=== PATIENT | male | born 1960 | race African-American/Black ===

== ENCOUNTER 2017-01-20 12:13 | Inpatient (IN) | payer OTHER ==
[2017-01-20 14:01] VITALS: BMI 26.6
--- NOTE | 2017-01-20 17:54 | HP ---
CIWA Score - CIWA Score Nausea/Vomitin-Mild Nausea/No Vomiting Muscle Tremors: 4-Moderate,w/Arms Extend Anxiety: 4-Mod. Anxious/Guarded Agitation: 4-Moderately Restless Paroxysmal Sweats: 2 Orientation: 1-Uncertain about Date Tacttile Disturbances: 0-None Auditory Disturbances: 0-None Visual Disturbances: 0-None Headache: 1-Very Mild CIWA-Ar Total Score: 17 Admission ROS S - HPI Chief Complaint: WITHDRAWAL SX Allergies/Adverse Reactions: Allergies Allergy/AdvReac Type Severity Reaction Status Date / Time pseudoephedrine AdvReac Severe dizziness Verified 01/20/17 15:16 and headache pork derived (porcine) AdvReac Mild Vomiting Verified 01/20/17 15:16 [Pork derived (porcine)] tomato [Tomato] AdvReac Mild diarrhea Verified 01/20/17 15:16 lobster AdvReac Intermediate Vomiting Uncoded 01/20/17 15:16 History of Present Illness: 56 YEARS OLD MALE WITH LONG HISTORY OF ALCOHOL COCAINE NICOTINE DEPENDENCE, HAS COPD WALKER FOR AMBULATION BIPOLAR IS ADMITTED TO DETOX Exam Limitations: No Limitations - Ebola screening Have you traveled outside of the country in the last 21 days: No Have you had contact with anyone from an Ebola affected area: No Have you been sick,other than usual withdrawal symptoms: No Do you have a fever: No - Review of Systems Constitutional: Chills, Changes in sleep, Weight Stable EENT: reports: No Symptoms Reported Respiratory: reports: Cough, SOB with Exertion Cardiac: reports: No Symptoms Reported GI: reports: Constipated, Nausea, Poor Fluid Intake, Indigestion, Abdominal cramping : reports: Dysuria Musculoskeletal: reports: Back Pain, Joint Pain (LEFT HIP) Integumentary: reports: Lesions (ECZEMA) Neuro: reports: Tremors Endocrine: reports: No Symptoms Reported Hematology: reports: No Symptoms Reported Psychiatric: reports: Judgement Intact, Anxious, Depressed Other Systems: Reviewed and Negative Patient History - Patient Medical History Hx Anemia: No Hx Asthma: Yes Hx Chronic Obstructive Pulmonary Disease (COPD): Yes Hx Cancer: No Hx Cardiac Disorders: No Hx Congestive Heart Failure: No Hx Hypertension: No Hx Hypercholesterolemia: Yes (LIPITOR, PLAVIX) Hx Pacemaker: No HX Cerebrovascular Accident: No (MAHONEY 10/2015) Hx Seizures: No Hx Dementia: No Hx Diabetes: No Hx Gastrointestinal Disorders: Yes (hiatal hernia/acid reflux) Hx Liver Disease: No Hx Genitourinary Disorders: No Hx Sexually Transmitted Disorders: No Hx Renal Disease (ESRD): No Hx Thyroid Disease: No Hx Human Immunodeficiency Virus (HIV): No Hx Hepatitis C: No Hx Depression: No Hx Suicide Attempt: No Hx Bipolar Disorder: Yes (seroquel and trazodone by hx ) Hx Schizophrenia: No - Patient Surgical History Past Surgical History: Yes Hx Neurologic Surgery: No Hx Cataract Extraction: No Hx Cardiac Surgery: Yes (CARDIAC CATH 01/05/16-) Hx Lung Surgery: No Hx Breast Surgery: No Hx Breast Biopsy: No Hx Abdominal Surgery: No Hx Appendectomy: No Hx Cholecystectomy: No Hx Genitourinary Surgery: No Hx Orthopedic Surgery: Yes (prosthetic left hip,rt. hip pinning,rt. hand with plate & 8 screws) Other Surgical History: TONSILLECTOMY A CHILD/right hand x4; B/L inguinal hernia repair Anesthesia Reaction: No - PPD History Previous Implant?: Yes Documented Results: Negative w/proof Implanted On Prior [facility] Admission?: Yes Date: 11/29/15 Results: 0 mm PPD to be Administered?: Yes - Smoking Cessation Smoking history: Current every day smoker Have you smoked in the past 12 months: Yes Aproximately how many cigarettes per day: 5 If you are a former smoker, when did you quit?: 5 Cigars Per Day: 0 Hx Chewing Tobacco Use: No Initiated information on smoking cessation: Yes 'Breaking Loose' booklet given: 01/20/17 - Substance & Tx. History Hx Alcohol Use: Yes Hx Substance Use: Yes Substance Use Type: Alcohol, Cocaine Hx Substance Use Treatment: Yes - Substances Abused Crack Route: Smoking Frequency: 1-3 times last 30 days Amount used: $200-300 Age of first use: 30 Date of Last Use: 01/17/17 Alcohol-vodka/rum Route: Oral Frequency: Daily Amount used: 2 pts VOLKA Age of first use: 12 Date of Last Use: 01/18/17 Family Disease History - Family Disease History Family Disease History: Diabetes: Grandparent (cva), Heart Disease: Grandparent , Father (cva), Mother (HYPERTENSION), Brother () Admission Physical Exam BHS - Vital Signs Vital Signs: Vital Signs - 24 hr 01/20/17 13:55 Temperature 97.6 F Pulse Rate 83 Respiratory 18 Rate Blood Pressure 131/76 - Physical General Appearance: Yes: Nourished, Appropriately Dressed, Mild Distress, Tremorous, Irritable, Sweating, Anxious HEENTM: Yes: Hearing grossly Normal, Normal ENT Inspection, Normocephalic, Normal Voice Respiratory: Yes: Chest Non-Tender, No Respiratory Distress, No Accessory Muscle Use, Hyperresonant, Inspiration Neck: Yes: Supple, Trachea in good position Breast: Yes: Breasts Symetrical Cardiology: Yes: Regular Rhythm, Regular Rate, S1, S2 Abdominal: Yes: Non Tender, Soft Genitourinary: Yes: Within Normal Limits Back: Yes: Normal Inspection Musculoskeletal: Yes: Back pain, Joint swelling (FEET), Muscle Pain (LEFT HIP) Extremities: Yes: Non-Tender, Tremors, Other (LIMP TO THE LEFT) Neurological: Yes: Alert, Normal Response Integumentary: Yes: Warm Lymphatic: Yes: Within Normal Limits - Diagnostic (1) Alcohol dependence with uncomplicated withdrawal Current Visit: Yes Status: Acute (2) Asthma Current Visit: Yes Status: Acute Qualifiers: Asthma severity: mild intermittent Asthma complication type: uncomplicated Qualified Code(s): J45.20 - Mild intermittent asthma, uncomplicated (3) COPD (chronic obstructive pulmonary disease) Current Visit: Yes Status: Acute Qualifiers: COPD type: chronic bronchitis Chronic bronchitis type: simple Qualified Code(s): J41.0 - Simple chronic bronchitis (4) Eczema Current Visit: Yes Status: Acute Qualifiers: Eczema type: flexural Qualified Code(s): L20.82 - Flexural eczema (5) Hypercholesterolemia Current Visit: Yes Status: Acute (6) Nicotine dependence Current Visit: Yes Status: Acute Qualifiers: Nicotine product type: cigarettes Substance use status: in withdrawal Qualified Code(s): F17.213 - Nicotine dependence, cigarettes, with withdrawal (7) Walker as ambulation aid Current Visit: Yes Status: Chronic (8) Bipolar II disorder Current Visit: Yes Status: Suspected Cleared for Admission S - Detox or Rehab [facility] Level of Care: Medically Managed Detox Regimen/Protocol: Librium S Breath Alcohol Content Breath Alcohol Content: 0 Urine Drug Screen - Results Drug Screen Negative: No Urine Drug Screen Results: CHIP-Cocaine
[2017-01-20] MEDS ORDERED: NICOTINE POLACRILEX 2 MG GUM BC PRN (17:56)
[2017-01-20] MEDS ORDERED: MAG HYDROX/AL HYDROX/SIMETH 30 ML UNIT-DOSE CUP PO PRN (17:56)
[2017-01-20] MEDS ORDERED: MENTHOL/PHENOL 1 EACH UD MM PRN (17:56)
[2017-01-20] MEDS ORDERED: P-EPHED 60MG/TRIPROLIDI 2.5MG TABLET PO PRN (17:56)
[2017-01-20] MEDS ORDERED: MAGNESIUM CITRATE 300 ML BOTTLE PO PRN (17:56)
[2017-01-20] MEDS ORDERED: hydrOXYzine PAMOATE 50 MG CAPSULE (FP) PO PRN (17:56)
[2017-01-20] MEDS ORDERED: diphenhydrAMINE HCL 50 MG CAPSULE PO PRN (17:56)
[2017-01-20] MEDS ORDERED: MAGNESIUM HYDROX 2400MG/30ML ORAL SUSPENSION 30 ML CUP PO PRN (17:56)
[2017-01-20] MEDS ORDERED: chlordiazePOXIDE HCL 25 MG CAPSULE PO PRN (17:56)
[2017-01-20] MEDS ORDERED: IBUPROFEN 400 MG TABLET (FP) PO PRN (17:56)
[2017-01-20] MEDS ORDERED: LOPERAMIDE HCL 2 MG CAPSULE PO PRN (17:56)
[2017-01-20] MEDS ORDERED: guaiFENesin/D-METHORPHAN HB 10 ML UNIT-DOSE CUPS PO PRN (17:56)
[2017-01-20] MEDS ORDERED: ALBUTEROL SO4 6.7 GM HFA INHALER IH PRN (18:00)
[2017-01-20] MEDS ORDERED: ALBUTEROL SO4 2.5/IPRATROPIUM 0.5 INH SOL 3 ML VIAL.NEB. NEB PRN (18:00)
[2017-01-20] MEDS ORDERED: COLLOIDAL OATMEAL 1 BAR EACH TP PRN (18:03)
[2017-01-20] MEDS: chlordiazePOXIDE HCL 25 MG CAPSULE PO SCH (22:45)
[2017-01-20] MEDS: THIAMINE HCL 100 MG TABLET (FP) PO SCH (22:45)
[2017-01-20] MEDS: ARTIFICIAL TEARS (POLYVINYL ALCOHOL 1.4%) OPTH DROPS OU SCH (22:46)
[2017-01-20] MEDS: TRIAMCINOLONE ACET 0.1% OINT 15 GM TUBE TP SCH (22:46)
[2017-01-20] MEDS: ATORVASTATIN CA 20 MG TABLET (FP) PO SCH (22:46)
[2017-01-20 23:09] LABS: URINE APPEARANCE CLEAR; URINE BILIRUBIN NEGATIVE (NEGATIVE); URINE BLOOD NEGATIVE (NEGATIVE); URINE COLOR YELLOW; URINE GLUCOSE (UA) NEGATIVE (NEGATIVE); URINE KETONE NEGATIVE (NEGATIVE); URINE LEUK ESTERASE NEGATIVE (NEGATIVE); URINE NITRITE NEGATIVE (NEGATIVE); URINE PROTEIN NEGATIVE (NEGATIVE); URINE UROBILINOGEN 4.0 E.U/dl E.U./dl (0.2-1.0)
[2017-01-21] MEDS: chlordiazePOXIDE HCL 25 MG CAPSULE PO SCH ×4 (05:38→22:47)
[2017-01-21] MEDS: TAMSULOSIN HCL 0.4 MG CAP.ER.24H (FP) PO SCH (08:53)
[2017-01-21] MEDS: ACETAMINOPHEN 325 MG TABLET (FP) PO PRN (08:55)
[2017-01-21 10:29] LABS: MCHC 33.5 g/dl (32.0-35.9); MEAN CELL VOLUME 86.4 fl (80-96); MEAN PLT VOLUME 11.5 fl (7.5-11.1); PLATELET COUNT 193 K/MM3 (134-434); RDW 14.6 % (11.9-15.9); WHITE BLOOD COUNT 5.7 K/mm3 (4.0-10.0)
[2017-01-21] MEDS: TRIAMCINOLONE ACET 0.1% OINT 15 GM TUBE TP SCH ×4 (10:33→22:48)
[2017-01-21] MEDS: LIDOCAINE 5% TOPICAL PATCH TP SCH (10:34)
[2017-01-21] MEDS: PRENATAL VITAMINS W/ FOLIC ACID TABLET (FP) PO SCH (10:34)
[2017-01-21] MEDS: ARTIFICIAL TEARS (POLYVINYL ALCOHOL 1.4%) OPTH DROPS OU SCH ×4 (10:34→22:48)
--- NOTE | 2017-01-21 10:36 | CONSULT ---
[facility] Psychiatric Consult - Data Date of interview: 01/21/17 Admission source: [facility] Identifying data: Another admisssion to [facility] for this 55 y/o AA male seeking detox treatment on for alcohol and cocaine dependence.Patient is single,a father of two,domiciled,unemployed and supported on [facility] benefits. Substance Abuse History: - Smoking Cessation. Smoking history: Current every day smoker. Have you smoked in the past 12 months: Yes. Aproximately how many cigarettes per day: 5. If you are a former smoker, when did you quit?: 5. Cigars Per Day: 0. Hx Chewing Tobacco Use: No. Initiated information on smoking cessation: Yes. 'Breaking Loose' booklet given: 01/20/17. - Substance & Tx. History. Hx Alcohol Use: Yes. Hx Substance Use: Yes. Substance Use Type : Alcohol, Cocaine. Hx Substance Use Treatment: Yes. - Substances Abused. Crack. Route: Smoking. Frequency: 1-3 times last 30 days. Amount used: $200- 300. Age of first use: 30. Date of Last Use: 01/17/17. Alcohol-vodka/rum. Route: Oral. Frequency: Daily. Amount used: 2 pts VOLKA. Age of first use: 12. Date of Last Use: 01/18/17. Confirmed by the patient in this session. Medical History: Bronchial asthma,GERD,hypertension,hypercholesterolemia,Valencia's palsy (2015),COPD and BPH (benign prostatic hyperplasia).History of orthopedic surgery : prosthetic left hip,right hip pinning and right hand (plate and screws in situ).Noted history of tonsillectomy (childhood) and bilateral inguinal heniorraphy. Psychiatric History: Recent onset of psychiatric disturbances (seven years ago) .Diagnosed with Major Depressive Disorder.Revised recently as Bipolar Disorder.Mr Euceda reports current treatment at [facility] where he is maintained on seroquel 200 mg/hs + trazodone 150 mg/hs.Parul states that he last took his medications four days ago.No history of suicide attempts. Physical/Sexual Abuse/Trauma History: Patient denies. Additional Comment: Urine Drug Screen Results: CHIP-Cocaine.Noted. Mental Status Exam - Mental Status Exam Alert and Oriented to: Time, Place, Person Cognitive Function: Good Patient Appearance: Well Groomed Mood: Withdrawn, Anxious, Hopeful Affect: Mood Congruent Patient Behavior: Fatigued, Cooperative Speech Pattern: Clear Voice Loudness: Normal Thought Process: Goal Oriented Thought Disorder: Not Present Hallucinations: Denies Suicidal Ideation: Denies Homicidal Ideation: Denies Insight/Judgement: Fair Appetite: Good Muscle strength/Tone: Normal Gait/Station: Other (walks with a limp) Psychiatric Findings - Problem List ([place] 1, 2,3) (1) Alcohol dependence with uncomplicated withdrawal Current Visit: Yes Status: Acute (2) Cocaine dependence Current Visit: Yes Status: Acute (3) Nicotine dependence Current Visit: Yes Status: Acute Qualifiers: Nicotine product type: cigarettes Substance use status: in withdrawal Qualified Code(s): F17.213 - Nicotine dependence, cigarettes, with withdrawal (4) Substance induced mood disorder Current Visit: Yes Status: Chronic (5) Bipolar II disorder Current Visit: Yes Status: Chronic Comment: History. (6) Asthma Current Visit: Yes Status: Chronic Qualifiers: Asthma severity: mild intermittent Asthma complication type: uncomplicated Qualified Code(s): J45.20 - Mild intermittent asthma, uncomplicated (7) COPD (chronic obstructive pulmonary disease) Current Visit: Yes Status: Chronic Qualifiers: COPD type: chronic bronchitis Chronic bronchitis type: simple Qualified Code(s): J41.0 - Simple chronic bronchitis (8) Eczema Current Visit: Yes Status: Chronic Qualifiers: Eczema type: flexural Qualified Code(s): L20.82 - Flexural eczema (9) Hypercholesterolemia Current Visit: Yes Status: Chronic (10) Benign prostatic hypertrophy without outflow obstruction Current Visit: Yes Status: Chronic (11) Chronic low back pain Current Visit: Yes Status: Chronic Qualifiers: Back pain laterality: bilateral (12) Essential hypertension Current Visit: Yes Status: Chronic (13) Gastroesophageal reflux disease Current Visit: Yes Status: Chronic Qualifiers: Esophagitis presence: without esophagitis Qualified Code(s): K21.9 - Gastro-esophageal reflux disease without esophagitis (14) History of scoliosis Current Visit: Yes Status: Chronic - Initial Treatment Plan Initial Treatment Plan: Psychoeducation.Detoxification.Medications seroquel 200 mg po hs + trazodone 150 mg po hs.Side effects/benefits discusssed with patient.Made aware of the risk of priapism (trazodone).He agrees with this plan.Observation.Medications confirmed by review of pharmacy claims on 12/06/16 @ [facility].
[2017-01-21] MEDS: NICOTINE 14 MG/24 HOURS TOPICAL PATCH TD SCH (10:37)
[2017-01-21 10:49] LABS: ALBUMIN 3.6 g/dl (3.4-5.0); ALK PHOS 107 U/L (45-117); ANION GAP 9 (8-16); BILIRUBIN,TOTAL 0.6 mg/dL (0.2-1.0); CALCIUM 9.8 mg/dL (8.5-10.1); CO2 27 mmol/L (21-32); CREATININE 0.9 mg/dL (0.7-1.3); GLUCOSE,RANDOM 124 mg/dL (74-106); SGOT/AST 26 U/L (15-37); SGPT/ALT 23 U/L (12-78); TOT PROT 6.5 g/dl (6.4-8.2)
--- NOTE | 2017-01-21 10:49 | PN ---
[facility] CIWA - CIWA Score Nausea/Vomitin-No Nausea/No Vomiting Muscle Tremors: 4-Moderate,w/Arms Extend Anxiety: 4-Mod. Anxious/Guarded Agitation: 4-Moderately Restless Paroxysmal Sweats: 1-Minimal Palms Moist Orientation: 0-Oriented Tacttile Disturbances: 3-Moderate Itch/Numb/Burn Auditory Disturbances: 0-None Visual Disturbances: 0-None Headache: 0-None Present CIWA-Ar Total Score: 16 BHS Progress Note (SOAP) Subjective: ANXIETY,SWEATS,TREMORS,JOINT PAINS. Objective: 01/21/17 10:48 Vital Signs Temperature 98.5 F 01/21/17 10:12 Pulse Rate 79 01/21/17 10:12 Respiratory Rate 18 01/21/17 10:12 Blood Pressure 117/73 01/21/17 10:12 O2 Sat by Pulse Oximetry (%) Laboratory Last Values Urine Color Yellow 01/20/17 22:50 Urine Appearance Clear 01/20/17 22:50 Urine pH 7.0 (5.0-8.0) 01/20/17 22:50 Ur Specific [place] 1.019 (1.001-1.035) 01/20/17 22:50 Urine Protein Negative (NEGATIVE) 01/20/17 22:50 Urine Glucose (UA) Negative (NEGATIVE) 01/20/17 22:50 Urine Ketones Negative (NEGATIVE) 01/20/17 22:50 Urine Blood Negative (NEGATIVE) 01/20/17 22:50 Urine Nitrite Negative (NEGATIVE) 01/20/17 22:50 Urine Bilirubin Negative (NEGATIVE) 01/20/17 22:50 Urine Urobilinogen 4.0 e.u/dl E.U./dl (0.2-1.0) 01/20/17 22:50 Ur Leukocyte Esterase Negative (NEGATIVE) 01/20/17 22:50 Assessment: 01/21/17 10:49 WITHDRAWAL SX Plan: CONTINUE DETOX
[2017-01-21 11:03] LABS: HIV 1 & 2 AB NEGATIVE; HIV 1 AGp24 NEGATIVE
--- NOTE | 2017-01-21 11:07 | EKG ---
Test Reason : Blood Pressure : / mmHG Vent. Rate : 071 BPM Atrial Rate : 071 BPM P-R Int : 158 ms QRS Dur : 092 ms QT Int : 378 ms P-R-T Axes : 042 024 026 degrees QTc Int : 410 ms NORMAL SINUS RHYTHM MODERATE VOLTAGE CRITERIA FOR LVH, MAY BE NORMAL VARIANT EARLY REPOLARIZATION BORDERLINE ECG WHEN COMPARED WITH ECG OF 10-MAR-2016 22:12, ST SEGMENT VARIATION Confirmed by SAIMA BENNETT, CAROL ([id number]) on 01/21/2017 11:07:09 AM Referred By: Confirmed By:CAROL LANDAVERDE MD
[2017-01-21] MEDS: THIAMINE HCL 100 MG TABLET (FP) PO SCH (22:47)
[2017-01-21] MEDS: ATORVASTATIN CA 20 MG TABLET (FP) PO SCH (22:47)
[2017-01-21] MEDS: traZODone HCL 50 MG TABLET (FP) PO SCH (22:47)
[2017-01-21] MEDS: QUEtiapine FUMARATE 200 MG TABLET PO SCH (22:47)
[2017-01-22] MEDS: chlordiazePOXIDE HCL 25 MG CAPSULE PO SCH ×3 (06:03→17:43)
[2017-01-22] MEDS: ACETAMINOPHEN 325 MG TABLET (FP) PO PRN (06:04)
[2017-01-22] MEDS: PRENATAL VITAMINS W/ FOLIC ACID TABLET (FP) PO SCH (10:39)
[2017-01-22] MEDS: TAMSULOSIN HCL 0.4 MG CAP.ER.24H (FP) PO SCH (10:40)
[2017-01-22] MEDS: ARTIFICIAL TEARS (POLYVINYL ALCOHOL 1.4%) OPTH DROPS OU SCH ×4 (12:33→22:52)
[2017-01-22] MEDS: TRIAMCINOLONE ACET 0.1% OINT 15 GM TUBE TP SCH ×4 (12:33→22:52)
[2017-01-22] MEDS: LIDOCAINE 5% TOPICAL PATCH TP SCH (12:33)
[2017-01-22] MEDS: NICOTINE 14 MG/24 HOURS TOPICAL PATCH TD SCH (12:33)
--- NOTE | 2017-01-22 12:37 | PN ---
[facility] CIWA - CIWA Score Nausea/Vomitin-No Nausea/No Vomiting Muscle Tremors: 4-Moderate,w/Arms Extend Anxiety: 4-Mod. Anxious/Guarded Agitation: 4-Moderately Restless Paroxysmal Sweats: 1-Minimal Palms Moist Orientation: 0-Oriented Tacttile Disturbances: 3-Moderate Itch/Numb/Burn Auditory Disturbances: 0-None Visual Disturbances: 0-None Headache: 0-None Present CIWA-Ar Total Score: 16 S Progress Note (SOAP) Subjective: ANXIETY,TREMORS,SWEATS,BODY ACHES. Objective: 01/22/17 12:37 Vital Signs Temperature 97.0 F L 01/22/17 09:56 Pulse Rate 90 01/22/17 09:56 Respiratory Rate 20 01/22/17 09:56 Blood Pressure 121/78 01/22/17 09:56 O2 Sat by Pulse Oximetry (%) Laboratory Last Values WBC 5.7 K/mm3 (4.0-10.0) D 01/21/17 06:00 RBC 4.66 M/mm3 (4.00-5.60) 01/21/17 06:00 Hgb 13.5 GM/dL (11.7-16.9) 01/21/17 06:00 Hct 40.3 % (35.4-49) 01/21/17 06:00 MCV 86.4 fl (80-96) 01/21/17 06:00 MCHC 33.5 g/dl (32.0-35.9) 01/21/17 06:00 RDW 14.6 % (11.9-15.9) 01/21/17 06:00 Plt Count 193 K/MM3 (134-434) 01/21/17 06:00 MPV 11.5 fl (7.5-11.1) H D 01/21/17 06:00 Sodium 144 mmol/L (136-145) 01/21/17 06:00 Potassium 3.7 mmol/L (3.5-5.1) 01/21/17 06:00 Chloride 108 mmol/L (98-107) H 01/21/17 06:00 Carbon Dioxide 27 mmol/L (21-32) D 01/21/17 06:00 Anion Gap 9 (8-16) 01/21/17 06:00 BUN 16 mg/dL (7-18) 01/21/17 06:00 Creatinine 0.9 mg/dL (0.7-1.3) 01/21/17 06:00 Creat Clearance w eGFR > 60 (>60) 01/21/17 06:00 Random Glucose 124 mg/dL (74-106) H 01/21/17 06:00 Calcium 9.8 mg/dL (8.5-10.1) 01/21/17 06:00 Total Bilirubin 0.6 mg/dL (0.2-1.0) D 01/21/17 06:00 AST 26 U/L (15-37) 01/21/17 06:00 ALT 23 U/L (12-78) D 01/21/17 06:00 Alkaline Phosphatase 107 U/L (45-117) 01/21/17 06:00 Total Protein 6.5 g/dl (6.4-8.2) 01/21/17 06:00 Albumin 3.6 g/dl (3.4-5.0) 01/21/17 06:00 Urine Color Yellow 01/20/17 22:50 Urine Appearance Clear 01/20/17 22:50 Urine pH 7.0 (5.0-8.0) 01/20/17 22:50 Ur Specific [place] 1.019 (1.001-1.035) 01/20/17 22:50 Urine Protein Negative (NEGATIVE) 01/20/17 22:50 Urine Glucose (UA) Negative (NEGATIVE) 01/20/17 22:50 Urine Ketones Negative (NEGATIVE) 01/20/17 22:50 Urine Blood Negative (NEGATIVE) 01/20/17 22:50 Urine Nitrite Negative (NEGATIVE) 01/20/17 22:50 Urine Bilirubin Negative (NEGATIVE) 01/20/17 22:50 Urine Urobilinogen 4.0 e.u/dl E.U./dl (0.2-1.0) 01/20/17 22:50 Ur Leukocyte Esterase Negative (NEGATIVE) 01/20/17 22:50 RPR Titer Nonreactive (NONREACTIVE) 01/21/17 06:00 Hepatitis C Antibody <0.1 s/co ratio (0.0-0.9) 01/20/17 06:00 HIV 1&2 Antibody Screen Negative 01/20/17 08:00 HIV P24 Antigen Negative 01/20/17 08:00 Assessment: 01/22/17 12:37 WITHDRAWAL SX Plan: CONTINUE DETOX
[2017-01-22] MEDS: CYCLOBENZAPRINE HCL 10 MG TABLET (FP) PO SCH ×2 (16:16→22:52)
[2017-01-22] MEDS: ATORVASTATIN CA 20 MG TABLET (FP) PO SCH (22:52)
[2017-01-22] MEDS: traZODone HCL 50 MG TABLET (FP) PO SCH (22:52)
[2017-01-22] MEDS: THIAMINE HCL 100 MG TABLET (FP) PO SCH (22:52)
[2017-01-22] MEDS: QUEtiapine FUMARATE 200 MG TABLET PO SCH (22:52)
[2017-01-22] MEDS: chlordiazePOXIDE 5 MG CAPSULE PO SCH (22:54)
[2017-01-23] MEDS: chlordiazePOXIDE 5 MG CAPSULE PO SCH ×3 (06:03→17:56)
[2017-01-23] MEDS: CYCLOBENZAPRINE HCL 10 MG TABLET (FP) PO SCH ×3 (06:03→23:02)
[2017-01-23] MEDS: PRENATAL VITAMINS W/ FOLIC ACID TABLET (FP) PO SCH (10:44)
[2017-01-23] MEDS: ARTIFICIAL TEARS (POLYVINYL ALCOHOL 1.4%) OPTH DROPS OU SCH ×4 (10:44→23:03)
[2017-01-23] MEDS: NICOTINE 14 MG/24 HOURS TOPICAL PATCH TD SCH (10:44)
[2017-01-23] MEDS: TAMSULOSIN HCL 0.4 MG CAP.ER.24H (FP) PO SCH (10:44)
[2017-01-23] MEDS: TRIAMCINOLONE ACET 0.1% OINT 15 GM TUBE TP SCH ×4 (10:44→23:03)
[2017-01-23] MEDS: LIDOCAINE 5% TOPICAL PATCH TP SCH (10:45)
--- NOTE | 2017-01-23 11:16 | PN ---
BHS Progress Note (SOAP) Subjective: DECREASED ANXIETY,SWEATS,TREMORS. SLIGHT BODY ACHES. Objective: 01/23/17 11:15 Vital Signs Temperature 97.0 F L 01/23/17 09:51 Pulse Rate 94 H 01/23/17 09:51 Respiratory Rate 16 01/23/17 09:51 Blood Pressure 128/76 01/23/17 09:51 O2 Sat by Pulse Oximetry (%) Assessment: 01/23/17 11:15 WITHDRAWAL SX Plan: CONTINUE DETOX
--- NOTE | 2017-01-23 21:41 | PN ---
BHS Progress Note Note: received nurse call refuse librium 15 mg x 1 less withdrawal sx observation care level
[2017-01-23 22:33] VITALS: BP 142/85; PULSE 89; TEMP 97
[2017-01-23] MEDS: chlordiazePOXIDE HCL 10 MG CAPSULE PO SCH (23:02)
[2017-01-23] MEDS: traZODone HCL 50 MG TABLET (FP) PO SCH (23:02)
[2017-01-23] MEDS: QUEtiapine FUMARATE 200 MG TABLET PO SCH (23:03)
[2017-01-23] MEDS: THIAMINE HCL 100 MG TABLET (FP) PO SCH (23:03)
[2017-01-23] MEDS: ATORVASTATIN CA 20 MG TABLET (FP) PO SCH (23:03)
[2017-01-24] MEDS: CYCLOBENZAPRINE HCL 10 MG TABLET (FP) PO SCH (05:43)
[2017-01-24] MEDS: chlordiazePOXIDE HCL 10 MG CAPSULE PO SCH (05:43)
--- NOTE | 2017-01-24 09:56 | DS ---
[facility] Detox Discharge Summary Admission Date: 01/20/17 Discharge Date: 01/24/17 - History Present History: Alcohol Dependence, Cocaine Dependence Pertinent Past History: BPH HTN Hypercholesterolemia STEMI Asthma - Physical Exam Results Vital Signs: Vital Signs Temperature 97.0 F L 01/23/17 22:32 Pulse Rate 89 01/23/17 22:32 Respiratory Rate 18 01/24/17 00:30 Blood Pressure 142/85 01/23/17 22:32 O2 Sat by Pulse Oximetry (%) Pertinent Admission Physical Exam Findings: Withdrawal sx. Laboratory Last Values WBC 5.7 K/mm3 (4.0-10.0) D 01/21/17 06:00 RBC 4.66 M/mm3 (4.00-5.60) 01/21/17 06:00 Hgb 13.5 GM/dL (11.7-16.9) 01/21/17 06:00 Hct 40.3 % (35.4-49) 01/21/17 06:00 MCV 86.4 fl (80-96) 01/21/17 06:00 MCHC 33.5 g/dl (32.0-35.9) 01/21/17 06:00 RDW 14.6 % (11.9-15.9) 01/21/17 06:00 Plt Count 193 K/MM3 (134-434) 01/21/17 06:00 MPV 11.5 fl (7.5-11.1) H D 01/21/17 06:00 Sodium 144 mmol/L (136-145) 01/21/17 06:00 Potassium 3.7 mmol/L (3.5-5.1) 01/21/17 06:00 Chloride 108 mmol/L (98-107) H 01/21/17 06:00 Carbon Dioxide 27 mmol/L (21-32) D 01/21/17 06:00 Anion Gap 9 (8-16) 01/21/17 06:00 BUN 16 mg/dL (7-18) 01/21/17 06:00 Creatinine 0.9 mg/dL (0.7-1.3) 01/21/17 06:00 Creat Clearance w eGFR > 60 (>60) 01/21/17 06:00 Random Glucose 124 mg/dL (74-106) H 01/21/17 06:00 Calcium 9.8 mg/dL (8.5-10.1) 01/21/17 06:00 Total Bilirubin 0.6 mg/dL (0.2-1.0) D 01/21/17 06:00 AST 26 U/L (15-37) 01/21/17 06:00 ALT 23 U/L (12-78) D 01/21/17 06:00 Alkaline Phosphatase 107 U/L (45-117) 01/21/17 06:00 Total Protein 6.5 g/dl (6.4-8.2) 01/21/17 06:00 Albumin 3.6 g/dl (3.4-5.0) 01/21/17 06:00 Urine Color Yellow 01/20/17 22:50 Urine Appearance Clear 01/20/17 22:50 Urine pH 7.0 (5.0-8.0) 01/20/17 22:50 Ur Specific [place] 1.019 (1.001-1.035) 01/20/17 22:50 Urine Protein Negative (NEGATIVE) 01/20/17 22:50 Urine Glucose (UA) Negative (NEGATIVE) 01/20/17 22:50 Urine Ketones Negative (NEGATIVE) 01/20/17 22:50 Urine Blood Negative (NEGATIVE) 01/20/17 22:50 Urine Nitrite Negative (NEGATIVE) 01/20/17 22:50 Urine Bilirubin Negative (NEGATIVE) 01/20/17 22:50 Urine Urobilinogen 4.0 e.u/dl E.U./dl (0.2-1.0) 01/20/17 22:50 Ur Leukocyte Esterase Negative (NEGATIVE) 01/20/17 22:50 RPR Titer Nonreactive (NONREACTIVE) 01/21/17 06:00 Hepatitis C Antibody <0.1 s/co ratio (0.0-0.9) 01/20/17 06:00 HIV 1&2 Antibody Screen Negative 01/20/17 08:00 HIV P24 Antigen Negative 01/20/17 08:00 labs noted - Treatment Hospital Course: Detox Protocol Followed, Detoxed Safely, Responded well, Discharged Condition Good, Rehab Referral Accepted - Medication Discharge Medications: Ambulatory Orders Lidocaine 5% Patch [Lidoderm -] 2 patch TP DAILY 02/19/15 Albuterol Sulfate Inhaler - [Ventolin HFA Inhaler -] 2 inh IH Q4H PRN #1 inh 08/01 Tamsulosin HCl [Flomax -] 0.4 mg PO DAILY #30 cap.er.24h 11/06/15 Acetaminophen [Tylenol] 650 mg PO Q6H PRN 03/07/16 Docusate Sodium [Colace -] 100 mg PO DAILY PRN 03/07/16 Trazodone HCl [Desyrel -] 150 mg PO HS PRN 03/07/16 Quetiapine Fumarate [Seroquel -] 200 mg PO HS #30 tablet 03/08/16 Atorvastatin Ca [Lipitor] 20 mg PO HS 06/23/16 Dextran 70/Hypromellose [Artificial Tears Eye Drops] 2 drop OP Q2H 01/20/17 Famotidine [Pepcid] 20 mg PO HS 01/20/17 Triamcinolone 0.1% Ointment [Aristocort 0.1% Ointment -] 1 applic TP BID Quetiapine Fumarate [Seroquel -] 200 mg PO HS #30 tab 01/21/17 Trazodone HCl 100 mg PO HS #30 tablet 01/21/17 - Diagnosis (1) Alcohol dependence with uncomplicated withdrawal Status: Acute (2) Bipolar II disorder, mild, depressed, with anxious distress, in full remission Status: Acute (3) Cocaine dependence Status: Acute (4) Nicotine dependence Status: Acute Qualifiers: Nicotine product type: cigarettes Substance use status: in withdrawal Qualified Code(s): F17.213 - Nicotine dependence, cigarettes, with withdrawal (5) Asthma Status: Chronic Qualifiers: Asthma severity: mild intermittent Asthma complication type: uncomplicated Qualified Code(s): J45.20 - Mild intermittent asthma, uncomplicated (6) Benign prostatic hypertrophy without outflow obstruction Status: Chronic (7) Bipolar II disorder Status: Chronic (8) Essential hypertension Status: Chronic (9) Gastroesophageal reflux disease Status: Chronic Qualifiers: Esophagitis presence: without esophagitis Qualified Code(s): K21.9 - Gastro-esophageal reflux disease without esophagitis (10) History of scoliosis Status: Chronic (11) Hypercholesterolemia Status: Chronic (12) Substance induced mood disorder Status: Chronic - AMA Did Patient Leave Against Medical Advice: No
== END 2017-01-24 05:48 | disposition home or self-care (01) | DRG 774 ==
LOC: YASAS 12:13 → Y3N 17:34
PROVIDERS: ADMIT Internal Medicine; ATTEND Internal Medicine
PROC: HZ2ZZZZ Detoxification Services for Substance Abuse Treatment (ICD-10-PCS; principal; 2017-01-24)
DX: F10.230 Alcohol dependence with withdrawal, uncomplicated (principal); F14.20 Cocaine dependence, uncomplicated; F17.213 Nicotine dependence, cigarettes, with withdrawal; F31.81 Bipolar II disorder; F19.24 Other psychoactive substance dependence with psychoactive substance-induced mood disorder; J45.20 Mild intermittent asthma, uncomplicated; J41.0 Simple chronic bronchitis; K21.9 Gastro-esophageal reflux disease without esophagitis; E78.00 Pure hypercholesterolemia, unspecified; M41.9 Scoliosis, unspecified; N40.0 Benign prostatic hyperplasia without lower urinary tract symptoms; L20.82 Flexural eczema
CPT/HCPCS: 36415; 80053; 81003; 85027; 86593; 87389; 93005; 93010

== ENCOUNTER 2017-04-18 16:59 | Inpatient (IN) | payer OTHER ==
[2017-04-18 18:05] VITALS: BMI 26.6
--- NOTE | 2017-04-18 19:17 | HP ---
CIWA Score - CIWA Score Nausea/Vomitin-Mild Nausea/No Vomiting Muscle Tremors: 4-Moderate,w/Arms Extend Anxiety: 4-Mod. Anxious/Guarded Agitation: 4-Moderately Restless Paroxysmal Sweats: 1-Minimal Palms Moist Orientation: 1-Uncertain about Date Tacttile Disturbances: 0-None Auditory Disturbances: 0-None Visual Disturbances: 0-None Headache: 0-None Present CIWA-Ar Total Score: 15 Admission ROS S - HPI Chief Complaint: WITHDRAWAL SX Allergies/Adverse Reactions: Allergies Allergy/AdvReac Type Severity Reaction Status Date / Time pseudoephedrine AdvReac Severe dizziness Verified 04/18/17 18:39 and headache pork derived (porcine) AdvReac Mild Vomiting Verified 04/18/17 18:39 [Pork derived (porcine)] tomato [Tomato] AdvReac Mild diarrhea Verified 04/18/17 18:39 lobster AdvReac Intermediate Vomiting Uncoded 04/18/17 18:39 History of Present Illness: 56 YEARS OLD MALE WITH LONG HISTORY OF ALCOHOL COCAINE DEPENDENCE HAS BPH, HYPERLIPIDEMIA, CHRONIC LUMBAR RIGHT HIP PAIN, COPD, ECZEM GERD AND BIPOLAR II IS ADMITTED TO DETOX Exam Limitations: No Limitations - Ebola screening Have you traveled outside of the country in the last 21 days: No Have you had contact with anyone from an Ebola affected area: No Have you been sick,other than usual withdrawal symptoms: No Do you have a fever: No - Review of Systems Constitutional: Chills, Changes in sleep, Weight Stable EENT: reports: Dental Problems (PREPARATION FOR UPPER FRONT DENTURE) Respiratory: reports: SOB with Exertion Cardiac: reports: No Symptoms Reported GI: reports: Nausea, Poor Fluid Intake, Indigestion, Abdominal cramping : reports: Dysuria Musculoskeletal: reports: Back Pain, Joint Pain (RIGHT HIP) Integumentary: reports: Lesions (PSORIASIS) Neuro: reports: Tremors Endocrine: reports: No Symptoms Reported Hematology: reports: No Symptoms Reported Psychiatric: reports: Judgement Intact, Anxious, Depressed Other Systems: Reviewed and Negative Patient History - Patient Medical History Hx Anemia: No Hx Asthma: Yes Hx Chronic Obstructive Pulmonary Disease (COPD): Yes Hx Cancer: No Hx Cardiac Disorders: No Hx Congestive Heart Failure: No Hx Hypertension: No Hx Hypercholesterolemia: Yes (LIPITOR, PLAVIX) Hx Pacemaker: No HX Cerebrovascular Accident: No (DENZEL 10/2015) Hx Seizures: No Hx Dementia: No Hx Diabetes: No Hx Gastrointestinal Disorders: Yes (hiatal hernia/acid reflux) Hx Liver Disease: No Hx Genitourinary Disorders: No Hx Sexually Transmitted Disorders: No Hx Renal Disease (ESRD): No Hx Thyroid Disease: No Hx Human Immunodeficiency Virus (HIV): No Hx Hepatitis C: No Hx Depression: No Hx Suicide Attempt: No Hx Bipolar Disorder: Yes (seroquel and trazodone by hx ) Hx Schizophrenia: No - Patient Surgical History Past Surgical History: Yes Hx Neurologic Surgery: No Hx Cataract Extraction: No Hx Cardiac Surgery: Yes (CARDIAC CATH 01/05/16-) Hx Lung Surgery: No Hx Breast Surgery: No Hx Breast Biopsy: No Hx Abdominal Surgery: No Hx Appendectomy: No Hx Cholecystectomy: No Hx Genitourinary Surgery: No Hx Orthopedic Surgery: Yes (prosthetic left hip,rt. hip pinning,rt. hand with plate & 8 screws) Other Surgical History: TONSILLECTOMY A CHILD/right hand x4; B/L inguinal hernia repair Anesthesia Reaction: No - PPD History Previous Implant?: Yes Documented Results: Negative w/proof Implanted On Prior [facility] Admission?: Yes Date: 01/22/17 Results: 0 mm PPD to be Administered?: No - Smoking Cessation Smoking history: Former smoker Have you smoked in the past 12 months: No Aproximately how many cigarettes per day: 0 If you are a former smoker, when did you quit?: 0 Cigars Per Day: 0 Hx Chewing Tobacco Use: No Initiated information on smoking cessation: No - Substance & Tx. History Hx Alcohol Use: Yes Hx Substance Use: Yes Substance Use Type: Alcohol, Cocaine Hx Substance Use Treatment: Yes - Substances Abused Alcohol Route: Oral Frequency: Daily Amount used: liquor- 3 pints, beer- 1 six pack Age of first use: 12 Date of Last Use: 04/18/17 Cocaine Route: Inhalation Frequency: Daily Amount used: 4 gm Age of first use: 28 Date of Last Use: 04/18/17 Family Disease History - Family Disease History Family Disease History: Diabetes: Grandparent (cva), Heart Disease: Grandparent , Father (cva), Mother (HYPERTENSION), Brother () Admission Physical Exam BHS - Vital Signs Vital Signs: Vital Signs - 24 hr 04/18/17 18:01 Temperature 98.7 F Pulse Rate 121 H Respiratory 20 Rate Blood Pressure 139/96 - Physical General Appearance: Yes: Appropriately Dressed, Mild Distress, Tremorous, Irritable, Sweating, Anxious HEENTM: Yes: Hearing grossly Normal, Normal ENT Inspection, Normocephalic, Normal Voice Respiratory: Yes: Chest Non-Tender, Normal Breath Sounds, No Respiratory Distress, No Accessory Muscle Use, Hyperresonant, Inspiration Neck: Yes: Supple, Trachea in good position Breast: Yes: Breasts Symetrical Cardiology: Yes: Regular Rhythm, S1, S2, Tachycardia Abdominal: Yes: Non Tender, Soft Genitourinary: Yes: Within Normal Limits Back: Yes: Normal Inspection Musculoskeletal: Yes: Gait Steady (CANE), Back pain, Muscle Pain (RIGHT HIP) Extremities: Yes: Non-Tender, Tremors Neurological: Yes: Alert, Motor Strength 5/5, Normal Response, Depressed Affect Integumentary: Yes: Warm Lymphatic: Yes: Within Normal Limits - Diagnostic (1) Alcohol dependence with uncomplicated withdrawal Current Visit: Yes Status: Acute (2) Bipolar II disorder, mild, depressed, with anxious distress, in full remission Current Visit: Yes Status: Suspected (3) Asthma Current Visit: Yes Status: Chronic Qualifiers: Asthma severity: mild intermittent Asthma complication type: uncomplicated Qualified Code(s): J45.20 - Mild intermittent asthma, uncomplicated (4) Benign prostatic hypertrophy without outflow obstruction Current Visit: Yes Status: Chronic (5) COPD (chronic obstructive pulmonary disease) Current Visit: Yes Status: Chronic Qualifiers: COPD type: chronic bronchitis Chronic bronchitis type: simple Qualified Code(s): J41.0 - Simple chronic bronchitis (6) Chronic low back pain Current Visit: Yes Status: Chronic Qualifiers: Back pain laterality: bilateral Sciatica presence: without sciatica Qualified Code(s): M54.5 - Low back pain; G89.29 - Other chronic pain (7) Eczema Current Visit: Yes Status: Chronic Qualifiers: Eczema type: flexural Qualified Code(s): L20.82 - Flexural eczema (8) Hypercholesterolemia Current Visit: Yes Status: Chronic (9) Use of cane as ambulatory aid Current Visit: Yes Status: Chronic Cleared for Admission S - Detox or Rehab [facility] Level of Care: Medically Managed Detox Regimen/Protocol: Librium S Breath Alcohol Content Breath Alcohol Content: 0 Urine Drug Screen - Results Drug Screen Negative: No Urine Drug Screen Results: CHIP-Cocaine
[2017-04-18] MEDS ORDERED: LOPERAMIDE HCL 2 MG CAPSULE PO PRN (19:35)
[2017-04-18] MEDS ORDERED: guaiFENesin/D-METHORPHAN HB 10 ML UNIT-DOSE CUPS PO PRN (19:35)
[2017-04-18] MEDS ORDERED: MAG HYDROX/AL HYDROX/SIMETH 30 ML UNIT-DOSE CUP PO PRN (19:35)
[2017-04-18] MEDS ORDERED: ACETAMINOPHEN 325 MG TABLET (FP) PO PRN ×2 (19:35→19:47)
[2017-04-18] MEDS ORDERED: P-EPHED 60MG/TRIPROLIDI 2.5MG TABLET PO PRN (19:35)
[2017-04-18] MEDS ORDERED: MENTHOL/PHENOL 1 EACH UD MM PRN (19:35)
[2017-04-18] MEDS ORDERED: chlordiazePOXIDE HCL 25 MG CAPSULE PO PRN (19:35)
[2017-04-18] MEDS ORDERED: MAGNESIUM HYDROX 2400MG/30ML ORAL SUSPENSION 30 ML CUP PO PRN (19:35)
[2017-04-18] MEDS ORDERED: COLLOIDAL OATMEAL 1 BAR EACH TP PRN (19:40)
[2017-04-18] MEDS ORDERED: ALBUTEROL SO4 2.5/IPRATROPIUM 0.5 INH SOL 3 ML VIAL.NEB. NEB PRN (19:51)
[2017-04-18] MEDS ORDERED: ALBUTEROL SO4 6.7 GM HFA INHALER IH PRN (19:51)
[2017-04-18] MEDS: THIAMINE HCL 100 MG TABLET (FP) PO SCH (21:49)
[2017-04-18] MEDS: ATORVASTATIN CA 40 MG TABLET (FP) PO SCH (21:50)
[2017-04-18] MEDS: BUDESONIDE/FORMETEROL FUMARATE 80/4.5 mcg INHALER IH SCH (21:56)
[2017-04-18] MEDS ORDERED: RANITIDINE HCL 150 MG TABLET (FP) PO SCH (22:00)
[2017-04-18] MEDS ORDERED: PATIENT'S OWN MEDICATION (NON-FORMULARY) (Atorvastatin Ca [Lipitor] 40 MG) PO SCH (22:00)
[2017-04-18] MEDS ORDERED: PATIENT'S OWN MEDICATION (NON-FORMULARY) (Famotidine [Pepcid] 20 MG) PO SCH (22:00)
[2017-04-18] MEDS: chlordiazePOXIDE HCL 25 MG CAPSULE PO SCH (22:59)
[2017-04-18] MEDS: CHLORHEXIDINE GLUCONATE 0.12% 15ML CUP MM SCH (23:04)
[2017-04-18] MEDS: TRIAMCINOLONE ACET 0.1% OINT 15 GM TUBE TP SCH (23:04)
[2017-04-18] MEDS: LIDOCAINE PATCH REMOVAL MC SCH (23:04)
[2017-04-18] MEDS: CLOTRIMAZOLE 1% CREAM 15 GM TUBE TP SCH (23:05)
[2017-04-19] MEDS: chlordiazePOXIDE HCL 25 MG CAPSULE PO SCH ×4 (05:40→22:45)
[2017-04-19] MEDS: TAMSULOSIN HCL 0.4 MG CAP.ER.24H (FP) PO SCH (09:26)
[2017-04-19] MEDS ORDERED: TAMSULOSIN HCL PO SCH (10:00)
[2017-04-19 10:29] LABS: MCH 28.3 pg (25.7-33.7); MCHC 34.5 g/dl (32.0-35.9); MEAN CELL VOLUME 82.1 fl (80-96); MEAN PLT VOLUME 10.3 fl (7.5-11.1); PLATELET COUNT 172 K/MM3 (134-434); RDW 14.3 % (11.9-15.9); WHITE BLOOD COUNT 9.3 K/mm3 (4.0-10.0)
[2017-04-19] MEDS: BUDESONIDE/FORMETEROL FUMARATE 80/4.5 mcg INHALER IH SCH ×2 (10:37→22:46)
[2017-04-19 10:39] LABS: ALBUMIN 4.1 g/dl (3.4-5.0); ANION GAP 7 (8-16); CO2 29 mmol/L (21-32); GLUCOSE,RANDOM 83 mg/dL (74-106); SGOT/AST 47 U/L (15-37); SGPT/ALT 42 U/L (12-78); TOT PROT 6.9 g/dl (6.4-8.2)
[2017-04-19] MEDS: PRENATAL VITAMINS W/ FOLIC ACID TABLET (FP) PO SCH (10:39)
[2017-04-19] MEDS: CHLORHEXIDINE GLUCONATE 0.12% 15ML CUP MM SCH ×2 (10:40→22:46)
[2017-04-19] MEDS: TRIAMCINOLONE ACET 0.1% OINT 15 GM TUBE TP SCH ×4 (10:40→22:45)
[2017-04-19] MEDS: CLOTRIMAZOLE 1% CREAM 15 GM TUBE TP SCH ×2 (10:40→22:46)
[2017-04-19 10:41] LABS: ALK PHOS 85 U/L (45-117); COCKROFT - GAULT 97.52
[2017-04-19] MEDS: LIDOCAINE 5% TOPICAL PATCH TP SCH (10:41)
[2017-04-19] MEDS: ARTIFICIAL TEARS (POLYVINYL ALCOHOL 1.4%) OPTH DROPS OU SCH ×4 (12:06→22:47)
[2017-04-19] MEDS: MELOXICAM PO SCH (12:06)
[2017-04-19 12:22] LABS: HIV 1 & 2 AB NEGATIVE; HIV 1 AGp24 NEGATIVE
--- NOTE | 2017-04-19 12:44 | CONSULT ---
[facility] Psychiatric Consult - Data Date of interview: 04/19/17 Admission source: [facility] Identifying data: Readmisssion to [facility] for this 56 y/o AA male seeking detox treatment on for alcohol and cocaine dependence.Patient is single, a father of two,domiciled,unemployed and supported on [facility] benefits. Substance Abuse History: - Smoking Cessation. Smoking history: Former smoker. Have you smoked in the past 12 months: No. Aproximately how many cigarettes per day: 0. If you are a former smoker, when did you quit?: 0. Cigars Per Day : 0. Hx Chewing Tobacco Use: No. Initiated information on smoking cessation: No. - Substance & Tx. History. Hx Alcohol Use: Yes. Hx Substance Use: Yes. Substance Use Type: Alcohol, Cocaine. Hx Substance Use Treatment: Yes. - Substances Abused. Alcohol. Route: Oral. Frequency: Daily. Amount used: liquor- 3 pints, beer- 1 six pack. Age of first use: 12. Date of Last Use: 01/03. Cocaine. Route: Inhalation. Frequency: Daily. Amount used: 4 gm. Age of first use: 28. Date of Last Use: 04/18/17. Confirmed by patient. Medical History: Scoliosis,hiatal hernia,lower back pain,bronchial asthma,eczema ,GERD,hypertension,hypercholesterolemia,Valencia's palsy (2015),COPD and BPH ( benign prostatic hyperplasia).History of orthopedic surgery : prosthetic left hip,right hip pinning and right hand (plate and screws in situ).Noted history of tonsillectomy (childhood) and bilateral inguinal heniorraphy. Psychiatric History: Patient reports a history of one psychiatric hospitalization at [facility] in September 2016.Precipitant : of his brother.Diagnosed with Major Depressive Disorder.Revised recently as Bipolar Disorder.Mr Euceda reports current treatment at [facility].Maintained on a regimen of seroquel 200 mg/hs + trazodone 150 mg/ hs.Patient states that he last took his medications three days ago.Patient admits to one suicide attempt via overdose with drugs/alcohol. Physical/Sexual Abuse/Trauma History: Patient denies history of abuse. Additional Comment: Urine Drug Screen Results: CHIP-Cocaine.Noted. Mental Status Exam - Mental Status Exam Alert and Oriented to: Time, Place, Person Cognitive Function: Good Patient Appearance: Well Groomed Mood: Nervous, Withdrawn Affect: Mood Congruent Patient Behavior: Fatigued, Cooperative Speech Pattern: Clear Voice Loudness: Normal Thought Process: Goal Oriented Thought Disorder: Not Present Hallucinations: Denies Suicidal Ideation: Denies Homicidal Ideation: Denies Insight/Judgement: Poor Sleep: Poorly, Difficulty falling asleep Appetite: Good Gait/Station: Other (ambulates with a cane) Psychiatric Findings - Problem List (Pipestem 1, 2,3) (1) Alcohol dependence with uncomplicated withdrawal Current Visit: Yes Status: Acute (2) Cocaine dependence Current Visit: Yes Status: Acute (3) Nicotine dependence Current Visit: Yes Status: Acute Qualifiers: Nicotine product type: cigarettes Substance use status: in withdrawal Qualified Code(s): F17.213 - Nicotine dependence, cigarettes, with withdrawal (4) Substance induced mood disorder Current Visit: Yes Status: Acute (5) Bipolar disorder Current Visit: Yes Status: Chronic (6) Asthma Current Visit: Yes Status: Chronic Qualifiers: Asthma severity: mild intermittent Asthma complication type: uncomplicated Qualified Code(s): J45.20 - Mild intermittent asthma, uncomplicated (7) Benign prostatic hypertrophy without outflow obstruction Current Visit: Yes Status: Chronic (8) COPD (chronic obstructive pulmonary disease) Current Visit: Yes Status: Chronic Qualifiers: COPD type: chronic bronchitis Chronic bronchitis type: simple Qualified Code(s): J41.0 - Simple chronic bronchitis (9) Essential hypertension Current Visit: No Status: Chronic (10) Gastroesophageal reflux disease Current Visit: Yes Status: Chronic Qualifiers: Esophagitis presence: without esophagitis Qualified Code(s): K21.9 - Gastro-esophageal reflux disease without esophagitis (11) History of scoliosis Current Visit: Yes Status: Chronic (12) Walker as ambulation aid Current Visit: Yes Status: Chronic (13) Insomnia Current Visit: Yes Status: Acute - Initial Treatment Plan Initial Treatment Plan: Psychoeducation.Detoxification.Medications : seroquel 200 mg po hs + trazodone 150 mg po hs.Side effects/benefits discussed with patient.Made aware,in particular,of potential for priapism,oversedation, abnormal involuntary movements and metabolic syndrome.No antecedent of adverse events on these drugs.Patient is in agreement with this careplan.Observation.
--- NOTE | 2017-04-19 13:30 | PN ---
S CIWA - CIWA Score Nausea/Vomitin Muscle Tremors: 3 Anxiety: 4-Mod. Anxious/Guarded Agitation: 1-Slight > Activity Paroxysmal Sweats: 3 Orientation: 0-Oriented Tacttile Disturbances: 3-Moderate Itch/Numb/Burn Auditory Disturbances: 2-Mild Harshness/Frighten Visual Disturbances: 0-None Headache: 0-None Present CIWA-Ar Total Score: 18 BHS Progress Note (SOAP) Subjective: Interrupted sleep, Sweating, Body Aches, Stomach Cramping, Diarrhea. Objective: PT. A & O X 3. NO ACUTE DISTRESS. 04/19/17 13:29 Vital Signs Temperature 97.1 F L 04/19/17 13:07 Pulse Rate 97 H 04/19/17 13:07 Respiratory Rate 18 04/19/17 13:07 Blood Pressure 109/72 04/19/17 13:07 O2 Sat by Pulse Oximetry (%) Laboratory Tests 04/19/17 04/19/17 04/19/17 07:00 07:00 07:00 WBC 9.3 D RBC 5.16 Hgb 14.6 Hct 42.4 MCV 82.1 MCHC 34.5 RDW 14.3 Plt Count 172 MPV 10.3 D Sodium 140 Potassium 4.0 Chloride 104 Carbon Dioxide 29 Anion Gap 7 L BUN 31 H D Creatinine 1.0 Creat Clearance w eGFR > 60 Random Glucose 83 D Calcium 10.0 Total Bilirubin 2.0 H D AST 47 H D ALT 42 D Alkaline Phosphatase 85 D Total Protein 6.9 Albumin 4.1 HIV 1&2 Antibody Screen Negative HIV P24 Antigen Negative LABS NOTED. Assessment: 04/19/17 13:30 WITHDRAWAL SYMPTOMS. Plan: CONTINUE DETOX. INCREASE PO FLUID INTAKE. RE-CHECK BUN LEVEL ON 04/21/2017.
[2017-04-19] MEDS ORDERED: ACETAMINOPHEN 500 MG TABLET (FP) PO PRN (18:36)
--- NOTE | 2017-04-19 19:23 | EKG ---
Test Reason : Blood Pressure : / mmHG Vent. Rate : 096 BPM Atrial Rate : 096 BPM P-R Int : 148 ms QRS Dur : 084 ms QT Int : 338 ms P-R-T Axes : 049 021 023 degrees QTc Int : 427 ms NORMAL SINUS RHYTHM NONSPECIFIC T WAVE ABNORMALITY ABNORMAL ECG WHEN COMPARED WITH ECG OF 20-JAN-2017 19:34, NONSPECIFIC T WAVE ABNORMALITY NOW EVIDENT IN LATERAL LEADS Confirmed by TONYA CARDOZO MD ([id number]) on 04/19/2017 7:23:03 PM Referred By: Confirmed By:TONYA CARDOZO MD
[2017-04-19] MEDS: traZODone HCL 50 MG TABLET (FP) PO SCH (22:45)
[2017-04-19] MEDS: QUEtiapine FUMARATE 200 MG TABLET PO SCH (22:45)
[2017-04-19] MEDS: THIAMINE HCL 100 MG TABLET (FP) PO SCH (22:45)
[2017-04-19] MEDS: LIDOCAINE PATCH REMOVAL MC SCH (22:45)
[2017-04-19] MEDS: ATORVASTATIN CA 40 MG TABLET (FP) PO SCH (22:45)
[2017-04-19] MEDS: PT OWN MED (PYXIS) PO SCH (22:46)
[2017-04-20] MEDS: chlordiazePOXIDE HCL 25 MG CAPSULE PO SCH ×3 (05:35→17:12)
[2017-04-20] MEDS: PRENATAL VITAMINS W/ FOLIC ACID TABLET (FP) PO SCH (10:10)
[2017-04-20] MEDS: TAMSULOSIN HCL 0.4 MG CAP.ER.24H (FP) PO SCH (10:10)
[2017-04-20] MEDS: MELOXICAM PO SCH (10:11)
[2017-04-20] MEDS: TRIAMCINOLONE ACET 0.1% OINT 15 GM TUBE TP SCH ×4 (10:12→22:29)
[2017-04-20] MEDS: CLOTRIMAZOLE 1% CREAM 15 GM TUBE TP SCH ×2 (10:12→22:29)
[2017-04-20] MEDS: ARTIFICIAL TEARS (POLYVINYL ALCOHOL 1.4%) OPTH DROPS OU SCH ×4 (10:12→22:29)
[2017-04-20] MEDS: BUDESONIDE/FORMETEROL FUMARATE 80/4.5 mcg INHALER IH SCH ×2 (10:13→22:32)
[2017-04-20] MEDS: CHLORHEXIDINE GLUCONATE 0.12% 15ML CUP MM SCH ×2 (10:14→22:29)
[2017-04-20] MEDS: LIDOCAINE 5% TOPICAL PATCH TP SCH (10:15)
--- NOTE | 2017-04-20 14:50 | PN ---
[facility] CIWA - CIWA Score Nausea/Vomitin Muscle Tremors: 3 Anxiety: 4-Mod. Anxious/Guarded Agitation: 4-Moderately Restless Paroxysmal Sweats: 3 Orientation: 0-Oriented Tacttile Disturbances: 0-None Auditory Disturbances: 0-None Visual Disturbances: 0-None Headache: 2-Mild CIWA-Ar Total Score: 21 BHS Progress Note (SOAP) Subjective: Diarrhea x 2, chills, interrupted sleep Objective: 04/20/17 14:48 Last Vital Signs Temp Pulse Resp BP Pulse Ox 96.7 F L 87 18 123/78 04/20/17 09:21 04/20/17 09:21 04/20/17 09:21 04/20/17 09:21 Laboratory Tests 04/19/17 04/19/17 04/19/17 07:00 07:00 07:00 WBC 9.3 D RBC 5.16 Hgb 14.6 Hct 42.4 MCV 82.1 MCHC 34.5 RDW 14.3 Plt Count 172 MPV 10.3 D Sodium 140 Potassium 4.0 Chloride 104 Carbon Dioxide 29 Anion Gap 7 L BUN 31 H D Creatinine 1.0 Creat Clearance w eGFR > 60 Random Glucose 83 D Calcium 10.0 Total Bilirubin 2.0 H D AST 47 H D ALT 42 D Alkaline Phosphatase 85 D Total Protein 6.9 Albumin 4.1 RPR Titer Nonreactive HIV 1&2 Antibody Screen HIV P24 Antigen 04/19/17 07:00 WBC RBC Hgb Hct MCV MCHC RDW Plt Count MPV Sodium Potassium Chloride Carbon Dioxide Anion Gap BUN Creatinine Creat Clearance w eGFR Random Glucose Calcium Total Bilirubin AST ALT Alkaline Phosphatase Total Protein Albumin RPR Titer HIV 1&2 Antibody Screen Negative HIV P24 Antigen Negative Labs noted: bun 31 Assessment: 04/20/17 14:49 Withdrawal symptoms Noted with azotemia Plan: Continue detox Azotemia: encouraged to drink lots of water
[2017-04-20] MEDS: THIAMINE HCL 100 MG TABLET (FP) PO SCH (22:28)
[2017-04-20] MEDS: ATORVASTATIN CA 40 MG TABLET (FP) PO SCH (22:28)
[2017-04-20] MEDS: QUEtiapine FUMARATE 200 MG TABLET PO SCH (22:28)
[2017-04-20] MEDS: chlordiazePOXIDE 5 MG CAPSULE PO SCH (22:28)
[2017-04-20] MEDS: traZODone HCL 50 MG TABLET (FP) PO SCH (22:28)
[2017-04-20] MEDS: PT OWN MED (PYXIS) PO SCH (22:29)
[2017-04-20] MEDS: LIDOCAINE PATCH REMOVAL MC SCH (22:32)
[2017-04-21] MEDS: chlordiazePOXIDE 5 MG CAPSULE PO SCH ×3 (05:37→17:15)
[2017-04-21] MEDS: TAMSULOSIN HCL 0.4 MG CAP.ER.24H (FP) PO SCH (09:09)
[2017-04-21] MEDS: MELOXICAM PO SCH (10:39)
[2017-04-21] MEDS: ARTIFICIAL TEARS (POLYVINYL ALCOHOL 1.4%) OPTH DROPS OU SCH ×4 (10:39→22:34)
[2017-04-21] MEDS: CLOTRIMAZOLE 1% CREAM 15 GM TUBE TP SCH ×2 (10:40→22:35)
[2017-04-21] MEDS: LIDOCAINE 5% TOPICAL PATCH TP SCH (10:40)
[2017-04-21] MEDS: PRENATAL VITAMINS W/ FOLIC ACID TABLET (FP) PO SCH (10:41)
[2017-04-21] MEDS: TRIAMCINOLONE ACET 0.1% OINT 15 GM TUBE TP SCH ×4 (10:41→22:34)
[2017-04-21] MEDS: BUDESONIDE/FORMETEROL FUMARATE 80/4.5 mcg INHALER IH SCH ×2 (10:42→22:34)
[2017-04-21] MEDS: CHLORHEXIDINE GLUCONATE 0.12% 15ML CUP MM SCH ×2 (10:50→22:33)
--- NOTE | 2017-04-21 13:17 | PN ---
BHS Progress Note (SOAP) Subjective: Sweating,interrupted sleep,restless Objective: 04/21/17 13:16 Vital Signs - 8 hr 04/21/17 04/21/17 06:12 09:54 Temperature 96.6 F L 97.5 F L Pulse Rate 74 81 Respiratory 18 20 Rate Blood Pressure 125/82 123/83 Laboratory Last Values WBC 9.3 K/mm3 (4.0-10.0) D 04/19/17 07:00 RBC 5.16 M/mm3 (4.00-5.60) 04/19/17 07:00 Hgb 14.6 GM/dL (11.7-16.9) 04/19/17 07:00 Hct 42.4 % (35.4-49) 04/19/17 07:00 MCV 82.1 fl (80-96) 04/19/17 07:00 MCHC 34.5 g/dl (32.0-35.9) 04/19/17 07:00 RDW 14.3 % (11.9-15.9) 04/19/17 07:00 Plt Count 172 K/MM3 (134-434) 04/19/17 07:00 MPV 10.3 fl (7.5-11.1) D 04/19/17 07:00 Sodium 140 mmol/L (136-145) 04/19/17 07:00 Potassium 4.0 mmol/L (3.5-5.1) 04/19/17 07:00 Chloride 104 mmol/L (98-107) 04/19/17 07:00 Carbon Dioxide 29 mmol/L (21-32) 04/19/17 07:00 Anion Gap 7 (8-16) L 04/19/17 07:00 BUN 16 mg/dL (7-18) D 04/21/17 07:00 Creatinine 1.0 mg/dL (0.7-1.3) 04/19/17 07:00 Creat Clearance w eGFR > 60 (>60) 04/19/17 07:00 Random Glucose 83 mg/dL (74-106) D 04/19/17 07:00 Calcium 10.0 mg/dL (8.5-10.1) 04/19/17 07:00 Total Bilirubin 2.0 mg/dL (0.2-1.0) H D 04/19/17 07:00 AST 47 U/L (15-37) H D 04/19/17 07:00 ALT 42 U/L (12-78) D 04/19/17 07:00 Alkaline Phosphatase 85 U/L (45-117) D 04/19/17 07:00 Total Protein 6.9 g/dl (6.4-8.2) 04/19/17 07:00 Albumin 4.1 g/dl (3.4-5.0) 04/19/17 07:00 RPR Titer Nonreactive (NONREACTIVE) 04/19/17 07:00 HIV 1&2 Antibody Screen Negative 04/19/17 07:00 HIV P24 Antigen Negative 04/19/17 07:00 labs noted Assessment: 04/21/17 13:17 Withdrawal sx. Plan: Continue detox
[2017-04-21] MEDS: chlordiazePOXIDE HCL 10 MG CAPSULE PO SCH (22:34)
[2017-04-21] MEDS: THIAMINE HCL 100 MG TABLET (FP) PO SCH (22:34)
[2017-04-21] MEDS: ATORVASTATIN CA 40 MG TABLET (FP) PO SCH (22:35)
[2017-04-21] MEDS: traZODone HCL 50 MG TABLET (FP) PO SCH (22:35)
[2017-04-21] MEDS: LIDOCAINE PATCH REMOVAL MC SCH (22:35)
[2017-04-21] MEDS: PT OWN MED (PYXIS) PO SCH (22:35)
[2017-04-21] MEDS: QUEtiapine FUMARATE 200 MG TABLET PO SCH (22:35)
[2017-04-22] MEDS: chlordiazePOXIDE HCL 10 MG CAPSULE PO SCH (06:12)
[2017-04-22 06:41] VITALS: BP 130/76; PULSE 74; TEMP 97.1
[2017-04-22] MEDS: TAMSULOSIN HCL 0.4 MG CAP.ER.24H (FP) PO SCH (09:33)
--- NOTE | 2017-04-22 12:45 | DS ---
[facility] Detox Discharge Summary Admission Date: 04/18/17 Discharge Date: 04/22/17 - History Present History: Alcohol Dependence Additional Comments: PT. ADVISED TO FOLLOW-UP WITH VINYL WELDER AND FABRICATOR AFTER DISCHARGE FROM DETOX FOR GENERAL MEDICAL ASSESSMENT. Pertinent Past History: Asthma, COPD Chronic Bronchitis), Hypercholesterolemia, BPH, History of Hiatal Hernia, GERD, Eczema, Bipolar Disorder. - Physical Exam Results Vital Signs: Vital Signs Temperature 97.1 F L 04/22/17 06:40 Pulse Rate 74 04/22/17 06:40 Respiratory Rate 18 04/22/17 06:40 Blood Pressure 130/76 04/22/17 06:40 O2 Sat by Pulse Oximetry (%) Pertinent Admission Physical Exam Findings: WITHDRAWAL SYMPTOMS. Laboratory Tests 04/19/17 04/19/17 04/19/17 07:00 07:00 07:00 WBC 9.3 D RBC 5.16 Hgb 14.6 Hct 42.4 MCV 82.1 MCHC 34.5 RDW 14.3 Plt Count 172 MPV 10.3 D Sodium 140 Potassium 4.0 Chloride 104 Carbon Dioxide 29 Anion Gap 7 L BUN 31 H D Creatinine 1.0 Creat Clearance w eGFR > 60 Random Glucose 83 D Calcium 10.0 Total Bilirubin 2.0 H D AST 47 H D ALT 42 D Alkaline Phosphatase 85 D Total Protein 6.9 Albumin 4.1 RPR Titer Nonreactive Hepatitis C Antibody HIV 1&2 Antibody Screen HIV P24 Antigen 04/19/17 04/19/17 04/21/17 07:00 07:00 07:00 WBC RBC Hgb Hct MCV MCHC RDW Plt Count MPV Sodium Potassium Chloride Carbon Dioxide Anion Gap BUN 16 D Creatinine Creat Clearance w eGFR Random Glucose Calcium Total Bilirubin AST ALT Alkaline Phosphatase Total Protein Albumin RPR Titer Hepatitis C Antibody <0.1 HIV 1&2 Antibody Screen Negative HIV P24 Antigen Negative LABS NOTED. - Treatment Hospital Course: Detox Protocol Followed, Detoxed Safely, Responded well, Discharged Condition Good, Rehab Referral Accepted Patient has Accepted a Rehab Referral to: YES - [facility]. - Medication Discharge Medications: Ambulatory Orders Lidocaine 5% Patch [Lidoderm -] 2 patch TP DAILY 02/19/15 Albuterol Sulfate Inhaler - [Ventolin HFA Inhaler -] 2 inh IH Q4H PRN #1 inh 08/01 Tamsulosin HCl [Flomax -] 0.4 mg PO DAILY #30 cap.er.24h 11/06/15 Acetaminophen [Tylenol] 650 mg PO Q6H PRN 03/07/16 Docusate Sodium [Colace -] 100 mg PO DAILY PRN 03/07/16 Trazodone HCl [Desyrel -] 150 mg PO HS PRN 03/07/16 Quetiapine Fumarate [Seroquel -] 200 mg PO HS #30 tablet 03/08/16 Atorvastatin Ca [Lipitor] 20 mg PO HS 06/23/16 Dextran 70/Hypromellose [Artificial Tears Eye Drops] 2 drop OP Q2H 01/20/17 Famotidine [Pepcid] 20 mg PO HS 01/20/17 Triamcinolone 0.1% Ointment [Aristocort 0.1% Ointment -] 1 applic TP BID Quetiapine Fumarate [Seroquel -] 200 mg PO HS #30 tab 01/21/17 Trazodone HCl 100 mg PO HS #30 tablet 01/21/17 Meloxicam [Mobic] 15 mg PO DAILY 04/18/17 Quetiapine Fumarate [Seroquel -] 200 mg PO HS #30 tab 04/19/17 Trazodone HCl [Desyrel -] 150 mg PO HS #30 tablet 04/19/17 - Diagnosis (1) Alcohol dependence with uncomplicated withdrawal Status: Acute (2) Insomnia Status: Chronic Qualifiers: Insomnia type: unspecified Qualified Code(s): G47.00 - Insomnia, unspecified (3) Nicotine dependence Status: Chronic Qualifiers: Nicotine product type: cigarettes Substance use status: in withdrawal Qualified Code(s): F17.213 - Nicotine dependence, cigarettes, with withdrawal (4) Substance induced mood disorder Status: Acute (5) Asthma Status: Chronic Qualifiers: Asthma severity: mild intermittent Asthma complication type: uncomplicated Qualified Code(s): J45.20 - Mild intermittent asthma, uncomplicated (6) Benign prostatic hypertrophy without outflow obstruction Status: Chronic (7) Bipolar II disorder Status: Chronic (8) COPD (chronic obstructive pulmonary disease) Status: Chronic Qualifiers: COPD type: chronic bronchitis Chronic bronchitis type: simple Qualified Code(s): J41.0 - Simple chronic bronchitis (9) Chronic low back pain Status: Chronic Qualifiers: Back pain laterality: bilateral Sciatica presence: without sciatica Qualified Code(s): M54.5 - Low back pain; G89.29 - Other chronic pain (10) Eczema Status: Chronic Qualifiers: Eczema type: flexural Qualified Code(s): L20.82 - Flexural eczema (11) Essential hypertension Status: Chronic (12) Gastroesophageal reflux disease Status: Chronic Qualifiers: Esophagitis presence: without esophagitis Qualified Code(s): K21.9 - Gastro-esophageal reflux disease without esophagitis (13) Hypercholesterolemia Status: Chronic (14) Use of cane as ambulatory aid Status: Chronic - AMA Did Patient Leave Against Medical Advice: No
== END 2017-04-22 09:22 | disposition home or self-care (01) | DRG 775 ==
LOC: YASAS 16:59 → Y3N 18:47
PROVIDERS: ADMIT Internal Medicine; ATTEND Internal Medicine
PROC: HZ2ZZZZ Detoxification Services for Substance Abuse Treatment (ICD-10-PCS; principal; 2017-04-22)
DX: F10.230 Alcohol dependence with withdrawal, uncomplicated (principal); F17.213 Nicotine dependence, cigarettes, with withdrawal; F19.24 Other psychoactive substance dependence with psychoactive substance-induced mood disorder; F19.282 Other psychoactive substance dependence with psychoactive substance-induced sleep disorder; G47.00 Insomnia, unspecified; F31.81 Bipolar II disorder; J45.20 Mild intermittent asthma, uncomplicated; J41.0 Simple chronic bronchitis; E78.00 Pure hypercholesterolemia, unspecified; N40.0 Benign prostatic hyperplasia without lower urinary tract symptoms; M54.5 Low back pain; G89.29 Other chronic pain; L20.82 Flexural eczema; M41.9 Scoliosis, unspecified; R26.89 Other abnormalities of gait and mobility; Z99.89 Dependence on other enabling machines and devices
CPT/HCPCS: 36415; 80053; 84520; 85027; 86593; 86803; 87389; 93005; 93010

== ENCOUNTER 2017-06-30 14:35 | Inpatient (IN) | payer OTHER ==
[2017-06-30 15:46] VITALS: BMI 25.1
--- NOTE | 2017-06-30 18:03 | HP ---
CIWA Score - CIWA Score Nausea/Vomitin-Mild Nausea/No Vomiting Muscle Tremors: 4-Moderate,w/Arms Extend Anxiety: 4-Mod. Anxious/Guarded Agitation: 4-Moderately Restless Paroxysmal Sweats: 1-Minimal Palms Moist Orientation: 0-Oriented Tacttile Disturbances: 0-None Auditory Disturbances: 0-None Visual Disturbances: 0-None Headache: 0-None Present CIWA-Ar Total Score: 14 Admission ROS BHS - HPI Chief Complaint: WITHDRAWAL SX Allergies/Adverse Reactions: Allergies Allergy/AdvReac Type Severity Reaction Status Date / Time pseudoephedrine AdvReac Severe dizziness Verified 06/30/17 17:49 and headache pork derived (porcine) AdvReac Mild Vomiting Verified 06/30/17 17:49 [Pork derived (porcine)] tomato [Tomato] AdvReac Mild diarrhea Verified 06/30/17 17:49 lobster AdvReac Intermediate Vomiting Uncoded 06/30/17 17:49 History of Present Illness: 57 YEARS OLD MALE WITH LONG HISTORY OF ALCOHOL DEPENDENCE HAS BPH, CHRONIC BACK PAIN AMBULATE WITH CANE COPD ACID REFLUX BIPOLAR II IS ADMITTED TO DETOX Exam Limitations: No Limitations - Ebola screening Have you traveled outside of the country in the last 21 days: No Have you had contact with anyone from an Ebola affected area: No Have you been sick,other than usual withdrawal symptoms: No Do you have a fever: No - Review of Systems Constitutional: Loss of Appetite, Changes in sleep, Unintentional Wgt. Loss, Unexplained wgt Loss EENT: reports: No Symptoms Reported Respiratory: reports: SOB with Exertion Cardiac: reports: No Symptoms Reported GI: reports: Nausea, Poor Appetite, Poor Fluid Intake, Indigestion, Abdominal cramping : reports: Dysuria Musculoskeletal: reports: Back Pain, Joint Pain (RIGHT HIP) Integumentary: reports: No Symptoms Reported Neuro: reports: Tremors Endocrine: reports: No Symptoms Reported Hematology: reports: No Symptoms Reported Psychiatric: reports: Judgement Intact, Mood/Affect Appropiate, Orientated x3 Other Systems: Reviewed and Negative Patient History - Patient Medical History Hx Anemia: No Hx Asthma: Yes Hx Chronic Obstructive Pulmonary Disease (COPD): Yes Hx Cancer: No Hx Cardiac Disorders: No Hx Congestive Heart Failure: No Hx Hypertension: No Hx Hypercholesterolemia: Yes (LIPITOR, PLAVIX) Hx Pacemaker: No HX Cerebrovascular Accident: No (BLAINE 10/2015) Hx Seizures: No Hx Dementia: No Hx Diabetes: No Hx Gastrointestinal Disorders: Yes (hiatal hernia/acid reflux) Hx Liver Disease: No Hx Genitourinary Disorders: Yes (BPH) Hx Sexually Transmitted Disorders: No Hx Renal Disease (ESRD): No Hx Thyroid Disease: No Hx Human Immunodeficiency Virus (HIV): No Hx Hepatitis C: No Hx Depression: No Hx Suicide Attempt: No Hx Bipolar Disorder: Yes (seroquel and trazodone by hx ) Hx Schizophrenia: No - Patient Surgical History Past Surgical History: Yes Hx Neurologic Surgery: No Hx Cataract Extraction: No Hx Cardiac Surgery: Yes (CARDIAC CATH 01/05/16-) Hx Lung Surgery: No Hx Breast Surgery: No Hx Breast Biopsy: No Hx Abdominal Surgery: No Hx Appendectomy: No Hx Cholecystectomy: No Hx Genitourinary Surgery: No Hx Orthopedic Surgery: Yes (prosthetic left hip,rt. hip pinning,rt. hand with plate & 8 screws) Other Surgical History: TONSILLECTOMY A CHILD/right hand x4; B/L inguinal hernia repair Anesthesia Reaction: No - PPD History Previous Implant?: Yes Documented Results: Negative w/proof Implanted On Prior [facility] Admission?: Yes Date: 01/22/17 Results: 0 mm PPD to be Administered?: No - Smoking Cessation Smoking history: Former smoker Have you smoked in the past 12 months: No Aproximately how many cigarettes per day: 0 If you are a former smoker, when did you quit?: 0 Cigars Per Day: 0 Hx Chewing Tobacco Use: No Initiated information on smoking cessation: No - Substance & Tx. History Hx Alcohol Use: Yes Hx Substance Use: Yes Substance Use Type: Alcohol, Cocaine Hx Substance Use Treatment: Yes (04/18-04/22/17 [facility]) - Substances Abused Alcohol Route: Oral Frequency: Daily Amount used: 2 PINTS VOLKA Age of first use: 12 Date of Last Use: 06/29/17 Cocaine Route: Inhalation Frequency: 3-6 times per week Amount used: 2 G Age of first use: 31 Date of Last Use: 06/29/17 Family Disease History - Family Disease History Family Disease History: Diabetes: Grandparent (cva), Heart Disease: Grandparent , Father (cva), Mother (HYPERTENSION), Brother () Admission Physical Exam BHS - Vital Signs Vital Signs: Vital Signs - 24 hr 06/30/17 15:44 Temperature 98.3 F Pulse Rate 85 Respiratory 20 Rate Blood Pressure 114/67 - Physical General Appearance: Yes: Nourished, Appropriately Dressed, Mild Distress, Tremorous, Irritable, Sweating, Anxious HEENTM: Yes: Hearing grossly Normal, Normal ENT Inspection, Normocephalic, Normal Voice Respiratory: Yes: Chest Non-Tender, No Respiratory Distress, No Accessory Muscle Use, Hyperresonant Neck: Yes: Supple, Trachea in good position Breast: Yes: Breasts Symetrical Cardiology: Yes: Regular Rhythm, Regular Rate, S1, S2 Abdominal: Yes: Non Tender, Soft Genitourinary: Yes: Within Normal Limits Back: Yes: Normal Inspection Musculoskeletal: Yes: Gait Steady, Back pain, Muscle Pain (RIGHT HIP) Extremities: Yes: Non-Tender, Tremors Neurological: Yes: Fully Oriented, Alert, Normal Mood/Affect Integumentary: Yes: Normal Color, Warm Lymphatic: Yes: Within Normal Limits - Diagnostic (1) Alcohol dependence with uncomplicated withdrawal Current Visit: Yes Status: Acute (2) Asthma Current Visit: Yes Status: Chronic Qualifiers: Asthma severity: mild persistent Asthma complication type: uncomplicated Qualified Code(s): J45.30 - Mild persistent asthma, uncomplicated (3) Benign prostatic hypertrophy without outflow obstruction Current Visit: Yes Status: Chronic (4) Bipolar II disorder Current Visit: Yes Status: Suspected Comment: History. (5) COPD (chronic obstructive pulmonary disease) Current Visit: Yes Status: Chronic Qualifiers: COPD type: chronic bronchitis Chronic bronchitis type: simple Qualified Code(s): J41.0 - Simple chronic bronchitis (6) Eczema Current Visit: Yes Status: Chronic Qualifiers: Eczema type: flexural Qualified Code(s): L20.82 - Flexural eczema (7) Gastroesophageal reflux disease Current Visit: Yes Status: Chronic Qualifiers: Esophagitis presence: without esophagitis Qualified Code(s): K21.9 - Gastro-esophageal reflux disease without esophagitis (8) Hypercholesterolemia Current Visit: Yes Status: Chronic Cleared for Admission S - Detox or Rehab [facility] Level of Care: Medically Managed Detox Regimen/Protocol: Librium [facility] Breath Alcohol Content Breath Alcohol Content: 0 Urine Drug Screen - Results Drug Screen Negative: No Urine Drug Screen Results: CHIP-Cocaine
[2017-06-30] MEDS ORDERED: MAGNESIUM HYDROX 2400MG/30ML ORAL SUSPENSION 30 ML CUP PO PRN (18:13)
[2017-06-30] MEDS ORDERED: MAGNESIUM CITRATE 300 ML BOTTLE PO PRN (18:13)
[2017-06-30] MEDS ORDERED: chlordiazePOXIDE HCL 25 MG CAPSULE PO PRN (18:13)
[2017-06-30] MEDS ORDERED: MENTHOL/PHENOL 1 EACH UD MM PRN (18:13)
[2017-06-30] MEDS ORDERED: diphenhydrAMINE HCL 50 MG CAPSULE PO PRN (18:13)
[2017-06-30] MEDS ORDERED: hydrOXYzine PAMOATE 50 MG CAPSULE (FP) PO PRN (18:13)
[2017-06-30] MEDS ORDERED: guaiFENesin/D-METHORPHAN HB 10 ML UNIT-DOSE CUPS PO PRN (18:13)
[2017-06-30] MEDS ORDERED: LOPERAMIDE HCL 2 MG CAPSULE PO PRN (18:13)
[2017-06-30] MEDS ORDERED: MAG HYDROX/AL HYDROX/SIMETH 30 ML UNIT-DOSE CUP PO PRN (18:13)
[2017-06-30] MEDS ORDERED: P-EPHED 60MG/TRIPROLIDI 2.5MG TABLET PO PRN (18:13)
[2017-06-30] MEDS ORDERED: ALBUTEROL SO4 6.7 GM HFA INHALER IH PRN (18:15)
[2017-06-30] MEDS ORDERED: ALBUTEROL SO4 2.5/IPRATROPIUM 0.5 INH SOL 3 ML VIAL.NEB. NEB PRN (18:16)
[2017-06-30] MEDS ORDERED: COLLOIDAL OATMEAL 1 BAR EACH TP PRN (18:18)
[2017-06-30] MEDS: ACETAMINOPHEN 325 MG TABLET (FP) PO PRN (19:34)
[2017-06-30] MEDS: ATORVASTATIN CA 40 MG TABLET (FP) PO SCH (22:18)
[2017-06-30] MEDS: LIDOCAINE PATCH REMOVAL MC SCH (22:18)
[2017-06-30] MEDS: RANITIDINE HCL 150 MG TABLET (FP) PO SCH (22:18)
[2017-06-30] MEDS: THIAMINE HCL 100 MG TABLET (FP) PO SCH (22:18)
[2017-06-30] MEDS: TRIAMCINOLONE ACET 0.1% OINT 15 GM TUBE TP SCH (22:18)
[2017-06-30] MEDS: chlordiazePOXIDE HCL 25 MG CAPSULE PO SCH (22:18)
[2017-07-01] MEDS: chlordiazePOXIDE HCL 25 MG CAPSULE PO SCH ×4 (05:37→22:09)
[2017-07-01 10:17] LABS: MCH 28.4 pg (25.7-33.7); MCHC 33.4 g/dl (32.0-35.9); MEAN PLT VOLUME 10.1 fl (7.5-11.1); PLATELET COUNT 192 K/MM3 (134-434); RDW 15.2 % (11.9-15.9); WHITE BLOOD COUNT 6.3 K/mm3 (4.0-10.0)
[2017-07-01] MEDS: PRENATAL VITAMINS W/ FOLIC ACID TABLET (FP) PO SCH (10:35)
[2017-07-01] MEDS: TRIAMCINOLONE ACET 0.1% OINT 15 GM TUBE TP SCH ×4 (10:35→22:09)
[2017-07-01] MEDS: RANITIDINE HCL 150 MG TABLET (FP) PO SCH ×2 (10:35→22:09)
[2017-07-01] MEDS: TAMSULOSIN HCL 0.4 MG CAP.ER.24H (FP) PO SCH (10:35)
[2017-07-01] MEDS: LIDOCAINE 5% TOPICAL PATCH TP SCH (10:36)
[2017-07-01] MEDS: ACETAMINOPHEN 325 MG TABLET (FP) PO PRN ×3 (10:37→22:10)
[2017-07-01 10:38] LABS: ALBUMIN 3.4 g/dl (3.4-5.0); ALK PHOS 71 U/L (45-117); ANION GAP 8 (8-16); BILIRUBIN,TOTAL 1.1 mg/dL (0.2-1.0); CALCIUM 9.5 mg/dL (8.5-10.1); CO2 29 mmol/L (21-32); CREATININE 0.8 mg/dL (0.7-1.3); GLUCOSE,RANDOM 98 mg/dL (74-106); SGOT/AST 20 U/L (15-37); SGPT/ALT 31 U/L (12-78)
--- NOTE | 2017-07-01 11:43 | PN ---
[facility] CIWA - CIWA Score Nausea/Vomitin (DIARRHEA) Muscle Tremors: 4-Moderate,w/Arms Extend Anxiety: 4-Mod. Anxious/Guarded Agitation: 3 Paroxysmal Sweats: 1-Minimal Palms Moist Orientation: 0-Oriented Tacttile Disturbances: 3-Moderate Itch/Numb/Burn Auditory Disturbances: 0-None Visual Disturbances: 0-None Headache: 0-None Present CIWA-Ar Total Score: 18 S Progress Note (SOAP) Subjective: DIARRHEA,LOWER BACK AND LEG PAIN, ANXIETY, INTERMITTENT SLEEP Objective: 07/01/17 11:42 Vital Signs Temperature 97.4 F L 07/01/17 09:50 Pulse Rate 83 07/01/17 09:50 Respiratory Rate 20 07/01/17 09:50 Blood Pressure 112/75 07/01/17 09:50 O2 Sat by Pulse Oximetry (%) Laboratory Last Values WBC 6.3 K/mm3 (4.0-10.0) D 07/01/17 07:00 RBC 4.89 M/mm3 (4.00-5.60) 07/01/17 07:00 Hgb 13.9 GM/dL (11.7-16.9) 07/01/17 07:00 Hct 41.5 % (35.4-49) 07/01/17 07:00 MCV 85.0 fl (80-96) 07/01/17 07:00 MCH 28.4 pg (25.7-33.7) 07/01/17 07:00 MCHC 33.4 g/dl (32.0-35.9) 07/01/17 07:00 RDW 15.2 % (11.9-15.9) 07/01/17 07:00 Plt Count 192 K/MM3 (134-434) 07/01/17 07:00 MPV 10.1 fl (7.5-11.1) 07/01/17 07:00 Sodium 139 mmol/L (136-145) 07/01/17 07:00 Potassium 3.6 mmol/L (3.5-5.1) 07/01/17 07:00 Chloride 102 mmol/L (98-107) 07/01/17 07:00 Carbon Dioxide 29 mmol/L (21-32) 07/01/17 07:00 Anion Gap 8 (8-16) 07/01/17 07:00 BUN 15 mg/dL (7-18) 07/01/17 07:00 Creatinine 0.8 mg/dL (0.7-1.3) 07/01/17 07:00 Creat Clearance w eGFR > 60 (>60) 07/01/17 07:00 Random Glucose 98 mg/dL (74-106) 07/01/17 07:00 Calcium 9.5 mg/dL (8.5-10.1) 07/01/17 07:00 Total Bilirubin 1.1 mg/dL (0.2-1.0) H D 07/01/17 07:00 AST 20 U/L (15-37) D 07/01/17 07:00 ALT 31 U/L (12-78) D 07/01/17 07:00 Alkaline Phosphatase 71 U/L (45-117) 07/01/17 07:00 Total Protein 6.0 g/dl (6.4-8.2) L 07/01/17 07:00 Albumin 3.4 g/dl (3.4-5.0) 07/01/17 07:00 RPR Titer Nonreactive (NONREACTIVE) 07/01/17 07:00 UA PENDING Assessment: 07/01/17 11:42 WITHDRAWAL SX Plan: CONTINUE DETOX
--- NOTE | 2017-07-01 14:09 | CONSULT ---
[facility] Psychiatric Consult - Data Date of interview: 07/01/17 Admission source: [facility] Identifying data: Another admisssion to [facility] for this 56 y/o AA male seeking detox treatment on for alcohol and cocaine dependence.Patient is single,a father of two,domiciled,unemployed and supported on [facility] benefits. Substance Abuse History: Discussed with patirnt in this session.Mr Euceda confirms this report. Smoking Cessation. Smoking history: Former smoker. Have you smoked in the past 12 months: No. Aproximately how many cigarettes per day: 0. If you are a former smoker, when did you quit?: 0. Cigars Per Day : 0. Hx Chewing Tobacco Use: No. Initiated information on smoking cessation: No. - Substance & Tx. History. Hx Alcohol Use: Yes. Hx Substance Use: Yes. Substance Use Type: Alcohol, Cocaine. Hx Substance Use Treatment: Yes (04/18- [facility]). - Substances Abused. Alcohol. Route: Oral. Frequency: Daily. Amount used: 2 PINTS VOLKA. Age of first use: 12. Date of Last Use: . Cocaine. Route: Inhalation. Frequency: 3-6 times per week. Amount used: 2 G. Age of first use: 31. Date of Last Use: 06/29/17 Medical History: No changes in medical profile : scoliosis,hiatal hernia,lower back pain,bronchial asthma,eczema,GERD,hypertension,hypercholesterolemia,Valencia's palsy (2015),COPD and BPH (benign prostatic hyperplasia).History of orthopedic surgery : prosthetic left hip,right hip pinning and right hand (plate and screws in situ).Noted history of tonsillectomy (childhood) and bilateral inguinal heniorraphy. Psychiatric History: History of one psychiatric hospitalization at [facility] in September 2016.Precipitant : of his brother.Diagnosed with Major Depressive Disorder.Revised recently as Bipolar Disorder.Mr Euceda gets his psychiatric OPD care at [facility] health clinic in [facility].MPatient is still maintained on a regimen of seroquel 200 mg/hs + trazodone 150 mg/hs.Patient admits to one suicide attempt via overdose with drugs/alcohol. Physical/Sexual Abuse/Trauma History: Patient denies. Mental Status Exam - Mental Status Exam Alert and Oriented to: Time, Place, Person Cognitive Function: Good Patient Appearance: Well Groomed Mood: Hopeful, Euthymic Affect: Appropriate, Normal Range Patient Behavior: Appropriate, Cooperative Speech Pattern: Clear Voice Loudness: Normal Thought Process: Goal Oriented Thought Disorder: Not Present Hallucinations: Denies Suicidal Ideation: Denies Homicidal Ideation: Denies Insight/Judgement: Poor Sleep: Poorly, Difficulty falling asleep Appetite: Good Muscle strength/Tone: Normal Gait/Station: Normal Psychiatric Findings - Problem List ([place] 1, 2,3) (1) Alcohol dependence with uncomplicated withdrawal Current Visit: Yes Status: Acute (2) Cocaine dependence Current Visit: Yes Status: Acute (3) Nicotine dependence Current Visit: Yes Status: Acute Qualifiers: Nicotine product type: cigarettes Substance use status: in withdrawal Qualified Code(s): F17.213 - Nicotine dependence, cigarettes, with withdrawal (4) Substance induced mood disorder Current Visit: Yes Status: Acute (5) Bipolar disorder Current Visit: Yes Status: Chronic (6) Asthma Current Visit: Yes Status: Chronic Qualifiers: Asthma severity: mild persistent Asthma complication type: uncomplicated Qualified Code(s): J45.30 - Mild persistent asthma, uncomplicated (7) Benign prostatic hypertrophy without outflow obstruction Current Visit: Yes Status: Chronic (8) COPD (chronic obstructive pulmonary disease) Current Visit: Yes Status: Chronic Qualifiers: COPD type: chronic bronchitis Chronic bronchitis type: simple Qualified Code(s): J41.0 - Simple chronic bronchitis (9) Eczema Current Visit: Yes Status: Chronic Qualifiers: Eczema type: flexural Qualified Code(s): L20.82 - Flexural eczema (10) Gastroesophageal reflux disease Current Visit: Yes Status: Chronic Qualifiers: Esophagitis presence: without esophagitis Qualified Code(s): K21.9 - Gastro-esophageal reflux disease without esophagitis (11) Hypercholesterolemia Current Visit: Yes Status: Chronic (12) Chronic low back pain Current Visit: Yes Status: Chronic Qualifiers: Back pain laterality: bilateral Sciatica presence: without sciatica Qualified Code(s): M54.5 - Low back pain; G89.29 - Other chronic pain (13) Essential hypertension Current Visit: Yes Status: Chronic (14) History of scoliosis Current Visit: Yes Status: Chronic (15) Insomnia Current Visit: Yes Status: Chronic Qualifiers: Insomnia type: unspecified Qualified Code(s): G47.00 - Insomnia, unspecified - Initial Treatment Plan Initial Treatment Plan: Previous records are reviewed.Psychoeducation.Detoxification.Medications : seroquel 200 mg po hs + trazodone 150 mg po hs.Side effects/benefits discussed with patient,including the potential for priapism occasionally seen with use of trazodone,oversedation/ falls,abnormal involuntary movements,cardiac adverse events and metabolic syndrome (seroquel).Mr Euceda is in agreement with this careplan.Observation..
[2017-07-01] MEDS: LIDOCAINE PATCH REMOVAL MC SCH (22:09)
[2017-07-01] MEDS: THIAMINE HCL 100 MG TABLET (FP) PO SCH (22:09)
[2017-07-01] MEDS: QUEtiapine FUMARATE 200 MG TABLET PO SCH (22:09)
[2017-07-01] MEDS: ATORVASTATIN CA 40 MG TABLET (FP) PO SCH (22:09)
[2017-07-02] MEDS: chlordiazePOXIDE HCL 25 MG CAPSULE PO SCH ×3 (06:06→17:30)
[2017-07-02] MEDS: TRIAMCINOLONE ACET 0.1% OINT 15 GM TUBE TP SCH ×4 (10:18→22:52)
[2017-07-02] MEDS: TAMSULOSIN HCL 0.4 MG CAP.ER.24H (FP) PO SCH (10:18)
[2017-07-02] MEDS: RANITIDINE HCL 150 MG TABLET (FP) PO SCH ×2 (10:18→22:48)
[2017-07-02] MEDS: LIDOCAINE 5% TOPICAL PATCH TP SCH (10:18)
[2017-07-02] MEDS: PRENATAL VITAMINS W/ FOLIC ACID TABLET (FP) PO SCH (10:18)
[2017-07-02] MEDS: ACETAMINOPHEN 325 MG TABLET (FP) PO PRN (10:19)
--- NOTE | 2017-07-02 11:28 | PN ---
[facility] CIWA - CIWA Score Nausea/Vomitin-No Nausea/No Vomiting Muscle Tremors: 4-Moderate,w/Arms Extend Anxiety: 4-Mod. Anxious/Guarded Agitation: 4-Moderately Restless Paroxysmal Sweats: 1-Minimal Palms Moist Orientation: 0-Oriented Tacttile Disturbances: 3-Moderate Itch/Numb/Burn Auditory Disturbances: 0-None Visual Disturbances: 0-None Headache: 0-None Present CIWA-Ar Total Score: 16 S Progress Note (SOAP) Subjective: ANXIETY,SWEATS,TREMORS,FATIGUE, BODY ACHES, INTERMITTENT SLEEP. Objective: 07/02/17 11:27 Vital Signs Temperature 97.4 F L 07/02/17 09:51 Pulse Rate 86 07/02/17 09:51 Respiratory Rate 18 07/02/17 09:51 Blood Pressure 121/81 07/02/17 09:51 O2 Sat by Pulse Oximetry (%) Laboratory Last Values WBC 6.3 K/mm3 (4.0-10.0) D 07/01/17 07:00 RBC 4.89 M/mm3 (4.00-5.60) 07/01/17 07:00 Hgb 13.9 GM/dL (11.7-16.9) 07/01/17 07:00 Hct 41.5 % (35.4-49) 07/01/17 07:00 MCV 85.0 fl (80-96) 07/01/17 07:00 MCH 28.4 pg (25.7-33.7) 07/01/17 07:00 MCHC 33.4 g/dl (32.0-35.9) 07/01/17 07:00 RDW 15.2 % (11.9-15.9) 07/01/17 07:00 Plt Count 192 K/MM3 (134-434) 07/01/17 07:00 MPV 10.1 fl (7.5-11.1) 07/01/17 07:00 Sodium 139 mmol/L (136-145) 07/01/17 07:00 Potassium 3.6 mmol/L (3.5-5.1) 07/01/17 07:00 Chloride 102 mmol/L (98-107) 07/01/17 07:00 Carbon Dioxide 29 mmol/L (21-32) 07/01/17 07:00 Anion Gap 8 (8-16) 07/01/17 07:00 BUN 15 mg/dL (7-18) 07/01/17 07:00 Creatinine 0.8 mg/dL (0.7-1.3) 07/01/17 07:00 Creat Clearance w eGFR > 60 (>60) 07/01/17 07:00 Random Glucose 98 mg/dL (74-106) 07/01/17 07:00 Calcium 9.5 mg/dL (8.5-10.1) 07/01/17 07:00 Total Bilirubin 1.1 mg/dL (0.2-1.0) H D 07/01/17 07:00 AST 20 U/L (15-37) D 07/01/17 07:00 ALT 31 U/L (12-78) D 07/01/17 07:00 Alkaline Phosphatase 71 U/L (45-117) 07/01/17 07:00 Total Protein 6.0 g/dl (6.4-8.2) L 07/01/17 07:00 Albumin 3.4 g/dl (3.4-5.0) 07/01/17 07:00 RPR Titer Nonreactive (NONREACTIVE) 07/01/17 07:00 UA PENDING Assessment: 07/02/17 11:28 WITHDRAWAL SX Plan: CONTINUE DETOX
--- NOTE | 2017-07-02 20:03 | EKG ---
Test Reason : Blood Pressure : / mmHG Vent. Rate : 072 BPM Atrial Rate : 072 BPM P-R Int : 138 ms QRS Dur : 090 ms QT Int : 378 ms P-R-T Axes : 060 041 024 degrees QTc Int : 413 ms SINUS RHYTHM WITH MARKED SINUS ARRHYTHMIA VOLTAGE CRITERIA FOR LEFT VENTRICULAR HYPERTROPHY CANNOT RULE OUT SEPTAL INFARCT , AGE UNDETERMINED ABNORMAL ECG WHEN COMPARED WITH ECG OF 18-APR-2017 21:02, NONSPECIFIC T WAVE ABNORMALITY NO LONGER EVIDENT IN LATERAL LEADS Confirmed by WILFRED DEVINE MD ([id number]) on 07/02/2017 8:02:29 PM Referred By: Confirmed By:WILFRED DEVINE MD
[2017-07-02 20:31] LABS: URINE APPEARANCE SLCLOUDY; URINE BILIRUBIN NEGATIVE (NEGATIVE); URINE BLOOD NEGATIVE (NEGATIVE); URINE COLOR YELLOW; URINE GLUCOSE (UA) NEGATIVE (NEGATIVE); URINE KETONE NEGATIVE (NEGATIVE); URINE LEUK ESTERASE NEGATIVE (NEGATIVE); URINE NITRITE NEGATIVE (NEGATIVE); URINE PROTEIN NEGATIVE (NEGATIVE)
[2017-07-02] MEDS: THIAMINE HCL 100 MG TABLET (FP) PO SCH (22:48)
[2017-07-02] MEDS: QUEtiapine FUMARATE 200 MG TABLET PO SCH (22:48)
[2017-07-02] MEDS: ATORVASTATIN CA 40 MG TABLET (FP) PO SCH (22:48)
[2017-07-02] MEDS: traZODone HCL 50 MG TABLET (FP) PO SCH (22:48)
[2017-07-02] MEDS: chlordiazePOXIDE 5 MG CAPSULE PO SCH (22:48)
[2017-07-02] MEDS: LIDOCAINE PATCH REMOVAL MC SCH (22:51)
[2017-07-03] MEDS: chlordiazePOXIDE 5 MG CAPSULE PO SCH ×3 (06:12→17:47)
[2017-07-03] MEDS: TAMSULOSIN HCL 0.4 MG CAP.ER.24H (FP) PO SCH (11:21)
[2017-07-03] MEDS: PRENATAL VITAMINS W/ FOLIC ACID TABLET (FP) PO SCH (11:21)
[2017-07-03] MEDS: LIDOCAINE 5% TOPICAL PATCH TP SCH (11:21)
[2017-07-03] MEDS: TRIAMCINOLONE ACET 0.1% OINT 15 GM TUBE TP SCH ×4 (11:21→22:43)
[2017-07-03] MEDS: RANITIDINE HCL 150 MG TABLET (FP) PO SCH ×2 (11:21→22:44)
--- NOTE | 2017-07-03 12:12 | PN ---
S Progress Note (SOAP) Subjective: ANXIETY,SWEATS,BODY ACHE,FATIGUE. Objective: 07/03/17 12:12 Vital Signs Temperature 97.5 F L 07/03/17 09:56 Pulse Rate 89 07/03/17 09:56 Respiratory Rate 18 07/03/17 09:56 Blood Pressure 130/84 07/03/17 09:56 O2 Sat by Pulse Oximetry (%) Laboratory Last Values WBC 6.3 K/mm3 (4.0-10.0) D 07/01/17 07:00 RBC 4.89 M/mm3 (4.00-5.60) 07/01/17 07:00 Hgb 13.9 GM/dL (11.7-16.9) 07/01/17 07:00 Hct 41.5 % (35.4-49) 07/01/17 07:00 MCV 85.0 fl (80-96) 07/01/17 07:00 MCH 28.4 pg (25.7-33.7) 07/01/17 07:00 MCHC 33.4 g/dl (32.0-35.9) 07/01/17 07:00 RDW 15.2 % (11.9-15.9) 07/01/17 07:00 Plt Count 192 K/MM3 (134-434) 07/01/17 07:00 MPV 10.1 fl (7.5-11.1) 07/01/17 07:00 Sodium 139 mmol/L (136-145) 07/01/17 07:00 Potassium 3.6 mmol/L (3.5-5.1) 07/01/17 07:00 Chloride 102 mmol/L (98-107) 07/01/17 07:00 Carbon Dioxide 29 mmol/L (21-32) 07/01/17 07:00 Anion Gap 8 (8-16) 07/01/17 07:00 BUN 15 mg/dL (7-18) 07/01/17 07:00 Creatinine 0.8 mg/dL (0.7-1.3) 07/01/17 07:00 Creat Clearance w eGFR > 60 (>60) 07/01/17 07:00 Random Glucose 98 mg/dL (74-106) 07/01/17 07:00 Calcium 9.5 mg/dL (8.5-10.1) 07/01/17 07:00 Total Bilirubin 1.1 mg/dL (0.2-1.0) H D 07/01/17 07:00 AST 20 U/L (15-37) D 07/01/17 07:00 ALT 31 U/L (12-78) D 07/01/17 07:00 Alkaline Phosphatase 71 U/L (45-117) 07/01/17 07:00 Total Protein 6.0 g/dl (6.4-8.2) L 07/01/17 07:00 Albumin 3.4 g/dl (3.4-5.0) 07/01/17 07:00 Urine Color Yellow 07/02/17 13:20 Urine Appearance Slcloudy 07/02/17 13:20 Urine pH 6.0 (5.0-8.0) 07/02/17 13:20 Ur Specific [place] 1.020 (1.005-1.025) 07/02/17 13:20 Urine Protein Negative (NEGATIVE) 07/02/17 13:20 Urine Glucose (UA) Negative (NEGATIVE) 07/02/17 13:20 Urine Ketones Negative (NEGATIVE) 07/02/17 13:20 Urine Blood Negative (NEGATIVE) 07/02/17 13:20 Urine Nitrite Negative (NEGATIVE) 07/02/17 13:20 Urine Bilirubin Negative (NEGATIVE) 07/02/17 13:20 Urine Urobilinogen 2.0 mg/dL (0.2-1.0) 07/02/17 13:20 Ur Leukocyte Esterase Negative (NEGATIVE) 07/02/17 13:20 RPR Titer Nonreactive (NONREACTIVE) 07/01/17 07:00 Assessment: 07/03/17 12:12 WITHDRAWAL SX Plan: CONTINUE DETOX
[2017-07-03] MEDS: chlordiazePOXIDE HCL 10 MG CAPSULE PO SCH (22:44)
[2017-07-03] MEDS: QUEtiapine FUMARATE 200 MG TABLET PO SCH (22:44)
[2017-07-03] MEDS: ATORVASTATIN CA 40 MG TABLET (FP) PO SCH (22:44)
[2017-07-03] MEDS: THIAMINE HCL 100 MG TABLET (FP) PO SCH (22:44)
[2017-07-03] MEDS: traZODone HCL 50 MG TABLET (FP) PO SCH (22:44)
[2017-07-03] MEDS: LIDOCAINE PATCH REMOVAL MC SCH (22:45)
[2017-07-04] MEDS: ACETAMINOPHEN 325 MG TABLET (FP) PO PRN ×2 (06:16→11:00)
[2017-07-04] MEDS: chlordiazePOXIDE HCL 10 MG CAPSULE PO SCH ×2 (06:16→10:58)
[2017-07-04] MEDS: TAMSULOSIN HCL 0.4 MG CAP.ER.24H (FP) PO SCH (09:00)
--- NOTE | 2017-07-04 09:11 | DS ---
[facility] Detox Discharge Summary Admission Date: 06/30/17 Discharge Date: 07/04/17 - History Present History: Alcohol Dependence, Cocaine Dependence Additional Comments: DETOX COMPLETED. ALERT O X 3. NAD. PT INSTRUCTED TO FOLLOW UP WITH PMD DR EMELYN PURDY AT [address] [facility] [place] [place] [facility] AFTER DISCHARGE. Pertinent Past History: BPH HTN HYPERCHOLESTEROLEMIA SCOLIOSIS SPINE S/P STEMI COPD ASTHMA ECZEMA CHRONIC LOWER BACK PAIN USE OF CANE AMBULATORY AID - Physical Exam Results Vital Signs: Vital Signs Temperature 97.7 F 07/04/17 06:24 Pulse Rate 87 07/04/17 06:24 Respiratory Rate 18 07/04/17 06:24 Blood Pressure 121/84 07/04/17 06:24 O2 Sat by Pulse Oximetry (%) Pertinent Admission Physical Exam Findings: WITHDRAWAL SX Laboratory Last Values WBC 6.3 K/mm3 (4.0-10.0) D 07/01/17 07:00 RBC 4.89 M/mm3 (4.00-5.60) 07/01/17 07:00 Hgb 13.9 GM/dL (11.7-16.9) 07/01/17 07:00 Hct 41.5 % (35.4-49) 07/01/17 07:00 MCV 85.0 fl (80-96) 07/01/17 07:00 MCH 28.4 pg (25.7-33.7) 07/01/17 07:00 MCHC 33.4 g/dl (32.0-35.9) 07/01/17 07:00 RDW 15.2 % (11.9-15.9) 07/01/17 07:00 Plt Count 192 K/MM3 (134-434) 07/01/17 07:00 MPV 10.1 fl (7.5-11.1) 07/01/17 07:00 Sodium 139 mmol/L (136-145) 07/01/17 07:00 Potassium 3.6 mmol/L (3.5-5.1) 07/01/17 07:00 Chloride 102 mmol/L (98-107) 07/01/17 07:00 Carbon Dioxide 29 mmol/L (21-32) 07/01/17 07:00 Anion Gap 8 (8-16) 07/01/17 07:00 BUN 15 mg/dL (7-18) 07/01/17 07:00 Creatinine 0.8 mg/dL (0.7-1.3) 07/01/17 07:00 Creat Clearance w eGFR > 60 (>60) 07/01/17 07:00 Random Glucose 98 mg/dL (74-106) 07/01/17 07:00 Calcium 9.5 mg/dL (8.5-10.1) 07/01/17 07:00 Total Bilirubin 1.1 mg/dL (0.2-1.0) H D 07/01/17 07:00 AST 20 U/L (15-37) D 07/01/17 07:00 ALT 31 U/L (12-78) D 07/01/17 07:00 Alkaline Phosphatase 71 U/L (45-117) 07/01/17 07:00 Total Protein 6.0 g/dl (6.4-8.2) L 07/01/17 07:00 Albumin 3.4 g/dl (3.4-5.0) 07/01/17 07:00 Urine Color Yellow 07/02/17 13:20 Urine Appearance Slcloudy 07/02/17 13:20 Urine pH 6.0 (5.0-8.0) 07/02/17 13:20 Ur Specific [place] 1.020 (1.005-1.025) 07/02/17 13:20 Urine Protein Negative (NEGATIVE) 07/02/17 13:20 Urine Glucose (UA) Negative (NEGATIVE) 07/02/17 13:20 Urine Ketones Negative (NEGATIVE) 07/02/17 13:20 Urine Blood Negative (NEGATIVE) 07/02/17 13:20 Urine Nitrite Negative (NEGATIVE) 07/02/17 13:20 Urine Bilirubin Negative (NEGATIVE) 07/02/17 13:20 Urine Urobilinogen 2.0 mg/dL (0.2-1.0) 07/02/17 13:20 Ur Leukocyte Esterase Negative (NEGATIVE) 07/02/17 13:20 RPR Titer Nonreactive (NONREACTIVE) 07/01/17 07:00 - Treatment Hospital Course: Detox Protocol Followed, Detoxed Safely, Responded well, Discharged Condition Good, Rehab Referral Accepted Patient has Accepted a Rehab Referral to: [facility] [address] - Medication Discharge Medications: Ambulatory Orders Lidocaine 5% Patch [Lidoderm -] 2 patch TP DAILY 02/19/15 Albuterol Sulfate Inhaler - [Ventolin HFA Inhaler -] 2 inh IH Q4H PRN #1 inh 08/01 Tamsulosin HCl [Flomax -] 0.4 mg PO DAILY #30 cap.er.24h 11/06/15 Acetaminophen [Tylenol] 650 mg PO Q6H PRN 03/07/16 Docusate Sodium [Colace -] 100 mg PO DAILY PRN 03/07/16 Trazodone HCl [Desyrel -] 150 mg PO HS PRN 03/07/16 Quetiapine Fumarate [Seroquel -] 200 mg PO HS #30 tablet 03/08/16 Atorvastatin Ca [Lipitor] 20 mg PO HS 06/23/16 Dextran 70/Hypromellose [Artificial Tears Eye Drops] 2 drop OP Q2H 01/20/17 Famotidine [Pepcid] 20 mg PO HS 01/20/17 Triamcinolone 0.1% Ointment [Aristocort 0.1% Ointment -] 1 applic TP BID Quetiapine Fumarate [Seroquel -] 200 mg PO HS #30 tab 01/21/17 Trazodone HCl 100 mg PO HS #30 tablet 01/21/17 Meloxicam [Mobic] 15 mg PO DAILY 04/18/17 Quetiapine Fumarate [Seroquel -] 200 mg PO HS #30 tab 04/19/17 Trazodone HCl [Desyrel -] 150 mg PO HS #30 tablet 04/19/17 Quetiapine Fumarate [Seroquel -] 200 mg PO HS #30 tab 07/01/17 Trazodone HCl [Desyrel -] 150 mg PO HS #30 tablet 07/01/17 - Diagnosis (1) Alcohol dependence with uncomplicated withdrawal Current Visit: Yes Status: Acute (2) Cocaine dependence Current Visit: Yes Status: Acute Qualifiers: Substance use status: uncomplicated Qualified Code(s): F14.20 - Cocaine dependence, uncomplicated (3) Nicotine dependence Current Visit: Yes Status: Acute Qualifiers: Nicotine product type: cigarettes Substance use status: in withdrawal Qualified Code(s): F17.213 - Nicotine dependence, cigarettes, with withdrawal (4) Asthma Current Visit: Yes Status: Chronic Qualifiers: Asthma severity: mild persistent Asthma complication type: uncomplicated Qualified Code(s): J45.30 - Mild persistent asthma, uncomplicated (5) Benign prostatic hypertrophy without outflow obstruction Current Visit: Yes Status: Chronic (6) COPD (chronic obstructive pulmonary disease) Current Visit: Yes Status: Chronic Qualifiers: COPD type: chronic bronchitis Chronic bronchitis type: simple Qualified Code(s): J41.0 - Simple chronic bronchitis (7) Chronic low back pain Current Visit: Yes Status: Chronic Qualifiers: Back pain laterality: bilateral Sciatica presence: without sciatica Qualified Code(s): M54.5 - Low back pain; G89.29 - Other chronic pain (8) Eczema Current Visit: Yes Status: Chronic Qualifiers: Eczema type: flexural Qualified Code(s): L20.82 - Flexural eczema (9) Essential hypertension Current Visit: Yes Status: Chronic (10) Gastroesophageal reflux disease Current Visit: Yes Status: Chronic Qualifiers: Esophagitis presence: without esophagitis Qualified Code(s): K21.9 - Gastro-esophageal reflux disease without esophagitis (11) History of scoliosis Current Visit: Yes Status: Chronic (12) Hypercholesterolemia Current Visit: Yes Status: Chronic (13) Use of cane as ambulatory aid Current Visit: Yes Status: Chronic - AMA Did Patient Leave Against Medical Advice: No
[2017-07-04 09:40] VITALS: BP 109/73; PULSE 116; TEMP 96.6
[2017-07-04] MEDS: TRIAMCINOLONE ACET 0.1% OINT 15 GM TUBE TP SCH (10:00)
[2017-07-04] MEDS: RANITIDINE HCL 150 MG TABLET (FP) PO SCH (10:58)
[2017-07-04] MEDS: PRENATAL VITAMINS W/ FOLIC ACID TABLET (FP) PO SCH (10:58)
[2017-07-04] MEDS: LIDOCAINE 5% TOPICAL PATCH TP SCH (10:59)
== END 2017-07-04 12:18 | disposition other institution (70) | DRG 774 ==
LOC: YASAS 14:35 → Y3N 18:15
PROVIDERS: ADMIT Internal Medicine; ATTEND Internal Medicine
PROC: HZ2ZZZZ Detoxification Services for Substance Abuse Treatment (ICD-10-PCS; principal; 2017-06-30)
DX: F10.230 Alcohol dependence with withdrawal, uncomplicated (principal); F14.20 Cocaine dependence, uncomplicated; F17.210 Nicotine dependence, cigarettes, uncomplicated; F19.24 Other psychoactive substance dependence with psychoactive substance-induced mood disorder; F31.81 Bipolar II disorder; J45.30 Mild persistent asthma, uncomplicated; J41.0 Simple chronic bronchitis; N40.0 Benign prostatic hyperplasia without lower urinary tract symptoms; M54.5 Low back pain; G89.29 Other chronic pain; L20.82 Flexural eczema; I10 Essential (primary) hypertension; K21.9 Gastro-esophageal reflux disease without esophagitis; M41.9 Scoliosis, unspecified; E78.00 Pure hypercholesterolemia, unspecified; R26.2 Difficulty in walking, not elsewhere classified; Z99.89 Dependence on other enabling machines and devices; Z91.013 Allergy to seafood; Z91.018 Allergy to other foods; Z96.642 Presence of left artificial hip joint; Z88.8 Allergy status to other drugs, medicaments and biological substances
CPT/HCPCS: 36415; 80053; 81003; 85027; 86593; 93005; 93010

== ENCOUNTER 2017-07-04 12:35 | Inpatient (IN) | payer OTHER ==
[2017-07-04 13:26] VITALS: BMI 25.5
[2017-07-04] MEDS ORDERED: LOPERAMIDE HCL 2 MG CAPSULE PO PRN (14:14)
[2017-07-04] MEDS ORDERED: hydrOXYzine PAMOATE 25 MG CAPSULE (FP) PO PRN (14:14)
[2017-07-04] MEDS ORDERED: MAGNESIUM HYDROX 2400MG/30ML ORAL SUSPENSION 30 ML CUP PO PRN (14:14)
[2017-07-04] MEDS ORDERED: IBUPROFEN 400 MG TABLET (FP) PO PRN (14:14)
[2017-07-04] MEDS ORDERED: MAGNESIUM CITRATE 300 ML BOTTLE PO PRN (14:14)
[2017-07-04] MEDS ORDERED: MENTHOL/PHENOL 1 EACH UD MM PRN (14:14)
[2017-07-04] MEDS ORDERED: guaiFENesin/D-METHORPHAN HB 10 ML UNIT-DOSE CUPS PO PRN (14:14)
--- NOTE | 2017-07-04 14:15 | HP ---
Psychiatrist Admission - Data Date of interview: 07/04/17 Admission source: [address] [place] [address] detox Identifying data: This is one of the multiple admissions to [address] [place] [address] inpatient rehabilitation for this 57 years old AA single male father of 2 grown children, resides alone,supported by [facility]. Medical History: Scoliosis,H/O L knee replacement,COPD,Hyperlipidemia,GERD. Psychiatric History: Patient reports long and extensive psychiatric history started back in childhood but was not placed on psychotropic medications..He was dx with MDD,then Bipolar disorder as an adult.Patient reports 2 psychiatric hospitslizations(DOD) in 2011 and 2013.Sees psychiatrst at [facility] in [facility]. Current medications:Seroquel 200 mg po hs and Trazodone 150 mg po hs,continued while in detox prescribed by . Physical/Sexual Abuse/Trauma History: denies Vital Signs: Vital Signs - 24 hr 07/04/17 13:07 Temperature 98.5 F Pulse Rate 104 H Respiratory 20 Rate Blood Pressure 134/70 Allergies/Adverse Reactions: Allergies Allergy/AdvReac Type Severity Reaction Status Date / Time No Known Drug Allergies Allergy Verified 07/04/17 12:48 pseudoephedrine AdvReac Severe dizziness Verified 07/04/17 12:48 and headache pork derived (porcine) AdvReac Mild Vomiting Verified 07/04/17 12:48 [Pork derived (porcine)] tomato [Tomato] AdvReac Mild diarrhea Verified 07/04/17 12:48 lobster AdvReac Intermediate Vomiting Uncoded 07/04/17 12:48 Date of last physical exam: 07/04/17 Concur with the findings of this exam: Yes - Substance Abuse/Tx History Hx Alcohol Use: Yes (reports drinking since 17 yo,daily beer,bacardi) Hx Substance Use: Yes (cocaine $100 daily use,heroin in stable remission, marijuana daily) Substance Use Type: Alcohol, Cocaine, Marijuana Hx Substance Use Treatment: Yes (completed this program in April 2014,longest abstinence 3 years) - Admission Criteria Previous failed treatment: Yes Poor recovery environment: Yes Comorbidities: Yes Lacks judgement: Yes Mental Status Exam - Mental Status Exam Alert and Oriented to: Time, Place, Person Cognitive Function: Grossly Intact Patient Appearance: Well Groomed Mood: Sad Affect: Mood Congruent, Labile Patient Behavior: Cooperative Speech Pattern: Clear Voice Loudness: Normal Thought Process: Goal Oriented Thought Disorder: Not Present Hallucinations: Denies Suicidal Ideation: Denies Homicidal Ideation: Denies Insight/Judgement: Fair Sleep: Well Appetite: Fair Muscle strength/Tone: Normal Gait/Station: Normal Psychiatric Findings - Problem List ([place] 1, 2,3) (1) Cocaine dependence Current Visit: Yes Status: Chronic Qualifiers: Substance use status: uncomplicated Qualified Code(s): F14.20 - Cocaine dependence, uncomplicated (2) Nicotine dependence Current Visit: Yes Status: Chronic Qualifiers: Nicotine product type: cigarettes Substance use status: in withdrawal Qualified Code(s): F17.213 - Nicotine dependence, cigarettes, with withdrawal (3) Asthma Current Visit: Yes Status: Chronic Qualifiers: Asthma severity: mild persistent Asthma complication type: uncomplicated Qualified Code(s): J45.30 - Mild persistent asthma, uncomplicated (4) Benign prostatic hypertrophy without outflow obstruction Current Visit: Yes Status: Chronic (5) History of scoliosis Current Visit: Yes Status: Chronic (6) Hypercholesterolemia Current Visit: Yes Status: Chronic (7) Bipolar II disorder Current Visit: Yes Status: Suspected Comment: History. (8) Alcohol dependence Current Visit: Yes Status: Chronic (9) Eczema Current Visit: Yes Status: Chronic Qualifiers: Eczema type: flexural Qualified Code(s): L20.82 - Flexural eczema (10) Essential hypertension Current Visit: Yes Status: Chronic (11) Gastroesophageal reflux disease Current Visit: Yes Status: Chronic Qualifiers: Esophagitis presence: without esophagitis Qualified Code(s): K21.9 - Gastro-esophageal reflux disease without esophagitis (12) Cannabis dependence Current Visit: Yes Status: Chronic - Initial Treatment Plan Initial Treatment Plan: Continue current medications as per plan. will monitor progress.
--- NOTE | 2017-07-04 14:34 | HP ---
[facility] Rehab Assess/Revision - Admission History Admitted to Rehab from: [facility] Date of Admission to Rehab: 07/04/17 - Vital signs Vital Signs: Vital Signs Period Temp Pulse Resp BP Sys/Mohr Pulse Ox Last 24 Hr 98.5 F 104 20 134/70 - Findings Detox History & Physical reviewed: Yes Concur with findings: Yes Comments/Additional Findings: for rehab as protocol
[2017-07-04] MEDS: QUEtiapine FUMARATE 200 MG TABLET PO SCH (22:02)
[2017-07-04] MEDS: THIAMINE HCL 100 MG TABLET (FP) PO SCH (22:02)
[2017-07-04] MEDS: traZODone HCL 50 MG TABLET (FP) PO SCH (22:02)
[2017-07-05] MEDS: PRENATAL VITAMINS W/ FOLIC ACID TABLET (FP) PO SCH (10:21)
[2017-07-05] MEDS: ACETAMINOPHEN 325 MG TABLET (FP) PO PRN ×3 (10:21→21:21)
[2017-07-05] MEDS ORDERED: ALBUTEROL SO4 6.7 GM HFA INHALER IH PRN (11:31)
[2017-07-05] MEDS ORDERED: LIDOCAINE 5% TOPICAL PATCH TP SCH (11:45)
[2017-07-05] MEDS: TAMSULOSIN HCL 0.4 MG CAP.ER.24H (FP) PO SCH (13:05)
[2017-07-05] MEDS: traZODone HCL 50 MG TABLET (FP) PO SCH (21:19)
[2017-07-05] MEDS: THIAMINE HCL 100 MG TABLET (FP) PO SCH (21:19)
[2017-07-05] MEDS: ATORVASTATIN CA 20 MG TABLET (FP) PO SCH (21:19)
[2017-07-05] MEDS: QUEtiapine FUMARATE 200 MG TABLET PO SCH (21:19)
[2017-07-05] MEDS: MAG HYDROX/AL HYDROX/SIMETH 30 ML UNIT-DOSE CUP PO PRN (21:20)
[2017-07-05] MEDS: LIDOCAINE 5% TOPICAL PATCH TP SCH (23:33)
[2017-07-06] MEDS: ACETAMINOPHEN 325 MG TABLET (FP) PO PRN ×2 (06:39→21:33)
[2017-07-06] MEDS: PRENATAL VITAMINS W/ FOLIC ACID TABLET (FP) PO SCH (10:28)
[2017-07-06] MEDS: TAMSULOSIN HCL 0.4 MG CAP.ER.24H (FP) PO SCH (10:29)
[2017-07-06] MEDS: LIDOCAINE 5% TOPICAL PATCH TP SCH (11:37)
[2017-07-06] MEDS: ATORVASTATIN CA 20 MG TABLET (FP) PO SCH (21:33)
[2017-07-06] MEDS: traZODone HCL 50 MG TABLET (FP) PO SCH (21:33)
[2017-07-06] MEDS: QUEtiapine FUMARATE 200 MG TABLET PO SCH (21:33)
[2017-07-06] MEDS: MAG HYDROX/AL HYDROX/SIMETH 30 ML UNIT-DOSE CUP PO PRN (21:36)
[2017-07-06] MEDS: THIAMINE HCL 100 MG TABLET (FP) PO SCH (22:14)
[2017-07-07] MEDS: TAMSULOSIN HCL 0.4 MG CAP.ER.24H (FP) PO SCH (10:15)
[2017-07-07] MEDS: PRENATAL VITAMINS W/ FOLIC ACID TABLET (FP) PO SCH (10:15)
[2017-07-07] MEDS: LIDOCAINE 5% TOPICAL PATCH TP SCH (10:15)
[2017-07-07] MEDS: ACETAMINOPHEN 325 MG TABLET (FP) PO PRN ×2 (10:16→21:35)
[2017-07-07] MEDS ORDERED: COLLOIDAL OATMEAL 1 BAR EACH TP PRN (12:40)
[2017-07-07] MEDS: TRIAMCINOLONE ACET 0.1% OINT 15 GM TUBE TP SCH ×2 (13:14→21:36)
[2017-07-07] MEDS: ATORVASTATIN CA 20 MG TABLET (FP) PO SCH (21:34)
[2017-07-07] MEDS: QUEtiapine FUMARATE 200 MG TABLET PO SCH (21:34)
[2017-07-07] MEDS: traZODone HCL 50 MG TABLET (FP) PO SCH (21:34)
[2017-07-07] MEDS: THIAMINE HCL 100 MG TABLET (FP) PO SCH (21:34)
[2017-07-08] MEDS: PRENATAL VITAMINS W/ FOLIC ACID TABLET (FP) PO SCH (10:27)
[2017-07-08] MEDS: ACETAMINOPHEN 325 MG TABLET (FP) PO PRN ×2 (10:27→21:34)
[2017-07-08] MEDS: TAMSULOSIN HCL 0.4 MG CAP.ER.24H (FP) PO SCH (10:27)
[2017-07-08] MEDS: TRIAMCINOLONE ACET 0.1% OINT 15 GM TUBE TP SCH ×2 (10:27→21:32)
[2017-07-08] MEDS: LIDOCAINE 5% TOPICAL PATCH TP SCH (10:28)
[2017-07-08] MEDS: QUEtiapine FUMARATE 200 MG TABLET PO SCH (21:32)
[2017-07-08] MEDS: ATORVASTATIN CA 20 MG TABLET (FP) PO SCH (21:32)
[2017-07-08] MEDS: traZODone HCL 50 MG TABLET (FP) PO SCH (21:32)
[2017-07-08] MEDS: THIAMINE HCL 100 MG TABLET (FP) PO SCH (21:33)
[2017-07-09] MEDS: TRIAMCINOLONE ACET 0.1% OINT 15 GM TUBE TP SCH ×2 (10:16→21:51)
[2017-07-09] MEDS: PRENATAL VITAMINS W/ FOLIC ACID TABLET (FP) PO SCH (10:16)
[2017-07-09] MEDS: TAMSULOSIN HCL 0.4 MG CAP.ER.24H (FP) PO SCH (10:16)
[2017-07-09] MEDS: LIDOCAINE 5% TOPICAL PATCH TP SCH (10:17)
[2017-07-09] MEDS: ACETAMINOPHEN 325 MG TABLET (FP) PO PRN ×2 (10:17→21:50)
[2017-07-09] MEDS: traZODone HCL 50 MG TABLET (FP) PO SCH (21:48)
[2017-07-09] MEDS: QUEtiapine FUMARATE 200 MG TABLET PO SCH (21:48)
[2017-07-09] MEDS: THIAMINE HCL 100 MG TABLET (FP) PO SCH (21:48)
[2017-07-09] MEDS: ATORVASTATIN CA 20 MG TABLET (FP) PO SCH (21:48)
[2017-07-10] MEDS: PRENATAL VITAMINS W/ FOLIC ACID TABLET (FP) PO SCH (10:16)
[2017-07-10] MEDS: TRIAMCINOLONE ACET 0.1% OINT 15 GM TUBE TP SCH ×2 (10:16→21:26)
[2017-07-10] MEDS: TAMSULOSIN HCL 0.4 MG CAP.ER.24H (FP) PO SCH (10:16)
[2017-07-10] MEDS: ACETAMINOPHEN 325 MG TABLET (FP) PO PRN ×2 (10:17→21:27)
[2017-07-10] MEDS: LIDOCAINE 5% TOPICAL PATCH TP SCH (10:17)
[2017-07-10] MEDS: QUEtiapine FUMARATE 200 MG TABLET PO SCH (21:26)
[2017-07-10] MEDS: traZODone HCL 50 MG TABLET (FP) PO SCH (21:26)
[2017-07-10] MEDS: ATORVASTATIN CA 20 MG TABLET (FP) PO SCH (21:26)
[2017-07-10] MEDS: THIAMINE HCL 100 MG TABLET (FP) PO SCH (21:26)
[2017-07-11] MEDS: ACETAMINOPHEN 325 MG TABLET (FP) PO PRN ×3 (05:59→21:24)
[2017-07-11] MEDS: TRIAMCINOLONE ACET 0.1% OINT 15 GM TUBE TP SCH ×2 (09:36→21:23)
[2017-07-11] MEDS: PRENATAL VITAMINS W/ FOLIC ACID TABLET (FP) PO SCH (09:36)
[2017-07-11] MEDS: TAMSULOSIN HCL 0.4 MG CAP.ER.24H (FP) PO SCH (09:36)
[2017-07-11] MEDS: LIDOCAINE 5% TOPICAL PATCH TP SCH (09:37)
[2017-07-11] MEDS: traZODone HCL 50 MG TABLET (FP) PO SCH (21:22)
[2017-07-11] MEDS: QUEtiapine FUMARATE 200 MG TABLET PO SCH (21:22)
[2017-07-11] MEDS: THIAMINE HCL 100 MG TABLET (FP) PO SCH (21:23)
[2017-07-11] MEDS: ATORVASTATIN CA 20 MG TABLET (FP) PO SCH (21:23)
[2017-07-12] MEDS: TRIAMCINOLONE ACET 0.1% OINT 15 GM TUBE TP SCH ×2 (09:50→21:56)
[2017-07-12] MEDS: TAMSULOSIN HCL 0.4 MG CAP.ER.24H (FP) PO SCH (09:50)
[2017-07-12] MEDS: PRENATAL VITAMINS W/ FOLIC ACID TABLET (FP) PO SCH (09:50)
[2017-07-12] MEDS: LIDOCAINE 5% TOPICAL PATCH TP SCH (09:51)
[2017-07-12] MEDS: ACETAMINOPHEN 325 MG TABLET (FP) PO PRN ×2 (09:52→21:59)
[2017-07-12] MEDS: THIAMINE HCL 100 MG TABLET (FP) PO SCH (21:55)
[2017-07-12] MEDS: QUEtiapine FUMARATE 200 MG TABLET PO SCH (21:56)
[2017-07-12] MEDS: ATORVASTATIN CA 20 MG TABLET (FP) PO SCH (21:56)
[2017-07-12] MEDS: traZODone HCL 50 MG TABLET (FP) PO SCH (21:56)
[2017-07-13] MEDS: ACETAMINOPHEN 325 MG TABLET (FP) PO PRN ×3 (06:46→21:33)
[2017-07-13] MEDS: LIDOCAINE 5% TOPICAL PATCH TP SCH (10:05)
[2017-07-13] MEDS: PRENATAL VITAMINS W/ FOLIC ACID TABLET (FP) PO SCH (10:05)
[2017-07-13] MEDS: TAMSULOSIN HCL 0.4 MG CAP.ER.24H (FP) PO SCH (10:06)
[2017-07-13] MEDS: TRIAMCINOLONE ACET 0.1% OINT 15 GM TUBE TP SCH ×2 (10:06→21:32)
[2017-07-13] MEDS: traZODone HCL 50 MG TABLET (FP) PO SCH (21:30)
[2017-07-13] MEDS: THIAMINE HCL 100 MG TABLET (FP) PO SCH (21:31)
[2017-07-13] MEDS: ATORVASTATIN CA 20 MG TABLET (FP) PO SCH (21:31)
[2017-07-13] MEDS: QUEtiapine FUMARATE 200 MG TABLET PO SCH (21:32)
[2017-07-14] MEDS: ACETAMINOPHEN 325 MG TABLET (FP) PO PRN ×3 (06:19→21:40)
[2017-07-14] MEDS: PRENATAL VITAMINS W/ FOLIC ACID TABLET (FP) PO SCH (10:31)
[2017-07-14] MEDS: TAMSULOSIN HCL 0.4 MG CAP.ER.24H (FP) PO SCH (10:31)
[2017-07-14] MEDS: LIDOCAINE 5% TOPICAL PATCH TP SCH (10:31)
[2017-07-14] MEDS: TRIAMCINOLONE ACET 0.1% OINT 15 GM TUBE TP SCH ×2 (10:59→21:39)
[2017-07-14] MEDS: PANTOPRAZOLE 40 MG TABLET (FP) PO SCH (14:17)
[2017-07-14] MEDS: QUEtiapine FUMARATE 200 MG TABLET PO SCH (21:39)
[2017-07-14] MEDS: traZODone HCL 50 MG TABLET (FP) PO SCH (21:39)
[2017-07-14] MEDS: ATORVASTATIN CA 20 MG TABLET (FP) PO SCH (21:39)
[2017-07-14] MEDS: THIAMINE HCL 100 MG TABLET (FP) PO SCH (21:39)
[2017-07-15] MEDS: TRIAMCINOLONE ACET 0.1% OINT 15 GM TUBE TP SCH ×2 (10:32→21:25)
[2017-07-15] MEDS: TAMSULOSIN HCL 0.4 MG CAP.ER.24H (FP) PO SCH (10:32)
[2017-07-15] MEDS: PRENATAL VITAMINS W/ FOLIC ACID TABLET (FP) PO SCH (10:33)
[2017-07-15] MEDS: LIDOCAINE 5% TOPICAL PATCH TP SCH (10:33)
[2017-07-15] MEDS: PANTOPRAZOLE 40 MG TABLET (FP) PO SCH (10:33)
[2017-07-15] MEDS: ACETAMINOPHEN 325 MG TABLET (FP) PO PRN ×2 (10:34→19:49)
[2017-07-15] MEDS: QUEtiapine FUMARATE 200 MG TABLET PO SCH (21:25)
[2017-07-15] MEDS: THIAMINE HCL 100 MG TABLET (FP) PO SCH (21:25)
[2017-07-15] MEDS: ATORVASTATIN CA 20 MG TABLET (FP) PO SCH (21:25)
[2017-07-15] MEDS: traZODone HCL 50 MG TABLET (FP) PO SCH (21:25)
[2017-07-15] MEDS: diphenhydrAMINE HCL 50 MG CAPSULE PO PRN (21:26)
[2017-07-16] MEDS: TAMSULOSIN HCL 0.4 MG CAP.ER.24H (FP) PO SCH (09:57)
[2017-07-16] MEDS: TRIAMCINOLONE ACET 0.1% OINT 15 GM TUBE TP SCH ×2 (09:57→22:18)
[2017-07-16] MEDS: LIDOCAINE 5% TOPICAL PATCH TP SCH (09:57)
[2017-07-16] MEDS: PANTOPRAZOLE 40 MG TABLET (FP) PO SCH (09:57)
[2017-07-16] MEDS: PRENATAL VITAMINS W/ FOLIC ACID TABLET (FP) PO SCH (09:57)
[2017-07-16] MEDS: ACETAMINOPHEN 325 MG TABLET (FP) PO PRN ×3 (09:58→21:35)
[2017-07-16] MEDS: traZODone HCL 50 MG TABLET (FP) PO SCH (21:33)
[2017-07-16] MEDS: QUEtiapine FUMARATE 200 MG TABLET PO SCH (21:33)
[2017-07-16] MEDS: ATORVASTATIN CA 20 MG TABLET (FP) PO SCH (21:33)
[2017-07-16] MEDS: diphenhydrAMINE HCL 50 MG CAPSULE PO PRN (21:34)
[2017-07-16] MEDS: THIAMINE HCL 100 MG TABLET (FP) PO SCH (21:34)
[2017-07-17] MEDS: ACETAMINOPHEN 325 MG TABLET (FP) PO PRN ×3 (06:42→21:22)
[2017-07-17] MEDS: TAMSULOSIN HCL 0.4 MG CAP.ER.24H (FP) PO SCH (10:06)
[2017-07-17] MEDS: PRENATAL VITAMINS W/ FOLIC ACID TABLET (FP) PO SCH (10:06)
[2017-07-17] MEDS: PANTOPRAZOLE 40 MG TABLET (FP) PO SCH (10:06)
[2017-07-17] MEDS: TRIAMCINOLONE ACET 0.1% OINT 15 GM TUBE TP SCH ×2 (10:06→21:24)
[2017-07-17] MEDS: LIDOCAINE 5% TOPICAL PATCH TP SCH (10:07)
[2017-07-17] MEDS ORDERED: PT OWN MED DRAWER 7, Y5N ONE (20:37)
[2017-07-17] MEDS: diphenhydrAMINE HCL 50 MG CAPSULE PO PRN (21:23)
[2017-07-17] MEDS: ATORVASTATIN CA 20 MG TABLET (FP) PO SCH (21:24)
[2017-07-17] MEDS: THIAMINE HCL 100 MG TABLET (FP) PO SCH (21:24)
[2017-07-17] MEDS: QUEtiapine FUMARATE 200 MG TABLET PO SCH (21:24)
[2017-07-17] MEDS: traZODone HCL 50 MG TABLET (FP) PO SCH (21:24)
[2017-07-18 07:02] VITALS: BP 127/81; PULSE 71; TEMP 98.2
[2017-07-18] MEDS: ACETAMINOPHEN 325 MG TABLET (FP) PO PRN (08:21)
[2017-07-18] MEDS: PANTOPRAZOLE 40 MG TABLET (FP) PO SCH (09:06)
[2017-07-18] MEDS: TRIAMCINOLONE ACET 0.1% OINT 15 GM TUBE TP SCH (09:06)
[2017-07-18] MEDS: TAMSULOSIN HCL 0.4 MG CAP.ER.24H (FP) PO SCH (09:06)
[2017-07-18] MEDS: PRENATAL VITAMINS W/ FOLIC ACID TABLET (FP) PO SCH (09:06)
--- NOTE | 2017-07-18 09:25 | PN ---
Psychiatric Progress Note Vital Signs: Vital Signs Period Temp Pulse Resp BP Sys/Mohr Pulse Ox Last 24 Hr 98.2 F 71 18-18 127/81 Date of Session: 07/18/17 Chief Complaint:: discharge visit HPI: Patient has addressed alcohol, cocaine, cannabis dependence comorbid Bipolar I disorder. ROS: Scoliosis,H/O L knee replacement,COPD,Hyperlipidemia,GERD medically managed. Current Medications: Active Medications Generic Name Dose Route Start Last Admin Trade Name Freq PRN Reason Stop Dose Admin Acetaminophen 650 mg 07/04/17 14:14 07/18/17 08:21 Tylenol - PO 650 mg Q4H PRN Administration FEVER OR PAIN Al Hydroxide/Mg Hydroxide 30 ml 07/04/17 14:14 07/06/17 21:36 Mylanta Oral Suspension - PO 30 ml Q6H PRN Administration DYSPEPSIA Albuterol Sulfate 2 puff 07/05/17 11:31 Ventolin Hfa Inhaler - IH Q4H PRN ASTHMA Atorvastatin Calcium 20 mg 07/05/17 22:00 07/17/17 21:24 Lipitor - PO 20 mg HS CONG Administration Colloidal Oatmeal 1 applic 07/07/17 12:40 07/07/17 15:15 Aveeno Soap - TP 1 applic DAILY PRN Administration HYGEINE Diphenhydramine HCl 50 mg 07/04/17 14:14 07/17/17 21:23 Benadryl - PO 50 mg HSMR1 PRN Administration FOR ITCHING Eucalyptus/Menthol/Phenol/Sorbitol 1 each 07/04/17 14:14 Cepastat Lozenge - MM Q4H PRN SORE THROAT Guaifenesin 10 ml 07/04/17 14:14 Robitussin Dm - PO Q6H PRN COUGH Hydroxyzine Pamoate 25 mg 07/04/17 14:14 Vistaril - PO Q4H PRN AGITATION Ibuprofen 400 mg 07/04/17 14:14 Motrin - PO Q6H PRN PAIN Lidocaine 2 patch 07/05/17 22:45 07/17/17 10:07 Lidoderm Patch - TP 2 patch DAILY CONG Administration Loperamide HCl 4 mg 07/04/17 14:14 Imodium - PO Q6H PRN DIARRHEA Magnesium Hydroxide 30 ml 07/04/17 14:14 Milk Of Magnesia - PO DAILY PRN CONSTIPATION Pantoprazole Sodium 40 mg 07/14/17 13:00 07/18/17 09:06 Protonix - PO 40 mg DAILY CONG Administration Multivit/Folic Acid/Iron 1 tab 07/05/17 10:00 07/18/17 09:06 Vitamins (Sjr) - PO 1 tab DAILY CONG Administration Quetiapine Fumarate 200 mg 07/04/17 22:00 07/17/17 21:24 Seroquel - PO 200 mg HS CONG Administration Tamsulosin HCl 0.4 mg 07/05/17 11:45 07/18/17 09:06 Flomax - PO 0.4 mg DAILY CONG Administration Thiamine HCl 100 mg 07/04/17 22:00 07/17/17 21:24 Vitamin B1 - PO 100 mg HS CONG Administration Trazodone HCl 150 mg 07/04/17 22:00 07/17/17 21:24 Desyrel - PO 150 mg HS CONG Administration Triamcinolone Acetonide 1 applic 07/07/17 13:30 07/18/17 09:06 Aristocort 0.1% Ointment - TP Not Given BID CONG Current Side Effect: No Lab tests ordered: No Lab tests reviewed: Yes Provider note:: Patient has completed today his treatment and met his goals, will continue to address his issues at [facility]. HE gained insights into addiction and motivated to continue maintain abstinence. Patient reports finding Seroquel and Trazodone po hs helps to cope with mood instability, anxiety reduction and insomnia(scripts provideded for 30 days ). Patient identifies areas of difficulties and behaviors which contributes to relapses. Focused on coping skills, support system he can utilze to maintain recovery. Supportive therapy privided, patient is stable for discharge today. Total face to face time:: 30 Mental Status Exam - Mental Status Exam Alert and Oriented to: Time, Place, Person Cognitive Function: Good Patient Appearance: Well Groomed Mood: Hopeful Affect: Appropriate, Mood Congruent Patient Behavior: Appropriate, Cooperative Speech Pattern: Clear, Appropriate Voice Loudness: Normal Thought Process: Intact, Goal Oriented Thought Disorder: Not Present Hallucinations: Denies Suicidal Ideation: Denies Homicidal Ideation: Denies Insight/Judgement: Fair Sleep: Fair Appetite: Fair Muscle strength/Tone: Normal Gait/Station: Other (ambulates with a cane.) Psychiatric Treatment Plan - Problem List (1) Alcohol dependence Current Visit: Yes (2) Cannabis dependence Current Visit: Yes (3) Cocaine dependence Current Visit: Yes Qualifiers: Substance use status: uncomplicated Qualified Code(s): F14.20 - Cocaine dependence, uncomplicated (4) Bipolar disorder Current Visit: No
== END 2017-07-18 10:00 | disposition home or self-care (01) | DRG 772 ==
LOC: YASAS 12:35 → Y5N 12:37
PROVIDERS: ADMIT Psychiatry & Neurology Psychiatry; ATTEND Psychiatry & Neurology Psychiatry
PROC: HZ42ZZZ Group Counseling for Substance Abuse Treatment, Cognitive-Behavioral (ICD-10-PCS; principal; 2017-07-18)
DX: F10.20 Alcohol dependence, uncomplicated (principal); F14.20 Cocaine dependence, uncomplicated; F12.20 Cannabis dependence, uncomplicated; F31.9 Bipolar disorder, unspecified; J45.20 Mild intermittent asthma, uncomplicated; N40.0 Benign prostatic hyperplasia without lower urinary tract symptoms; I10 Essential (primary) hypertension; E78.00 Pure hypercholesterolemia, unspecified; K21.9 Gastro-esophageal reflux disease without esophagitis; M41.9 Scoliosis, unspecified

== ENCOUNTER 2018-01-29 11:01 | Inpatient (IN) | payer OTHER ==
[2018-01-29 12:43] VITALS: BMI 23.6
--- NOTE | 2018-01-29 15:57 | HP ---
CIWA Score - CIWA Score Nausea/Vomitin Muscle Tremors: 3 Anxiety: 3 Agitation: 3 Paroxysmal Sweats: 2 Orientation: 0-Oriented Tacttile Disturbances: 2-Mild Itch/Numbness/Burn Auditory Disturbances: 2-Mild Harshness/Frighten Visual Disturbances: 1-Very Mild Sensitivity Headache: 2-Mild CIWA-Ar Total Score: 21 Admission ROS BHS - HPI Chief Complaint: I NEED HELP TO STOP DRINKING ALCOHOL AND COCAINE Allergies/Adverse Reactions: Allergies Allergy/AdvReac Type Severity Reaction Status Date / Time No Known Drug Allergies Allergy Verified 01/29/18 15:59 pseudoephedrine AdvReac Severe dizziness Verified 01/29/18 15:59 and headache pork derived (porcine) AdvReac Mild Vomiting Verified 01/29/18 15:59 [Pork derived (porcine)] tomato [Tomato] AdvReac Mild diarrhea Verified 01/29/18 15:59 lobster AdvReac Intermediate Vomiting Uncoded 01/29/18 15:59 History of Present Illness: THIS 57 YEARS OLD MALE WITH ALCOHOL AND COCAINE DEPENDENCE,SEEKING DETOX, WITHDRAWAL SYMPTOM,LAST DETOX 06/30/17 TO 07/04/17 [facility],REHAB 07/04/17 TO 07/18/17 COPD,LOW BACK PAIN WITH SCOLIOSIS ARTHRITIS OF RIGHT HIP ,S/P SURGERY S/P LEFT HIP REPLACEMENT 2005 AMBULATORY FOR AMBULATION BIPOLAR DISORDER SEVERAL ADMISSIONS IN THE PAST LONGEST PERIOD OF SOBRIETY 3 YEARS Exam Limitations: No Limitations - Ebola screening Have you traveled outside of the country in the last 21 days: No Have you been sick,other than usual withdrawal symptoms: No - Review of Systems Constitutional: Loss of Appetite, Malaise, Night Sweats, Changes in sleep, Weakness, Unintentional Wgt. Loss EENT: reports: Nose Congestion Respiratory: reports: Other (COPD) Cardiac: reports: Palpitations GI: reports: Diarrhea, Nausea, Vomiting, Abdominal cramping : reports: No Symptoms Reported Musculoskeletal: reports: Back Pain, Joint Pain, Muscle Pain, Joint Stiffness, Other (S/P LEFT HIP REPLACEMENT IN 2005 ARTHRITIS OF RIGHT HIP,S/P SURGERY) Patient History - Patient Medical History Hx Anemia: No Hx Asthma: No Hx Chronic Obstructive Pulmonary Disease (COPD): Yes Hx Cancer: No Hx Cardiac Disorders: No Hx Congestive Heart Failure: No Hx Hypertension: No Hx Hypercholesterolemia: Yes (LIPITOR, PLAVIX) Hx Pacemaker: No HX Cerebrovascular Accident: No (MAHONEY 10/2015 LEFT) Hx Seizures: No Hx Dementia: No Hx Diabetes: No Hx Gastrointestinal Disorders: Yes (hiatal hernia/acid reflux) Hx Liver Disease: No Hx Genitourinary Disorders: Yes (BPH) Hx Sexually Transmitted Disorders: No Hx Renal Disease (ESRD): No Hx Thyroid Disease: No Hx Human Immunodeficiency Virus (HIV): No (LAST 2017) Hx Hepatitis C: No Hx Depression: No Hx Suicide Attempt: No Hx Bipolar Disorder: Yes (seroquel and trazodone by hx ) Hx Schizophrenia: No Other Medical History: NO SUICIDAL,NO HOMICIDAL - Patient Surgical History Past Surgical History: Yes Hx Neurologic Surgery: No Hx Cataract Extraction: No Hx Cardiac Surgery: Yes (CARDIAC CATH 01/05/16-NEGATIVE) Hx Lung Surgery: No Hx Breast Surgery: No Hx Breast Biopsy: No Hx Abdominal Surgery: No Hx Appendectomy: No Hx Cholecystectomy: No Hx Genitourinary Surgery: No Hx Section: No Hx Orthopedic Surgery: Yes (prosthetic left hip,rt. hip pinning,rt. hand with plate & 8 screws) Other Surgical History: TONSILLECTOMY A CHILD/right hand x4; B/L inguinal hernia repair Anesthesia Reaction: No - PPD History Previous Implant?: Yes Documented Results: Negative w/o proof Date: 01/22/17 Results: 0 mm PPD to be Administered?: Yes - Smoking Cessation Smoking history: Current every day smoker Have you smoked in the past 12 months: No Aproximately how many cigarettes per day: 5 If you are a former smoker, when did you quit?: 0 Cigars Per Day: 0 Hx Chewing Tobacco Use: No Initiated information on smoking cessation: Yes 'Breaking Loose' booklet given: 01/29/18 - Substance & Tx. History Hx Alcohol Use: Yes Hx Substance Use: Yes Substance Use Type: Alcohol, Cocaine Hx Substance Use Treatment: Yes ([facility] 06/30/17 TO 07/04/17 DETOX,07/04/17 TO 12/03 REHAB) - Substances Abused Alcohol Route: Oral Frequency: Daily Amount used: 2 pints vodka Age of first use: 12 Date of Last Use: 01/28/18 Cocaine Route: Smoking Frequency: Daily Amount used: 1 gram and up Age of first use: 31 Date of Last Use: 01/28/18 Family Disease History - Family Disease History Family Disease History: Diabetes: Grandparent (cva), Heart Disease: Grandparent , Father (cva), Mother (HYPERTENSION), Brother () Admission Physical Exam S - Vital Signs Vital Signs: Vital Signs - 24 hr 01/29/18 12:41 Temperature 96.6 F L Pulse Rate 89 Respiratory 20 Rate Blood Pressure 120/52 - Physical General Appearance: Yes: Moderate Distress, Tremorous, Irritable, Sweating, Anxious HEENTM: Yes: Normal ENT Inspection, ZO, Pharynx Normal Respiratory: Yes: Lungs Clear, Normal Breath Sounds, No Respiratory Distress Neck: Yes: Within Normal Limits, Supple, Trachea in good position Breast: Yes: Within Normal Limits Cardiology: Yes: Within Normal Limits, Regular Rhythm, Regular Rate, S1, S2 Abdominal: Yes: Within Normal Limits, Normal Bowel Sounds, Non Tender, Flat, Soft Genitourinary: Yes: Other (BPH) Back: Yes: Normal Inspection, Muscle Spasm Extremities: Yes: Tremors (DEFORMITY OF RIGHT THUMB ARTHRITIS OF RIGHT HIP S/P LEF THIP REPLACEMENT) 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 NML intact, Alert, Normal Mood/Affect, Normal Response, Other (SCAR BOTH HIPS) Integumentary: Yes: Dry Lymphatic: Yes: Within Normal Limits - Diagnostic (1) Alcohol dependence with uncomplicated withdrawal Current Visit: No Status: Acute (2) Benign prostatic hypertrophy without outflow obstruction Current Visit: No Status: Chronic (3) Bipolar disorder Current Visit: No Status: Chronic (4) COPD (chronic obstructive pulmonary disease) Current Visit: No Status: Chronic Qualifiers: COPD type: chronic bronchitis Chronic bronchitis type: simple Qualified Code(s): J41.0 - Simple chronic bronchitis (5) Chronic low back pain Current Visit: No Status: Chronic Qualifiers: Back pain laterality: bilateral Sciatica presence: without sciatica Qualified Code(s): M54.5 - Low back pain; G89.29 - Other chronic pain; G89.29 - Other chronic pain (6) Cocaine dependence Current Visit: No Status: Chronic Qualifiers: Substance use status: uncomplicated Qualified Code(s): F14.20 - Cocaine dependence, uncomplicated (7) Eczema Current Visit: No Status: Chronic Qualifiers: Eczema type: flexural Qualified Code(s): L20.82 - Flexural eczema (8) Essential hypertension Current Visit: No Status: Chronic (9) Gastroesophageal reflux disease Current Visit: No Status: Chronic Qualifiers: Esophagitis presence: without esophagitis Qualified Code(s): K21.9 - Gastro -esophageal reflux disease without esophagitis (10) History of scoliosis Current Visit: No Status: Chronic (11) Hypercholesterolemia Current Visit: No Status: Chronic (12) Nicotine dependence Current Visit: No Status: Chronic Qualifiers: Nicotine product type: cigarettes Substance use status: in withdrawal Qualified Code(s): F17.213 - Nicotine dependence, cigarettes, with withdrawal (13) Walker as ambulation aid Current Visit: No Status: Chronic Cleared for Admission BHS - Detox or Rehab S Level of Care: Medically Managed Detox Regimen/Protocol: Librium BHS Breath Alcohol Content Breath Alcohol Content: 0 Urine Drug Screen - Results Drug Screen Negative: No Urine Drug Screen Results: CHIP-Cocaine
[2018-01-29] MEDS ORDERED: chlordiazePOXIDE HCL 25 MG CAPSULE PO PRN (16:22)
[2018-01-29] MEDS ORDERED: MAGNESIUM CITRATE 300 ML BOTTLE PO PRN (16:22)
[2018-01-29] MEDS ORDERED: MAGNESIUM HYDROX 2400MG/30ML ORAL SUSPENSION 30 ML CUP PO PRN (16:22)
[2018-01-29] MEDS ORDERED: guaiFENesin/D-METHORPHAN HB 10 ML UNIT-DOSE CUPS PO PRN (16:22)
[2018-01-29] MEDS ORDERED: MAG HYDROX/AL HYDROX/SIMETH 30 ML UNIT-DOSE CUP PO PRN (16:22)
[2018-01-29] MEDS ORDERED: P-EPHED 60MG/TRIPROLIDI 2.5MG TABLET PO PRN (16:22)
[2018-01-29] MEDS ORDERED: LOPERAMIDE HCL 2 MG CAPSULE PO PRN (16:22)
[2018-01-29] MEDS ORDERED: MENTHOL/PHENOL 1 EACH UD MM PRN (16:22)
[2018-01-29] MEDS ORDERED: ALBUTEROL SO4 18 GM HFA INHALER IH PRN (16:27)
[2018-01-29] MEDS ORDERED: COLLOIDAL OATMEAL 1 BAR EACH TP PRN (16:29)
[2018-01-29] MEDS ORDERED: chlordiazePOXIDE HCL 25 MG CAPSULE PO ONE (17:45)
[2018-01-29] MEDS: ATORVASTATIN CA 40 MG TABLET (FP) PO SCH (22:42)
[2018-01-29] MEDS: THIAMINE HCL 100 MG TABLET (FP) PO SCH (22:42)
[2018-01-29] MEDS: chlordiazePOXIDE HCL 25 MG CAPSULE PO SCH (22:46)
[2018-01-29] MEDS: hydrOXYzine PAMOATE 25 MG CAPSULE (FP) PO PRN (22:46)
[2018-01-29] MEDS: IBUPROFEN 400 MG TABLET (FP) PO PRN (22:47)
[2018-01-29] MEDS: TRIAMCINOLONE ACET 0.5% OINT 15 GM TUBE TP SCH (23:00)
[2018-01-30 00:29] LABS: URINE APPEARANCE CLOUDY; URINE BILIRUBIN NEGATIVE (NEGATIVE); URINE BLOOD NEGATIVE (NEGATIVE); URINE COLOR DKYELLOW; URINE GLUCOSE (UA) NEGATIVE (NEGATIVE); URINE KETONE NEGATIVE (NEGATIVE); URINE NITRITE NEGATIVE (NEGATIVE); URINE PROTEIN NEGATIVE (NEGATIVE); URINE UROBILINOGEN 4.0 E.U/dl mg/dL (0.2-1.0)
[2018-01-30 00:43] LABS: URINE LEUK ESTERASE 3+ (NEGATIVE)
[2018-01-30 00:52] LABS: URINE MUCUS MANY
[2018-01-30] MEDS: chlordiazePOXIDE HCL 25 MG CAPSULE PO SCH ×4 (05:54→23:11)
[2018-01-30 10:07] LABS: HEMATOCRIT 40.1 % (35.4-49); HEMOGLOBIN 13.6 GM/dL (11.7-16.9); MCHC 33.8 g/dl (32.0-35.9); MEAN CELL VOLUME 85.7 fl (80-96); MEAN PLT VOLUME 11.1 fl (7.5-11.1); PLATELET COUNT 246 K/MM3 (134-434); RBC 4.68 M/mm3 (4.00-5.60); RDW 15.4 % (11.9-15.9); WHITE BLOOD COUNT 6.4 K/mm3 (4.0-10.0)
[2018-01-30 10:26] LABS: ALBUMIN 3.7 g/dl (3.4-5.0); ANION GAP 12 (8-16); BLOOD UREA NITROGEN 18 mg/dL (7-18); CALCIUM 9.7 mg/dL (8.5-10.1); CHLORIDE 106 mmol/L (98-107); CO2 25 mmol/L (21-32); GLUCOSE,RANDOM 96 mg/dL (74-106); SODIUM 143 mmol/L (136-145)
[2018-01-30 10:29] LABS: ALK PHOS 113 U/L (45-117); BILIRUBIN,TOTAL 0.8 mg/dL (0.2-1.0); CREATININE 0.8 mg/dL (0.7-1.3); SGOT/AST 19 U/L (15-37); SGPT/ALT 22 U/L (12-78); TOT PROT 6.6 g/dl (6.4-8.2)
--- NOTE | 2018-01-30 10:50 | CONSULT ---
[facility] Psychiatric Consult - Data Date of interview: 01/30/18 Admission source: [facility] Identifying data: Pt. is a 57 year old single male, disabled, receiving SSI, and currently living with his brother. This is one of multiple admissions for patient. Pt. admitted to detox for alcohol and cocaine dependence. Substance Abuse History: Following information confirmed with Mr. Euceda: Smoking Cessation. Smoking history: Current every day smoker. Have you smoked in the past 12 months: No. Aproximately how many cigarettes per day: 5. If you are a former smoker, when did you quit?: 0. Cigars Per Day: 0. Hx Chewing Tobacco Use: No. Initiated information on smoking cessation: Yes. 'Breaking Loose' booklet given: 01/29/18. - Substance & Tx. History. Hx Alcohol Use: Yes. Hx Substance Use: Yes. Substance Use Type: Alcohol, Cocaine. Hx Substance Use Treatment: Yes ([facility] 06/30/17 TO 07/04/17 DETOX,07/04/17 TO REHAB). - Substances Abused. Alcohol. Route: Oral. Frequency: Daily. Amount used: 2 pints vodka. Age of first use: 12. Date of Last Use: 01/28/18. Cocaine. Route: Smoking. Frequency: Daily. Amount used: 1 gram and up. Age of first use: 31. Date of Last Use: 01/28/18 Medical History: hypercholesterolemia, hiatal hernia, Acid reflux, BPH Psychiatric History: Patient's first encounter with a psychiatrist was as a child due to behavioral problems. Pt. denies h/o psychiatric hospitalizations. Outpatient care is provided [facility] in [place], [place]. Pt. has a diagnosis of Bipolar disorder and is prescribed Seroquel 100mg PO daily + Seroquel 200mg qhs + trazodone 150mg qhs + Wellbutrin 100mg BID. Pt. reports taking medication regime as prescribed. Past outpatient care was provided by [facility]. Pt. denies h/o suicide attempt. Physical/Sexual Abuse/Trauma History: Denies. Mental Status Exam - Mental Status Exam Alert and Oriented to: Time, Place, Person Cognitive Function: Good Patient Appearance: Well Groomed Mood: Hopeful Affect: Appropriate Patient Behavior: Appropriate, Cooperative Speech Pattern: Clear, Appropriate Voice Loudness: Normal Thought Process: Goal Oriented Thought Disorder: Not Present Hallucinations: Denies Suicidal Ideation: Denies Homicidal Ideation: Denies Insight/Judgement: Poor Sleep: Poorly Appetite: Fair Muscle strength/Tone: Normal Gait/Station: Other (Pt uses a rolling walker to ambulate.) Psychiatric Findings - Problem List ([place] 1, 2,3) (1) Bipolar disorder Current Visit: Yes Status: Chronic Comment: History. (2) Alcohol dependence with uncomplicated withdrawal Current Visit: Yes Status: Acute (3) Cocaine dependence Current Visit: Yes Status: Acute Qualifiers: Substance use status: uncomplicated Qualified Code(s): F14.20 - Cocaine dependence, uncomplicated (4) Substance induced mood disorder Current Visit: Yes Status: Acute - Initial Treatment Plan Initial Treatment Plan: Psychoeducation provided. Detoxification in progress. Seroquel 200mg qhs +Trazodone 150mg qhs+ Wellbutrin 150mg XL ordered. Benefits and side effects discussed. Verbal consent given. Will continue to monitor.
--- NOTE | 2018-01-30 10:59 | PN ---
S CIWA - CIWA Score Nausea/Vomitin Muscle Tremors: 3 Anxiety: 3 Agitation: 2 Paroxysmal Sweats: 1-Minimal Palms Moist Orientation: 0-Oriented Tacttile Disturbances: 1-Very Mild Itch/Numbness Auditory Disturbances: 1-Very Mild Visual Disturbances: 0-None Headache: 2-Mild CIWA-Ar Total Score: 16 BHS Progress Note (SOAP) Subjective: ALERT,IRRITABLE,ANXIOUS,INTERRUPTED SLEEP,TREMOR,NAUSEA Objective: 01/30/18 10:56 Vital Signs Temperature 97.9 F 01/30/18 10:29 Pulse Rate 76 01/30/18 10:29 Respiratory Rate 18 01/30/18 10:29 Blood Pressure 146/85 01/30/18 10:29 O2 Sat by Pulse Oximetry (%) EKG NSR,LVH NO CHEST PAIN,NO SOB,NO DIZZINESS Laboratory Last Values WBC 6.4 K/mm3 (4.0-10.0) 01/30/18 06:00 RBC 4.68 M/mm3 (4.00-5.60) 01/30/18 06:00 Hgb 13.6 GM/dL (11.7-16.9) 01/30/18 06:00 Hct 40.1 % (35.4-49) 01/30/18 06:00 MCV 85.7 fl (80-96) 01/30/18 06:00 MCH 29.0 pg (25.7-33.7) 01/30/18 06:00 MCHC 33.8 g/dl (32.0-35.9) 01/30/18 06:00 RDW 15.4 % (11.9-15.9) 01/30/18 06:00 Plt Count 246 K/MM3 (134-434) D 01/30/18 06:00 MPV 11.1 fl (7.5-11.1) 01/30/18 06:00 Sodium 143 mmol/L (136-145) 01/30/18 06:00 Potassium 4.0 mmol/L (3.5-5.1) 01/30/18 06:00 Chloride 106 mmol/L (98-107) 01/30/18 06:00 Carbon Dioxide 25 mmol/L (21-32) 01/30/18 06:00 Anion Gap 12 (8-16) 01/30/18 06:00 BUN 18 mg/dL (7-18) 01/30/18 06:00 Creatinine 0.8 mg/dL (0.7-1.3) 01/30/18 06:00 Creat Clearance w eGFR > 60 (>60) 01/30/18 06:00 Random Glucose 96 mg/dL (74-106) 01/30/18 06:00 Calcium 9.7 mg/dL (8.5-10.1) 01/30/18 06:00 Total Bilirubin 0.8 mg/dL (0.2-1.0) D 01/30/18 06:00 AST 19 U/L (15-37) 01/30/18 06:00 ALT 22 U/L (12-78) D 01/30/18 06:00 Alkaline Phosphatase 113 U/L (45-117) D 01/30/18 06:00 Total Protein 6.6 g/dl (6.4-8.2) 01/30/18 06:00 Albumin 3.7 g/dl (3.4-5.0) 01/30/18 06:00 Urine Color Dkyellow 01/30/18 00:05 Urine Appearance Cloudy 01/30/18 00:05 Urine pH 5.0 (5.0-8.0) 01/30/18 00:05 Ur Specific [place] 1.025 (1.001-1.035) 01/30/18 00:05 Urine Protein Negative (NEGATIVE) 01/30/18 00:05 Urine Glucose (UA) Negative (NEGATIVE) 01/30/18 00:05 Urine Ketones Negative (NEGATIVE) 01/30/18 00:05 Urine Blood Negative (NEGATIVE) 01/30/18 00:05 Urine Nitrite Negative (NEGATIVE) 01/30/18 00:05 Urine Bilirubin Negative (NEGATIVE) 01/30/18 00:05 Urine Urobilinogen 4.0 e.u/dl mg/dL (0.2-1.0) 01/30/18 00:05 Ur Leukocyte Esterase 3+ (NEGATIVE) H 01/30/18 00:05 Urine WBC (Auto) 386 /hpf (3-5) 01/30/18 00:05 Urine RBC (Auto) 16 /hpf (0-3) 01/30/18 00:05 Urine Mucus Many 01/30/18 00:05 01/30/18 10:58 LABS PENDING Assessment: 01/30/18 10:58 WITHDRAWAL SYMPTOM Plan: CONTINUE DETOX,URINE FOR C/S R/O UTI
[2018-01-30] MEDS: PANTOPRAZOLE 40 MG TABLET (FP) PO SCH (11:05)
[2018-01-30] MEDS: PRENATAL VITAMINS W/ FOLIC ACID TABLET (FP) PO SCH (11:05)
[2018-01-30] MEDS: TAMSULOSIN HCL 0.4 MG CAP.ER.24H (FP) PO SCH (11:06)
[2018-01-30] MEDS: LIDOCAINE 5% TOPICAL PATCH TP SCH ×2 (11:06→12:30)
[2018-01-30] MEDS: SULFAMETHOXAZOLE/TRIMETHOPRIM 800MG/160MG D.S. TABLET PO SCH ×2 (11:06→22:24)
[2018-01-30] MEDS: SELENIUM SULFIDE 2.5% LOTION 4 OZ. TP SCH (11:06)
[2018-01-30] MEDS: TRIAMCINOLONE ACET 0.5% OINT 15 GM TUBE TP SCH ×2 (11:06→22:26)
[2018-01-30] MEDS: ACETAMINOPHEN 325 MG TABLET (FP) PO PRN ×2 (11:09→18:34)
[2018-01-30] MEDS: IBUPROFEN 400 MG TABLET (FP) PO PRN (15:02)
--- NOTE | 2018-01-30 15:11 | EKG ---
Test Reason : Blood Pressure : / mmHG Vent. Rate : 064 BPM Atrial Rate : 064 BPM P-R Int : 148 ms QRS Dur : 086 ms QT Int : 392 ms P-R-T Axes : 039 013 005 degrees QTc Int : 404 ms NORMAL SINUS RHYTHM VOLTAGE CRITERIA FOR LEFT VENTRICULAR HYPERTROPHY ABNORMAL ECG WHEN COMPARED WITH ECG OF 30-JUN-2017 18:49, MINIMAL CRITERIA FOR SEPTAL INFARCT ARE NO LONGER PRESENT Confirmed by SARA RENE MD ([id number]) on 01/30/2018 3:11:17 PM Referred By: Confirmed By:SARA RENE MD
[2018-01-30] MEDS: traZODone HCL 50 MG TABLET (FP) PO SCH (22:24)
[2018-01-30] MEDS: QUEtiapine FUMARATE 200 MG TABLET PO SCH (22:24)
[2018-01-30] MEDS: ATORVASTATIN CA 40 MG TABLET (FP) PO SCH (22:24)
[2018-01-30] MEDS: THIAMINE HCL 100 MG TABLET (FP) PO SCH (22:24)
[2018-01-30] MEDS: LIDOCAINE PATCH REMOVAL MC SCH (23:10)
[2018-01-31] MEDS: chlordiazePOXIDE HCL 25 MG CAPSULE PO SCH ×3 (05:33→17:55)
[2018-01-31] MEDS: PANTOPRAZOLE 40 MG TABLET (FP) PO SCH (11:06)
[2018-01-31] MEDS: PRENATAL VITAMINS W/ FOLIC ACID TABLET (FP) PO SCH (11:06)
[2018-01-31] MEDS: SULFAMETHOXAZOLE/TRIMETHOPRIM 800MG/160MG D.S. TABLET PO SCH ×2 (11:06→23:02)
[2018-01-31] MEDS: TAMSULOSIN HCL 0.4 MG CAP.ER.24H (FP) PO SCH (11:07)
[2018-01-31] MEDS: IBUPROFEN 400 MG TABLET (FP) PO PRN ×2 (11:07→18:27)
[2018-01-31] MEDS: hydrOXYzine PAMOATE 25 MG CAPSULE (FP) PO PRN (11:07)
[2018-01-31] MEDS: SELENIUM SULFIDE 2.5% LOTION 4 OZ. TP SCH (11:08)
[2018-01-31] MEDS: TRIAMCINOLONE ACET 0.5% OINT 15 GM TUBE TP SCH ×2 (11:08→23:06)
[2018-01-31] MEDS: LIDOCAINE 5% TOPICAL PATCH TP SCH (12:30)
--- NOTE | 2018-01-31 13:41 | PN ---
S CIWA - CIWA Score Nausea/Vomitin Muscle Tremors: 3 Anxiety: 3 Agitation: 3 Paroxysmal Sweats: 1-Minimal Palms Moist Orientation: 0-Oriented Tacttile Disturbances: 1-Very Mild Itch/Numbness Auditory Disturbances: 1-Very Mild Visual Disturbances: 0-None Headache: 2-Mild CIWA-Ar Total Score: 17 BHS Progress Note (SOAP) Subjective: ALERT,IRRITABLE,ANXIOUS,INTERRUPTED SLEEP,TREMOR Objective: 01/31/18 13:38 Vital Signs Temperature 95.9 F L 01/31/18 09:54 Pulse Rate 86 01/31/18 09:54 Respiratory Rate 20 01/31/18 09:54 Blood Pressure 99/63 01/31/18 09:54 O2 Sat by Pulse Oximetry (%) Laboratory Last Values WBC 6.4 K/mm3 (4.0-10.0) 01/30/18 06:00 RBC 4.68 M/mm3 (4.00-5.60) 01/30/18 06:00 Hgb 13.6 GM/dL (11.7-16.9) 01/30/18 06:00 Hct 40.1 % (35.4-49) 01/30/18 06:00 MCV 85.7 fl (80-96) 01/30/18 06:00 MCH 29.0 pg (25.7-33.7) 01/30/18 06:00 MCHC 33.8 g/dl (32.0-35.9) 01/30/18 06:00 RDW 15.4 % (11.9-15.9) 01/30/18 06:00 Plt Count 246 K/MM3 (134-434) D 01/30/18 06:00 MPV 11.1 fl (7.5-11.1) 01/30/18 06:00 Sodium 143 mmol/L (136-145) 01/30/18 06:00 Potassium 4.0 mmol/L (3.5-5.1) 01/30/18 06:00 Chloride 106 mmol/L (98-107) 01/30/18 06:00 Carbon Dioxide 25 mmol/L (21-32) 01/30/18 06:00 Anion Gap 12 (8-16) 01/30/18 06:00 BUN 18 mg/dL (7-18) 01/30/18 06:00 Creatinine 0.8 mg/dL (0.7-1.3) 01/30/18 06:00 Creat Clearance w eGFR > 60 (>60) 01/30/18 06:00 Random Glucose 96 mg/dL (74-106) 01/30/18 06:00 Calcium 9.7 mg/dL (8.5-10.1) 01/30/18 06:00 Total Bilirubin 0.8 mg/dL (0.2-1.0) D 01/30/18 06:00 AST 19 U/L (15-37) 01/30/18 06:00 ALT 22 U/L (12-78) D 01/30/18 06:00 Alkaline Phosphatase 113 U/L (45-117) D 01/30/18 06:00 Total Protein 6.6 g/dl (6.4-8.2) 01/30/18 06:00 Albumin 3.7 g/dl (3.4-5.0) 01/30/18 06:00 Urine Color Dkyellow 01/30/18 00:05 Urine Appearance Cloudy 01/30/18 00:05 Urine pH 5.0 (5.0-8.0) 01/30/18 00:05 Ur Specific [place] 1.025 (1.001-1.035) 01/30/18 00:05 Urine Protein Negative (NEGATIVE) 01/30/18 00:05 Urine Glucose (UA) Negative (NEGATIVE) 01/30/18 00:05 Urine Ketones Negative (NEGATIVE) 01/30/18 00:05 Urine Blood Negative (NEGATIVE) 01/30/18 00:05 Urine Nitrite Negative (NEGATIVE) 01/30/18 00:05 Urine Bilirubin Negative (NEGATIVE) 01/30/18 00:05 Urine Urobilinogen 4.0 e.u/dl mg/dL (0.2-1.0) 01/30/18 00:05 Ur Leukocyte Esterase 3+ (NEGATIVE) H 01/30/18 00:05 Urine WBC (Auto) 386 /hpf (3-5) 01/30/18 00:05 Urine RBC (Auto) 16 /hpf (0-3) 01/30/18 00:05 Urine Mucus Many 01/30/18 00:05 RPR Titer Nonreactive (NONREACTIVE) 01/30/18 06:00 Hep C Ab Diagnostic <0.1 s/co ratio (0.0-0.9) 01/30/18 06:00 Assessment: 01/31/18 13:40 WITHDRAWAL SYMPTOM Plan: CONTINUE DETOX,URINE FOR C/S PENDING
[2018-01-31] MEDS: ATORVASTATIN CA 40 MG TABLET (FP) PO SCH (23:02)
[2018-01-31] MEDS: QUEtiapine FUMARATE 200 MG TABLET PO SCH (23:03)
[2018-01-31] MEDS: traZODone HCL 50 MG TABLET (FP) PO SCH (23:03)
[2018-01-31] MEDS: THIAMINE HCL 100 MG TABLET (FP) PO SCH (23:03)
[2018-01-31] MEDS: chlordiazePOXIDE 5 MG CAPSULE PO SCH (23:05)
[2018-01-31] MEDS: LIDOCAINE PATCH REMOVAL MC SCH (23:05)
[2018-02-01] MEDS: chlordiazePOXIDE 5 MG CAPSULE PO SCH ×3 (06:25→17:54)
[2018-02-01] MEDS: LIDOCAINE 5% TOPICAL PATCH TP SCH (10:00)
[2018-02-01] MEDS: SELENIUM SULFIDE 2.5% LOTION 4 OZ. TP SCH (11:00)
[2018-02-01] MEDS: TAMSULOSIN HCL 0.4 MG CAP.ER.24H (FP) PO SCH (11:00)
[2018-02-01] MEDS: SULFAMETHOXAZOLE/TRIMETHOPRIM 800MG/160MG D.S. TABLET PO SCH ×2 (11:00→22:33)
[2018-02-01] MEDS: PRENATAL VITAMINS W/ FOLIC ACID TABLET (FP) PO SCH (11:00)
[2018-02-01] MEDS: PANTOPRAZOLE 40 MG TABLET (FP) PO SCH (11:00)
[2018-02-01] MEDS: TRIAMCINOLONE ACET 0.5% OINT 15 GM TUBE TP SCH ×2 (11:01→22:35)
--- NOTE | 2018-02-01 14:44 | PN ---
BHS Progress Note (SOAP) Subjective: feeling better less sweat no tremor tolerates food and fluid well Objective: 02/01/18 14:42 Vital Signs Temperature 98.1 F 02/01/18 09:49 Pulse Rate 98 H 02/01/18 09:49 Respiratory Rate 18 03 09:49 Blood Pressure 112/60 02/01/18 09:49 O2 Sat by Pulse Oximetry (%) Laboratory Last Values WBC 6.4 K/mm3 (4.0-10.0) 01/30/18 06:00 RBC 4.68 M/mm3 (4.00-5.60) 01/30/18 06:00 Hgb 13.6 GM/dL (11.7-16.9) 01/30/18 06:00 Hct 40.1 % (35.4-49) 01/30/18 06:00 MCV 85.7 fl (80-96) 01/30/18 06:00 MCH 29.0 pg (25.7-33.7) 01/30/18 06:00 MCHC 33.8 g/dl (32.0-35.9) 01/30/18 06:00 RDW 15.4 % (11.9-15.9) 01/30/18 06:00 Plt Count 246 K/MM3 (134-434) D 01/30/18 06:00 MPV 11.1 fl (7.5-11.1) 01/30/18 06:00 Sodium 143 mmol/L (136-145) 01/30/18 06:00 Potassium 4.0 mmol/L (3.5-5.1) 01/30/18 06:00 Chloride 106 mmol/L (98-107) 01/30/18 06:00 Carbon Dioxide 25 mmol/L (21-32) 01/30/18 06:00 Anion Gap 12 (8-16) 01/30/18 06:00 BUN 18 mg/dL (7-18) 01/30/18 06:00 Creatinine 0.8 mg/dL (0.7-1.3) 01/30/18 06:00 Creat Clearance w eGFR > 60 (>60) 01/30/18 06:00 Random Glucose 96 mg/dL (74-106) 01/30/18 06:00 Calcium 9.7 mg/dL (8.5-10.1) 01/30/18 06:00 Total Bilirubin 0.8 mg/dL (0.2-1.0) D 01/30/18 06:00 AST 19 U/L (15-37) 01/30/18 06:00 ALT 22 U/L (12-78) D 01/30/18 06:00 Alkaline Phosphatase 113 U/L (45-117) D 01/30/18 06:00 Total Protein 6.6 g/dl (6.4-8.2) 01/30/18 06:00 Albumin 3.7 g/dl (3.4-5.0) 01/30/18 06:00 Urine Color Dkyellow 01/30/18 00:05 Urine Appearance Cloudy 01/30/18 00:05 Urine pH 5.0 (5.0-8.0) 01/30/18 00:05 Ur Specific [place] 1.025 (1.001-1.035) 01/30/18 00:05 Urine Protein Negative (NEGATIVE) 01/30/18 00:05 Urine Glucose (UA) Negative (NEGATIVE) 01/30/18 00:05 Urine Ketones Negative (NEGATIVE) 01/30/18 00:05 Urine Blood Negative (NEGATIVE) 01/30/18 00:05 Urine Nitrite Negative (NEGATIVE) 01/30/18 00:05 Urine Bilirubin Negative (NEGATIVE) 01/30/18 00:05 Urine Urobilinogen 4.0 e.u/dl mg/dL (0.2-1.0) 01/30/18 00:05 Ur Leukocyte Esterase 3+ (NEGATIVE) H 01/30/18 00:05 Urine WBC (Auto) 386 /hpf (3-5) 01/30/18 00:05 Urine RBC (Auto) 16 /hpf (0-3) 01/30/18 00:05 Urine Mucus Many 01/30/18 00:05 RPR Titer Nonreactive (NONREACTIVE) 01/30/18 06:00 Hep C Ab Diagnostic <0.1 s/co ratio (0.0-0.9) 01/30/18 06:00 lab noted continue bactrim 02/01/18 14:43 Assessment: 02/01/18 14:43 mild withdrawal sx uti Plan: medically supervised detox continue bactrim
[2018-02-01] MEDS: IBUPROFEN 400 MG TABLET (FP) PO PRN (17:54)
[2018-02-01] MEDS: QUEtiapine FUMARATE 200 MG TABLET PO SCH (22:32)
[2018-02-01] MEDS: THIAMINE HCL 100 MG TABLET (FP) PO SCH (22:32)
[2018-02-01] MEDS: LIDOCAINE PATCH REMOVAL MC SCH (22:33)
[2018-02-01] MEDS: traZODone HCL 50 MG TABLET (FP) PO SCH (22:33)
[2018-02-01] MEDS: ATORVASTATIN CA 40 MG TABLET (FP) PO SCH (22:33)
[2018-02-01] MEDS: chlordiazePOXIDE HCL 10 MG CAPSULE PO SCH (22:36)
[2018-02-02] MEDS: chlordiazePOXIDE HCL 10 MG CAPSULE PO SCH ×2 (06:51→10:26)
[2018-02-02 07:01] VITALS: BP 120/78; PULSE 68; TEMP 97.5
[2018-02-02] MEDS: PRENATAL VITAMINS W/ FOLIC ACID TABLET (FP) PO SCH (09:28)
[2018-02-02] MEDS: SELENIUM SULFIDE 2.5% LOTION 4 OZ. TP SCH (09:29)
[2018-02-02] MEDS: TRIAMCINOLONE ACET 0.5% OINT 15 GM TUBE TP SCH (09:29)
[2018-02-02] MEDS: PANTOPRAZOLE 40 MG TABLET (FP) PO SCH (09:29)
[2018-02-02] MEDS: SULFAMETHOXAZOLE/TRIMETHOPRIM 800MG/160MG D.S. TABLET PO SCH (09:29)
[2018-02-02] MEDS: TAMSULOSIN HCL 0.4 MG CAP.ER.24H (FP) PO SCH (09:29)
[2018-02-02] MEDS: LIDOCAINE 5% TOPICAL PATCH TP SCH (09:30)
--- NOTE | 2018-02-02 09:30 | PN ---
S Progress Note (SOAP) Subjective: ALERT,N COMPLAINT Objective: 02/02/18 09:29 Vital Signs Temperature 97.5 F L 02/02/18 07:00 Pulse Rate 68 02/02/18 07:00 Respiratory Rate 02/02/18 07:00 Blood Pressure 120/78 02/02/18 07:00 O2 Sat by Pulse Oximetry (%) Assessment: 02/02/18 09:29 DETOX COMPLETED,NO WITHDRAWAL SYMPTOM Plan: DISCHARGE TODAY,FOLLOW UP WITH AFTER CARE PROGRAM ARRANGEMENT
--- NOTE | 2018-02-02 09:36 | DS ---
[facility] Detox Discharge Summary Admission Date: 01/29/18 Discharge Date: 02/02/18 - History Present History: Alcohol Dependence, Cocaine Dependence Additional Comments: FOLLOW UP WITH AFTER CARE PROGRAM ARRANGEMENT Pertinent Past History: BPH COPD CHRONIC LOW BACK PAIN ESSENTIAL HYPERTENSION GERD ECZEMA HYPERCHOLESTEROLEMIA NICOTINE DEPENDENCE HISTORY OF SCOLIOSIS WALKER AMBULATORY AID - Physical Exam Results Vital Signs: Vital Signs Temperature 97.5 F L 02/02/18 07:00 Pulse Rate 68 02/02/18 07:00 Respiratory Rate 19 02/02/18 07:00 Blood Pressure 120/78 02/02/18 07:00 O2 Sat by Pulse Oximetry (%) Pertinent Admission Physical Exam Findings: WITHDRAWAL SIGNS AND SYMPTOM - Treatment Hospital Course: Detox Protocol Followed, Detoxed Safely, Responded well, Discharged Condition Good Patient has Accepted a Rehab Referral to: DECLINED - Medication Discharge Medications: Ambulatory Orders Quetiapine Fumarate [Seroquel -] 200 mg PO HS #30 tablet 07/18/17 traZODone HCL [Desyrel -] 150 mg PO HS #30 tablet 07/18/17 Bupropion HCl [Bupropion Xl] 150 mg PO DAILY 01/29/18 Pantoprazole Sodium [Protonix -] 40 mg PO DAILY 01/29/18 Quetiapine Fumarate [Seroquel -] 100 mg PO DAILY 01/29/18 Triamcinolone 0.1% Ointment [Aristocort 0.1% Ointment -] 1 applic TP BID Albuterol Sulfate Inhaler - [Ventolin HFA Inhaler -] 2 puff IH Q4H PRN #1 inhaler 02/01/18 Atorvastatin Ca [Lipitor] 40 mg PO HS #30 tablet 02/01/18 Sulfamethoxazole/Trimethoprim [Bactrim DS -] 1 each PO BID #16 tablet 02/01/18 Tamsulosin HCl [Flomax -] 0.4 mg PO DAILY@0830 cap.er.24h 02/01/18 - Diagnosis (1) Alcohol dependence with uncomplicated withdrawal Current Visit: Yes Status: Acute (2) Benign prostatic hypertrophy without outflow obstruction Current Visit: No Status: Chronic (3) Bipolar disorder Current Visit: Yes Status: Chronic (4) COPD (chronic obstructive pulmonary disease) Current Visit: No Status: Chronic Qualifiers: COPD type: chronic bronchitis Chronic bronchitis type: simple Qualified Code(s): J41.0 - Simple chronic bronchitis (5) Chronic low back pain Current Visit: No Status: Chronic Qualifiers: Back pain laterality: bilateral Sciatica presence: without sciatica Qualified Code(s): M54.5 - Low back pain; G89.29 - Other chronic pain; G89.29 - Other chronic pain (6) Cocaine dependence Current Visit: Yes Status: Acute Qualifiers: Substance use status: uncomplicated Qualified Code(s): F14.20 - Cocaine dependence, uncomplicated (7) Eczema Current Visit: No Status: Chronic Qualifiers: Eczema type: flexural Qualified Code(s): L20.82 - Flexural eczema (8) Essential hypertension Current Visit: No Status: Chronic (9) Gastroesophageal reflux disease Current Visit: No Status: Chronic Qualifiers: Esophagitis presence: without esophagitis Qualified Code(s): K21.9 - Gastro -esophageal reflux disease without esophagitis (10) History of scoliosis Current Visit: No Status: Chronic (11) Hypercholesterolemia Current Visit: No Status: Chronic (12) Nicotine dependence Current Visit: No Status: Chronic Qualifiers: Nicotine product type: cigarettes Substance use status: in withdrawal Qualified Code(s): F17.213 - Nicotine dependence, cigarettes, with withdrawal (13) Walker as ambulation aid Current Visit: No Status: Chronic
== END 2018-02-02 10:30 | disposition home or self-care (01) | DRG 774 ==
LOC: YASAS 11:01 → Y6N 17:26
PROVIDERS: ADMIT Internal Medicine; ATTEND Internal Medicine
PROC: HZ2ZZZZ Detoxification Services for Substance Abuse Treatment (ICD-10-PCS; principal; 2018-01-29)
DX: F10.230 Alcohol dependence with withdrawal, uncomplicated (principal); F14.20 Cocaine dependence, uncomplicated; F17.213 Nicotine dependence, cigarettes, with withdrawal; F19.24 Other psychoactive substance dependence with psychoactive substance-induced mood disorder; F31.9 Bipolar disorder, unspecified; I10 Essential (primary) hypertension; K21.9 Gastro-esophageal reflux disease without esophagitis; J41.0 Simple chronic bronchitis; E78.00 Pure hypercholesterolemia, unspecified; N39.0 Urinary tract infection, site not specified; M54.5 Low back pain; G89.29 Other chronic pain; R26.89 Other abnormalities of gait and mobility; Z99.89 Dependence on other enabling machines and devices; Z87.39 Personal history of other diseases of the musculoskeletal system and connective tissue; Z98.61 Coronary angioplasty status
CPT/HCPCS: 36415; 80053; 81003; 81015; 85027; 86593; 87086; 93005; 93010

== ENCOUNTER 2018-02-19 11:13 | Inpatient (IN) | payer OTHER ==
[2018-02-19 11:28] VITALS: BMI 23.6
--- NOTE | 2018-02-19 17:28 | HP ---
Admission [facility] Chief Complaint: SEEKING REHAB SERVICES Allergies/Adverse Reactions: Allergies Allergy/AdvReac Type Severity Reaction Status Date / Time No Known Drug Allergies Allergy Verified 02/19/18 16:30 pseudoephedrine AdvReac Severe dizziness Verified 02/19/18 16:30 and headache pork derived (porcine) AdvReac Mild Vomiting Verified 02/19/18 16:30 [Pork derived (porcine)] tomato [Tomato] AdvReac Mild diarrhea Verified 02/19/18 16:30 lobster AdvReac Intermediate Vomiting Uncoded 02/19/18 16:30 History of Present Illness: 57 Y.O. MAN WITH AN EXTENSIVE HISTORY OF ALCOHOL DEPENDENCE IS HERE SEEKING REHAB SERVICES. HE HAS HAD MULTIPLE ADMISSIONS AND WAS LAST HERE IN 01/2018 FOR DETOX. LONGEST PERIOD SOBER HAS BEEN 3 YEARS. Exam Limitations: Physical Impairment (UNSTEADY GAIT; USES A CANE TO AMBULATE) - Ebola screening Have you traveled outside of the country in the last 21 days: No Have you had contact with anyone from an Ebola affected area: No Have you been sick,other than usual withdrawal symptoms: No Do you have a fever: No - Review of Systems Constitutional: Chills, Loss of Appetite, Unintentional Wgt. Loss EENT: reports: Tearing, Difficulty Swallowing, Other (BELLSY PALSY; LIMITED VISION TO LEFT EYE) Respiratory: reports: No Symptoms reported Cardiac: reports: No Symptoms Reported GI: reports: Diarrhea, Abdominal cramping : reports: No Symptoms Reported Musculoskeletal: reports: Back Pain, Joint Stiffness, Other (LEFT HIP REPLACEMENT SX) Integumentary: reports: No Symptoms Reported Neuro: reports: Headache Endocrine: reports: No Symptoms Reported Hematology: reports: No Symptoms Reported Psychiatric: reports: Mood/Affect Appropiate, Depressed, other (BIPOLAR) Other Systems: Reviewed and Negative Patient History - Patient Medical History Hx Anemia: No Hx Asthma: No Hx Chronic Obstructive Pulmonary Disease (COPD): Yes Hx Cancer: No Hx Cardiac Disorders: No Hx Congestive Heart Failure: No Hx Hypertension: No Hx Hypercholesterolemia: Yes (LIPITOR, PLAVIX) Hx Pacemaker: No HX Cerebrovascular Accident: No (DENZEL 10/2015 LEFT) Hx Seizures: No Hx Dementia: No Hx Diabetes: No Hx Gastrointestinal Disorders: Yes (hiatal hernia/acid reflux) Hx Liver Disease: No Hx Genitourinary Disorders: Yes (BPH) Hx Sexually Transmitted Disorders: No Hx Renal Disease (ESRD): No Hx Thyroid Disease: No Hx Human Immunodeficiency Virus (HIV): No (LAST 2017) Hx Hepatitis C: No Hx Depression: No Hx Suicide Attempt: No Hx Bipolar Disorder: Yes (seroquel and trazodone by hx ) Hx Schizophrenia: No - Patient Surgical History Past Surgical History: Yes Hx Neurologic Surgery: No Hx Cataract Extraction: No Hx Cardiac Surgery: Yes (CARDIAC CATH 01/05/16-NEGATIVE) Hx Lung Surgery: No Hx Breast Surgery: No Hx Breast Biopsy: No Hx Abdominal Surgery: No Hx Appendectomy: No Hx Cholecystectomy: No Hx Genitourinary Surgery: No Hx Section: No Hx Orthopedic Surgery: Yes (prosthetic left hip,rt. hip pinning,rt. hand with plate & 8 screws) Other Surgical History: TONSILLECTOMY A CHILD/right hand x4; B/L inguinal hernia repair Anesthesia Reaction: No - PPD History Previous Implant?: Yes Documented Results: Negative w/proof Implanted On Prior [facility] Admission?: Yes Date: 01/31/18 Results: 0 mm PPD to be Administered?: No - Reproductive History Patient is a Female of Child Bearing Age (11 -55 yrs old): No - Smoking Cessation Smoking history: Current every day smoker Have you smoked in the past 12 months: No Aproximately how many cigarettes per day: 5 If you are a former smoker, when did you quit?: 0 Cigars Per Day: 0 Hx Chewing Tobacco Use: No Initiated information on smoking cessation: Yes 'Breaking Loose' booklet given: 02/19/18 - Substance & Tx. History Hx Alcohol Use: Yes Hx Substance Use: Yes Substance Use Type: Alcohol, Cocaine Hx Substance Use Treatment: Yes (DETOX: 01/2018) - Substances Abused Alcohol Route: Oral Frequency: Daily Amount used: 2 PINTS DAILY Age of first use: 12 Date of Last Use: 02/18/18 Crack Route: Smoking Frequency: Daily Amount used: 2 GM Age of first use: 22 Date of Last Use: 02/18/18 Family Disease History - Family Disease History Family Disease History: Diabetes: Grandparent (cva), Heart Disease: Grandparent , Father (cva), Mother (HYPERTENSION), Brother () Admission Physical Exam BHS - Vital Signs Vital Signs: Vital Signs - 24 hr 02/19/18 11:25 Temperature 98.0 F Pulse Rate 92 H Respiratory 20 Rate Blood Pressure 133/93 - Physical General Appearance: Yes: Anxious HEENTM: Yes: Hearing grossly Normal, Normal ENT Inspection, Normocephalic, Other (LIMITED VISION TO LEFT EYE) Respiratory: Yes: Chest Non-Tender, Lungs Clear, Normal Breath Sounds Neck: Yes: No masses,lesions,Nodules, Trachea in good position Breast: Yes: Breast Exam Deferred Cardiology: Yes: Regular Rhythm, Regular Rate Abdominal: Yes: Normal Bowel Sounds, Non Tender, Flat Genitourinary: Yes: Other (NO COMPLAINTS REPORTED) Back: Yes: Normal Inspection Musculoskeletal: Yes: Back pain, Joint Stiffness, Other (UNSTEADY GATE) Extremities: Yes: Normal Capillary Refill, Normal Inspection, Normal Range of Motion, Non-Tender Neurological: Yes: Alert, Normal Mood/Affect, Normal Response Integumentary: Yes: Normal Color, Dry, Warm Lymphatic: Yes: Within Normal Limits - Diagnostic (1) Alcohol dependence with uncomplicated withdrawal Current Visit: Yes Status: Chronic (2) Cocaine dependence Current Visit: Yes Status: Chronic Qualifiers: Substance use status: uncomplicated Qualified Code(s): F14.20 - Cocaine dependence, uncomplicated (3) Asthma Current Visit: Yes Status: Chronic Qualifiers: Asthma severity: mild persistent Asthma complication type: uncomplicated Qualified Code(s): J45.30 - Mild persistent asthma, uncomplicated (4) Benign prostatic hypertrophy without outflow obstruction Current Visit: Yes Status: Chronic (5) COPD (chronic obstructive pulmonary disease) Current Visit: Yes Status: Chronic Qualifiers: COPD type: chronic bronchitis Chronic bronchitis type: simple Qualified Code(s): J41.0 - Simple chronic bronchitis (6) Chronic low back pain Current Visit: Yes Status: Chronic Qualifiers: Back pain laterality: bilateral Sciatica presence: without sciatica Qualified Code(s): M54.5 - Low back pain; G89.29 - Other chronic pain; G89.29 - Other chronic pain (7) Eczema Current Visit: Yes Status: Chronic Qualifiers: Eczema type: flexural Qualified Code(s): L20.82 - Flexural eczema (8) Essential hypertension Current Visit: Yes Status: Chronic (9) History of scoliosis Current Visit: Yes Status: Chronic (10) Hypercholesterolemia Current Visit: Yes Status: Chronic (11) Nicotine dependence Current Visit: Yes Status: Chronic Qualifiers: Nicotine product type: cigarettes Substance use status: in withdrawal Qualified Code(s): F17.213 - Nicotine dependence, cigarettes, with withdrawal (12) Use of cane as ambulatory aid Current Visit: Yes Status: Chronic (13) Gout Current Visit: Yes Status: Chronic Cleared for Admission [facility] - Detox or Rehab [facility] Level of Care: Observation Bed Claeared for Rehab Admission: Yes [facility] Breath Alcohol Content Breath Alcohol Content: 0 Urine Drug Screen - Results Drug Screen Negative: Yes Urine Drug Screen Results: CHIP-Cocaine, BZO-Benzodiazepines Inpatient Rehab Admission - Initial Determination Are CD services needed?: Yes Free of communicable disease: Yes Not in need of hospitalization: Yes - Rehab Admission Criteria Previous failed treatment: Yes Poor recovery environment: Yes Comorbidities: Yes Lacks judgement: Yes Patient is meeting Inpatient Rehab admission criteria:: Yes
[2018-02-19] MEDS ORDERED: ALBUTEROL SO4 18 GM HFA INHALER IH PRN (17:42)
[2018-02-19] MEDS ORDERED: hydrOXYzine PAMOATE 50 MG CAPSULE (FP) PO PRN (17:45)
[2018-02-19] MEDS ORDERED: guaiFENesin/D-METHORPHAN HB 10 ML UNIT-DOSE CUPS PO PRN (17:45)
[2018-02-19] MEDS ORDERED: MAG HYDROX/AL HYDROX/SIMETH 30 ML UNIT-DOSE CUP PO PRN (17:45)
[2018-02-19] MEDS ORDERED: MENTHOL/PHENOL 1 EACH UD MM PRN (17:45)
[2018-02-19] MEDS ORDERED: MAGNESIUM CITRATE 300 ML BOTTLE PO PRN (17:45)
[2018-02-19] MEDS ORDERED: MAGNESIUM HYDROX 2400MG/30ML ORAL SUSPENSION 30 ML CUP PO PRN (17:45)
[2018-02-19] MEDS ORDERED: COLLOIDAL OATMEAL 1 BAR EACH TP PRN (17:48)
[2018-02-19] MEDS ORDERED: diphenhydrAMINE HCL 25 MG CAPSULE (FP) PO PRN (17:48)
[2018-02-19] MEDS ORDERED: WITCH HAZEL 50% (TUCKS) 40 PAD/JAR PAD TP PRN (17:49)
[2018-02-19] MEDS ORDERED: diphenhydrAMINE HCL 50 MG CAPSULE PO PRN (17:55)
[2018-02-19] MEDS: MELATONIN 5 MG TABLETS PO PRN (21:33)
[2018-02-19] MEDS: THIAMINE HCL 100 MG TABLET (FP) PO SCH (21:33)
[2018-02-19] MEDS: ATORVASTATIN CA 40 MG TABLET (FP) PO SCH (21:34)
[2018-02-19] MEDS: LIDOCAINE PATCH REMOVAL MC SCH (21:34)
[2018-02-19] MEDS: IBUPROFEN 400 MG TABLET (FP) PO PRN (21:34)
[2018-02-19] MEDS: TRIAMCINOLONE ACET 0.1% OINT 15 GM TUBE TP SCH (22:35)
[2018-02-19 23:02] LABS: URINE APPEARANCE CLEAR; URINE BILIRUBIN NEGATIVE (<2.0 mg/dL); URINE BLOOD 1+ (NEGATIVE); URINE COLOR AMBER; URINE GLUCOSE (UA) NEGATIVE (NEGATIVE); URINE KETONE 1+ (NEGATIVE); URINE LEUK ESTERASE NEGATIVE (NEGATIVE); URINE NITRITE NEGATIVE (NEGATIVE); URINE PROTEIN NEGATIVE (NEGATIVE); URINE UROBILINOGEN 4.0 E.U/dl mg/dL (0.2-1.0)
[2018-02-19 23:24] LABS: URINE MUCUS FEW
[2018-02-20] MEDS: LIDOCAINE 5% TOPICAL PATCH TP SCH (09:01)
[2018-02-20] MEDS: TRIAMCINOLONE ACET 0.1% OINT 15 GM TUBE TP SCH ×2 (09:02→21:19)
[2018-02-20] MEDS: TAMSULOSIN HCL 0.4 MG CAP.ER.24H (FP) PO SCH (09:02)
[2018-02-20] MEDS: IBUPROFEN 400 MG TABLET (FP) PO PRN (09:02)
[2018-02-20] MEDS: PANTOPRAZOLE 40 MG TABLET (FP) PO SCH (09:02)
[2018-02-20] MEDS: LOPERAMIDE HCL 2 MG CAPSULE PO PRN ×2 (09:03→21:19)
[2018-02-20] MEDS: PRENATAL VITAMINS W/ FOLIC ACID TABLET (FP) PO SCH (09:03)
--- NOTE | 2018-02-20 10:08 | EKG ---
Test Reason : Blood Pressure : / mmHG Vent. Rate : 077 BPM Atrial Rate : 077 BPM P-R Int : 140 ms QRS Dur : 092 ms QT Int : 402 ms P-R-T Axes : 066 043 -01 degrees QTc Int : 454 ms NORMAL SINUS RHYTHM WITH SINUS ARRHYTHMIA NONSPECIFIC T WAVE ABNORMALITY ABNORMAL ECG WHEN COMPARED WITH ECG OF 29-JAN-2018 17:41, QT HAS LENGTHENED Confirmed by MAJO BENNETT, DANTE ([id number]) on 02/20/2018 10:07:40 AM Referred By: Confirmed By:DANTE KASPER MD
--- NOTE | 2018-02-20 10:15 | HP ---
Psychiatrist Admission - Data Date of interview: 02/20/18 Identifying data: This is the one of the several 5n inpatient rehabilitation for this a 57 year old single male, who is disabled, receiving SSI, and currently living with his brother. Medical History: Rheumatoid arthritis. Left hip replacement . Right hip surgery x two in the . surgery to right hand, with three subsequent surgeries. Asthma, chest pain, [place] or . Smokes 5 cigarettes a day. Psychiatric History: Patient reports a history of two psychiatric hospitalizations one at [facility] and [facility].Diagnosed with Major Depressive Disorder and Bipolar Disorder. Non- compliant with aftercare, reports lately he obtains medications visiting ER at [facility], maintained on a regimen of seroquel 100 mg po am and 200 mg po hs , trazodone 150 mg hs and Wellbutrin 150 mg po hs. Patient states that he last took his medications three days ago. Patient admits to one suicide attempt via overdose with drugs/alcohol. Physical/Sexual Abuse/Trauma History: Denies history of sexual, physical and verbal abuse. Vital Signs: Vital Signs - 24 hr 02/19/18 02/19/18 02/20/18 11:25 21:17 00:30 Temperature 98.0 F 98.2 F Pulse Rate 92 H 70 Respiratory 20 16 18 Rate Blood Pressure 133/93 122/77 02/20/18 02/20/18 03:30 07:08 Temperature 97.9 F Pulse Rate 59 L Respiratory 18 16 Rate Blood Pressure 116/71 Allergies/Adverse Reactions: Allergies Allergy/AdvReac Type Severity Reaction Status Date / Time No Known Drug Allergies Allergy Verified 02/19/18 16:30 pseudoephedrine AdvReac Severe dizziness Verified 02/19/18 16:30 and headache pork derived (porcine) AdvReac Mild Vomiting Verified 02/19/18 16:30 [Pork derived (porcine)] tomato [Tomato] AdvReac Mild diarrhea Verified 02/19/18 16:30 lobster AdvReac Intermediate Vomiting Uncoded 02/19/18 16:30 Concur with the findings of this exam: Yes - Substance Abuse/Tx History Hx Alcohol Use: Yes Hx Substance Use: Yes Substance Use Type: Alcohol ( 2 pints daily use), Cocaine (daily 2 gr) Hx Substance Use Treatment: Yes (several [facility] detox/rehab.) Mental Status Exam - Mental Status Exam Alert and Oriented to: Time, Place, Person Cognitive Function: Good Patient Appearance: Well Groomed Mood: Anxious Affect: Appropriate, Mood Congruent Patient Behavior: Appropriate, Cooperative Speech Pattern: Clear, Appropriate Voice Loudness: Normal Thought Process: Intact, Goal Oriented Thought Disorder: Not Present Hallucinations: Denies Suicidal Ideation: Denies Homicidal Ideation: Denies Insight/Judgement: Fair Sleep: Fair Appetite: Fair Muscle strength/Tone: Normal Gait/Station: Normal Psychiatric Findings - Problem List ([place] 1, 2,3) (1) Cocaine dependence Current Visit: Yes Status: Chronic Qualifiers: Substance use status: uncomplicated Qualified Code(s): F14.20 - Cocaine dependence, uncomplicated (2) Hypercholesterolemia Current Visit: Yes Status: Chronic (3) Nicotine dependence Current Visit: Yes Status: Chronic Qualifiers: Nicotine product type: cigarettes Substance use status: in withdrawal Qualified Code(s): F17.213 - Nicotine dependence, cigarettes, with withdrawal (4) Use of cane as ambulatory aid Current Visit: Yes Status: Chronic (5) Alcohol dependence Current Visit: No Status: Chronic (6) Bipolar disorder Current Visit: No Status: Chronic Comment: History. - Initial Treatment Plan Initial Treatment Plan: Will continue his current medications, monitor progress as needed.
[2018-02-20 10:17] LABS: HEMATOCRIT 41.4 % (35.4-49); MCH 28.9 pg (25.7-33.7); MCHC 33.9 g/dl (32.0-35.9); MEAN CELL VOLUME 85.2 fl (80-96); MEAN PLT VOLUME 10.4 fl (7.5-11.1); PLATELET COUNT 220 K/MM3 (134-434); RBC 4.86 M/mm3 (4.00-5.60); RDW 15.5 % (11.9-15.9); WHITE BLOOD COUNT 6.6 K/mm3 (4.0-10.0)
[2018-02-20 10:25] LABS: ANION GAP 6 (8-16); BILIRUBIN,TOTAL 1.3 mg/dL (0.2-1.0); BLOOD UREA NITROGEN 19 mg/dL (7-18); CALCIUM 9.6 mg/dL (8.5-10.1); CHLORIDE 104 mmol/L (98-107); CO2 31 mmol/L (21-32); CREATININE 0.8 mg/dL (0.7-1.3); GLUCOSE,RANDOM 97 mg/dL (74-106); POTASSIUM 3.5 mmol/L (3.5-5.1); SGOT/AST 24 U/L (15-37); SGPT/ALT 29 U/L (12-78); SODIUM 141 mmol/L (136-145)
[2018-02-20 10:26] LABS: ALK PHOS 100 U/L (45-117)
[2018-02-20] MEDS: QUEtiapine FUMARATE 100 MG TABLET (FP) PO SCH (12:09)
[2018-02-20] MEDS: ACETAMINOPHEN 325 MG TABLET (FP) PO PRN (18:17)
[2018-02-20] MEDS: QUEtiapine FUMARATE 200 MG TABLET PO SCH (21:19)
[2018-02-20] MEDS: THIAMINE HCL 100 MG TABLET (FP) PO SCH (21:19)
[2018-02-20] MEDS: LIDOCAINE PATCH REMOVAL MC SCH (21:19)
[2018-02-20] MEDS: ATORVASTATIN CA 40 MG TABLET (FP) PO SCH (21:19)
[2018-02-20] MEDS: traZODone HCL 50 MG TABLET (FP) PO SCH (21:19)
[2018-02-20] MEDS: IBUPROFEN 600 MG TABLET (FP) PO PRN (21:20)
[2018-02-21] MEDS: ACETAMINOPHEN 325 MG TABLET (FP) PO PRN (06:39)
[2018-02-21] MEDS: LIDOCAINE 5% TOPICAL PATCH TP SCH (10:00)
[2018-02-21] MEDS: TAMSULOSIN HCL 0.4 MG CAP.ER.24H (FP) PO SCH (10:00)
[2018-02-21] MEDS: PANTOPRAZOLE 40 MG TABLET (FP) PO SCH (10:00)
[2018-02-21] MEDS: PRENATAL VITAMINS W/ FOLIC ACID TABLET (FP) PO SCH (10:00)
[2018-02-21] MEDS: QUEtiapine FUMARATE 100 MG TABLET (FP) PO SCH (10:01)
[2018-02-21] MEDS: TRIAMCINOLONE ACET 0.1% OINT 15 GM TUBE TP SCH ×2 (10:02→21:25)
[2018-02-21] MEDS: traZODone HCL 50 MG TABLET (FP) PO SCH (21:25)
[2018-02-21] MEDS: QUEtiapine FUMARATE 200 MG TABLET PO SCH (21:25)
[2018-02-21] MEDS: THIAMINE HCL 100 MG TABLET (FP) PO SCH (21:25)
[2018-02-21] MEDS: ATORVASTATIN CA 40 MG TABLET (FP) PO SCH (21:26)
[2018-02-21] MEDS: IBUPROFEN 600 MG TABLET (FP) PO PRN (21:28)
[2018-02-21] MEDS: LIDOCAINE PATCH REMOVAL MC SCH (21:30)
[2018-02-22] MEDS: LIDOCAINE 5% TOPICAL PATCH TP SCH (09:48)
[2018-02-22] MEDS: TAMSULOSIN HCL 0.4 MG CAP.ER.24H (FP) PO SCH (09:48)
[2018-02-22] MEDS: QUEtiapine FUMARATE 100 MG TABLET (FP) PO SCH (09:48)
[2018-02-22] MEDS: PANTOPRAZOLE 40 MG TABLET (FP) PO SCH (09:48)
[2018-02-22] MEDS: PRENATAL VITAMINS W/ FOLIC ACID TABLET (FP) PO SCH (09:48)
[2018-02-22] MEDS: TRIAMCINOLONE ACET 0.1% OINT 15 GM TUBE TP SCH ×2 (09:49→22:00)
[2018-02-22] MEDS ORDERED: PT OWN MED DRAWER 7, Y5N ONE (19:37)
[2018-02-22] MEDS: ATORVASTATIN CA 40 MG TABLET (FP) PO SCH (22:00)
[2018-02-22] MEDS: traZODone HCL 50 MG TABLET (FP) PO SCH (22:00)
[2018-02-22] MEDS: QUEtiapine FUMARATE 200 MG TABLET PO SCH (22:00)
[2018-02-22] MEDS: LIDOCAINE PATCH REMOVAL MC SCH (22:00)
[2018-02-22] MEDS: THIAMINE HCL 100 MG TABLET (FP) PO SCH (22:00)
[2018-02-23] MEDS: QUEtiapine FUMARATE 100 MG TABLET (FP) PO SCH (10:29)
[2018-02-23] MEDS: TAMSULOSIN HCL 0.4 MG CAP.ER.24H (FP) PO SCH (10:29)
[2018-02-23] MEDS: PANTOPRAZOLE 40 MG TABLET (FP) PO SCH (10:29)
[2018-02-23] MEDS: PRENATAL VITAMINS W/ FOLIC ACID TABLET (FP) PO SCH (10:30)
[2018-02-23] MEDS: TRIAMCINOLONE ACET 0.1% OINT 15 GM TUBE TP SCH ×2 (10:30→21:17)
[2018-02-23] MEDS: ACETAMINOPHEN 325 MG TABLET (FP) PO PRN (10:31)
[2018-02-23] MEDS: LIDOCAINE 5% TOPICAL PATCH TP SCH (10:31)
[2018-02-23] MEDS: traZODone HCL 50 MG TABLET (FP) PO SCH (21:16)
[2018-02-23] MEDS: THIAMINE HCL 100 MG TABLET (FP) PO SCH (21:16)
[2018-02-23] MEDS: ATORVASTATIN CA 40 MG TABLET (FP) PO SCH (21:16)
[2018-02-23] MEDS: QUEtiapine FUMARATE 200 MG TABLET PO SCH (21:16)
[2018-02-23] MEDS: MELATONIN 5 MG TABLETS PO PRN (21:16)
[2018-02-23] MEDS: LIDOCAINE PATCH REMOVAL MC SCH (21:17)
[2018-02-24] MEDS: ACETAMINOPHEN 325 MG TABLET (FP) PO PRN (06:13)
[2018-02-24] MEDS: TAMSULOSIN HCL 0.4 MG CAP.ER.24H (FP) PO SCH (08:20)
[2018-02-24] MEDS: PANTOPRAZOLE 40 MG TABLET (FP) PO SCH (10:19)
[2018-02-24] MEDS: PRENATAL VITAMINS W/ FOLIC ACID TABLET (FP) PO SCH (10:19)
[2018-02-24] MEDS: QUEtiapine FUMARATE 100 MG TABLET (FP) PO SCH (10:20)
[2018-02-24] MEDS: LIDOCAINE 5% TOPICAL PATCH TP SCH (10:21)
[2018-02-24] MEDS: TRIAMCINOLONE ACET 0.1% OINT 15 GM TUBE TP SCH ×2 (10:22→21:10)
[2018-02-24] MEDS: traZODone HCL 50 MG TABLET (FP) PO SCH (21:10)
[2018-02-24] MEDS: ATORVASTATIN CA 40 MG TABLET (FP) PO SCH (21:10)
[2018-02-24] MEDS: QUEtiapine FUMARATE 200 MG TABLET PO SCH (21:10)
[2018-02-24] MEDS: THIAMINE HCL 100 MG TABLET (FP) PO SCH (21:10)
[2018-02-24] MEDS: LIDOCAINE PATCH REMOVAL MC SCH (21:10)
[2018-02-25] MEDS: QUEtiapine FUMARATE 100 MG TABLET (FP) PO SCH (09:58)
[2018-02-25] MEDS: PRENATAL VITAMINS W/ FOLIC ACID TABLET (FP) PO SCH (09:58)
[2018-02-25] MEDS: PANTOPRAZOLE 40 MG TABLET (FP) PO SCH (09:58)
[2018-02-25] MEDS: TAMSULOSIN HCL 0.4 MG CAP.ER.24H (FP) PO SCH (09:58)
[2018-02-25] MEDS: TRIAMCINOLONE ACET 0.1% OINT 15 GM TUBE TP SCH ×2 (09:59→21:39)
[2018-02-25] MEDS: LIDOCAINE 5% TOPICAL PATCH TP SCH (09:59)
[2018-02-25] MEDS: traZODone HCL 50 MG TABLET (FP) PO SCH (21:38)
[2018-02-25] MEDS: QUEtiapine FUMARATE 200 MG TABLET PO SCH (21:38)
[2018-02-25] MEDS: THIAMINE HCL 100 MG TABLET (FP) PO SCH (21:38)
[2018-02-25] MEDS: LIDOCAINE PATCH REMOVAL MC SCH (21:39)
[2018-02-25] MEDS: ATORVASTATIN CA 40 MG TABLET (FP) PO SCH (21:39)
[2018-02-26] MEDS: TAMSULOSIN HCL 0.4 MG CAP.ER.24H (FP) PO SCH (08:45)
[2018-02-26] MEDS: PANTOPRAZOLE 40 MG TABLET (FP) PO SCH (09:58)
[2018-02-26] MEDS: PRENATAL VITAMINS W/ FOLIC ACID TABLET (FP) PO SCH (09:58)
[2018-02-26] MEDS: QUEtiapine FUMARATE 100 MG TABLET (FP) PO SCH (09:58)
[2018-02-26] MEDS: TRIAMCINOLONE ACET 0.1% OINT 15 GM TUBE TP SCH ×2 (09:59→21:40)
[2018-02-26] MEDS: LIDOCAINE 5% TOPICAL PATCH TP SCH (09:59)
[2018-02-26] MEDS: IBUPROFEN 600 MG TABLET (FP) PO PRN (10:00)
[2018-02-26] MEDS: ATORVASTATIN CA 40 MG TABLET (FP) PO SCH (21:39)
[2018-02-26] MEDS: traZODone HCL 50 MG TABLET (FP) PO SCH (21:39)
[2018-02-26] MEDS: THIAMINE HCL 100 MG TABLET (FP) PO SCH (21:39)
[2018-02-26] MEDS: QUEtiapine FUMARATE 200 MG TABLET PO SCH (21:39)
[2018-02-26] MEDS: LIDOCAINE PATCH REMOVAL MC SCH (21:40)
[2018-02-27] MEDS: QUEtiapine FUMARATE 100 MG TABLET (FP) PO SCH (10:16)
[2018-02-27] MEDS: TRIAMCINOLONE ACET 0.1% OINT 15 GM TUBE TP SCH ×2 (10:16→21:29)
[2018-02-27] MEDS: LIDOCAINE 5% TOPICAL PATCH TP SCH (10:16)
[2018-02-27] MEDS: PANTOPRAZOLE 40 MG TABLET (FP) PO SCH (10:16)
[2018-02-27] MEDS: PRENATAL VITAMINS W/ FOLIC ACID TABLET (FP) PO SCH (10:16)
[2018-02-27] MEDS: TAMSULOSIN HCL 0.4 MG CAP.ER.24H (FP) PO SCH (10:16)
[2018-02-27] MEDS: ATORVASTATIN CA 40 MG TABLET (FP) PO SCH (21:28)
[2018-02-27] MEDS: QUEtiapine FUMARATE 200 MG TABLET PO SCH (21:28)
[2018-02-27] MEDS: traZODone HCL 50 MG TABLET (FP) PO SCH (21:28)
[2018-02-27] MEDS: THIAMINE HCL 100 MG TABLET (FP) PO SCH (21:28)
[2018-02-27] MEDS: LIDOCAINE PATCH REMOVAL MC SCH (21:30)
[2018-02-28] MEDS: TAMSULOSIN HCL 0.4 MG CAP.ER.24H (FP) PO SCH (08:05)
[2018-02-28] MEDS: PRENATAL VITAMINS W/ FOLIC ACID TABLET (FP) PO SCH (09:43)
[2018-02-28] MEDS: TRIAMCINOLONE ACET 0.1% OINT 15 GM TUBE TP SCH ×2 (09:43→21:18)
[2018-02-28] MEDS: QUEtiapine FUMARATE 100 MG TABLET (FP) PO SCH (09:43)
[2018-02-28] MEDS: PANTOPRAZOLE 40 MG TABLET (FP) PO SCH (09:43)
[2018-02-28] MEDS: LIDOCAINE 5% TOPICAL PATCH TP SCH (09:44)
[2018-02-28] MEDS: ACETAMINOPHEN 325 MG TABLET (FP) PO PRN (13:51)
[2018-02-28] MEDS: THIAMINE HCL 100 MG TABLET (FP) PO SCH (21:17)
[2018-02-28] MEDS: QUEtiapine FUMARATE 200 MG TABLET PO SCH (21:17)
[2018-02-28] MEDS: traZODone HCL 50 MG TABLET (FP) PO SCH (21:17)
[2018-02-28] MEDS: ATORVASTATIN CA 40 MG TABLET (FP) PO SCH (21:18)
[2018-02-28] MEDS: LIDOCAINE PATCH REMOVAL MC SCH (21:19)
[2018-03-01] MEDS: TAMSULOSIN HCL 0.4 MG CAP.ER.24H (FP) PO SCH (08:45)
[2018-03-01] MEDS: QUEtiapine FUMARATE 100 MG TABLET (FP) PO SCH (10:01)
[2018-03-01] MEDS: PRENATAL VITAMINS W/ FOLIC ACID TABLET (FP) PO SCH (10:01)
[2018-03-01] MEDS: LIDOCAINE 5% TOPICAL PATCH TP SCH (10:02)
[2018-03-01] MEDS: TRIAMCINOLONE ACET 0.1% OINT 15 GM TUBE TP SCH ×2 (10:02→21:24)
[2018-03-01] MEDS: PANTOPRAZOLE 40 MG TABLET (FP) PO SCH (10:02)
[2018-03-01] MEDS: IBUPROFEN 600 MG TABLET (FP) PO PRN (10:05)
[2018-03-01] MEDS: QUEtiapine FUMARATE 200 MG TABLET PO SCH (21:22)
[2018-03-01] MEDS: THIAMINE HCL 100 MG TABLET (FP) PO SCH (21:23)
[2018-03-01] MEDS: traZODone HCL 50 MG TABLET (FP) PO SCH (21:23)
[2018-03-01] MEDS: ATORVASTATIN CA 40 MG TABLET (FP) PO SCH (21:23)
[2018-03-01] MEDS: LIDOCAINE PATCH REMOVAL MC SCH (21:24)
[2018-03-02] MEDS: TRIAMCINOLONE ACET 0.1% OINT 15 GM TUBE TP SCH ×2 (10:34→21:38)
[2018-03-02] MEDS: QUEtiapine FUMARATE 100 MG TABLET (FP) PO SCH (10:34)
[2018-03-02] MEDS: PRENATAL VITAMINS W/ FOLIC ACID TABLET (FP) PO SCH (10:34)
[2018-03-02] MEDS: PANTOPRAZOLE 40 MG TABLET (FP) PO SCH (10:34)
[2018-03-02] MEDS: LIDOCAINE 5% TOPICAL PATCH TP SCH (10:34)
[2018-03-02] MEDS: TAMSULOSIN HCL 0.4 MG CAP.ER.24H (FP) PO SCH (10:34)
[2018-03-02] MEDS: IBUPROFEN 600 MG TABLET (FP) PO PRN (10:35)
--- NOTE | 2018-03-02 11:50 | PN ---
[facility] Progress Note Note: Pt complains of increased forgetfulness. Denies dizziness, fever, headache. Vital Signs Temperature 97.9 F 03/02/18 07:07 Pulse Rate 73 03/02/18 07:07 Respiratory Rate 18 03/02/18 07:07 Blood Pressure 118/74 03/02/18 07:07 O2 Sat by Pulse Oximetry (%) Laboratory Tests 02/19/18 02/20/18 02/20/18 17:23 07:00 07:00 WBC 6.6 RBC 4.86 Hgb 14.0 Hct 41.4 MCV 85.2 MCH 28.9 MCHC 33.9 RDW 15.5 Plt Count 220 MPV 10.4 Sodium 141 Potassium 3.5 Chloride 104 Carbon Dioxide 31 D Anion Gap 6 L BUN 19 H Creatinine 0.8 Creat Clearance w eGFR > 60 Random Glucose 97 Calcium 9.6 Total Bilirubin 1.3 H D AST 24 D ALT 29 D Alkaline Phosphatase 100 Total Protein 7.0 Albumin 4.0 Urine Color [place] Urine Appearance Clear Urine pH 6.0 Ur Specific [place] 1.026 Urine Protein Negative Urine Glucose (UA) Negative Urine Ketones 1+ H Urine Blood 1+ H Urine Nitrite Negative Urine Bilirubin Negative Urine Urobilinogen 4.0 e.u/dl Ur Leukocyte Esterase Negative Urine WBC (Auto) 1 Urine RBC (Auto) 2 Urine Mucus Few RPR Titer Hep C Ab Diagnostic Liver Fibrosis Interp HIV 1&2 Antibody Screen HIV P24 Antigen 02/20/18 02/20/18 02/20/18 07:00 07:00 07:00 WBC RBC Hgb Hct MCV MCH MCHC RDW Plt Count MPV Sodium Potassium Chloride Carbon Dioxide Anion Gap BUN Creatinine Creat Clearance w eGFR Random Glucose Calcium Total Bilirubin AST ALT Alkaline Phosphatase Total Protein Albumin Urine Color Urine Appearance Urine pH Ur Specific [place] Urine Protein Urine Glucose (UA) Urine Ketones Urine Blood Urine Nitrite Urine Bilirubin Urine Urobilinogen Ur Leukocyte Esterase Urine WBC (Auto) Urine RBC (Auto) Urine Mucus RPR Titer Nonreactive Hep C Ab Diagnostic <0.1 Liver Fibrosis Interp HIV 1&2 Antibody Screen Negative HIV P24 Antigen Negative Obj: Neuro: alert and oriented x 3. CN 1-X11 grossly intact. Psych: pt reports concerns and stress regarding pending d/c. A/P: Forgetfulness likely related to stress. Coping mechanism reviewed Pt instructed to follow up with Psych if symptoms continue.
[2018-03-02] MEDS: traZODone HCL 50 MG TABLET (FP) PO SCH (21:36)
[2018-03-02] MEDS: THIAMINE HCL 100 MG TABLET (FP) PO SCH (21:37)
[2018-03-02] MEDS: ATORVASTATIN CA 40 MG TABLET (FP) PO SCH (21:37)
[2018-03-02] MEDS: QUEtiapine FUMARATE 200 MG TABLET PO SCH (21:37)
[2018-03-02] MEDS: LIDOCAINE PATCH REMOVAL MC SCH (21:38)
[2018-03-03] MEDS: TAMSULOSIN HCL 0.4 MG CAP.ER.24H (FP) PO SCH (09:00)
[2018-03-03] MEDS: PRENATAL VITAMINS W/ FOLIC ACID TABLET (FP) PO SCH (09:55)
[2018-03-03] MEDS: LIDOCAINE 5% TOPICAL PATCH TP SCH (09:55)
[2018-03-03] MEDS: PANTOPRAZOLE 40 MG TABLET (FP) PO SCH (09:59)
[2018-03-03] MEDS: QUEtiapine FUMARATE 100 MG TABLET (FP) PO SCH (09:59)
[2018-03-03] MEDS: IBUPROFEN 600 MG TABLET (FP) PO PRN (10:00)
[2018-03-03] MEDS: TRIAMCINOLONE ACET 0.1% OINT 15 GM TUBE TP SCH ×2 (10:00→21:28)
[2018-03-03] MEDS: traZODone HCL 50 MG TABLET (FP) PO SCH (21:27)
[2018-03-03] MEDS: ATORVASTATIN CA 40 MG TABLET (FP) PO SCH (21:27)
[2018-03-03] MEDS: QUEtiapine FUMARATE 200 MG TABLET PO SCH (21:28)
[2018-03-03] MEDS: LIDOCAINE PATCH REMOVAL MC SCH (21:28)
[2018-03-03] MEDS: THIAMINE HCL 100 MG TABLET (FP) PO SCH (21:28)
[2018-03-04 06:53] VITALS: PULSE 76
[2018-03-04] MEDS: TAMSULOSIN HCL 0.4 MG CAP.ER.24H (FP) PO SCH (08:50)
[2018-03-04] MEDS: PRENATAL VITAMINS W/ FOLIC ACID TABLET (FP) PO SCH (09:58)
[2018-03-04] MEDS: PANTOPRAZOLE 40 MG TABLET (FP) PO SCH (09:58)
[2018-03-04] MEDS: QUEtiapine FUMARATE 100 MG TABLET (FP) PO SCH (09:58)
[2018-03-04] MEDS: LIDOCAINE 5% TOPICAL PATCH TP SCH (09:59)
[2018-03-04] MEDS: TRIAMCINOLONE ACET 0.1% OINT 15 GM TUBE TP SCH ×2 (14:00→21:20)
[2018-03-04] MEDS: traZODone HCL 50 MG TABLET (FP) PO SCH (21:20)
[2018-03-04] MEDS: QUEtiapine FUMARATE 200 MG TABLET PO SCH (21:20)
[2018-03-04] MEDS: LIDOCAINE PATCH REMOVAL MC SCH (21:20)
[2018-03-04] MEDS: THIAMINE HCL 100 MG TABLET (FP) PO SCH (21:20)
[2018-03-04] MEDS: ATORVASTATIN CA 40 MG TABLET (FP) PO SCH (21:20)
[2018-03-05 06:47] VITALS: BP 134/78; TEMP 98.7
[2018-03-05] MEDS: PANTOPRAZOLE 40 MG TABLET (FP) PO SCH (08:06)
[2018-03-05] MEDS: QUEtiapine FUMARATE 100 MG TABLET (FP) PO SCH (08:06)
[2018-03-05] MEDS: PRENATAL VITAMINS W/ FOLIC ACID TABLET (FP) PO SCH (08:07)
[2018-03-05] MEDS: TAMSULOSIN HCL 0.4 MG CAP.ER.24H (FP) PO SCH (08:09)
--- NOTE | 2018-03-05 11:03 | PN ---
Psychiatric Progress Note Vital Signs: Vital Signs Period Temp Pulse Resp BP Sys/Mohr Pulse Ox Last 24 Hr 98.7 F 76 18-18 134/78 Date of Session: 03/05/18 Chief Complaint:: "discharge" HPI: Patient has addressed alcohol, cocaine, nicotine dependence comorbid Bipolar I disorder. ROS: Rheumatoid arthritis, Asthma medically managed. Provider note:: Patient has completed today his treatment and met identified goals, he will continue to address his issues at [facility] outpatient treatment program. The patient focused on importance changing attitudes for the utilization of supports to maintain sobriety. Seroquel, Trazodone and Wellbutrin have been effective for mood stabilization and sleep improvement, medications well tolerated , scripts provided for 30 days, stable is for discharge today. Total face to face time:: 15 Mental Status Exam - Mental Status Exam Alert and Oriented to: Time, Place, Person Cognitive Function: Good Patient Appearance: Well Groomed Mood: Hopeful Affect: Mood Congruent Patient Behavior: Cooperative Speech Pattern: Clear, Appropriate Voice Loudness: Normal Thought Process: Intact, Goal Oriented Thought Disorder: Not Present Hallucinations: Denies Suicidal Ideation: Denies Homicidal Ideation: Denies Insight/Judgement: Fair Sleep: Fair Appetite: Good Muscle strength/Tone: Normal Gait/Station: Normal Psychiatric Treatment Plan - Problem List (1) Cocaine dependence Qualifiers: Substance use status: uncomplicated Qualified Code(s): F14.20 - Cocaine dependence, uncomplicated (3) Nicotine dependence Qualifiers: Nicotine product type: cigarettes Substance use status: in withdrawal Qualified Code(s): F17.213 - Nicotine dependence, cigarettes, with withdrawal (6) Bipolar disorder Comment: History.
== END 2018-03-05 08:30 | disposition home or self-care (01) | DRG 772 ==
LOC: YASAS 11:13 → Y5N 18:04
PROVIDERS: ADMIT Psychiatry & Neurology Psychiatry; ATTEND Psychiatry & Neurology Psychiatry
PROC: HZ42ZZZ Group Counseling for Substance Abuse Treatment, Cognitive-Behavioral (ICD-10-PCS; principal; 2018-02-19)
DX: F10.20 Alcohol dependence, uncomplicated (principal); F14.20 Cocaine dependence, uncomplicated; F17.213 Nicotine dependence, cigarettes, with withdrawal; F31.9 Bipolar disorder, unspecified; J41.0 Simple chronic bronchitis; N40.0 Benign prostatic hyperplasia without lower urinary tract symptoms; K21.9 Gastro-esophageal reflux disease without esophagitis; F41.3 Other mixed anxiety disorders; L20.82 Flexural eczema; Z87.39 Personal history of other diseases of the musculoskeletal system and connective tissue; Z98.61 Coronary angioplasty status; Z79.01 Long term (current) use of anticoagulants; R26.89 Other abnormalities of gait and mobility; Z91.14 Patient's other noncompliance with medication regimen; Z99.89 Dependence on other enabling machines and devices
CPT/HCPCS: 36415; 80053; 81003; 81015; 85027; 86593; 87389; 93005; 93010

== ENCOUNTER 2018-06-02 14:55 | Inpatient (IN) | payer OTHER ==
[2018-06-02] MEDS ORDERED: MAGNESIUM CITRATE 300 ML BOTTLE PO PRN (18:08)
[2018-06-02] MEDS ORDERED: MAG HYDROX/AL HYDROX/SIMETH 30 ML UNIT-DOSE CUP PO PRN (18:08)
[2018-06-02] MEDS ORDERED: NICOTINE POLACRILEX 2 MG GUM BUC PRN (18:08)
[2018-06-02] MEDS ORDERED: IBUPROFEN 400 MG TABLET (FP) PO PRN (18:08)
[2018-06-02] MEDS ORDERED: guaiFENesin/D-METHORPHAN HB 10 ML UNIT-DOSE CUPS PO PRN (18:08)
[2018-06-02] MEDS ORDERED: MAGNESIUM HYDROX 2400MG/30ML ORAL SUSPENSION 30 ML CUP PO PRN (18:08)
[2018-06-02] MEDS ORDERED: MENTHOL/PHENOL 1 EACH UD MM PRN (18:08)
[2018-06-02] MEDS ORDERED: LOPERAMIDE HCL 2 MG CAPSULE PO PRN (18:08)
[2018-06-02] MEDS ORDERED: ALBUTEROL SO4 8 GM HFA INHALER IH PRN (18:17)
--- NOTE | 2018-06-02 18:17 | HP ---
[facility] Rehab Assess/Revision - Admission History Admitted to Rehab from: [facility] [place] Date of Admission to Rehab: 06/02/18 - Vital signs Vital Signs: Vital Signs Period Temp Pulse Resp BP Sys/Mohr Pulse Ox Last 24 Hr 98.0 F 80 18 108/73 - Findings Detox History & Physical reviewed: Yes Concur with findings: Yes Inpatient Rehab Admission - Initial Determination Are CD services needed?: Yes Free of communicable disease: Yes Not in need of hospitalization: Yes - Rehab Admission Criteria Previous failed treatment: Yes Poor recovery environment: Yes Comorbidities: Yes Lacks judgement: Yes Patient is meeting Inpatient Rehab admission criteria:: Yes
[2018-06-02] MEDS ORDERED: ALBUTEROL SO4 0.083% IH SOL 2.5 MG/3 ML VIAL.NEB. NEB PRN (18:19)
--- NOTE | 2018-06-02 18:23 | PN ---
[facility] Progress Note Note: Psychiatrist framing consultant note: Called by nursing staff to order medication for newly admitted patient from . Medication reconciliation done. Seroquel 100 mg daily & 200 mg HS, Trazadone 150 mg po HS as well as Wellbutrin XL 150 mg po daily are ordered for patient
[2018-06-02] MEDS: LIDOCAINE 5% TOPICAL PATCH TP SCH (20:59)
[2018-06-02] MEDS: THIAMINE HCL 100 MG TABLET (FP) PO SCH (21:49)
[2018-06-02] MEDS: LIDOCAINE PATCH REMOVAL MC SCH (21:49)
[2018-06-02] MEDS: traZODone HCL 50 MG TABLET (FP) PO SCH (21:49)
[2018-06-02] MEDS: QUEtiapine FUMARATE 200 MG TABLET PO SCH (21:49)
[2018-06-02] MEDS: TRIAMCINOLONE ACET 0.1% OINT 15 GM TUBE TP SCH (21:49)
[2018-06-02] MEDS ORDERED: MELATONIN 5 MG TABLETS PO PRN (22:00)
--- NOTE | 2018-06-03 10:20 | HP ---
Psychiatrist Admission - Data Date of interview: 06/03/18 Admission source: [facility] Identifying data: Patient is a 57 year old single male, father of two, unemployed, domiciled, and is supported by [facility]. This is one of multiple admissions to rehab for patient. Pt. admitted for alcohol and crack/cocaine dependence. Medical History: Scoliosis,hiatal hernia,lower back pain,bronchial asthma,eczema ,GERD,hypertension,hypercholesterolemia,Valencia's palsy (2015),COPD and BPH ( benign prostatic hyperplasia).History of orthopedic surgery : prosthetic left hip,right hip pinning and right hand (plate and screws in situ).Noted history of tonsillectomy (childhood) and bilateral inguinal heniorraphy. Psychiatric History: Patient's first psychiatric contact was as child after his mother took him to see a psychiatrist for hitting his head against ice. Pt. denies psychiatric hospitalization as a child. As an adult patient reports one psychiatric hospitalization at [facility]. As per Dr. Aguilar note, patient' s only psychiatric hospitalization was caused by his brother's . OPD was provided at the [facility] in [facility]. Pt. is currently prescribed seroquel 100mg daily + Seroquel 200mg qhs + wellbutrin 150mg. States he received his most recent prescription from [facility] Emergency room. [place] Physical/Sexual Abuse/Trauma History: As per Dr. Gipson note: Patient had difficulty coping with brother's . Vital Signs: Vital Signs - 24 hr 06/02/18 06/03/18 06/03/18 15:50 00:30 03:30 Temperature 98.0 F Pulse Rate 80 Respiratory 18 18 20 Rate Blood Pressure 108/73 06/03/18 06:33 Temperature 97.9 F Pulse Rate 82 Respiratory 16 Rate Blood Pressure 131/87 Allergies/Adverse Reactions: Allergies Allergy/AdvReac Type Severity Reaction Status Date / Time No Known Drug Allergies Allergy Verified 05/29/18 14:02 pseudoephedrine AdvReac Severe dizziness Verified 05/29/18 14:02 and headache pork derived (porcine) AdvReac Mild Vomiting Verified 05/29/18 14:02 [Pork derived (porcine)] tomato [Tomato] AdvReac Mild diarrhea Verified 05/29/18 14:02 lobster AdvReac Intermediate Vomiting Uncoded 05/29/18 14:02 Date of last physical exam: 05/29/18 Concur with the findings of this exam: Yes - Substance Abuse/Tx History Hx Alcohol Use: Yes ("Couple of pints") Hx Substance Use: Yes ("couple of grams") Substance Use Type: Cocaine Hx Substance Use Treatment: Yes (Rehab at [facility]) Mental Status Exam - Mental Status Exam Alert and Oriented to: Time, Place, Person Cognitive Function: Good Patient Appearance: Well Groomed Mood: Hopeful, Euthymic Affect: Mood Congruent Patient Behavior: Appropriate Speech Pattern: Appropriate Voice Loudness: Normal Thought Process: Intact Thought Disorder: Not Present Hallucinations: Denies Suicidal Ideation: Denies Homicidal Ideation: Denies Insight/Judgement: Poor Sleep: Fair Appetite: Fair Muscle strength/Tone: Normal Gait/Station: Other (Patient ambulates with a cane.) Psychiatric Findings - Problem List ([place] 1, 2,3) (1) Alcohol dependence Current Visit: Yes Status: Acute (2) Cocaine dependence Current Visit: Yes Status: Acute Qualifiers: Substance use status: uncomplicated Qualified Code(s): F14.20 - Cocaine dependence, uncomplicated (3) Alcohol dependence Current Visit: Yes Status: Chronic (4) Substance induced mood disorder Current Visit: Yes Status: Acute (5) Bipolar disorder Current Visit: Yes Status: Chronic Comment: History. (6) COPD (chronic obstructive pulmonary disease) Current Visit: Yes Status: Chronic Qualifiers: COPD type: chronic bronchitis Chronic bronchitis type: simple Qualified Code(s): J41.0 - Simple chronic bronchitis (7) Chronic low back pain Current Visit: Yes Status: Chronic Qualifiers: Back pain laterality: bilateral Sciatica presence: without sciatica Qualified Code(s): M54.5 - Low back pain; G89.29 - Other chronic pain (8) Gout Current Visit: Yes Status: Chronic Qualifiers: Gout site: foot Gout etiology: unspecified cause Chronicity: unspecified Laterality: unspecified laterality Qualified Code(s): M10.9 - Gout, unspecified (9) History of scoliosis Current Visit: Yes Status: Chronic (10) Hx of chronic arthritis Current Visit: Yes Status: Chronic (11) Hypercholesterolemia Current Visit: Yes Status: Chronic (12) Walker as ambulation aid Current Visit: Yes Status: Chronic (13) Gastroesophageal reflux disease Current Visit: Yes Status: Chronic Qualifiers: Esophagitis presence: without esophagitis Qualified Code(s): K21.9 - Gastro -esophageal reflux disease without esophagitis - Initial Treatment Plan Initial Treatment Plan: Psychoeducation provided. Rehab in progress. Will continue patient on current medications: Seroquel 100mg Daily + Seroquel 200mg qhs + Wellbutrin 150mg XL + Trazodone 150mg qhs. Verbal consent given.
[2018-06-03] MEDS: PRENATAL VITAMINS W/ FOLIC ACID TABLET (FP) PO SCH (10:28)
[2018-06-03] MEDS: QUEtiapine FUMARATE 100 MG TABLET (FP) PO SCH (10:28)
[2018-06-03] MEDS: PANTOPRAZOLE 40 MG TABLET (FP) PO SCH (10:28)
[2018-06-03] MEDS: TAMSULOSIN HCL 0.4 MG CAP.ER.24H (FP) PO SCH (10:28)
[2018-06-03] MEDS: ATORVASTATIN CA 10 MG TABLET (FP) PO SCH (10:28)
[2018-06-03] MEDS: TRIAMCINOLONE ACET 0.1% OINT 15 GM TUBE TP SCH ×2 (10:29→21:23)
[2018-06-03] MEDS: NICOTINE 14 MG/24 HOURS TOPICAL PATCH TD SCH (10:30)
[2018-06-03] MEDS: LIDOCAINE 5% TOPICAL PATCH TP SCH (10:30)
[2018-06-03] MEDS: ACETAMINOPHEN 325 MG TABLET (FP) PO PRN (10:30)
[2018-06-03] MEDS: QUEtiapine FUMARATE 200 MG TABLET PO SCH (21:21)
[2018-06-03] MEDS: traZODone HCL 50 MG TABLET (FP) PO SCH (21:21)
[2018-06-03] MEDS: THIAMINE HCL 100 MG TABLET (FP) PO SCH (21:21)
[2018-06-03] MEDS: LIDOCAINE PATCH REMOVAL MC SCH (21:23)
[2018-06-04] MEDS: QUEtiapine FUMARATE 100 MG TABLET (FP) PO SCH (09:29)
[2018-06-04] MEDS: PANTOPRAZOLE 40 MG TABLET (FP) PO SCH (09:29)
[2018-06-04] MEDS: ATORVASTATIN CA 10 MG TABLET (FP) PO SCH (09:29)
[2018-06-04] MEDS: TAMSULOSIN HCL 0.4 MG CAP.ER.24H (FP) PO SCH (09:29)
[2018-06-04] MEDS: LIDOCAINE 5% TOPICAL PATCH TP SCH (09:29)
[2018-06-04] MEDS: PRENATAL VITAMINS W/ FOLIC ACID TABLET (FP) PO SCH (09:30)
[2018-06-04] MEDS: NICOTINE 14 MG/24 HOURS TOPICAL PATCH TD SCH (09:30)
[2018-06-04] MEDS: TRIAMCINOLONE ACET 0.1% OINT 15 GM TUBE TP SCH ×2 (09:30→22:03)
--- NOTE | 2018-06-04 15:15 | PN ---
S Progress Note Note: Vital Signs Temperature 98.2 F 06/04/18 07:07 Pulse Rate 78 06/04/18 07:07 Respiratory Rate 18 06/04/18 07:07 Blood Pressure 134/91 06/04/18 07:07 O2 Sat by Pulse Oximetry (%) Patient was seen by application infrastructure engineer recommend the following: CHELSEA diet and Ensure BID . Orders place. Continue to monitor
[2018-06-04] MEDS: traZODone HCL 50 MG TABLET (FP) PO SCH (22:03)
[2018-06-04] MEDS: QUEtiapine FUMARATE 200 MG TABLET PO SCH (22:03)
[2018-06-04] MEDS: LIDOCAINE PATCH REMOVAL MC SCH (22:03)
[2018-06-04] MEDS: THIAMINE HCL 100 MG TABLET (FP) PO SCH (22:03)
[2018-06-05] MEDS: ACETAMINOPHEN 325 MG TABLET (FP) PO PRN (06:33)
[2018-06-05] MEDS: TAMSULOSIN HCL 0.4 MG CAP.ER.24H (FP) PO SCH (09:30)
[2018-06-05] MEDS: LIDOCAINE 5% TOPICAL PATCH TP SCH (09:56)
[2018-06-05] MEDS: ATORVASTATIN CA 10 MG TABLET (FP) PO SCH (09:56)
[2018-06-05] MEDS: PANTOPRAZOLE 40 MG TABLET (FP) PO SCH (09:56)
[2018-06-05] MEDS: TRIAMCINOLONE ACET 0.1% OINT 15 GM TUBE TP SCH ×2 (09:57→21:27)
[2018-06-05] MEDS: NICOTINE 14 MG/24 HOURS TOPICAL PATCH TD SCH (09:57)
[2018-06-05] MEDS: PRENATAL VITAMINS W/ FOLIC ACID TABLET (FP) PO SCH (09:57)
[2018-06-05] MEDS: QUEtiapine FUMARATE 100 MG TABLET (FP) PO SCH (09:57)
[2018-06-05] MEDS: traZODone HCL 50 MG TABLET (FP) PO SCH (21:27)
[2018-06-05] MEDS: QUEtiapine FUMARATE 200 MG TABLET PO SCH (21:27)
[2018-06-05] MEDS: THIAMINE HCL 100 MG TABLET (FP) PO SCH (21:27)
[2018-06-05] MEDS: LIDOCAINE PATCH REMOVAL MC SCH (21:28)
[2018-06-06] MEDS: ATORVASTATIN CA 10 MG TABLET (FP) PO SCH (10:07)
[2018-06-06] MEDS: PANTOPRAZOLE 40 MG TABLET (FP) PO SCH (10:07)
[2018-06-06] MEDS: TAMSULOSIN HCL 0.4 MG CAP.ER.24H (FP) PO SCH (10:07)
[2018-06-06] MEDS: PRENATAL VITAMINS W/ FOLIC ACID TABLET (FP) PO SCH (10:07)
[2018-06-06] MEDS: QUEtiapine FUMARATE 100 MG TABLET (FP) PO SCH (10:07)
[2018-06-06] MEDS: TRIAMCINOLONE ACET 0.1% OINT 15 GM TUBE TP SCH ×2 (10:41→22:07)
[2018-06-06] MEDS: LIDOCAINE 5% TOPICAL PATCH TP SCH (10:42)
[2018-06-06] MEDS: NICOTINE 14 MG/24 HOURS TOPICAL PATCH TD SCH (10:43)
[2018-06-06] MEDS: THIAMINE HCL 100 MG TABLET (FP) PO SCH (21:22)
[2018-06-06] MEDS: traZODone HCL 50 MG TABLET (FP) PO SCH (21:22)
[2018-06-06] MEDS: QUEtiapine FUMARATE 200 MG TABLET PO SCH (21:22)
[2018-06-06] MEDS: LIDOCAINE PATCH REMOVAL MC SCH (22:07)
[2018-06-07] MEDS: TAMSULOSIN HCL 0.4 MG CAP.ER.24H (FP) PO SCH (09:00)
[2018-06-07] MEDS: ATORVASTATIN CA 10 MG TABLET (FP) PO SCH (10:11)
[2018-06-07] MEDS: PRENATAL VITAMINS W/ FOLIC ACID TABLET (FP) PO SCH (10:11)
[2018-06-07] MEDS: PANTOPRAZOLE 40 MG TABLET (FP) PO SCH (10:11)
[2018-06-07] MEDS: QUEtiapine FUMARATE 100 MG TABLET (FP) PO SCH (10:11)
[2018-06-07] MEDS: NICOTINE 14 MG/24 HOURS TOPICAL PATCH TD SCH (10:12)
[2018-06-07] MEDS: LIDOCAINE 5% TOPICAL PATCH TP SCH (10:12)
[2018-06-07] MEDS: TRIAMCINOLONE ACET 0.1% OINT 15 GM TUBE TP SCH ×2 (10:12→21:46)
[2018-06-07] MEDS: QUEtiapine FUMARATE 200 MG TABLET PO SCH (21:24)
[2018-06-07] MEDS: THIAMINE HCL 100 MG TABLET (FP) PO SCH (21:24)
[2018-06-07] MEDS: traZODone HCL 50 MG TABLET (FP) PO SCH (21:24)
[2018-06-07] MEDS: ACETAMINOPHEN 325 MG TABLET (FP) PO PRN (21:25)
[2018-06-07] MEDS: LIDOCAINE PATCH REMOVAL MC SCH (21:46)
[2018-06-08] MEDS: TAMSULOSIN HCL 0.4 MG CAP.ER.24H (FP) PO SCH (09:30)
[2018-06-08] MEDS: LIDOCAINE 5% TOPICAL PATCH TP SCH (09:55)
[2018-06-08] MEDS: PANTOPRAZOLE 40 MG TABLET (FP) PO SCH (09:55)
[2018-06-08] MEDS: PRENATAL VITAMINS W/ FOLIC ACID TABLET (FP) PO SCH (09:55)
[2018-06-08] MEDS: QUEtiapine FUMARATE 100 MG TABLET (FP) PO SCH (09:55)
[2018-06-08] MEDS: NICOTINE 14 MG/24 HOURS TOPICAL PATCH TD SCH (09:56)
[2018-06-08] MEDS: TRIAMCINOLONE ACET 0.1% OINT 15 GM TUBE TP SCH ×2 (09:56→21:21)
[2018-06-08] MEDS: ACETAMINOPHEN 325 MG TABLET (FP) PO PRN ×2 (09:58→21:22)
[2018-06-08] MEDS: ATORVASTATIN CA 10 MG TABLET (FP) PO SCH (11:00)
[2018-06-08] MEDS: THIAMINE HCL 100 MG TABLET (FP) PO SCH (21:20)
[2018-06-08] MEDS: QUEtiapine FUMARATE 200 MG TABLET PO SCH (21:20)
[2018-06-08] MEDS: traZODone HCL 50 MG TABLET (FP) PO SCH (21:20)
[2018-06-08] MEDS: LIDOCAINE PATCH REMOVAL MC SCH (21:21)
[2018-06-09] MEDS: TAMSULOSIN HCL 0.4 MG CAP.ER.24H (FP) PO SCH (09:30)
[2018-06-09] MEDS: PANTOPRAZOLE 40 MG TABLET (FP) PO SCH (09:59)
[2018-06-09] MEDS: ATORVASTATIN CA 10 MG TABLET (FP) PO SCH (09:59)
[2018-06-09] MEDS: PRENATAL VITAMINS W/ FOLIC ACID TABLET (FP) PO SCH (09:59)
[2018-06-09] MEDS: QUEtiapine FUMARATE 100 MG TABLET (FP) PO SCH (09:59)
[2018-06-09] MEDS: TRIAMCINOLONE ACET 0.1% OINT 15 GM TUBE TP SCH ×2 (10:00→21:19)
[2018-06-09] MEDS: LIDOCAINE 5% TOPICAL PATCH TP SCH (10:00)
[2018-06-09] MEDS: NICOTINE 14 MG/24 HOURS TOPICAL PATCH TD SCH (10:00)
[2018-06-09] MEDS: traZODone HCL 50 MG TABLET (FP) PO SCH (21:18)
[2018-06-09] MEDS: QUEtiapine FUMARATE 200 MG TABLET PO SCH (21:18)
[2018-06-09] MEDS: THIAMINE HCL 100 MG TABLET (FP) PO SCH (21:18)
[2018-06-09] MEDS: LIDOCAINE PATCH REMOVAL MC SCH (21:19)
[2018-06-10] MEDS: TAMSULOSIN HCL 0.4 MG CAP.ER.24H (FP) PO SCH (09:30)
[2018-06-10] MEDS: TRIAMCINOLONE ACET 0.1% OINT 15 GM TUBE TP SCH ×2 (09:58→21:35)
[2018-06-10] MEDS: NICOTINE 14 MG/24 HOURS TOPICAL PATCH TD SCH (09:58)
[2018-06-10] MEDS: PANTOPRAZOLE 40 MG TABLET (FP) PO SCH (09:58)
[2018-06-10] MEDS: ATORVASTATIN CA 10 MG TABLET (FP) PO SCH (09:58)
[2018-06-10] MEDS: QUEtiapine FUMARATE 100 MG TABLET (FP) PO SCH (09:58)
[2018-06-10] MEDS: PRENATAL VITAMINS W/ FOLIC ACID TABLET (FP) PO SCH (09:58)
[2018-06-10] MEDS: LIDOCAINE 5% TOPICAL PATCH TP SCH (09:59)
[2018-06-10] MEDS: ACETAMINOPHEN 325 MG TABLET (FP) PO PRN (10:00)
[2018-06-10] MEDS ORDERED: COLLOIDAL OATMEAL 1 BAR EACH TP PRN (12:40)
[2018-06-10] MEDS: traZODone HCL 50 MG TABLET (FP) PO SCH (21:33)
[2018-06-10] MEDS: QUEtiapine FUMARATE 200 MG TABLET PO SCH (21:33)
[2018-06-10] MEDS: LIDOCAINE PATCH REMOVAL MC SCH (21:34)
[2018-06-10] MEDS: THIAMINE HCL 100 MG TABLET (FP) PO SCH (21:35)
[2018-06-11] MEDS: TAMSULOSIN HCL 0.4 MG CAP.ER.24H (FP) PO SCH (09:30)
[2018-06-11] MEDS: PRENATAL VITAMINS W/ FOLIC ACID TABLET (FP) PO SCH (09:58)
[2018-06-11] MEDS: QUEtiapine FUMARATE 100 MG TABLET (FP) PO SCH (09:58)
[2018-06-11] MEDS: PANTOPRAZOLE 40 MG TABLET (FP) PO SCH (09:59)
[2018-06-11] MEDS: LIDOCAINE 5% TOPICAL PATCH TP SCH (09:59)
[2018-06-11] MEDS: NICOTINE 14 MG/24 HOURS TOPICAL PATCH TD SCH (09:59)
[2018-06-11] MEDS: ATORVASTATIN CA 10 MG TABLET (FP) PO SCH (09:59)
[2018-06-11] MEDS: TRIAMCINOLONE ACET 0.1% OINT 15 GM TUBE TP SCH ×2 (09:59→22:02)
[2018-06-11] MEDS: ACETAMINOPHEN 325 MG TABLET (FP) PO PRN ×2 (10:01→21:22)
[2018-06-11] MEDS: THIAMINE HCL 100 MG TABLET (FP) PO SCH (21:19)
[2018-06-11] MEDS: QUEtiapine FUMARATE 200 MG TABLET PO SCH (21:19)
[2018-06-11] MEDS: traZODone HCL 50 MG TABLET (FP) PO SCH (21:21)
[2018-06-11] MEDS: LIDOCAINE PATCH REMOVAL MC SCH (21:23)
[2018-06-12] MEDS: ATORVASTATIN CA 10 MG TABLET (FP) PO SCH (10:09)
[2018-06-12] MEDS: QUEtiapine FUMARATE 100 MG TABLET (FP) PO SCH (10:09)
[2018-06-12] MEDS: TAMSULOSIN HCL 0.4 MG CAP.ER.24H (FP) PO SCH (10:09)
[2018-06-12] MEDS: PANTOPRAZOLE 40 MG TABLET (FP) PO SCH (10:09)
[2018-06-12] MEDS: PRENATAL VITAMINS W/ FOLIC ACID TABLET (FP) PO SCH (10:10)
[2018-06-12] MEDS: LIDOCAINE 5% TOPICAL PATCH TP SCH (10:10)
[2018-06-12] MEDS: NICOTINE 14 MG/24 HOURS TOPICAL PATCH TD SCH (10:10)
[2018-06-12] MEDS: TRIAMCINOLONE ACET 0.1% OINT 15 GM TUBE TP SCH ×2 (10:11→21:55)
[2018-06-12] MEDS: traZODone HCL 50 MG TABLET (FP) PO SCH (21:54)
[2018-06-12] MEDS: QUEtiapine FUMARATE 200 MG TABLET PO SCH (21:54)
[2018-06-12] MEDS: LIDOCAINE PATCH REMOVAL MC SCH (21:54)
[2018-06-12] MEDS: THIAMINE HCL 100 MG TABLET (FP) PO SCH (21:54)
[2018-06-12] MEDS: ACETAMINOPHEN 325 MG TABLET (FP) PO PRN (21:56)
[2018-06-13] MEDS: TRIAMCINOLONE ACET 0.1% OINT 15 GM TUBE TP SCH ×2 (10:06→21:35)
[2018-06-13] MEDS: NICOTINE 14 MG/24 HOURS TOPICAL PATCH TD SCH (10:07)
[2018-06-13] MEDS: PRENATAL VITAMINS W/ FOLIC ACID TABLET (FP) PO SCH (10:07)
[2018-06-13] MEDS: QUEtiapine FUMARATE 100 MG TABLET (FP) PO SCH (10:07)
[2018-06-13] MEDS: LIDOCAINE 5% TOPICAL PATCH TP SCH (10:07)
[2018-06-13] MEDS: TAMSULOSIN HCL 0.4 MG CAP.ER.24H (FP) PO SCH (10:07)
[2018-06-13] MEDS: ATORVASTATIN CA 10 MG TABLET (FP) PO SCH (10:07)
[2018-06-13] MEDS: PANTOPRAZOLE 40 MG TABLET (FP) PO SCH (10:07)
[2018-06-13] MEDS: ACETAMINOPHEN 325 MG TABLET (FP) PO PRN (14:41)
[2018-06-13] MEDS: traZODone HCL 50 MG TABLET (FP) PO SCH (21:34)
[2018-06-13] MEDS: THIAMINE HCL 100 MG TABLET (FP) PO SCH (21:34)
[2018-06-13] MEDS: QUEtiapine FUMARATE 200 MG TABLET PO SCH (21:34)
[2018-06-13] MEDS: LIDOCAINE PATCH REMOVAL MC SCH (21:35)
[2018-06-14] MEDS: TAMSULOSIN HCL 0.4 MG CAP.ER.24H (FP) PO SCH (09:30)
[2018-06-14] MEDS: PANTOPRAZOLE 40 MG TABLET (FP) PO SCH (10:36)
[2018-06-14] MEDS: TRIAMCINOLONE ACET 0.1% OINT 15 GM TUBE TP SCH ×2 (10:36→21:55)
[2018-06-14] MEDS: ATORVASTATIN CA 10 MG TABLET (FP) PO SCH (10:36)
[2018-06-14] MEDS: QUEtiapine FUMARATE 100 MG TABLET (FP) PO SCH (10:36)
[2018-06-14] MEDS: PRENATAL VITAMINS W/ FOLIC ACID TABLET (FP) PO SCH (10:36)
[2018-06-14] MEDS: LIDOCAINE 5% TOPICAL PATCH TP SCH (10:37)
[2018-06-14] MEDS: NICOTINE 14 MG/24 HOURS TOPICAL PATCH TD SCH (10:37)
[2018-06-14] MEDS: ACETAMINOPHEN 325 MG TABLET (FP) PO PRN (12:03)
[2018-06-14] MEDS: traZODone HCL 50 MG TABLET (FP) PO SCH (21:55)
[2018-06-14] MEDS: QUEtiapine FUMARATE 200 MG TABLET PO SCH (21:55)
[2018-06-14] MEDS: LIDOCAINE PATCH REMOVAL MC SCH (21:55)
[2018-06-14] MEDS: THIAMINE HCL 100 MG TABLET (FP) PO SCH (21:55)
[2018-06-15] MEDS: TAMSULOSIN HCL 0.4 MG CAP.ER.24H (FP) PO SCH (09:30)
[2018-06-15] MEDS: PRENATAL VITAMINS W/ FOLIC ACID TABLET (FP) PO SCH (09:49)
[2018-06-15] MEDS: PANTOPRAZOLE 40 MG TABLET (FP) PO SCH (09:49)
[2018-06-15] MEDS: QUEtiapine FUMARATE 100 MG TABLET (FP) PO SCH (09:49)
[2018-06-15] MEDS: LIDOCAINE 5% TOPICAL PATCH TP SCH (09:49)
[2018-06-15] MEDS: TRIAMCINOLONE ACET 0.1% OINT 15 GM TUBE TP SCH ×2 (09:49→21:25)
[2018-06-15] MEDS: NICOTINE 14 MG/24 HOURS TOPICAL PATCH TD SCH (09:50)
[2018-06-15] MEDS: ACETAMINOPHEN 325 MG TABLET (FP) PO PRN ×2 (09:51→21:25)
[2018-06-15] MEDS: ATORVASTATIN CA 10 MG TABLET (FP) PO SCH (11:00)
[2018-06-15] MEDS: traZODone HCL 50 MG TABLET (FP) PO SCH (21:23)
[2018-06-15] MEDS: QUEtiapine FUMARATE 200 MG TABLET PO SCH (21:24)
[2018-06-15] MEDS: THIAMINE HCL 100 MG TABLET (FP) PO SCH (21:24)
[2018-06-15] MEDS: LIDOCAINE PATCH REMOVAL MC SCH (21:25)
[2018-06-16 06:48] VITALS: BP 126/85; PULSE 72; TEMP 98
[2018-06-16] MEDS: TAMSULOSIN HCL 0.4 MG CAP.ER.24H (FP) PO SCH (08:54)
[2018-06-16] MEDS: ACETAMINOPHEN 325 MG TABLET (FP) PO PRN (08:54)
--- NOTE | 2018-06-16 09:44 | PN ---
Psychiatric Progress Note Vital Signs: Vital Signs Period Temp Pulse Resp BP Sys/Mohr Pulse Ox Last 24 Hr 98.0 F 72 16-20 126/85 Date of Session: 06/16/18 Chief Complaint:: Discharge Note HPI: Patient addressing Alcohol and Cocaine Dependence comorbid with Nicotine Dependence, Bipolar Disorder and Substance-Induced Mood Disorder ROS: COPD, GOUT, BPH Current Medications: Active Medications Generic Name Dose Route Start Last Admin Trade Name Freq PRN Reason Stop Dose Admin Acetaminophen 650 mg 06/02/18 18:08 06/16/18 08:54 Tylenol - PO 650 mg Q4H PRN Administration FEVER Al Hydroxide/Mg Hydroxide 30 ml 06/02/18 18:08 Mylanta Oral Suspension - PO Q6H PRN DYSPEPSIA Albuterol Sulfate 2 puff 06/02/18 18:17 Ventolin Hfa Inhaler - IH Q4H PRN ASTHMA Atorvastatin Calcium 10 mg 06/03/18 10:00 06/15/18 11:00 Lipitor - PO 10 mg DAILY CONG Administration Bupropion HCl 150 mg 06/03/18 10:00 06/15/18 09:49 Wellbutrin Xl - PO 150 mg DAILY CONG Administration Colloidal Oatmeal 1 applic 06/10/18 12:40 06/10/18 15:28 Aveeno Soap - TP 1 applic DAILY PRN Administration HYGEINE Eucalyptus/Menthol/Phenol/Sorbitol 1 each 06/02/18 18:08 Cepastat Lozenge - MM Q4H PRN SORE THROAT Guaifenesin 10 ml 06/02/18 18:08 Robitussin Dm - PO Q6H PRN COUGH Ibuprofen 400 mg 06/02/18 18:08 Motrin - PO Q6H PRN Pain Level 4-6 Lidocaine 1 patch 06/02/18 18:30 06/15/18 09:49 Lidoderm Patch - TP 1 patch DAILY CONG Administration Loperamide HCl 4 mg 06/02/18 18:08 06/04/18 09:35 Imodium - PO 4 mg Q6H PRN Administration DIARRHEA Magnesium Citrate 300 ml 06/02/18 18:08 Citroma - PO Q48H PRN CONSTIPATION Magnesium Hydroxide 30 ml 06/02/18 18:08 06/08/18 09:58 Milk Of Magnesia - PO 30 ml DAILY PRN Administration CONSTIPATION Miscellaneous 1 each 06/02/18 22:00 06/15/18 21:25 Lidoderm Patch Removal MC 1 each DAILY@2200 CONG Administration Nicotine 14 mg 06/03/18 10:00 06/15/18 09:50 Nicoderm Patch - TD Not Given DAILY CONG Nicotine Polacrilex 2 mg 06/02/18 18:08 Nicorette Gum - BUC Q2H PRN NICOTINE REPLACEMENT RX Pantoprazole Sodium 40 mg 06/03/18 10:00 06/15/18 09:49 Protonix - PO 40 mg DAILY CONG Administration Multivit/Folic Acid/Iron 1 tab 06/03/18 10:00 06/15/18 09:49 Vitamins (Sjr) - PO 1 tab DAILY CONG Administration Quetiapine Fumarate 100 mg 06/03/18 10:00 06/15/18 09:49 Seroquel - PO 100 mg DAILY CONG Administration Quetiapine Fumarate 200 mg 06/02/18 22:00 06/15/18 21:24 Seroquel - PO 200 mg HS CONG Administration Tamsulosin HCl 0.4 mg 06/03/18 08:30 06/16/18 08:54 Flomax - PO 0.4 mg DAILY@0830 CONG Administration Thiamine HCl 100 mg 06/02/18 22:00 06/15/18 21:24 Vitamin B1 - PO 100 mg HS CONG Administration Trazodone HCl 150 mg 06/02/18 22:00 06/15/18 21:23 Desyrel - PO 150 mg HS CONG Administration Triamcinolone Acetonide 1 applic 06/02/18 22:00 06/15/18 21:25 Aristocort 0.1% Ointment - TP 1 applic BID CONG Administration Current Side Effect: No Lab tests ordered: Yes Lab tests reviewed: Yes Provider note:: Patient has completed this program today. He has met his treatment goals and will continue to address his issues in 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 at [facility]. told chief writer that from his participation in this program, he has learned the importance of making meetings and have a sponsor. He responded well to Seroquel 100 mg daily & 200 mg HS, Wellbutrin XL 150 mg po daily and Trazadone 150 mg po HS. Scripts for 30 days supply of medications are electronically transmitted to [facility] at [address] [place] [address]. He is stable for discharge today Total face to face time:: 35 Mental Status Exam - Mental Status Exam Alert and Oriented to: Time, Place, Person Cognitive Function: Fair Patient Appearance: Well Groomed Mood: Hopeful, Euthymic Affect: Appropriate Patient Behavior: Cooperative Speech Pattern: Clear Voice Loudness: Normal Thought Process: Intact Thought Disorder: Not Present Hallucinations: Denies Suicidal Ideation: Denies Homicidal Ideation: Denies Insight/Judgement: Fair Sleep: Fair Appetite: Good Muscle strength/Tone: Normal Gait/Station: Normal Psychiatric Treatment Plan - Problem List (1) Alcohol dependence Current Visit: Yes (2) Cocaine dependence Current Visit: Yes Qualifiers: Substance use status: uncomplicated Qualified Code(s): F14.20 - Cocaine dependence, uncomplicated (3) Nicotine dependence Current Visit: No Qualifiers: Nicotine product type: cigarettes Substance use status: in withdrawal Qualified Code(s): F17.213 - Nicotine dependence, cigarettes, with withdrawal (4) Bipolar disorder Current Visit: Yes Comment: History. (5) Substance induced mood disorder Current Visit: Yes (6) COPD (chronic obstructive pulmonary disease) Current Visit: Yes Qualifiers: COPD type: chronic bronchitis Chronic bronchitis type: simple Qualified Code(s): J41.0 - Simple chronic bronchitis (7) Chronic low back pain Current Visit: Yes Qualifiers: Back pain laterality: bilateral Sciatica presence: without sciatica Qualified Code(s): M54.5 - Low back pain; G89.29 - Other chronic pain (8) Gastroesophageal reflux disease Current Visit: Yes Qualifiers: Esophagitis presence: without esophagitis Qualified Code(s): K21.9 - Gastro -esophageal reflux disease without esophagitis (9) Gout Current Visit: Yes Qualifiers: Gout site: foot Gout etiology: unspecified cause Chronicity: unspecified Laterality: unspecified laterality Qualified Code(s): M10.9 - Gout, unspecified (10) BPH (benign prostatic hyperplasia) Current Visit: Yes Initial treatment plan: Patient is discharged today and referred to [facility] for 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
[2018-06-16] MEDS: ATORVASTATIN CA 10 MG TABLET (FP) PO SCH (10:02)
[2018-06-16] MEDS: PANTOPRAZOLE 40 MG TABLET (FP) PO SCH (10:02)
[2018-06-16] MEDS: PRENATAL VITAMINS W/ FOLIC ACID TABLET (FP) PO SCH (10:02)
[2018-06-16] MEDS: QUEtiapine FUMARATE 100 MG TABLET (FP) PO SCH (10:02)
[2018-06-16] MEDS: LIDOCAINE 5% TOPICAL PATCH TP SCH (10:02)
[2018-06-16] MEDS: TRIAMCINOLONE ACET 0.1% OINT 15 GM TUBE TP SCH (10:03)
[2018-06-16] MEDS: NICOTINE 14 MG/24 HOURS TOPICAL PATCH TD SCH (10:03)
== END 2018-06-16 10:50 | disposition home or self-care (01) | DRG 772 ==
LOC: YASAS 14:55 → Y5N 14:56
PROVIDERS: ADMIT Psychiatry & Neurology Psychiatry; ATTEND Psychiatry & Neurology Psychiatry
PROC: HZ42ZZZ Group Counseling for Substance Abuse Treatment, Cognitive-Behavioral (ICD-10-PCS; principal; 2018-06-02)
DX: F10.20 Alcohol dependence, uncomplicated (principal); F14.20 Cocaine dependence, uncomplicated; F17.213 Nicotine dependence, cigarettes, with withdrawal; F31.9 Bipolar disorder, unspecified; F19.24 Other psychoactive substance dependence with psychoactive substance-induced mood disorder; J41.0 Simple chronic bronchitis; K21.9 Gastro-esophageal reflux disease without esophagitis; M54.5 Low back pain; G89.29 Other chronic pain; M10.9 Gout, unspecified; N40.0 Benign prostatic hyperplasia without lower urinary tract symptoms; R26.89 Other abnormalities of gait and mobility; Z99.89 Dependence on other enabling machines and devices

== ENCOUNTER 2018-10-21 14:15 | Inpatient (IN) | payer OTHER ==
[2018-10-21 16:53] VITALS: BMI 26.6
--- NOTE | 2018-10-21 19:40 | HP ---
"CIWA Score Nausea/Vomitin Muscle Tremors: 4-Moderate,w/Arms Extend Anxiety: 4-Mod. Anxious/Guarded Agitation: 4-Moderately Restless Paroxysmal Sweats: 3 Orientation: 0-Oriented Tacttile Disturbances: 0-None Auditory Disturbances: 0-None Visual Disturbances: 0-None Headache: 0-None Present CIWA-Ar Total Score: 17 - Admission Criteria [facility] Guidelines: Admission for Medically Managed Detox: Requires at least one of the followin. CIWA greater than 12 2. Seizures within the past 24 hours 3. Delirium tremens within the past 24 hours 4. Hallucinations within the past 24 hours 5. Acute intervention needed for co occurring medical disorder 6. Acute intervention needed for co occurring psychiatric disorder 7. Severe withdrawal that cannot be handled at a lower level of care (continued vomiting, continued diarrhea, abnormal vital signs) requiring intravenous medication and/or fluids 8. Patient presents the following: CIWA greater than 12 Admission Criteria Met: Admission criteria met Admission ROS [facility] Chief Complaint: Here for alcohol withdrawal. Allergies/Adverse Reactions: Allergies Allergy/AdvReac Type Severity Reaction Status Date / Time No Known Drug Allergies Allergy Verified 10/21/18 18:27 pseudoephedrine AdvReac Severe dizziness Verified 10/21/18 18:27 and headache pork derived (porcine) AdvReac Mild Vomiting Verified 10/21/18 18:27 [Pork derived (porcine)] tomato [Tomato] AdvReac Mild diarrhea Verified 10/21/18 18:27 lobster AdvReac Intermediate Vomiting Uncoded 10/21/18 18:27 Tomato AdvReac Mild Uncoded 10/21/18 18:28 History of Present Illness: Alcohol use since age age 12 Tylenol # 3 w/ codeine - 2 - 3 pills/day x 1 week Cocaine use since age 22's Nicotine use since age 12. Declines nicotine patch and gum. Longest hx sobriety 3 years groups Hx: COPD - occ SOB, no wheeze, elevated chol; (L) Valencia's Palsy, HTN Multiple orthopedic surgery/interventions - see PSH \\ Search Terms: Marcos Euceda, 1960 Search Date: 10/21/2018 07:38:15 PM The Drug Utilization Report below displays all of the controlled substance prescriptions, if any, that your patient has filled in the last twelve months. The information displayed on this report is compiled from pharmacy submissions to the Department, and accurately reflects the information as submitted by the pharmacies. This report was requested by: Ynes Avila | Reference #: [id number] There are no results for the search terms that you entered. Exam Limitations: No Limitations - Ebola screening Have you traveled outside of the country in the last 21 days: No (N) Have you had contact with anyone from an Ebola affected area: No Have you been sick,other than usual withdrawal symptoms: No Do you have a fever: No - Review of Systems Constitutional: Diaphoresis, Changes in sleep (Difficulty falling asleep and staying asleep) EENT: reports: Blurred Vision, Tearing ((L) eye r/t Valencia's Palsy), Hearing Loss (Difficulty hearing since 30's), Nose Congestion, Dental Problems (Missing teeth , dental pain: Chews and swallows okay.) Respiratory: reports: No Symptoms reported, Other Cardiac: reports: No Symptoms Reported GI: reports: Diarrhea (light brown, watery x days), Nausea, Indigestion (Acid reflux - takes protonix) : reports: No Symptoms Reported Musculoskeletal: reports: Back Pain (scoliosis), Joint Pain ((R) hip - scheduled of THR . Pain decreased w/ meds), Other (Hx (L) THR, (R) hand ORIF;) Integumentary: reports: Rash (Hx eczema head and ears) Neuro: reports: Numbness (Pins/needles/numbness in toes), Tremors Endocrine: reports: No Symptoms Reported Hematology: reports: No Symptoms Reported Psychiatric: reports: Judgement Intact, Orientated x3, Agitated, Anxious, Depressed (Denies thoughts of harming self or others) Patient History - Patient Medical History Hx Anemia: Yes (IN THE PAST) Hx Asthma: No Hx Chronic Obstructive Pulmonary Disease (COPD): Yes Hx Cancer: No Hx Cardiac Disorders: No Hx Congestive Heart Failure: No Hx Hypertension: No Hx Hypercholesterolemia: Yes (LIPITOR) Hx Pacemaker: No HX Cerebrovascular Accident: No (VALENCIA 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/2015 ) Hx Seizures: No Hx Dementia: No Hx Diabetes: No Hx Gastrointestinal Disorders: No Hx Liver Disease: No Hx Genitourinary Disorders: No Hx Sexually Transmitted Disorders: No Hx Renal Disease (ESRD): No Hx Thyroid Disease: No Hx Human Immunodeficiency Virus (HIV): No (NEGATIVE HX;LAST 2017) Hx Hepatitis C: No (WANTS TESTING) Hx Depression: Yes Hx Suicide Attempt: No Hx Bipolar Disorder: Yes (seroquel and trazodone by hx ) Hx Schizophrenia: No - Patient Surgical History Past Surgical History: Yes Hx Neurologic Surgery: No Hx Cataract Extraction: No Hx Cardiac Surgery: Yes (CARDIAC CATH 01/05/16-NEGATIVE) Hx Lung Surgery: No Hx Breast Surgery: No Hx Breast Biopsy: No Hx Abdominal Surgery: No Hx Appendectomy: No Hx Cholecystectomy: No Hx Genitourinary Surgery: No Hx Section: No Hx Orthopedic Surgery: Yes (prosthetic left hip,rt. hip pinning,rt. hand with plate & 8 screws) Other Surgical History: TONSILLECTOMY A CHILD/right hand x4; B/L inguinal hernia repair Anesthesia Reaction: No - PPD History Previous Implant?: Yes Documented Results: Negative w/proof Date: 01/31/18 Results: negative PPD to be Administered?: No - Smoking Cessation Smoking history: Current every day smoker Have you smoked in the past 12 months: Yes Aproximately how many cigarettes per day: 5 If you are a former smoker, when did you quit?: 0 Cigars Per Day: 0 Hx Chewing Tobacco Use: No Initiated information on smoking cessation: Yes 'Breaking Loose' booklet given: 10/21/18 - Substance & Tx. History Hx Alcohol Use: Yes Hx Substance Use: Yes Substance Use Type: Alcohol, Cocaine Hx Substance Use Treatment: Yes (detox, rehab) - Substances Abused Alcohol Frequency: Daily Amount used: liquor- 2 pints, Age of first use: 12 Date of Last Use: 10/21/18 Family Disease History - Family Disease History Family Disease History: Diabetes: Grandparent (cva), Heart Disease: Grandparent , Father (cva), Mother (HYPERTENSION), Brother () Admission Physical Exam [facility] - Vital Signs Vital Signs: Vital Signs - 24 hr 10/21/18 16:50 Temperature 97.1 F L Pulse Rate 106 H Respiratory 18 Rate Blood Pressure 140/70 - Physical General Appearance: Yes: Mild Distress, Tremorous, Irritable, Sweating (Facial moisture), Anxious HEENTM: Yes: EOMI, Hearing grossly Normal, Normocephalic, ZO Respiratory: Yes: Lungs Clear, Normal Breath Sounds, No Respiratory Distress Neck: Yes: No masses,lesions,Nodules, Supple Breast: Yes: Breast Exam Deferred Cardiology: Yes: Regular Rhythm, S1, S2, Tachycardia Abdominal: Yes: Non Tender, Soft, Increased Bowel Sounds Genitourinary: Yes: Within Normal Limits Back: Yes: Other (Slight curvature of spine) Musculoskeletal: Yes: Other (Decreased ROM of (R) thumb; Spinal flexion to 80 degrees; Gait steady w/ cane) Extremities: Yes: Normal Capillary Refill, Non-Tender, Tremors Neurological: Yes: Motor Strength 5/5, Normal Mood/Affect, Normal Response, Facial Droop ((L) facial droop) Integumentary: Yes: Normal Color, Dry, Warm, Rash (irregular rash head/ behind ears w/o exudate.) Lymphatic: Yes: Within Normal Limits - Diagnostic (1) Joint disorder, unspecified Current Visit: Yes Status: Chronic (2) Alcohol dependence with uncomplicated withdrawal Current Visit: Yes Status: Acute (3) BPH (benign prostatic hyperplasia) Current Visit: Yes Status: Chronic Qualifiers: Lower urinary tract symptom presence: unspecified whether lower urinary tract symptoms present Qualified Code(s): N40.0 - Benign prostatic hyperplasia without lower urinary tract symptoms (4) Cocaine dependence Current Visit: Yes Status: Chronic Qualifiers: Substance use status: uncomplicated Qualified Code(s): F14.20 - Cocaine dependence, uncomplicated (5) Use of cane as ambulatory aid Current Visit: Yes Status: Chronic (6) COPD (chronic obstructive pulmonary disease) Current Visit: Yes Status: Chronic Qualifiers: COPD type: chronic bronchitis Chronic bronchitis type: unspecified Qualified Code(s): J42 - Unspecified chronic bronchitis (7) Essential hypertension Current Visit: Yes Status: Chronic (8) Gastroesophageal reflux disease Current Visit: Yes Status: Chronic Qualifiers: Esophagitis presence: esophagitis presence not specified Qualified Code(s) : K21.9 - Gastro-esophageal reflux disease without esophagitis (9) History of scoliosis Current Visit: Yes Status: Chronic (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
[2018-10-21] MEDS ORDERED: MAGNESIUM CITRATE 300 ML BOTTLE PO PRN (20:22)
[2018-10-21] MEDS ORDERED: MAGNESIUM HYDROX 2400MG/30ML ORAL SUSPENSION 30 ML CUP PO PRN (20:22)
[2018-10-21] MEDS ORDERED: MENTHOL/PHENOL 1 EACH UD MM PRN (20:22)
[2018-10-21] MEDS ORDERED: MAG HYDROX/AL HYDROX/SIMETH 30 ML UNIT-DOSE CUP PO PRN (20:22)
[2018-10-21] MEDS ORDERED: chlordiazePOXIDE HCL 25 MG CAPSULE PO PRN (20:22)
[2018-10-21] MEDS ORDERED: LOPERAMIDE HCL 2 MG CAPSULE PO PRN (20:22)
[2018-10-21] MEDS ORDERED: COLLOIDAL OATMEAL 1 BAR EACH TP PRN (20:27)
[2018-10-21] MEDS ORDERED: ALBUTEROL SO4 0.083% IH SOL 2.5 MG/3 ML VIAL.NEB. NEB PRN (20:40)
[2018-10-21] MEDS ORDERED: chlordiazePOXIDE HCL 25 MG CAPSULE PO ONE (20:45)
[2018-10-21] MEDS ORDERED: LIDOCAINE PATCH REMOVAL MC SCH ×2 (22:00)
[2018-10-21] MEDS ORDERED: MELATONIN 5 MG TABLETS PO PRN (22:00)
[2018-10-21] MEDS: ATORVASTATIN CA 10 MG TABLET (FP) PO SCH (22:45)
[2018-10-21] MEDS: CYCLOBENZAPRINE HCL 10 MG TABLET (FP) PO PRN (22:45)
[2018-10-21] MEDS: TRIAMCINOLONE ACET 0.1% OINT 15 GM TUBE TP SCH (22:46)
[2018-10-21] MEDS: THIAMINE HCL 100 MG TABLET (FP) PO SCH (22:47)
[2018-10-21] MEDS: metoPROLOL SUCCINATE 25 MG TAB.SR.24H (FP) PO SCH (22:47)
[2018-10-21] MEDS: chlordiazePOXIDE HCL 25 MG CAPSULE PO SCH (22:47)
[2018-10-22] LABS: URINE APPEARANCE CLEAR; URINE BILIRUBIN NEGATIVE (<2.0 mg/dL); URINE COLOR AMBER; URINE GLUCOSE (UA) NEGATIVE (NEGATIVE); URINE KETONE 1+ (NEGATIVE); URINE LEUK ESTERASE NEGATIVE (NEGATIVE); URINE NITRITE NEGATIVE (NEGATIVE); URINE PROTEIN 1+ (NEGATIVE); URINE UROBILINOGEN 4.0 E.U/dl mg/dL (0.2-1.0)
[2018-10-22 00:08] LABS: URINE MUCUS MODERATE
[2018-10-22] MEDS: chlordiazePOXIDE HCL 25 MG CAPSULE PO SCH ×4 (05:25→22:26)
--- NOTE | 2018-10-22 07:37 | CONSULT ---
[facility] Psychiatric Consult - Data Date of interview: 10/22/18 Admission source: [facility] Identifying data: This is a 58 years old male, ambulating with cane, single, father of two. homeless, on SSI, with no psychiatric hispitalization history, history of Bipolar Disorder, multiple medical problems history, reports Alcohol , Nicotine dependence, reports withdrawal synptoms and seeking for detox. Substance Abuse History: Smoking history: Current every day smoker. Have you smoked in the past 12 months: Yes. Aproximately how many cigarettes per day: 5. If you are a former smoker, when did you quit?: 0. Cigars Per Day: 0. Hx Chewing Tobacco Use: No. Initiated information on smoking cessation: Yes. ' Breaking Loose' booklet given: 10/21/18. - Substance & Tx. History. Hx Alcohol Use: Yes. Hx Substance Use: Yes. Substance Use Type: Alcohol, Cocaine. Hx Substance Use Treatment: Yes (detox, rehab). - Substances Abused. Alcohol. Frequency: Daily. Amount used: liquor- 2 pints,. Age of first use: 12. Date of Last Use: 10/21/18 Medical History: Right hip s/p reconstractive surgery, HTN, COPD, [place] palsy history, Eczema, memory problems, GERD, [place], Gout, LBP[, BPH, Asthma, UTI history, Hypercholesterolemia, Psychiatric History: Patient reports to carry Bipolar Disorder, reports no psychiatric hospitalization history, reports n o suicidal, homicidal history, reports taking prior to admission: Seroquel 100mg poqd, 200mg po qhs. Wellbutrin XI 150mg poqd. Trazodone 150mg po qhs Physical/Sexual Abuse/Trauma History: Denies Additional Comment: Seroquel 100mg poqd, 200mg po qhs. Wellbutrin XI 150mg poqd. Trazodone 150mg po qhs Mental Status Exam - Mental Status Exam Alert and Oriented to: Place, Person Cognitive Function: Fair Patient Appearance: Unkempt Mood: Apprehensive Affect: Mood Congruent Patient Behavior: Cooperative Speech Pattern: Appropriate Voice Loudness: Mildly Soft/Quiet Thought Process: Circumstantial, Goal Oriented Thought Disorder: Being Controlled Hallucinations: Denies Suicidal Ideation: Denies Homicidal Ideation: Denies Insight/Judgement: Fair Sleep: Difficulty falling asleep Appetite: Weight gain Muscle strength/Tone: Mild Hypotonicity Gait/Station: Deferred Additional Comments: Seroquel 100mg poqd, 200mg po qhs. Wellbutrin XI 150mg poqd. Trazodone 150mg po qhs Psychiatric Findings - Problem List ([place] 1, 2,3) (1) Alcohol dependence with uncomplicated withdrawal Current Visit: Yes Status: Acute (2) COPD (chronic obstructive pulmonary disease) Current Visit: Yes Status: Chronic Qualifiers: COPD type: chronic bronchitis Chronic bronchitis type: unspecified Qualified Code(s): J42 - Unspecified chronic bronchitis (3) Cocaine dependence Current Visit: Yes Status: Chronic Qualifiers: Substance use status: uncomplicated Qualified Code(s): F14.20 - Cocaine dependence, uncomplicated (4) Eczema Current Visit: Yes Status: Chronic Qualifiers: Eczema type: unspecified Qualified Code(s): L30.9 - Dermatitis, unspecified (5) Essential hypertension Current Visit: Yes Status: Chronic (6) Gastroesophageal reflux disease Current Visit: Yes Status: Chronic Qualifiers: Esophagitis presence: esophagitis presence not specified Qualified Code(s) : K21.9 - Gastro-esophageal reflux disease without esophagitis (7) History of scoliosis Current Visit: Yes Status: Chronic (8) Joint disorder, unspecified Current Visit: Yes Status: Chronic (9) Alcohol dependence Current Visit: No Status: Acute (10) Substance induced mood disorder Current Visit: No Status: Acute (11) UTI (urinary tract infection) Current Visit: No Status: Acute (12) Asthma Current Visit: No Status: Chronic Qualifiers: Asthma severity: unspecified severity Asthma persistence: intermittent Asthma complication type: uncomplicated Qualified Code(s): J45.20 - Mild intermittent asthma, uncomplicated (13) Benign prostatic hypertrophy without outflow obstruction Current Visit: No Status: Chronic (14) Bipolar disorder Current Visit: No Status: Chronic Comment: History. (15) Bipolar disorder, curr episode mixed, severe, with psychotic features Current Visit: No Status: Chronic (16) Cannabis dependence Current Visit: No Status: Chronic (17) Chronic low back pain Current Visit: No Status: Chronic Qualifiers: Back pain laterality: bilateral Sciatica presence: without sciatica Qualified Code(s): M54.5 - Low back pain; G89.29 - Other chronic pain (18) Gout Current Visit: No Status: Chronic Qualifiers: Gout site: foot Gout etiology: unspecified cause Chronicity: unspecified Laterality: unspecified laterality Qualified Code(s): M10.9 - Gout, unspecified (19) Hx of chronic arthritis Current Visit: No Status: Chronic (20) Hypercholesterolemia Current Visit: No Status: Chronic (21) Nicotine dependence Current Visit: No Status: Chronic Qualifiers: Nicotine product type: cigarettes Substance use status: in withdrawal Qualified Code(s): F17.213 - Nicotine dependence, cigarettes, with withdrawal (22) Walker as ambulation aid Current Visit: No Status: Chronic (23) STEMI (ST elevation myocardial infarction) Current Visit: No Status: Resolved Qualifiers: Involved coronary artery: unspecified coronary artery Qualified Code(s): I21.3 - ST elevation (STEMI) myocardial infarction of unspecified site - Initial Treatment Plan Initial Treatment Plan: Seroquel 100mg poqd, 200mg po qhs. Wellbutrin XI 150mg poqd. Trazodone 150mg po qhs
[2018-10-22] MEDS ORDERED: LIDOCAINE 5% TOPICAL PATCH TP SCH ×2 (10:00)
[2018-10-22 10:09] LABS: HEMATOCRIT 38.5 % (35.4-49); HEMOGLOBIN 13.7 GM/dL (11.7-16.9); MCH 29.8 pg (25.7-33.7); MCHC 35.5 g/dl (32.0-35.9); MEAN CELL VOLUME 83.8 fl (80-96); MEAN PLT VOLUME 10.3 fl (7.5-11.1); PLATELET COUNT 161 K/MM3 (134-434); RDW 14.5 % (11.9-15.9); WHITE BLOOD COUNT 8.5 K/mm3 (4.0-10.0)
[2018-10-22] MEDS: ASPIRIN 81 MG CHEWABLE TABLETS PO SCH (10:40)
[2018-10-22] MEDS: QUEtiapine FUMARATE 100 MG TABLET (FP) PO SCH (10:40)
[2018-10-22] MEDS: PRENATAL VITAMINS W/ FOLIC ACID TABLET (FP) PO SCH (10:41)
[2018-10-22] MEDS: PANTOPRAZOLE 40 MG TABLET (FP) PO SCH (10:41)
[2018-10-22] MEDS: metoPROLOL SUCCINATE 25 MG TAB.SR.24H (FP) PO SCH ×2 (10:41→22:25)
[2018-10-22] MEDS: TAMSULOSIN HCL 0.4 MG CAP PO SCH (10:41)
[2018-10-22] MEDS: CYCLOBENZAPRINE HCL 10 MG TABLET (FP) PO PRN (10:45)
[2018-10-22] MEDS: ACETAMINOPHEN 325 MG TABLET (FP) PO PRN (10:48)
[2018-10-22] MEDS: TRIAMCINOLONE ACET 0.1% OINT 15 GM TUBE TP SCH ×2 (10:51→22:23)
[2018-10-22 11:23] LABS: ALBUMIN 3.5 g/dl (3.4-5.0); ALK PHOS 75 U/L (45-117); ANION GAP 9 MMOL/L (8-16); BILIRUBIN,TOTAL 2.5 mg/dL (0.2-1); BLOOD UREA NITROGEN 19 mg/dL (7-18); CALCIUM 9.2 mg/dL (8.5-10.1); CHLORIDE 105 mmol/L (98-107); CO2 29 mmol/L (21-32); CREATININE 0.7 mg/dL (0.55-1.3); GLUCOSE,RANDOM 89 mg/dL (74-106); POTASSIUM 3.6 mmol/L (3.5-5.1); SGOT/AST 35 U/L (15-37); SGPT/ALT 44 U/L (13-61); SODIUM 143 mmol/L (136-145)
--- NOTE | 2018-10-22 12:41 | PN ---
[facility] CIWA - CIWA Score Nausea/Vomitin-Mild Nausea/No Vomiting Muscle Tremors: 4-Moderate,w/Arms Extend Anxiety: 2 Agitation: 3 Paroxysmal Sweats: 1-Minimal Palms Moist Orientation: 1-Uncertain about Date Tacttile Disturbances: 0-None Auditory Disturbances: 0-None Visual Disturbances: 0-None Headache: 1-Very Mild CIWA-Ar Total Score: 13 S Progress Note (SOAP) Subjective: chronic pain on right hip and back pain tremor sweat Objective: 10/22/18 13:22 Vital Signs Temperature 97.9 F 10/22/18 08:56 Pulse Rate 85 10/22/18 08:56 Respiratory Rate 18 10/22/18 08:56 Blood Pressure 117/75 10/22/18 08:56 O2 Sat by Pulse Oximetry (%) Laboratory Last Values WBC 8.5 K/mm3 (4.0-10.0) 10/22/18 07:00 RBC 4.60 M/mm3 (4.00-5.60) 10/22/18 07:00 Hgb 13.7 GM/dL (11.7-16.9) 10/22/18 07:00 Hct 38.5 % (35.4-49) 10/22/18 07:00 MCV 83.8 fl (80-96) 10/22/18 07:00 MCH 29.8 pg (25.7-33.7) 10/22/18 07:00 MCHC 35.5 g/dl (32.0-35.9) 10/22/18 07:00 RDW 14.5 % (11.9-15.9) 10/22/18 07:00 Plt Count 161 K/MM3 (134-434) 10/22/18 07:00 MPV 10.3 fl (7.5-11.1) 10/22/18 07:00 Sodium 143 mmol/L (136-145) 10/22/18 07:00 Potassium 3.6 mmol/L (3.5-5.1) 10/22/18 07:00 Chloride 105 mmol/L (98-107) 10/22/18 07:00 Carbon Dioxide 29 mmol/L (21-32) 10/22/18 07:00 Anion Gap 9 MMOL/L (8-16) 10/22/18 07:00 BUN 19 mg/dL (7-18) H 10/22/18 07:00 Creatinine 0.7 mg/dL (0.55-1.3) 10/22/18 07:00 Creat Clearance w eGFR > 60 (>60) 10/22/18 07:00 Random Glucose 89 mg/dL (74-106) 10/22/18 07:00 Calcium 9.2 mg/dL (8.5-10.1) 10/22/18 07:00 Total Bilirubin 2.5 mg/dL (0.2-1) H 10/22/18 07:00 AST 35 U/L (15-37) 10/22/18 07:00 ALT 44 U/L (13-61) 10/22/18 07:00 Alkaline Phosphatase 75 U/L (45-117) 10/22/18 07:00 Total Protein 6.0 g/dl (6.4-8.2) L 10/22/18 07:00 Albumin 3.5 g/dl (3.4-5.0) 10/22/18 07:00 Urine Color [place] 10/21/18 23:10 Urine Appearance Clear 10/21/18 23:10 Urine pH 5.0 (5.0-8.0) 10/21/18 23:10 Ur Specific [place] 1.032 (1.010-1.035) 10/21/18 23:10 Urine Protein 1+ (NEGATIVE) H 10/21/18 23:10 Urine Glucose (UA) Negative (NEGATIVE) 10/21/18 23:10 Urine Ketones 1+ (NEGATIVE) H 10/21/18 23:10 Urine Blood Negative (NEGATIVE) 10/21/18 23:10 Urine Nitrite Negative (NEGATIVE) 10/21/18 23:10 Urine Bilirubin Negative (<2.0 mg/dL) 10/21/18 23:10 Urine Urobilinogen 4.0 e.u/dl mg/dL (0.2-1.0) 10/21/18 23:10 Ur Leukocyte Esterase Negative (NEGATIVE) 10/21/18 23:10 Urine WBC (Auto) 2 /hpf (3-5) 10/21/18 23:10 Urine RBC (Auto) 3 /hpf (0-3) 10/21/18 23:10 Urine Mucus Moderate 10/21/18 23:10 HIV 1&2 Antibody Screen Negative 10/22/18 07:00 HIV P24 Antigen Negative 10/22/18 07:00 lab noted Assessment: 10/22/18 13:22 withdrawal sx Plan: continue detox
[2018-10-22] MEDS ORDERED: LIDOCAINE VISCOUS 2% ORAL/TOP 20 ML UNIT-DOSE CUP MM PRN (12:42)
--- NOTE | 2018-10-22 12:44 | PN ---
[facility] Progress Note Note: pt c/o back and hip pain pt c/o gum swelling or abscess lidocaine patch ordered lidocaine s/s ordered augmentin abx ordered
[2018-10-22] MEDS: LIDOCAINE 5% TOPICAL PATCH TP SCH (13:57)
[2018-10-22] MEDS: AMOXICILLIN 500 MG CAPSULE (FP) PO SCH ×2 (13:57→22:22)
[2018-10-22] MEDS ORDERED: AMOX TR/POT CLAV 500MG/125MG TABLETS (FP) PO SCH (17:30)
[2018-10-22] MEDS: traZODone HCL 50 MG TABLET (FP) PO SCH (22:22)
[2018-10-22] MEDS: ATORVASTATIN CA 10 MG TABLET (FP) PO SCH (22:23)
[2018-10-22] MEDS: QUEtiapine FUMARATE 200 MG TABLET PO SCH (22:23)
[2018-10-22] MEDS: THIAMINE HCL 100 MG TABLET (FP) PO SCH (22:25)
[2018-10-22] MEDS: LIDOCAINE PATCH REMOVAL MC SCH (22:26)
[2018-10-23] MEDS: chlordiazePOXIDE HCL 25 MG CAPSULE PO SCH ×3 (06:18→18:14)
[2018-10-23] MEDS: AMOXICILLIN 500 MG CAPSULE (FP) PO SCH ×3 (06:40→22:56)
[2018-10-23] MEDS: PRENATAL VITAMINS W/ FOLIC ACID TABLET (FP) PO SCH (10:48)
[2018-10-23] MEDS: ASPIRIN 81 MG CHEWABLE TABLETS PO SCH (10:48)
[2018-10-23] MEDS: TAMSULOSIN HCL 0.4 MG CAP PO SCH (10:49)
[2018-10-23] MEDS: QUEtiapine FUMARATE 100 MG TABLET (FP) PO SCH (10:49)
[2018-10-23] MEDS: metoPROLOL SUCCINATE 25 MG TAB.SR.24H (FP) PO SCH ×2 (10:49→22:56)
[2018-10-23] MEDS: CYCLOBENZAPRINE HCL 10 MG TABLET (FP) PO PRN (10:49)
[2018-10-23] MEDS: PANTOPRAZOLE 40 MG TABLET (FP) PO SCH (10:49)
[2018-10-23] MEDS: LIDOCAINE 5% TOPICAL PATCH TP SCH (10:52)
--- NOTE | 2018-10-23 11:53 | PN ---
S CIWA - CIWA Score Nausea/Vomitin Muscle Tremors: 2 Anxiety: 2 Agitation: 2 Paroxysmal Sweats: 3 Orientation: 0-Oriented Tacttile Disturbances: 3-Moderate Itch/Numb/Burn Auditory Disturbances: 0-None Visual Disturbances: 0-None Headache: 0-None Present CIWA-Ar Total Score: 14 S Progress Note (SOAP) Subjective: interrupted sleep, sweats,+ painful rt hip and lower back Objective: 10/23/18 11:53 Vital Signs Temperature 96.8 F L 10/23/18 11:13 Pulse Rate 109 H 10/23/18 11:13 Respiratory Rate 18 10/23/18 11:13 Blood Pressure 104/62 10/23/18 11:13 O2 Sat by Pulse Oximetry (%) Laboratory Tests 10/21/18 10/22/18 10/22/18 23:10 07:00 07:00 WBC 8.5 RBC 4.60 Hgb 13.7 Hct 38.5 MCV 83.8 MCH 29.8 MCHC 35.5 RDW 14.5 Plt Count 161 MPV 10.3 Sodium Potassium Chloride Carbon Dioxide Anion Gap BUN Creatinine Creat Clearance w eGFR Random Glucose Calcium Total Bilirubin AST ALT Alkaline Phosphatase Total Protein Albumin Urine Color [place] Urine Appearance Clear Urine pH 5.0 Ur Specific [place] 1.032 Urine Protein 1+ H Urine Glucose (UA) Negative Urine Ketones 1+ H Urine Blood Negative Urine Nitrite Negative Urine Bilirubin Negative Urine Urobilinogen 4.0 e.u/dl Ur Leukocyte Esterase Negative Urine WBC (Auto) 2 Urine RBC (Auto) 3 Urine Mucus Moderate RPR Titer HIV 1&2 Antibody Screen Negative HIV P24 Antigen Negative 10/22/18 10/22/18 07:00 07:00 WBC RBC Hgb Hct MCV MCH MCHC RDW Plt Count MPV Sodium 143 Potassium 3.6 Chloride 105 Carbon Dioxide 29 Anion Gap 9 BUN 19 H Creatinine 0.7 Creat Clearance w eGFR > 60 Random Glucose 89 Calcium 9.2 Total Bilirubin 2.5 H AST 35 ALT 44 Alkaline Phosphatase 75 Total Protein 6.0 L Albumin 3.5 Urine Color Urine Appearance Urine pH Ur Specific [place] Urine Protein Urine Glucose (UA) Urine Ketones Urine Blood Urine Nitrite Urine Bilirubin Urine Urobilinogen Ur Leukocyte Esterase Urine WBC (Auto) Urine RBC (Auto) Urine Mucus RPR Titer Nonreactive HIV 1&2 Antibody Screen HIV P24 Antigen pt lying in bed aox3 , favoring his left hip. Assessment: 10/23/18 11:53 withdrawal sx's arthritic rt hip scheduled for surgery on 11/04/18. lbp Plan: cont. detox increase fluids cont. lidocaine aptches
[2018-10-23] MEDS: TRIAMCINOLONE ACET 0.1% OINT 15 GM TUBE TP SCH ×2 (11:59→23:31)
[2018-10-23] MEDS: ACETAMINOPHEN 325 MG TABLET (FP) PO PRN ×2 (14:25→23:02)
[2018-10-23] MEDS: THIAMINE HCL 100 MG TABLET (FP) PO SCH (22:56)
[2018-10-23] MEDS: ATORVASTATIN CA 10 MG TABLET (FP) PO SCH (22:56)
[2018-10-23] MEDS: traZODone HCL 50 MG TABLET (FP) PO SCH (23:31)
[2018-10-23] MEDS: QUEtiapine FUMARATE 200 MG TABLET PO SCH (23:31)
[2018-10-23] MEDS: LIDOCAINE PATCH REMOVAL MC SCH (23:31)
[2018-10-23] MEDS: chlordiazePOXIDE 5 MG CAPSULE PO SCH (23:32)
[2018-10-24] MEDS: AMOXICILLIN 500 MG CAPSULE (FP) PO SCH ×3 (06:57→22:38)
[2018-10-24] MEDS: chlordiazePOXIDE 5 MG CAPSULE PO SCH ×3 (06:57→18:21)
--- NOTE | 2018-10-24 10:40 | PN ---
S Progress Note (SOAP) Subjective: Back pain, interrupted sleep, anxiety Objective: 10/24/18 10:38 Vital Signs 10/24/18 10/24/18 10/24/18 03:30 06:35 09:09 Temperature 98.2 F 98.4 F Pulse Rate 75 81 Respiratory 18 18 16 Rate Blood Pressure 123/76 144/93 Laboratory Last Values WBC 8.5 K/mm3 (4.0-10.0) 10/22/18 07:00 RBC 4.60 M/mm3 (4.00-5.60) 10/22/18 07:00 Hgb 13.7 GM/dL (11.7-16.9) 10/22/18 07:00 Hct 38.5 % (35.4-49) 10/22/18 07:00 MCV 83.8 fl (80-96) 10/22/18 07:00 MCH 29.8 pg (25.7-33.7) 10/22/18 07:00 MCHC 35.5 g/dl (32.0-35.9) 10/22/18 07:00 RDW 14.5 % (11.9-15.9) 10/22/18 07:00 Plt Count 161 K/MM3 (134-434) 10/22/18 07:00 MPV 10.3 fl (7.5-11.1) 10/22/18 07:00 Sodium 143 mmol/L (136-145) 10/22/18 07:00 Potassium 3.6 mmol/L (3.5-5.1) 10/22/18 07:00 Chloride 105 mmol/L (98-107) 10/22/18 07:00 Carbon Dioxide 29 mmol/L (21-32) 10/22/18 07:00 Anion Gap 9 MMOL/L (8-16) 10/22/18 07:00 BUN 19 mg/dL (7-18) H 10/22/18 07:00 Creatinine 0.7 mg/dL (0.55-1.3) 10/22/18 07:00 Creat Clearance w eGFR > 60 (>60) 10/22/18 07:00 Random Glucose 89 mg/dL (74-106) 10/22/18 07:00 Calcium 9.2 mg/dL (8.5-10.1) 10/22/18 07:00 Total Bilirubin 2.5 mg/dL (0.2-1) H 10/22/18 07:00 AST 35 U/L (15-37) 10/22/18 07:00 ALT 44 U/L (13-61) 10/22/18 07:00 Alkaline Phosphatase 75 U/L (45-117) 10/22/18 07:00 Total Protein 6.0 g/dl (6.4-8.2) L 10/22/18 07:00 Albumin 3.5 g/dl (3.4-5.0) 10/22/18 07:00 Urine Color [place] 10/21/18 23:10 Urine Appearance Clear 10/21/18 23:10 Urine pH 5.0 (5.0-8.0) 10/21/18 23:10 Ur Specific [place] 1.032 (1.010-1.035) 10/21/18 23:10 Urine Protein 1+ (NEGATIVE) H 10/21/18 23:10 Urine Glucose (UA) Negative (NEGATIVE) 10/21/18 23:10 Urine Ketones 1+ (NEGATIVE) H 10/21/18 23:10 Urine Blood Negative (NEGATIVE) 10/21/18 23:10 Urine Nitrite Negative (NEGATIVE) 10/21/18 23:10 Urine Bilirubin Negative (<2.0 mg/dL) 10/21/18 23:10 Urine Urobilinogen 4.0 e.u/dl mg/dL (0.2-1.0) 10/21/18 23:10 Ur Leukocyte Esterase Negative (NEGATIVE) 10/21/18 23:10 Urine WBC (Auto) 2 /hpf (3-5) 10/21/18 23:10 Urine RBC (Auto) 3 /hpf (0-3) 10/21/18 23:10 Urine Mucus Moderate 10/21/18 23:10 RPR Titer Nonreactive (NONREACTIVE) 10/22/18 07:00 HIV 1&2 Antibody Screen Negative 10/22/18 07:00 HIV P24 Antigen Negative 10/22/18 07:00 Labs noted, no panic values Afebrile, no gum swelling Assessment: 10/24/18 10:40 Withdrawal sx Gum infection Plan: Continue detox Continue Augmentin
[2018-10-24] MEDS: TAMSULOSIN HCL 0.4 MG CAP PO SCH (10:44)
[2018-10-24] MEDS: ASPIRIN 81 MG CHEWABLE TABLETS PO SCH (10:44)
[2018-10-24] MEDS: ACETAMINOPHEN 325 MG TABLET (FP) PO PRN ×2 (10:44→22:41)
[2018-10-24] MEDS: LIDOCAINE 5% TOPICAL PATCH TP SCH (11:10)
[2018-10-24] MEDS: TRIAMCINOLONE ACET 0.1% OINT 15 GM TUBE TP SCH ×2 (11:10→22:38)
[2018-10-24] MEDS: PRENATAL VITAMINS W/ FOLIC ACID TABLET (FP) PO SCH (11:11)
[2018-10-24] MEDS: QUEtiapine FUMARATE 100 MG TABLET (FP) PO SCH (11:11)
[2018-10-24] MEDS: PANTOPRAZOLE 40 MG TABLET (FP) PO SCH (11:11)
[2018-10-24] MEDS: metoPROLOL SUCCINATE 25 MG TAB.SR.24H (FP) PO SCH ×2 (14:55→22:40)
[2018-10-24] MEDS: THIAMINE HCL 100 MG TABLET (FP) PO SCH (22:37)
[2018-10-24] MEDS: ATORVASTATIN CA 10 MG TABLET (FP) PO SCH (22:37)
[2018-10-24] MEDS: QUEtiapine FUMARATE 200 MG TABLET PO SCH (22:37)
[2018-10-24] MEDS: LIDOCAINE PATCH REMOVAL MC SCH (22:38)
[2018-10-24] MEDS: traZODone HCL 50 MG TABLET (FP) PO SCH (22:38)
[2018-10-24] MEDS: chlordiazePOXIDE HCL 10 MG CAPSULE PO SCH (23:34)
[2018-10-25] MEDS: AMOXICILLIN 500 MG CAPSULE (FP) PO SCH ×3 (07:00→22:31)
[2018-10-25] MEDS: chlordiazePOXIDE HCL 10 MG CAPSULE PO SCH ×3 (07:06→17:45)
[2018-10-25] MEDS: QUEtiapine FUMARATE 100 MG TABLET (FP) PO SCH (10:09)
[2018-10-25] MEDS: TAMSULOSIN HCL 0.4 MG CAP PO SCH (10:09)
[2018-10-25] MEDS: PRENATAL VITAMINS W/ FOLIC ACID TABLET (FP) PO SCH (10:10)
[2018-10-25] MEDS: ASPIRIN 81 MG CHEWABLE TABLETS PO SCH (10:10)
[2018-10-25] MEDS: metoPROLOL SUCCINATE 25 MG TAB.SR.24H (FP) PO SCH ×2 (10:10→22:33)
[2018-10-25] MEDS: PANTOPRAZOLE 40 MG TABLET (FP) PO SCH (10:10)
[2018-10-25] MEDS: LIDOCAINE 5% TOPICAL PATCH TP SCH (10:11)
[2018-10-25] MEDS: TRIAMCINOLONE ACET 0.1% OINT 15 GM TUBE TP SCH ×2 (10:11→22:43)
--- NOTE | 2018-10-25 10:22 | PN ---
S Progress Note (SOAP) Subjective: feeling better mild gi distress no tremor less sweat Objective: 10/25/18 10:29 Vital Signs Temperature 98.1 F 10/25/18 09:40 Pulse Rate 93 H 10/25/18 09:40 Respiratory Rate 16 12 09:40 Blood Pressure 102/58 L 10/25/18 09:40 O2 Sat by Pulse Oximetry (%) Laboratory Last Values WBC 8.5 K/mm3 (4.0-10.0) 10/22/18 07:00 RBC 4.60 M/mm3 (4.00-5.60) 10/22/18 07:00 Hgb 13.7 GM/dL (11.7-16.9) 10/22/18 07:00 Hct 38.5 % (35.4-49) 10/22/18 07:00 MCV 83.8 fl (80-96) 10/22/18 07:00 MCH 29.8 pg (25.7-33.7) 10/22/18 07:00 MCHC 35.5 g/dl (32.0-35.9) 10/22/18 07:00 RDW 14.5 % (11.9-15.9) 10/22/18 07:00 Plt Count 161 K/MM3 (134-434) 10/22/18 07:00 MPV 10.3 fl (7.5-11.1) 10/22/18 07:00 Sodium 143 mmol/L (136-145) 10/22/18 07:00 Potassium 3.6 mmol/L (3.5-5.1) 10/22/18 07:00 Chloride 105 mmol/L (98-107) 10/22/18 07:00 Carbon Dioxide 29 mmol/L (21-32) 10/22/18 07:00 Anion Gap 9 MMOL/L (8-16) 10/22/18 07:00 BUN 19 mg/dL (7-18) H 10/22/18 07:00 Creatinine 0.7 mg/dL (0.55-1.3) 10/22/18 07:00 Creat Clearance w eGFR > 60 (>60) 10/22/18 07:00 Random Glucose 89 mg/dL (74-106) 10/22/18 07:00 Calcium 9.2 mg/dL (8.5-10.1) 10/22/18 07:00 Total Bilirubin 2.5 mg/dL (0.2-1) H 10/22/18 07:00 AST 35 U/L (15-37) 10/22/18 07:00 ALT 44 U/L (13-61) 10/22/18 07:00 Alkaline Phosphatase 75 U/L (45-117) 10/22/18 07:00 Total Protein 6.0 g/dl (6.4-8.2) L 10/22/18 07:00 Albumin 3.5 g/dl (3.4-5.0) 10/22/18 07:00 Urine Color [place] 10/21/18 23:10 Urine Appearance Clear 10/21/18 23:10 Urine pH 5.0 (5.0-8.0) 10/21/18 23:10 Ur Specific [place] 1.032 (1.010-1.035) 10/21/18 23:10 Urine Protein 1+ (NEGATIVE) H 10/21/18 23:10 Urine Glucose (UA) Negative (NEGATIVE) 10/21/18 23:10 Urine Ketones 1+ (NEGATIVE) H 10/21/18 23:10 Urine Blood Negative (NEGATIVE) 10/21/18 23:10 Urine Nitrite Negative (NEGATIVE) 10/21/18 23:10 Urine Bilirubin Negative (<2.0 mg/dL) 10/21/18 23:10 Urine Urobilinogen 4.0 e.u/dl mg/dL (0.2-1.0) 10/21/18 23:10 Ur Leukocyte Esterase Negative (NEGATIVE) 10/21/18 23:10 Urine WBC (Auto) 2 /hpf (3-5) 10/21/18 23:10 Urine RBC (Auto) 3 /hpf (0-3) 10/21/18 23:10 Urine Mucus Moderate 10/21/18 23:10 RPR Titer Nonreactive (NONREACTIVE) 10/22/18 07:00 HIV 1&2 Antibody Screen Negative 10/22/18 07:00 HIV P24 Antigen Negative 10/22/18 07:00 lab noted Assessment: 10/25/18 10:29 mild withdrawal sx Plan: medically supervised detox
[2018-10-25] MEDS ORDERED: ONDANSETRON *ODT* 4 MG TABLET SL ONE (10:30)
--- NOTE | 2018-10-25 10:52 | PN ---
[facility] Progress Note Note: patient demands for oxy that taking oxy every day at home discuss negative consequences of oxy
[2018-10-25] MEDS: CYCLOBENZAPRINE HCL 10 MG TABLET (FP) PO PRN (11:00)
[2018-10-25] MEDS: THIAMINE HCL 100 MG TABLET (FP) PO SCH (22:30)
[2018-10-25] MEDS: traZODone HCL 50 MG TABLET (FP) PO SCH (22:32)
[2018-10-25] MEDS: ATORVASTATIN CA 10 MG TABLET (FP) PO SCH (22:32)
[2018-10-25] MEDS: QUEtiapine FUMARATE 200 MG TABLET PO SCH (22:32)
[2018-10-25] MEDS: LIDOCAINE PATCH REMOVAL MC SCH (22:55)
--- NOTE | 2018-10-26 09:27 | DS ---
[facility] Detox Discharge Summary Admission Date: 10/21/18 Discharge Date: 10/26/18 - History Present History: Alcohol Dependence, Cocaine Dependence - Physical Exam Results Vital Signs: Vital Signs Temperature 98.1 F 10/26/18 07:39 Pulse Rate 82 10/26/18 07:39 Respiratory Rate 18 10/26/18 07:39 Blood Pressure 123/74 10/26/18 07:39 O2 Sat by Pulse Oximetry (%) - Treatment Hospital Course: Detox Protocol Followed, Detoxed Safely, Responded well, Discharged Condition Good, Rehab Referral Accepted - Medication Discharge Medications: Ambulatory Orders Bupropion HCl [Wellbutrin Xl -] 150 mg PO DAILY #30 tab.sr.24h 06/16/18 Pantoprazole Sodium [Protonix -] 40 mg PO DAILY #30 tablet.ec 06/16/18 Triamcinolone 0.1% Ointment [Aristocort 0.1% Ointment -] 1 applic TP BID #1 applic 06/16/18 Aspirin [ASA -] 81 mg PO DAILY 10/21/18 Bupropion HCl [Wellbutrin Xl -] 150 mg PO DAILY #30 tab.sr.24h 10/22/18 Quetiapine Fumarate [Seroquel -] 200 mg PO HS #30 tablet 10/22/18 Quetiapine Fumarate [Seroquel] 100 mg PO DAILY #30 tablet 10/22/18 traZODone HCL [Desyrel -] 150 mg PO HS #30 tablet 10/22/18 Albuterol Sulfate Inhaler - [Ventolin HFA Inhaler -] 2 puff IH Q4H PRN #1 inhaler 10/25/18 Atorvastatin Ca [Lipitor] 10 mg PO DAILY #14 tablet 10/25/18 Tamsulosin HCl [Flomax -] 0.4 mg PO DAILY@0830 #14 cap.er.24h 10/25/18 - Diagnosis (1) Alcohol dependence with uncomplicated withdrawal Current Visit: Yes Status: Chronic (2) BPH (benign prostatic hyperplasia) Current Visit: Yes Status: Chronic Qualifiers: Lower urinary tract symptom presence: unspecified whether lower urinary tract symptoms present Qualified Code(s): N40.0 - Benign prostatic hyperplasia without lower urinary tract symptoms (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 (4) COPD (chronic obstructive pulmonary disease) Current Visit: Yes Status: Chronic Qualifiers: COPD type: chronic bronchitis Chronic bronchitis type: unspecified Qualified Code(s): J42 - Unspecified chronic bronchitis (5) Cocaine dependence Current Visit: Yes Status: Chronic Qualifiers: Substance use status: uncomplicated Qualified Code(s): F14.20 - Cocaine dependence, uncomplicated (6) Eczema Current Visit: Yes Status: Chronic Qualifiers: Eczema type: unspecified Qualified Code(s): L30.9 - Dermatitis, unspecified (7) Essential hypertension Current Visit: Yes Status: Chronic (8) Gastroesophageal reflux disease Current Visit: Yes Status: Chronic Qualifiers: Esophagitis presence: esophagitis presence not specified Qualified Code(s) : K21.9 - Gastro-esophageal reflux disease without esophagitis (9) History of scoliosis Current Visit: Yes Status: Chronic (10) Joint disorder, unspecified Current Visit: Yes Status: Chronic (11) Use of cane as ambulatory aid Current Visit: Yes Status: Chronic (12) Insomnia Current Visit: No Status: Acute Qualifiers: Insomnia type: unspecified Qualified Code(s): G47.00 - Insomnia, unspecified (13) Substance or medication-induced sleep disorder, insomnia type Current Visit: No Status: Acute (14) Asthma Current Visit: No Status: Chronic Qualifiers: Asthma severity: unspecified severity Asthma persistence: intermittent Asthma complication type: uncomplicated Qualified Code(s): J45.20 - Mild intermittent asthma, uncomplicated (15) Benign prostatic hypertrophy without outflow obstruction Current Visit: No Status: Chronic (16) Bipolar disorder Current Visit: No Status: Chronic (17) Cannabis dependence Current Visit: No Status: Chronic (18) Hx of chronic arthritis Current Visit: No Status: Chronic (19) Nicotine dependence Current Visit: No Status: Chronic Qualifiers: Nicotine product type: cigarettes Substance use status: in withdrawal Qualified Code(s): F17.213 - Nicotine dependence, cigarettes, with withdrawal (20) Walker as ambulation aid Current Visit: No Status: Chronic (21) Bipolar II disorder Current Visit: No Status: Suspected (22) Bipolar II disorder, mild, depressed, with anxious distress, in full remission Current Visit: No Status: Suspected (23) STEMI (ST elevation myocardial infarction) Current Visit: No Status: Resolved Qualifiers: Involved coronary artery: unspecified coronary artery Qualified Code(s): I21.3 - ST elevation (STEMI) myocardial infarction of unspecified site - AMA Did Patient Leave Against Medical Advice: No (referred to rehab [facility])
[2018-10-26 09:32] VITALS: BP 115/66; PULSE 94; TEMP 968
[2018-10-26] MEDS: TAMSULOSIN HCL 0.4 MG CAP PO SCH (10:47)
[2018-10-26] MEDS: ASPIRIN 81 MG CHEWABLE TABLETS PO SCH (10:47)
[2018-10-26] MEDS: PRENATAL VITAMINS W/ FOLIC ACID TABLET (FP) PO SCH (10:47)
[2018-10-26] MEDS: QUEtiapine FUMARATE 100 MG TABLET (FP) PO SCH (10:47)
[2018-10-26] MEDS: PANTOPRAZOLE 40 MG TABLET (FP) PO SCH (10:47)
[2018-10-26] MEDS: LIDOCAINE 5% TOPICAL PATCH TP SCH (10:48)
[2018-10-26] MEDS: metoPROLOL SUCCINATE 25 MG TAB.SR.24H (FP) PO SCH (10:48)
[2018-10-27] MEDS ORDERED: LIDOCAINE 5% TOPICAL PATCH TP SCH (10:45)
[2018-10-27] MEDS ORDERED: AMOX TR/POT CLAV 875MG/125MG TABLETS (FP) PO SCH (11:00)
[2018-10-27] MEDS ORDERED: LIDOCAINE PATCH REMOVAL MC SCH (22:00)
== END 2018-10-26 13:14 | disposition other institution (70) | DRG 774 ==
LOC: YASAS 14:15 → Y6N 22:12
PROC: HZ2ZZZZ Detoxification Services for Substance Abuse Treatment (ICD-10-PCS; principal; 2018-10-21)
DX: F10.230 Alcohol dependence with withdrawal, uncomplicated (principal); F14.20 Cocaine dependence, uncomplicated; F12.20 Cannabis dependence, uncomplicated; F17.213 Nicotine dependence, cigarettes, with withdrawal; F31.9 Bipolar disorder, unspecified; F31.81 Bipolar II disorder; F19.282 Other psychoactive substance dependence with psychoactive substance-induced sleep disorder; G47.00 Insomnia, unspecified; H91.90 Unspecified hearing loss, unspecified ear; I10 Essential (primary) hypertension; I25.2 Old myocardial infarction; J42 Unspecified chronic bronchitis; K21.9 Gastro-esophageal reflux disease without esophagitis; G51.0 Bell's palsy; M10.9 Gout, unspecified; M12.9 Arthropathy, unspecified; M25.551 Pain in right hip; E78.00 Pure hypercholesterolemia, unspecified; R26.89 Other abnormalities of gait and mobility; Z99.89 Dependence on other enabling machines and devices; L30.9 Dermatitis, unspecified; N40.0 Benign prostatic hyperplasia without lower urinary tract symptoms; Z98.61 Coronary angioplasty status; Z87.440 Personal history of urinary (tract) infections; M25.9 Joint disorder, unspecified
CPT/HCPCS: 36415; 80053; 81003; 81015; 85027; 86593; 87389; Q0162

== ENCOUNTER 2018-10-26 13:47 | Inpatient (IN) | payer OTHER ==
[2018-10-26] MEDS ORDERED: NICOTINE POLACRILEX 4 MG GUM BUC PRN (15:48)
[2018-10-26] MEDS ORDERED: MAG HYDROX/AL HYDROX/SIMETH 30 ML UNIT-DOSE CUP PO PRN (15:48)
[2018-10-26] MEDS ORDERED: LOPERAMIDE HCL 2 MG CAPSULE PO PRN (15:48)
[2018-10-26] MEDS ORDERED: ACETAMINOPHEN 325 MG TABLET (FP) PO PRN (15:48)
[2018-10-26] MEDS ORDERED: MAGNESIUM CITRATE 300 ML BOTTLE PO PRN (15:48)
[2018-10-26] MEDS ORDERED: IBUPROFEN 400 MG TABLET (FP) PO PRN (15:48)
[2018-10-26] MEDS ORDERED: MAGNESIUM HYDROX 2400MG/30ML ORAL SUSPENSION 30 ML CUP PO PRN (15:48)
[2018-10-26] MEDS ORDERED: MENTHOL/PHENOL 1 EACH UD MM PRN (15:48)
[2018-10-26] MEDS ORDERED: guaiFENesin/D-METHORPHAN HB 10 ML UNIT-DOSE CUPS PO PRN (15:48)
[2018-10-26] MEDS ORDERED: hydrOXYzine PAMOATE 50 MG CAPSULE (FP) PO PRN (15:48)
--- NOTE | 2018-10-26 15:48 | HP ---
[facility] Rehab Assess/Revision - Admission History Admitted to Rehab from[facility] - Findings Detox History & Physical reviewed: Yes Concur with findings: Yes Inpatient Rehab Admission - Initial Determination Free of communicable disease: Yes Not in need of hospitalization: Yes - Rehab Admission Criteria Previous failed treatment: Yes Poor recovery environment: Yes Lacks judgement: Yes
[2018-10-26] MEDS ORDERED: ALBUTEROL SO4 8 GM HFA INHALER IH PRN (15:49)
--- NOTE | 2018-10-26 16:02 | HP ---
Psychiatrist Admission - Data Date of interview: 10/26/18 Admission source: Transfer from [address] [place] [address] Identifying data: Case of a 58 y/o AA male transferred to [address] after completion of detoxification ([address] [place] [address]). Patient is addressing issues of alcohol + cocaine dependence co-morbid with Bipolar Disorder. Mr Euceda is single, a father of two, domiciled, unemployed and supported on SSI benefits. Medical History: Remarkable for scoliosis, hiatal hernia, lower back pain, bronchial asthma, eczema, GERD, hypertension, hypercholesterolemia, Valencia's palsy (2015), COPD and BPH (benign prostatic hyperplasia). History of orthopedic surgery : prosthetic left hip, right hip pinning and right hand ( plate and screws in situ). Noted history of tonsillectomy (childhood) and bilateral inguinal heniorraphy. Patient ambulates with a cane. Psychiatric History: Patient denies history of psychiatric hospitalizations. Reports only CPEP visits at [facility] (2015) after the of one brother. Patient endorses the diagnosis of Bipolar Disorder. Mr Euceda gets his psychiatric OPD care at [facility] in [facility]. Maintained on a regimen of seroquel 200 mg/hs + trazodone 150 mg/hs + wellbutrin XL 150 mg/day. Patient admits to one suicide attempt via overdose with drugs/alcohol. Physical/Sexual Abuse/Trauma History: Patient denies. Additional Comment: Profile of substance abuse as per patient's self-report at [facility] : Smoking history: Current every day smoker. Have you smoked in the past 12 months: Yes. Aproximately how many cigarettes per day: 5. If you are a former smoker, when did you quit?: 0. Cigars Per Day: 0. Hx Chewing Tobacco Use: No. Initiated information on smoking cessation: Yes. 'Breaking Loose' booklet given: 10/21/18. - Substance & Tx. History. Hx Alcohol Use: Yes. Hx Substance Use: Yes. Substance Use Type: Alcohol, Cocaine. Hx Substance Use Treatment: Yes (detox, rehab). - Substances Abused. Alcohol. Frequency: Daily. Amount used: liquor- 2 pints,. Age of first use: 12. Date of Last Use : 10/21/18. Urine Drug Screen Results: CHIP-Cocaine, OPI-Opiates. Noted. Allergies/Adverse Reactions: Allergies Allergy/AdvReac Type Severity Reaction Status Date / Time No Known Drug Allergies Allergy Verified 10/26/18 16:27 pork derived (porcine) AdvReac Severe Vomiting Verified 10/26/18 16:27 pseudoephedrine AdvReac Severe headache, Verified 10/26/18 16:27 dizziness tomato AdvReac Severe DIARRHEA Verified 10/26/18 16:26 tomatos AdvReac Severe diarrhea Uncoded 10/26/18 16:27 lobster AdvReac Vomiting Uncoded 10/26/18 16:27 - Substance Abuse/Tx History Hx Alcohol Use: Yes (since age 12) Hx Substance Use: Yes (alcohol, nicotine and cocaine) Substance Use Type: Alcohol, Cocaine Hx Substance Use Treatment: Yes (multiple admissions to [facility]) Mental Status Exam - Mental Status Exam Alert and Oriented to: Time, Place, Person Cognitive Function: Grossly Intact Patient Appearance: Well Groomed Mood: Hopeful, Euthymic Affect: Appropriate, Normal Range Patient Behavior: Cooperative Speech Pattern: Clear, Appropriate Voice Loudness: Normal Thought Process: Goal Oriented Thought Disorder: Not Present Hallucinations: Denies Suicidal Ideation: Denies Homicidal Ideation: Denies Insight/Judgement: Fair Sleep: Fair Appetite: Good Muscle strength/Tone: Normal Gait/Station: Other (patient walks with a cane) Psychiatric Findings - Problem List ([place] 1, 2,3) (1) Bipolar disorder Current Visit: Yes Status: Chronic Comment: History. (2) Alcohol dependence Current Visit: Yes Status: Acute (3) Cocaine dependence Current Visit: Yes Status: Chronic Qualifiers: Substance use status: uncomplicated Qualified Code(s): F14.20 - Cocaine dependence, uncomplicated (4) Nicotine dependence Current Visit: Yes Status: Chronic Qualifiers: Nicotine product type: cigarettes Substance use status: in withdrawal Qualified Code(s): F17.213 - Nicotine dependence, cigarettes, with withdrawal (5) Insomnia Current Visit: Yes Status: Chronic Qualifiers: Insomnia type: unspecified Qualified Code(s): G47.00 - Insomnia, unspecified - Initial Treatment Plan Initial Treatment Plan: Psychoeducation. Sleep hygiene. AA meetings. Relapse prevention : discussed with the patient. Psychotherapy : group + cognitive therapy. Medications : seroquel 100 mg po am/200 mg po hs + trazodone 150 mg po hs + wellbutrin XL 150 mg po daily. Side effects/benefits of each drug are discussed with the patient. Discussion included risk of oversedation, metabolic syndrome, seizures, priapism and cardiovascular adverse events. Patient is in agreement with this plan of care. Consent (verbal) given to . Observation.
[2018-10-26] MEDS: traZODone HCL 50 MG TABLET (FP) PO SCH (21:42)
[2018-10-26] MEDS: THIAMINE HCL 100 MG TABLET (FP) PO SCH (21:42)
[2018-10-26] MEDS: QUEtiapine FUMARATE 200 MG TABLET PO SCH (21:42)
[2018-10-26] MEDS: TRIAMCINOLONE ACET 0.1% OINT 15 GM TUBE TP SCH (21:43)
[2018-10-26] MEDS ORDERED: MELATONIN 5 MG TABLETS PO PRN (22:00)
[2018-10-27] MEDS ORDERED: NICOTINE 21 MG/24 HOURS TOPICAL PATCH TD SCH (10:00)
[2018-10-27] MEDS: ASPIRIN 81 MG CHEWABLE TABLETS PO SCH (10:28)
[2018-10-27] MEDS: PRENATAL VITAMINS W/ FOLIC ACID TABLET (FP) PO SCH (10:28)
[2018-10-27] MEDS: TAMSULOSIN HCL 0.4 MG CAP PO SCH (10:28)
[2018-10-27] MEDS: QUEtiapine FUMARATE 100 MG TABLET (FP) PO SCH (10:28)
[2018-10-27] MEDS: ATORVASTATIN CA 10 MG TABLET (FP) PO SCH (10:28)
[2018-10-27] MEDS: PANTOPRAZOLE 40 MG TABLET (FP) PO SCH (10:29)
[2018-10-27] MEDS: TRIAMCINOLONE ACET 0.1% OINT 15 GM TUBE TP SCH ×2 (10:29→22:20)
[2018-10-27] MEDS: AMOX TR/POT CLAV 875MG/125MG TABLETS (FP) PO SCH (16:43)
[2018-10-27] MEDS ORDERED: LIDOCAINE PATCH REMOVAL MC SCH (22:00)
[2018-10-27] MEDS: traZODone HCL 50 MG TABLET (FP) PO SCH (22:16)
[2018-10-27] MEDS: QUEtiapine FUMARATE 200 MG TABLET PO SCH (22:16)
[2018-10-27] MEDS: THIAMINE HCL 100 MG TABLET (FP) PO SCH (22:16)
[2018-10-27] MEDS: METOPROLOL TARTRATE 25 MG TABLET (FP) PO SCH (22:17)
[2018-10-27] MEDS: LIDOCAINE PATCH REMOVAL MC SCH (23:40)
[2018-10-28] MEDS: AMOX TR/POT CLAV 875MG/125MG TABLETS (FP) PO SCH (07:24)
[2018-10-28] MEDS: TAMSULOSIN HCL 0.4 MG CAP PO SCH (09:30)
[2018-10-28] MEDS: PRENATAL VITAMINS W/ FOLIC ACID TABLET (FP) PO SCH (09:56)
[2018-10-28] MEDS: ASPIRIN 81 MG CHEWABLE TABLETS PO SCH (09:56)
[2018-10-28] MEDS: TRIAMCINOLONE ACET 0.1% OINT 15 GM TUBE TP SCH ×2 (09:57→22:26)
[2018-10-28] MEDS: ATORVASTATIN CA 10 MG TABLET (FP) PO SCH (09:57)
[2018-10-28] MEDS: QUEtiapine FUMARATE 100 MG TABLET (FP) PO SCH (09:57)
[2018-10-28] MEDS: LIDOCAINE 5% TOPICAL PATCH TP SCH (09:57)
[2018-10-28] MEDS: PANTOPRAZOLE 40 MG TABLET (FP) PO SCH (09:57)
[2018-10-28] MEDS: METOPROLOL TARTRATE 25 MG TABLET (FP) PO SCH ×2 (09:58→22:25)
[2018-10-28] MEDS: THIAMINE HCL 100 MG TABLET (FP) PO SCH (22:24)
[2018-10-28] MEDS: QUEtiapine FUMARATE 200 MG TABLET PO SCH (22:24)
[2018-10-28] MEDS: traZODone HCL 50 MG TABLET (FP) PO SCH (22:24)
[2018-10-28] MEDS: LIDOCAINE PATCH REMOVAL MC SCH (22:25)
[2018-10-29] MEDS: TAMSULOSIN HCL 0.4 MG CAP PO SCH (09:30)
[2018-10-29] MEDS: PRENATAL VITAMINS W/ FOLIC ACID TABLET (FP) PO SCH (10:25)
[2018-10-29] MEDS: ATORVASTATIN CA 10 MG TABLET (FP) PO SCH (10:25)
[2018-10-29] MEDS: ASPIRIN 81 MG CHEWABLE TABLETS PO SCH (10:25)
[2018-10-29] MEDS: QUEtiapine FUMARATE 100 MG TABLET (FP) PO SCH (10:25)
[2018-10-29] MEDS: PANTOPRAZOLE 40 MG TABLET (FP) PO SCH (10:25)
[2018-10-29] MEDS: TRIAMCINOLONE ACET 0.1% OINT 15 GM TUBE TP SCH ×2 (10:26→22:25)
[2018-10-29] MEDS: LIDOCAINE 5% TOPICAL PATCH TP SCH (10:26)
[2018-10-29] MEDS: METOPROLOL TARTRATE 25 MG TABLET (FP) PO SCH ×2 (10:27→21:39)
[2018-10-29] MEDS: QUEtiapine FUMARATE 200 MG TABLET PO SCH (21:39)
[2018-10-29] MEDS: THIAMINE HCL 100 MG TABLET (FP) PO SCH (21:39)
[2018-10-29] MEDS: traZODone HCL 50 MG TABLET (FP) PO SCH (21:39)
[2018-10-29] MEDS: LIDOCAINE PATCH REMOVAL MC SCH (22:31)
[2018-10-30] MEDS: ATORVASTATIN CA 10 MG TABLET (FP) PO SCH (10:38)
[2018-10-30] MEDS: TAMSULOSIN HCL 0.4 MG CAP PO SCH (10:38)
[2018-10-30] MEDS: LIDOCAINE 5% TOPICAL PATCH TP SCH (10:38)
[2018-10-30] MEDS: ASPIRIN 81 MG CHEWABLE TABLETS PO SCH (10:38)
[2018-10-30] MEDS: PRENATAL VITAMINS W/ FOLIC ACID TABLET (FP) PO SCH (10:39)
[2018-10-30] MEDS: METOPROLOL TARTRATE 25 MG TABLET (FP) PO SCH ×2 (10:39→21:32)
[2018-10-30] MEDS: QUEtiapine FUMARATE 100 MG TABLET (FP) PO SCH (10:39)
[2018-10-30] MEDS: TRIAMCINOLONE ACET 0.1% OINT 15 GM TUBE TP SCH ×2 (10:40→22:09)
[2018-10-30] MEDS: PANTOPRAZOLE 40 MG TABLET (FP) PO SCH (10:41)
[2018-10-30] MEDS: QUEtiapine FUMARATE 200 MG TABLET PO SCH (21:31)
[2018-10-30] MEDS: traZODone HCL 50 MG TABLET (FP) PO SCH (21:31)
[2018-10-30] MEDS: THIAMINE HCL 100 MG TABLET (FP) PO SCH (21:31)
[2018-10-30] MEDS: LIDOCAINE PATCH REMOVAL MC SCH (22:09)
[2018-10-31 07:58] VITALS: TEMP 98.5
[2018-10-31] MEDS: QUEtiapine FUMARATE 100 MG TABLET (FP) PO SCH (10:08)
[2018-10-31] MEDS: PANTOPRAZOLE 40 MG TABLET (FP) PO SCH (10:08)
[2018-10-31] MEDS: TAMSULOSIN HCL 0.4 MG CAP PO SCH (10:08)
[2018-10-31] MEDS: METOPROLOL TARTRATE 25 MG TABLET (FP) PO SCH ×2 (10:08→21:42)
[2018-10-31] MEDS: PRENATAL VITAMINS W/ FOLIC ACID TABLET (FP) PO SCH (10:08)
[2018-10-31] MEDS: ATORVASTATIN CA 10 MG TABLET (FP) PO SCH (10:08)
[2018-10-31] MEDS: ASPIRIN 81 MG CHEWABLE TABLETS PO SCH (10:08)
[2018-10-31] MEDS: LIDOCAINE 5% TOPICAL PATCH TP SCH (10:09)
[2018-10-31] MEDS: TRIAMCINOLONE ACET 0.1% OINT 15 GM TUBE TP SCH ×2 (10:10→21:42)
[2018-10-31] MEDS: traZODone HCL 50 MG TABLET (FP) PO SCH (21:41)
[2018-10-31] MEDS: THIAMINE HCL 100 MG TABLET (FP) PO SCH (21:41)
[2018-10-31] MEDS: QUEtiapine FUMARATE 200 MG TABLET PO SCH (21:41)
[2018-10-31] MEDS: LIDOCAINE PATCH REMOVAL MC SCH (22:08)
[2018-10-31 22:42] VITALS: BP 132/76; PULSE 74
[2018-11-01] MEDS: TAMSULOSIN HCL 0.4 MG CAP PO SCH (09:30)
[2018-11-01] MEDS: QUEtiapine FUMARATE 100 MG TABLET (FP) PO SCH (09:48)
[2018-11-01] MEDS: PRENATAL VITAMINS W/ FOLIC ACID TABLET (FP) PO SCH (09:48)
[2018-11-01] MEDS: METOPROLOL TARTRATE 25 MG TABLET (FP) PO SCH ×2 (09:48→22:15)
[2018-11-01] MEDS: ASPIRIN 81 MG CHEWABLE TABLETS PO SCH (09:48)
[2018-11-01] MEDS: ATORVASTATIN CA 10 MG TABLET (FP) PO SCH (09:48)
[2018-11-01] MEDS: PANTOPRAZOLE 40 MG TABLET (FP) PO SCH (09:48)
[2018-11-01] MEDS: TRIAMCINOLONE ACET 0.1% OINT 15 GM TUBE TP SCH ×2 (09:49→22:14)
[2018-11-01] MEDS: LIDOCAINE 5% TOPICAL PATCH TP SCH (09:50)
--- NOTE | 2018-11-01 11:33 | PN ---
Psychiatric Progress Note Vital Signs: Vital Signs Period Temp Pulse Resp BP Sys/Mohr Pulse Ox Last 24 Hr 74 18-18 132/76 Date of Session: 11/01/18 Chief Complaint:: Discharge Note HPI: Patient addressing Alcohol and Cocaine Dependence comorbid with Nicotine dependence, Bipolar Disorder and Substance-Induced sleep disorder ROS: COPD, HLD, H/O anemia Current Medications: Active Medications Generic Name Dose Route Start Last Admin Trade Name Freq PRN Reason Stop Dose Admin Acetaminophen 650 mg 10/26/18 15:48 Tylenol - PO Q4H PRN FEVER Al Hydroxide/Mg Hydroxide 30 ml 10/26/18 15:48 Mylanta Oral Suspension - PO Q6H PRN DYSPEPSIA Albuterol Sulfate 2 puff 10/26/18 15:49 Ventolin Hfa Inhaler - IH Q4H PRN ASTHMA Aspirin 81 mg 10/27/18 10:00 11/01/18 09:48 Asa - PO 81 mg DAILY CONG Administration Atorvastatin Calcium 10 mg 10/27/18 10:00 11/01/18 09:48 Lipitor - PO 10 mg DAILY CONG Administration Bupropion HCl 150 mg 10/27/18 10:00 11/01/18 09:48 Wellbutrin Xl - PO 150 mg DAILY CONG Administration Eucalyptus/Menthol/Phenol/Sorbitol 1 each 10/26/18 15:48 Cepastat Lozenge - MM Q4H PRN SORE THROAT Guaifenesin 10 ml 10/26/18 15:48 Robitussin Dm - PO Q6H PRN COUGH Hydroxyzine Pamoate 50 mg 10/26/18 15:48 Vistaril - PO Q4H PRN AGITATION Ibuprofen 400 mg 10/26/18 15:48 10/31/18 14:26 Motrin - PO 400 mg Q6H PRN Administration Pain Level 4-6 Lidocaine 2 patch 10/28/18 10:00 11/01/18 09:50 Lidoderm Patch - TP Not Given DAILY CONG Loperamide HCl 4 mg 10/26/18 15:48 Imodium - PO Q6H PRN DIARRHEA Magnesium Citrate 300 ml 10/26/18 15:48 Citroma - PO Q48H PRN CONSTIPATION Magnesium Hydroxide 30 ml 10/26/18 15:48 Milk Of Magnesia - PO DAILY PRN CONSTIPATION Melatonin 5 mg 10/26/18 22:00 Melatonin PO HS PRN INSOMNIA Metoprolol Tartrate 12.5 mg 10/27/18 22:00 11/01/18 09:48 Lopressor - PO 12.5 mg BID CONG Administration Miscellaneous 2 each 10/27/18 22:00 10/31/18 22:08 Lidoderm Patch Removal MC 2 each DAILY@2200 CONG Administration Nicotine Polacrilex 4 mg 10/26/18 15:48 Nicorette Gum - BUC Q2H PRN NICOTINE REPLACEMENT RX Pantoprazole Sodium 40 mg 10/27/18 10:00 11/01/18 09:48 Protonix - PO 40 mg DAILY CONG Administration Multivit/Folic Acid/Iron 1 tab 10/27/18 10:00 11/01/18 09:48 Vitamins (Sjr) - PO 1 tab DAILY CONG Administration Quetiapine Fumarate 100 mg 10/27/18 10:00 11/01/18 09:48 Seroquel - PO 100 mg DAILY CONG Administration Quetiapine Fumarate 200 mg 10/26/18 22:00 10/31/18 21:41 Seroquel - PO 200 mg HS CONG Administration Tamsulosin HCl 0.4 mg 10/27/18 08:30 11/01/18 09:30 Flomax - PO 0.4 mg DAILY@0830 CONG Administration Thiamine HCl 100 mg 10/26/18 22:00 10/31/18 21:41 Vitamin B1 - PO 100 mg HS CONG Administration Trazodone HCl 150 mg 10/26/18 22:00 10/31/18 21:41 Desyrel - PO 150 mg HS CONG Administration Triamcinolone Acetonide 1 applic 10/26/18 22:00 11/01/18 09:49 Aristocort 0.1% Ointment - TP Not Given BID CONG Current Side Effect: No Lab tests ordered: Yes Lab tests reviewed: Yes Provider note:: Patient will complete this program on 11/02/18. He has met his treatment goals and will continue to address his issues in outpatient treatment at [facility] at [address] [place] [address]. 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 He responded well to Seroquel 100 mg daily & 200 mg HS, Trazadone 150 mg po HS and Wellbutrin XL 150 mg po daily. Scripts for 30 days supply of these medications will be electronically transmitted to [facility] at[address] [place] [address]. He is stable for discharge on 11/02/18 Total face to face time:: 35 Mental Status Exam - Mental Status Exam Alert and Oriented to: Time, Place, Person Cognitive Function: Fair Patient Appearance: Well Groomed Mood: Hopeful, Euthymic Affect: Appropriate Patient Behavior: Cooperative Speech Pattern: Clear Voice Loudness: Normal Thought Process: Intact, Goal Oriented Thought Disorder: Not Present Hallucinations: Denies Suicidal Ideation: Denies Homicidal Ideation: Denies Insight/Judgement: Fair Sleep: Fair Appetite: Good Muscle strength/Tone: Normal Gait/Station: Normal Psychiatric Treatment Plan - Problem List (1) Alcohol dependence Current Visit: Yes (2) Cocaine dependence Current Visit: Yes Qualifiers: Substance use status: uncomplicated Qualified Code(s): F14.20 - Cocaine dependence, uncomplicated (3) Nicotine dependence Current Visit: Yes Qualifiers: Nicotine product type: cigarettes Substance use status: in withdrawal Qualified Code(s): F17.213 - Nicotine dependence, cigarettes, with withdrawal (4) Bipolar disorder Current Visit: Yes Comment: History. (5) Substance or medication-induced sleep disorder, insomnia type Current Visit: No Initial treatment plan: Patient will be discharged tomorrow and referred to [facility] for outpatient treatment
[2018-11-01] MEDS: THIAMINE HCL 100 MG TABLET (FP) PO SCH (22:15)
[2018-11-01] MEDS: LIDOCAINE PATCH REMOVAL MC SCH (22:15)
[2018-11-01] MEDS: traZODone HCL 50 MG TABLET (FP) PO SCH (22:15)
[2018-11-01] MEDS: QUEtiapine FUMARATE 200 MG TABLET PO SCH (22:15)
[2018-11-02] MEDS: TAMSULOSIN HCL 0.4 MG CAP PO SCH (08:40)
[2018-11-02] MEDS: METOPROLOL TARTRATE 25 MG TABLET (FP) PO SCH (09:41)
[2018-11-02] MEDS: LIDOCAINE 5% TOPICAL PATCH TP SCH (09:41)
[2018-11-02] MEDS: ATORVASTATIN CA 10 MG TABLET (FP) PO SCH (09:43)
[2018-11-02] MEDS: ASPIRIN 81 MG CHEWABLE TABLETS PO SCH (09:43)
[2018-11-02] MEDS: PRENATAL VITAMINS W/ FOLIC ACID TABLET (FP) PO SCH (09:43)
[2018-11-02] MEDS: PANTOPRAZOLE 40 MG TABLET (FP) PO SCH (09:43)
[2018-11-02] MEDS: QUEtiapine FUMARATE 100 MG TABLET (FP) PO SCH (09:44)
[2018-11-02] MEDS: TRIAMCINOLONE ACET 0.1% OINT 15 GM TUBE TP SCH (09:46)
--- NOTE | 2018-11-02 11:31 | PN ---
[facility] Progress Note Note: PT COMPLETED REHAB AND DISCHARGED TODAY. ALERT O X 3. NAD. PT REPORTS HE HAS PRIMARY CARE AT [facility] WITH DR EMELYN ALDRICH AND IS GOING TO SEE HER TODAY. PT REPORTS HE HAS APPOINTMENT FOR HIS RIGHT HIP REPLACEMENT ON . PT STATES HE HAS HIS MEDS AT HOME. Vital Signs 11/02/18 11/02/18 03:30 06:50 Respiratory 18 18 Rate NAD PLAN:D/C TODAY FOLLOW UP WITH PMD DR EMELYN ALDRICH TODAY
== END 2018-11-02 10:25 | disposition home or self-care (01) | DRG 772 ==
LOC: YASAS 13:47 → Y5N 13:48
PROVIDERS: ADMIT Psychiatry & Neurology Psychiatry; ATTEND Psychiatry & Neurology Psychiatry
PROC: HZ42ZZZ Group Counseling for Substance Abuse Treatment, Cognitive-Behavioral (ICD-10-PCS; principal; 2018-10-26)
DX: F10.20 Alcohol dependence, uncomplicated (principal); F14.20 Cocaine dependence, uncomplicated; F17.213 Nicotine dependence, cigarettes, with withdrawal; F31.9 Bipolar disorder, unspecified; F19.282 Other psychoactive substance dependence with psychoactive substance-induced sleep disorder; J44.9 Chronic obstructive pulmonary disease, unspecified; E78.5 Hyperlipidemia, unspecified; N40.0 Benign prostatic hyperplasia without lower urinary tract symptoms; K21.9 Gastro-esophageal reflux disease without esophagitis

== ENCOUNTER 2019-01-03 10:22 | Inpatient (IN) | payer OTHER ==
[2019-01-03 11:42] VITALS: BMI 27.7
--- NOTE | 2019-01-03 12:07 | HP ---
CIWA Score Nausea/Vomitin Muscle Tremors: 2 Anxiety: 2 Agitation: 2 Paroxysmal Sweats: 1-Minimal Palms Moist Orientation: 0-Oriented Tacttile Disturbances: 1-Very Mild Itch/Numbness Auditory Disturbances: 1-Very Mild Visual Disturbances: 0-None Headache: 2-Mild CIWA-Ar Total Score: 13 - Admission Criteria OASAS Guidelines: Admission for Medically Managed Detox: Requires at least one of the followin. CIWA greater than 12 2. Seizures within the past 24 hours 3. Delirium tremens within the past 24 hours 4. Hallucinations within the past 24 hours 5. Acute intervention needed for co occurring medical disorder 6. Acute intervention needed for co occurring psychiatric disorder 7. Severe withdrawal that cannot be handled at a lower level of care (continued vomiting, continued diarrhea, abnormal vital signs) requiring intravenous medication and/or fluids 8. Patient presents the following: CIWA greater than 12 Admission Criteria Met: Admission criteria met Admission ROS BHS - HPI Chief Complaint: i need help to stop drinking alcohol and cocaine Allergies/Adverse Reactions: Allergies Allergy/AdvReac Type Severity Reaction Status Date / Time No Known Drug Allergies Allergy Verified 01/03/19 11:54 pork derived (porcine) AdvReac Severe Vomiting Verified 01/03/19 11:54 pseudoephedrine AdvReac Severe headache, Verified 01/03/19 11:54 dizziness tomato AdvReac Severe DIARRHEA Verified 01/03/19 11:54 tomatos AdvReac Severe diarrhea Uncoded 01/03/19 11:54 lobster AdvReac Vomiting Uncoded 01/03/19 11:54 History of Present Illness: this 58 years old male with alcohol and cocaine dependence seeking detox, withdrawal symptom,multiple admissions in the past but keep relapsing, multiple medical problem bph,,hypertension,copd,hypercholesterolemia,scoliosis, s/p bilateral hips replacement,s/p tonsillectomy,s/p bilateral inguinal hernia repair multiple admissions in detox and rehab but keep relapsing bipolar disorders longest period of sobriety 3 years Exam Limitations: No Limitations - Ebola screening Have you traveled outside of the country in the last 21 days: No Have you been sick,other than usual withdrawal symptoms: No - Review of Systems Constitutional: Loss of Appetite, Malaise, Night Sweats, Changes in sleep, Weakness EENT: reports: Tearing, Nose Congestion Respiratory: reports: No Symptoms reported, Other (copd) Cardiac: reports: No Symptoms Reported GI: reports: Nausea, Abdominal cramping : reports: No Symptoms Reported Musculoskeletal: reports: Back Pain, Joint Pain, Muscle Pain, Other (s/p bilateral hip replacement) Integumentary: reports: Dryness Endocrine: reports: No Symptoms Reported Hematology: reports: No Symptoms Reported Psychiatric: reports: No Sypmtoms Reported, Judgement Intact, Mood/Affect Appropiate, Orientated x3, other (bipolar disorder) Other Systems: Reviewed and Negative Patient History - Patient Medical History Hx Anemia: Yes (IN THE PAST) Hx Asthma: No Hx Chronic Obstructive Pulmonary Disease (COPD): Yes (on albuterol inhaler) Hx Cancer: No Hx Cardiac Disorders: Yes Hx Congestive Heart Failure: No Hx Hypertension: Yes (ON MEDS) Hx Hypercholesterolemia: Yes (LIPITOR) Hx Pacemaker: No HX Cerebrovascular Accident: No (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 reported history of acid reflux) Hx Liver Disease: No Hx Genitourinary Disorders: Yes (bph on flomax) Hx Sexually Transmitted Disorders: No Hx Renal Disease (ESRD): No Hx Thyroid Disease: No Hx Human Immunodeficiency Virus (HIV): No (NEGATIVE HX;LAST 2017) Hx Hepatitis C: No Hx Depression: Yes Hx Suicide Attempt: No Hx Bipolar Disorder: Yes (seroquel and trazodone by hx ) Hx Schizophrenia: No Other Medical History: no suicidal,no homicidal,s/p bilaterl hip replacement - Patient Surgical History Past Surgical History: Yes Hx Neurologic Surgery: No Hx Cataract Extraction: No Hx Cardiac Surgery: Yes (CARDIAC CATH 01/05/16-NEGATIVE) Hx Lung Surgery: No Hx Breast Surgery: No Hx Breast Biopsy: No Hx Abdominal Surgery: No Hx Appendectomy: No Hx Cholecystectomy: No Hx Genitourinary Surgery: No Hx Section: No Hx Orthopedic Surgery: Yes (prosthetic left hip,rt. hip pinning,rt. hand with plate & 8 screws) Other Surgical History: TONSILLECTOMY A CHILD/right hand x4; B/L inguinal hernia repair Anesthesia Reaction: No - PPD History Previous Implant?: Yes Documented Results: Negative w/proof Implanted On Prior [facility] Admission?: Yes Date: 01/31/18 Results: 0 mm. PPD to be Administered?: No - Smoking Cessation Smoking history: Current every day smoker Have you smoked in the past 12 months: Yes Aproximately how many cigarettes per day: 5 If you are a former smoker, when did you quit?: 0 Cigars Per Day: 0 Hx Chewing Tobacco Use: No Initiated information on smoking cessation: Yes 'Breaking Loose' booklet given: 01/03/19 - Substance & Tx. History Hx Alcohol Use: Yes Hx Substance Use: Yes Substance Use Type: Alcohol, Cocaine Hx Substance Use Treatment: Yes ([facility] 10/21/[facility] to 10/26/18,rehab 10/26/18 to ) - Substances Abused Alcohol Route: Oral Frequency: Daily Amount used: 2 PINTS VODKA Age of first use: 12 Date of Last Use: 01/03/19 Cocaine Route: Smoking Frequency: Daily Amount used: 2 GRAms Age of first use: 29 Date of Last Use: 01/03/19 Family Disease History - Family Disease History Family Disease History: Diabetes: Grandparent (cva), Heart Disease: Grandparent , Father (cva), Mother (HYPERTENSION), Brother () Admission Physical Exam [facility] - Vital Signs Vital Signs: Vital Signs - 24 hr 01/03/19 11:30 Temperature 98.1 F Pulse Rate 106 H Respiratory 18 Rate Blood Pressure 130/68 - Physical General Appearance: Yes: Moderate Distress, Tremorous, Irritable, Sweating, Anxious HEENTM: Yes: Normal ENT Inspection, ZO, Pharynx Normal Respiratory: Yes: Lungs Clear, Normal Breath Sounds, No Respiratory Distress, Other (history of copd) Neck: Yes: Within Normal Limits, Supple, Trachea in good position Breast: Yes: Within Normal Limits Cardiology: Yes: Within Normal Limits, Regular Rhythm, Regular Rate, S1, S2 Abdominal: Yes: Normal Bowel Sounds, Non Tender, Flat, Soft Genitourinary: Yes: Within Normal Limits, Other (bph on flomax) Back: Yes: Muscle Spasm, Other (scoliosis) Extremities: Yes: Normal Capillary Refill, Tremors, Other (scar both hips s/p hip replacement) Neurological: Yes: transmission repairer II-XII NML intact, Fully Oriented, Alert, Motor Strength 5/5 Integumentary: Yes: Dry Lymphatic: Yes: Within Normal Limits - Diagnostic (1) Alcohol dependence with uncomplicated withdrawal Current Visit: No Status: Chronic (2) Benign prostatic hypertrophy without outflow obstruction Current Visit: No Status: Chronic (3) Bipolar disorder Current Visit: No Status: Chronic Comment: History. (4) COPD (chronic obstructive pulmonary disease) Current Visit: No Status: Chronic Qualifiers: COPD type: chronic bronchitis Chronic bronchitis type: unspecified Qualified Code(s): J42 - Unspecified chronic bronchitis (5) Cocaine dependence Current Visit: No Status: Chronic Qualifiers: Substance use status: uncomplicated Qualified Code(s): F14.20 - Cocaine dependence, uncomplicated (6) Essential hypertension Current Visit: No Status: Chronic (7) Gastroesophageal reflux disease Current Visit: No Status: Chronic Qualifiers: Esophagitis presence: esophagitis presence not specified Qualified Code(s) : K21.9 - Gastro-esophageal reflux disease without esophagitis (8) History of scoliosis Current Visit: No Status: Chronic (9) Bipolar II disorder Current Visit: No Status: Suspected Comment: History. (10) Limping Current Visit: Yes Status: Acute (11) Scoliosis Current Visit: Yes Status: Acute (12) History of total replacement of both hip joints Current Visit: Yes Status: Acute Cleared for Admission S - Detox or Rehab [facility] Level of Care: Medically Managed Detox Regimen/Protocol: Librium [facility] Breath Alcohol Content Breath Alcohol Content: 0.23 Urine Drug Screen - Results Drug Screen Negative: No Urine Drug Screen Results: CHIP-Cocaine Inpatient Rehab Admission - Rehab Decision to Admit Inpatient rehab admission?: No
[2019-01-03] MEDS ORDERED: IBUPROFEN 400 MG TABLET (FP) PO PRN (12:18)
[2019-01-03] MEDS ORDERED: hydrOXYzine PAMOATE 50 MG CAPSULE (FP) PO PRN (12:18)
[2019-01-03] MEDS ORDERED: MAGNESIUM HYDROX 2400MG/30ML ORAL SUSPENSION 30 ML CUP PO PRN (12:18)
[2019-01-03] MEDS ORDERED: P-EPHED 60MG/TRIPROLIDI 2.5MG TABLET PO PRN (12:18)
[2019-01-03] MEDS ORDERED: MAG HYDROX/AL HYDROX/SIMETH 30 ML UNIT-DOSE CUP PO PRN (12:18)
[2019-01-03] MEDS ORDERED: chlordiazePOXIDE HCL 25 MG CAPSULE PO PRN (12:18)
[2019-01-03] MEDS ORDERED: MAGNESIUM CITRATE 300 ML BOTTLE PO PRN (12:18)
[2019-01-03] MEDS ORDERED: MENTHOL/PHENOL 1 EACH UD MM PRN (12:18)
[2019-01-03] MEDS ORDERED: LOPERAMIDE HCL 2 MG CAPSULE PO PRN (12:18)
[2019-01-03] MEDS ORDERED: guaiFENesin/D-METHORPHAN HB 10 ML UNIT-DOSE CUPS PO PRN (12:18)
[2019-01-03] MEDS ORDERED: ALBUTEROL SO4 8 GM HFA INHALER IH PRN (12:20)
[2019-01-03] MEDS: chlordiazePOXIDE HCL 25 MG CAPSULE PO SCH ×2 (17:23→23:12)
[2019-01-03] MEDS ORDERED: MELATONIN 5 MG TABLETS PO PRN (22:00)
[2019-01-03] MEDS: THIAMINE HCL 100 MG TABLET (FP) PO SCH (23:12)
[2019-01-04] MEDS: chlordiazePOXIDE HCL 25 MG CAPSULE PO SCH ×4 (06:08→22:22)
--- NOTE | 2019-01-04 10:26 | PN ---
S CIWA - CIWA Score Nausea/Vomitin-Mild Nausea/No Vomiting Muscle Tremors: 4-Moderate,w/Arms Extend Anxiety: 3 Agitation: 2 Paroxysmal Sweats: 1-Minimal Palms Moist Orientation: 1-Uncertain about Date Tacttile Disturbances: 0-None Auditory Disturbances: 0-None Visual Disturbances: 0-None Headache: 0-None Present CIWA-Ar Total Score: 12 BHS Progress Note (SOAP) Subjective: chronic back muscle cramping treated with lidocain patch tremor sweating headaches anxiety Objective: 01/04/19 10:26 Vital Signs Temperature 98.3 F 01/04/19 09:17 Pulse Rate 89 01/04/19 09:17 Respiratory Rate 18 01/04/19 09:17 Blood Pressure 115/62 01/04/19 09:17 O2 Sat by Pulse Oximetry (%) lab pending Assessment: 01/04/19 10:26 alcohol withdrawal sx Plan: continue alcohol detox regimen
[2019-01-04] MEDS: ASPIRIN 81 MG CHEWABLE TABLETS PO SCH (10:31)
[2019-01-04] MEDS: PRENATAL VITAMINS W/ FOLIC ACID TABLET (FP) PO SCH (10:31)
[2019-01-04] MEDS: TAMSULOSIN HCL 0.4 MG CAP PO SCH (10:31)
[2019-01-04] MEDS: PANTOPRAZOLE 40 MG TABLET (FP) PO SCH (10:31)
[2019-01-04] MEDS: ACETAMINOPHEN 325 MG TABLET (FP) PO PRN ×2 (10:33→17:47)
[2019-01-04] MEDS ORDERED: COLLOIDAL OATMEAL 1 BAR EACH TP PRN (10:45)
[2019-01-04] MEDS ORDERED: BACLOFEN 10 MG TABLET (FP) PO ONE (11:15)
[2019-01-04 11:24] LABS: HEMATOCRIT 37.8 % (35.4-49); HEMOGLOBIN 13.1 GM/dL (11.7-16.9); MCH 28.9 pg (25.7-33.7); MCHC 34.6 g/dl (32.0-35.9); MEAN CELL VOLUME 83.7 fl (80-96); MEAN PLT VOLUME 10.3 fl (7.5-11.1); PLATELET COUNT 186 K/MM3 (134-434); RBC 4.51 M/mm3 (4.00-5.60)
[2019-01-04 11:27] LABS: ALBUMIN 3.3 g/dl (3.4-5.0); ALK PHOS 95 U/L (45-117); ANION GAP 8 MMOL/L (8-16); BILIRUBIN,TOTAL 0.7 mg/dL (0.2-1); BLOOD UREA NITROGEN 15 mg/dL (7-18); CHLORIDE 106 mmol/L (98-107); CO2 31 mmol/L (21-32); CREATININE 0.9 mg/dL (0.55-1.3); GLUCOSE,RANDOM 119 mg/dL (74-106); POTASSIUM 3.3 mmol/L (3.5-5.1); SGOT/AST 23 U/L (15-37); SGPT/ALT 29 U/L (13-61); SODIUM 144 mmol/L (136-145); TOT PROT 5.9 g/dl (6.4-8.2)
[2019-01-04] MEDS: LIDOCAINE 5% TOPICAL PATCH TP SCH (12:55)
[2019-01-04] MEDS: THIAMINE HCL 100 MG TABLET (FP) PO SCH (22:22)
[2019-01-04] MEDS: ATORVASTATIN CA 80 MG TABLET (FP) PO SCH (22:22)
[2019-01-04] MEDS: LIDOCAINE PATCH REMOVAL MC SCH (22:27)
--- NOTE | 2019-01-04 23:19 | PN ---
S Progress Note Note: Patient's potassium level is 3.3 CMP Sodium 144 mmol/L (136-145) 01/04/19 07:50 Potassium 3.3 mmol/L (3.5-5.1) L 01/04/19 07:50 Chloride 106 mmol/L (98-107) 01/04/19 07:50 Carbon Dioxide 31 mmol/L (21-32) 01/04/19 07:50 Anion Gap 8 MMOL/L (8-16) 01/04/19 07:50 BUN 15 mg/dL (7-18) 01/04/19 07:50 Creatinine 0.9 mg/dL (0.55-1.3) 01/04/19 07:50 Creat Clearance w eGFR > 60 (>60) 01/04/19 07:50 Random Glucose 119 mg/dL (74-106) H 01/04/19 07:50 Calcium 9.0 mg/dL (8.5-10.1) 01/04/19 07:50 Total Bilirubin 0.7 mg/dL (0.2-1) 01/04/19 07:50 AST 23 U/L (15-37) 01/04/19 07:50 ALT 29 U/L (13-61) 01/04/19 07:50 Alkaline Phosphatase 95 U/L (45-117) 01/04/19 07:50 Total Protein 5.9 g/dl (6.4-8.2) L 01/04/19 07:50 Albumin 3.3 g/dl (3.4-5.0) L 01/04/19 07:50 Action: Potassium Chloride 40 mEq oral ordered
[2019-01-04] MEDS ORDERED: POTASSIUM CHLORIDE ORAL LIQUID 20 MEQ/15 ML PO ONE (23:30)
[2019-01-05] MEDS: chlordiazePOXIDE HCL 25 MG CAPSULE PO SCH ×2 (06:13→10:55)
[2019-01-05] MEDS: TAMSULOSIN HCL 0.4 MG CAP PO SCH (08:55)
[2019-01-05] MEDS: LIDOCAINE 5% TOPICAL PATCH TP SCH (10:54)
--- NOTE | 2019-01-05 10:54 | PN ---
S CIWA - CIWA Score Nausea/Vomitin-No Nausea/No Vomiting Muscle Tremors: 2 Anxiety: 1-Mildly Anxious Agitation: 2 Paroxysmal Sweats: 1-Minimal Palms Moist Orientation: 1-Uncertain about Date Tacttile Disturbances: 0-None Auditory Disturbances: 0-None Visual Disturbances: 0-None Headache: 1-Very Mild CIWA-Ar Total Score: 8 BHS Progress Note (SOAP) Subjective: sweating mild tremor otherwise feeling ok Objective: 01/05/19 10:55 Vital Signs Temperature 99.2 F 01/05/19 09:09 Pulse Rate 100 H 01/05/19 09:09 Respiratory Rate 20 01/05/19 09:09 Blood Pressure 118/69 01/05/19 09:09 O2 Sat by Pulse Oximetry (%) Laboratory Last Values WBC 5.0 K/mm3 (4.0-10.0) 01/04/19 07:50 RBC 4.51 M/mm3 (4.00-5.60) 01/04/19 07:50 Hgb 13.1 GM/dL (11.7-16.9) 01/04/19 07:50 Hct 37.8 % (35.4-49) 01/04/19 07:50 MCV 83.7 fl (80-96) 01/04/19 07:50 MCH 28.9 pg (25.7-33.7) 01/04/19 07:50 MCHC 34.6 g/dl (32.0-35.9) 01/04/19 07:50 RDW 16.0 % (11.9-15.9) H 01/04/19 07:50 Plt Count 186 K/MM3 (134-434) 01/04/19 07:50 MPV 10.3 fl (7.5-11.1) 01/04/19 07:50 Sodium 144 mmol/L (136-145) 01/04/19 07:50 Potassium 3.3 mmol/L (3.5-5.1) L 01/04/19 07:50 Chloride 106 mmol/L (98-107) 01/04/19 07:50 Carbon Dioxide 31 mmol/L (21-32) 01/04/19 07:50 Anion Gap 8 MMOL/L (8-16) 01/04/19 07:50 BUN 15 mg/dL (7-18) 01/04/19 07:50 Creatinine 0.9 mg/dL (0.55-1.3) 01/04/19 07:50 Creat Clearance w eGFR > 60 (>60) 01/04/19 07:50 Random Glucose 119 mg/dL (74-106) H 01/04/19 07:50 Calcium 9.0 mg/dL (8.5-10.1) 01/04/19 07:50 Total Bilirubin 0.7 mg/dL (0.2-1) 01/04/19 07:50 AST 23 U/L (15-37) 01/04/19 07:50 ALT 29 U/L (13-61) 01/04/19 07:50 Alkaline Phosphatase 95 U/L (45-117) 01/04/19 07:50 Total Protein 5.9 g/dl (6.4-8.2) L 01/04/19 07:50 Albumin 3.3 g/dl (3.4-5.0) L 01/04/19 07:50 RPR Titer Nonreactive (NONREACTIVE) 01/04/19 07:50 lab noted low K+ received 40 meq K+ supplement hs yesterday addition 20 meq today repeat K+ 01/06/19 Assessment: 01/05/19 10:56 withdrawal sx Plan: continue detox
[2019-01-05] MEDS: PANTOPRAZOLE 40 MG TABLET (FP) PO SCH (10:55)
[2019-01-05] MEDS: PRENATAL VITAMINS W/ FOLIC ACID TABLET (FP) PO SCH (10:55)
[2019-01-05] MEDS: ASPIRIN 81 MG CHEWABLE TABLETS PO SCH (10:55)
[2019-01-05] MEDS: POTASSIUM CHLORIDE TABS 20 MEQ TABLET.ER (FP) PO SCH (12:06)
--- NOTE | 2019-01-05 16:44 | CONSULT ---
[facility] Psychiatric Consult - Data Date of interview: 01/05/19 Admission source: [facility] Identifying data: This is one of multiple admissions to [facility] for this 58 y/ o AA male self-referred for detoxification (alcohol, cocaine). Examined on . Patient is single, a father of two, undomiciled, unemployed and supported on SSI benefits. Substance Abuse History: Confirmed by the patient in this session. Details in current [facility] report : Smoking history: Current every day smoker. Have you smoked in the past 12 months: Yes. Aproximately how many cigarettes per day: 5. If you are a former smoker, when did you quit?: 0. Cigars Per Day: 0. Hx Chewing Tobacco Use: No. Initiated information on smoking cessation: Yes. ' Breaking Loose' booklet given: 01/03/19. - Substance & Tx. History. Hx Alcohol Use: Yes. Hx Substance Use: Yes. Substance Use Type: Alcohol, Cocaine. Hx Substance Use Treatment: Yes ([facility] 10/21/[facility] to 10/26/18,rehab 10/26 to 11/02/18). - Substances Abused. Alcohol. Route: Oral. Frequency: Daily. Amount used: 2 PINTS VODKA. Age of first use: 12. Date of Last Use: . Cocaine. Route: Smoking. Frequency: Daily. Amount used: 2 GRAms. Age of first use: 29. Date of Last Use: 01/03/19 Medical History: Remarkable for anemia, scoliosis, hiatal hernia, lower back pain, bronchial asthma, eczema, GERD, hypertension, hypercholesterolemia, Valencia' s palsy (2015), COPD and BPH (benign prostatic hyperplasia). History of orthopedic surgery : prosthetic left hip, right hip pinning and right hand ( plate and screws in situ). Noted history of tonsillectomy (childhood) and bilateral inguinal heniorraphy. Patient ambulates with a cane. Psychiatric History: No reported history of psychiatric hospitalizations (only CPEP visits at [facility] since 2015). Patient endorses the diagnosis of Bipolar Disorder. Mr Euceda has reportedly been lost to follow- up for months. No psychiatric OPD care. Patient is still prescribed seroquel 200 mg/hs + trazodone 150 mg/hs + wellbutrin XL 150 mg/day (from prescribers at [facility]). In this interview, the patient denies history of suicide attempts. Physical/Sexual Abuse/Trauma History: Was upset by the of one brother in 2016. Additional Comment: Urine Drug Screen Results: CHIP-Cocaine. Noted. Mental Status Exam - Mental Status Exam Alert and Oriented to: Time, Place, Person Cognitive Function: Good Patient Appearance: Well Groomed Mood: Euthymic Affect: Appropriate, Normal Range Patient Behavior: Inappropriate (kept his left hand, for a few minutes, inside his pants, massaging his genitals in the presence of staff in the room), Talkative Speech Pattern: Clear Voice Loudness: Normal Thought Process: Goal Oriented Thought Disorder: Not Present Hallucinations: Denies Suicidal Ideation: Denies Homicidal Ideation: Denies Insight/Judgement: Poor Sleep: Poorly, Difficulty falling asleep Appetite: Good Muscle strength/Tone: Normal Gait/Station: Other (uses a cane for ambulation) Psychiatric Findings - Problem List ([place] 1, 2,3) (1) Alcohol dependence with uncomplicated withdrawal Current Visit: Yes Status: Acute (2) Cocaine dependence Current Visit: Yes Status: Chronic Qualifiers: Substance use status: uncomplicated Qualified Code(s): F14.20 - Cocaine dependence, uncomplicated (3) Nicotine dependence Current Visit: Yes Status: Chronic Qualifiers: Nicotine product type: cigarettes Substance use status: in withdrawal Qualified Code(s): F17.213 - Nicotine dependence, cigarettes, with withdrawal (4) Substance induced mood disorder Current Visit: Yes Status: Chronic (5) History of bipolar disorder Current Visit: Yes Status: Chronic (6) Insomnia Current Visit: Yes Status: Chronic Qualifiers: Insomnia type: unspecified Qualified Code(s): G47.00 - Insomnia, unspecified (7) Non-compliance Current Visit: Yes Status: Chronic - Initial Treatment Plan Initial Treatment Plan: Psychoeducation. Sleep hygiene. Detoxification. Support. AA meetings. Groups. Relapse prevention discussed with the patient. Rehabilitation is being considered by the patient. Encouraged to establish a therapeutic alliance with OPD caregivers. Medications : seroquel 100 mg po hs ( reduced now / titration to follow if no sedation) + wellbutrin X 150 mg po daily + trazodone 100 mg po hs. Side effects/benefits of these medications were discussed with the patient. Made aware of the additional risk of priapism ( trazodone). Mr Euceda insists on resuming these drugs. Consent (verbal) granted to Observation. Falls precautions.
[2019-01-05] MEDS: chlordiazePOXIDE 5 MG CAPSULE PO SCH ×2 (18:04→22:28)
[2019-01-05] MEDS ORDERED: QUEtiapine FUMARATE 100 MG TABLET (FP) PO SCH (22:00)
[2019-01-05] MEDS: traZODone HCL 50 MG TABLET (FP) PO SCH (22:25)
[2019-01-05] MEDS: ATORVASTATIN CA 80 MG TABLET (FP) PO SCH (22:25)
[2019-01-05] MEDS: THIAMINE HCL 100 MG TABLET (FP) PO SCH (22:25)
[2019-01-05] MEDS: LIDOCAINE PATCH REMOVAL MC SCH (22:56)
[2019-01-06] MEDS: chlordiazePOXIDE 5 MG CAPSULE PO SCH ×2 (06:15→10:21)
[2019-01-06] MEDS: PANTOPRAZOLE 40 MG TABLET (FP) PO SCH (10:20)
[2019-01-06] MEDS: ASPIRIN 81 MG CHEWABLE TABLETS PO SCH (10:20)
[2019-01-06] MEDS: PRENATAL VITAMINS W/ FOLIC ACID TABLET (FP) PO SCH (10:20)
[2019-01-06] MEDS: POTASSIUM CHLORIDE TABS 20 MEQ TABLET.ER (FP) PO SCH (10:20)
[2019-01-06] MEDS: LIDOCAINE 5% TOPICAL PATCH TP SCH (10:21)
[2019-01-06] MEDS: TAMSULOSIN HCL 0.4 MG CAP PO SCH (10:21)
--- NOTE | 2019-01-06 15:06 | PN ---
S CIWA - CIWA Score Nausea/Vomitin-No Nausea/No Vomiting Muscle Tremors: 1-None Visible, but [place] Anxiety: 1-Mildly Anxious Agitation: 1-Slight > Activity Paroxysmal Sweats: 1-Minimal Palms Moist Orientation: 0-Oriented Tacttile Disturbances: 0-None Auditory Disturbances: 0-None Visual Disturbances: 0-None Headache: 0-None Present CIWA-Ar Total Score: 4 BHS Progress Note (SOAP) Subjective: feeling better mild tremor less sweating social with peers in day room Objective: 01/06/19 15:05 Vital Signs Temperature 98.4 F 01/06/19 13:46 Pulse Rate 70 01/06/19 13:46 Respiratory Rate 18 01/06/19 13:46 Blood Pressure 128/70 01/06/19 13:46 O2 Sat by Pulse Oximetry (%) Laboratory Last Values WBC 5.0 K/mm3 (4.0-10.0) 01/04/19 07:50 RBC 4.51 M/mm3 (4.00-5.60) 01/04/19 07:50 Hgb 13.1 GM/dL (11.7-16.9) 01/04/19 07:50 Hct 37.8 % (35.4-49) 01/04/19 07:50 MCV 83.7 fl (80-96) 01/04/19 07:50 MCH 28.9 pg (25.7-33.7) 01/04/19 07:50 MCHC 34.6 g/dl (32.0-35.9) 01/04/19 07:50 RDW 16.0 % (11.9-15.9) H 01/04/19 07:50 Plt Count 186 K/MM3 (134-434) 01/04/19 07:50 MPV 10.3 fl (7.5-11.1) 01/04/19 07:50 Sodium 144 mmol/L (136-145) 01/04/19 07:50 Potassium 4.0 mmol/L (3.5-5.1) 01/06/19 08:00 Chloride 106 mmol/L (98-107) 01/04/19 07:50 Carbon Dioxide 31 mmol/L (21-32) 01/04/19 07:50 Anion Gap 8 MMOL/L (8-16) 01/04/19 07:50 BUN 15 mg/dL (7-18) 01/04/19 07:50 Creatinine 0.9 mg/dL (0.55-1.3) 01/04/19 07:50 Creat Clearance w eGFR > 60 (>60) 01/04/19 07:50 Random Glucose 119 mg/dL (74-106) H 01/04/19 07:50 Calcium 9.0 mg/dL (8.5-10.1) 01/04/19 07:50 Total Bilirubin 0.7 mg/dL (0.2-1) 01/04/19 07:50 AST 23 U/L (15-37) 01/04/19 07:50 ALT 29 U/L (13-61) 01/04/19 07:50 Alkaline Phosphatase 95 U/L (45-117) 01/04/19 07:50 Total Protein 5.9 g/dl (6.4-8.2) L 01/04/19 07:50 Albumin 3.3 g/dl (3.4-5.0) L 01/04/19 07:50 RPR Titer Nonreactive (NONREACTIVE) 01/04/19 07:50 lab noted Assessment: 01/06/19 15:06 mild withdrawal sx 01/06/19 15:06 Plan: continue detox
[2019-01-06] MEDS: chlordiazePOXIDE HCL 10 MG CAPSULE PO SCH ×2 (17:29→22:06)
[2019-01-06] MEDS ORDERED: QUEtiapine FUMARATE 200 MG TABLET PO SCH (22:00)
[2019-01-06] MEDS: THIAMINE HCL 100 MG TABLET (FP) PO SCH (22:05)
[2019-01-06] MEDS: ATORVASTATIN CA 80 MG TABLET (FP) PO SCH (22:06)
[2019-01-06] MEDS: traZODone HCL 50 MG TABLET (FP) PO SCH (22:06)
[2019-01-06] MEDS: LIDOCAINE PATCH REMOVAL MC SCH (22:07)
[2019-01-06] MEDS: ACETAMINOPHEN 325 MG TABLET (FP) PO PRN (22:09)
[2019-01-07 06:16] VITALS: BP 128/76; PULSE 89; TEMP 97.3
[2019-01-07] MEDS: chlordiazePOXIDE HCL 10 MG CAPSULE PO SCH ×2 (07:18→10:32)
[2019-01-07] MEDS: TAMSULOSIN HCL 0.4 MG CAP PO SCH (10:31)
[2019-01-07] MEDS: PANTOPRAZOLE 40 MG TABLET (FP) PO SCH (10:31)
[2019-01-07] MEDS: ASPIRIN 81 MG CHEWABLE TABLETS PO SCH (10:31)
[2019-01-07] MEDS: PRENATAL VITAMINS W/ FOLIC ACID TABLET (FP) PO SCH (10:32)
[2019-01-07] MEDS: LIDOCAINE 5% TOPICAL PATCH TP SCH (10:32)
[2019-01-07] MEDS: ACETAMINOPHEN 325 MG TABLET (FP) PO PRN (10:33)
--- NOTE | 2019-01-07 14:38 | DS ---
[facility] Detox Discharge Summary Admission Date: 01/03/19 Discharge Date: 01/07/19 - History Present History: Alcohol Dependence Additional Comments: 58 years old male admitted on 01/03/19 for alcohol withdrawal stabilization completed detox regimen aftercare [facility] Pertinent Past History: encourage to keep medication list in wallet bring in bottles of medication and medication list to aftercare appointments update your medication list when change of your medication - Physical Exam Results Vital Signs: Vital Signs Temperature 97.3 F L 01/07/19 06:15 Pulse Rate 89 01/07/19 06:15 Respiratory Rate 18 01/07/19 06:15 Blood Pressure 128/76 01/07/19 06:15 O2 Sat by Pulse Oximetry (%) Pertinent Admission Physical Exam Findings: alcohol withdrawal sx Vital Signs Temperature 97.3 F L 01/07/19 06:15 Pulse Rate 89 01/07/19 06:15 Respiratory Rate 18 01/07/19 06:15 Blood Pressure 128/76 01/07/19 06:15 O2 Sat by Pulse Oximetry (%) Laboratory Last Values WBC 5.0 K/mm3 (4.0-10.0) 01/04/19 07:50 RBC 4.51 M/mm3 (4.00-5.60) 01/04/19 07:50 Hgb 13.1 GM/dL (11.7-16.9) 01/04/19 07:50 Hct 37.8 % (35.4-49) 01/04/19 07:50 MCV 83.7 fl (80-96) 01/04/19 07:50 MCH 28.9 pg (25.7-33.7) 01/04/19 07:50 MCHC 34.6 g/dl (32.0-35.9) 01/04/19 07:50 RDW 16.0 % (11.9-15.9) H 01/04/19 07:50 Plt Count 186 K/MM3 (134-434) 01/04/19 07:50 MPV 10.3 fl (7.5-11.1) 01/04/19 07:50 Sodium 144 mmol/L (136-145) 01/04/19 07:50 Potassium 4.0 mmol/L (3.5-5.1) 01/06/19 08:00 Chloride 106 mmol/L (98-107) 01/04/19 07:50 Carbon Dioxide 31 mmol/L (21-32) 01/04/19 07:50 Anion Gap 8 MMOL/L (8-16) 01/04/19 07:50 BUN 15 mg/dL (7-18) 01/04/19 07:50 Creatinine 0.9 mg/dL (0.55-1.3) 01/04/19 07:50 Creat Clearance w eGFR > 60 (>60) 01/04/19 07:50 Random Glucose 119 mg/dL (74-106) H 01/04/19 07:50 Calcium 9.0 mg/dL (8.5-10.1) 01/04/19 07:50 Total Bilirubin 0.7 mg/dL (0.2-1) 01/04/19 07:50 AST 23 U/L (15-37) 01/04/19 07:50 ALT 29 U/L (13-61) 01/04/19 07:50 Alkaline Phosphatase 95 U/L (45-117) 01/04/19 07:50 Total Protein 5.9 g/dl (6.4-8.2) L 01/04/19 07:50 Albumin 3.3 g/dl (3.4-5.0) L 01/04/19 07:50 RPR Titer Nonreactive (NONREACTIVE) 01/04/19 07:50 lab noted - Treatment Hospital Course: Detox Protocol Followed, Detoxed Safely, Responded well, Discharged Condition Good, Rehab Referral Accepted Patient has Accepted a Rehab Referral to: [facility] - Medication Discharge Medications: Ambulatory Orders Pantoprazole Sodium [Protonix -] 40 mg PO DAILY #30 tablet.ec 06/16/18 Aspirin [ASA -] 81 mg PO DAILY 10/21/18 Bupropion HCl [Wellbutrin Xl -] 150 mg PO DAILY #30 tab.sr.24h 11/01/18 Quetiapine Fumarate [Seroquel -] 200 mg PO HS #30 tablet 11/01/18 Quetiapine Fumarate [Seroquel] 100 mg PO DAILY #30 tablet 11/01/18 Trazodone HCl 150 mg PO HS #30 tablet 11/01/18 Albuterol Sulfate Inhaler - [Ventolin HFA Inhaler -] 2 puff IH Q4H PRN #1 inhaler 01/06/19 Atorvastatin Ca [Lipitor] 80 mg PO DAILY #14 tablet 01/06/19 Tamsulosin HCl [Flomax -] 0.4 mg PO DAILY@0830 #14 cap.er.24h 01/06/19 - Diagnosis (1) Alcohol dependence with uncomplicated withdrawal Status: Acute (2) Asthma Status: Chronic Qualifiers: Asthma severity: unspecified severity Asthma persistence: intermittent Asthma complication type: uncomplicated Qualified Code(s): J45.20 - Mild intermittent asthma, uncomplicated (3) BPH (benign prostatic hyperplasia) Status: Chronic Qualifiers: Lower urinary tract symptom presence: unspecified whether lower urinary tract symptoms present Qualified Code(s): N40.0 - Benign prostatic hyperplasia without lower urinary tract symptoms (4) Eczema Status: Chronic Qualifiers: Eczema type: unspecified Qualified Code(s): L30.9 - Dermatitis, unspecified (5) Essential hypertension Status: Chronic (6) Nicotine dependence Status: Acute Qualifiers: Nicotine product type: cigarettes Substance use status: in withdrawal Qualified Code(s): F17.213 - Nicotine dependence, cigarettes, with withdrawal (7) Substance induced mood disorder Status: Suspected (8) Use of cane as ambulatory aid Status: Chronic - AMA Did Patient Leave Against Medical Advice: No
== END 2019-01-07 13:39 | disposition home or self-care (01) | DRG 774 ==
LOC: YASAS 10:22 → Y3N 12:10
PROVIDERS: ADMIT Surgery; ATTEND Surgery
PROC: HZ2ZZZZ Detoxification Services for Substance Abuse Treatment (ICD-10-PCS; principal; 2019-01-03)
DX: F10.230 Alcohol dependence with withdrawal, uncomplicated (principal); F14.20 Cocaine dependence, uncomplicated; F17.213 Nicotine dependence, cigarettes, with withdrawal; F19.24 Other psychoactive substance dependence with psychoactive substance-induced mood disorder; F31.81 Bipolar II disorder; I10 Essential (primary) hypertension; J42 Unspecified chronic bronchitis; J45.20 Mild intermittent asthma, uncomplicated; N40.0 Benign prostatic hyperplasia without lower urinary tract symptoms; L30.9 Dermatitis, unspecified; G47.00 Insomnia, unspecified; K21.9 Gastro-esophageal reflux disease without esophagitis; E78.00 Pure hypercholesterolemia, unspecified; M41.9 Scoliosis, unspecified; R26.2 Difficulty in walking, not elsewhere classified; Z99.89 Dependence on other enabling machines and devices; Z91.19 Patient's noncompliance with other medical treatment and regimen; Z96.643 Presence of artificial hip joint, bilateral
CPT/HCPCS: 36415; 80053; 84132; 85027; 86593; J0475

== ENCOUNTER 2019-02-11 12:42 | Inpatient (IN) | payer OTHER ==
[2019-02-11 15:30] VITALS: BMI 29.2
--- NOTE | 2019-02-11 16:32 | HP ---
CIWA Score Nausea/Vomitin Muscle Tremors: 3 Anxiety: 2 Agitation: 2 Paroxysmal Sweats: 2 Orientation: 0-Oriented Tacttile Disturbances: 0-None Auditory Disturbances: 0-None Visual Disturbances: 0-None Headache: 0-None Present CIWA-Ar Total Score: 12 - Admission Criteria OASAS Guidelines: Admission for Medically Managed Detox: Requires at least one of the followin. CIWA greater than 12 2. Seizures within the past 24 hours 3. Delirium tremens within the past 24 hours 4. Hallucinations within the past 24 hours 5. Acute intervention needed for co occurring medical disorder 6. Acute intervention needed for co occurring psychiatric disorder 7. Severe withdrawal that cannot be handled at a lower level of care (continued vomiting, continued diarrhea, abnormal vital signs) requiring intravenous medication and/or fluids 8. Patient presents the following: CIWA greater than 12 Admission Criteria Met: Admission criteria met Admission ROS [facility] Chief Complaint: alcohol detox 58 yo old with multiple medical problem bph,,hypertension,copd, hypercholesterolemia,scoliosis, s/p bilateral hips replacement, s/p tonsillectomy,s/p bilateral inguinal hernia repair, bipolar d/o with h/o multiple admissions in detox and rehab. Was here for alcohol detox last month and [facility] Pt states he still has a bed at [place]. Pt states he left about a week ago, AMA from [place] b/ of in the family. While out for the last week, pt has been drinking alcohol, cocaine, and pills ( oxy). States he wants to detox and then go back to [place]. DUR- no recent meds Utox: pos, RAGHU-0.026 Allergies/Adverse Reactions: Allergies Allergy/AdvReac Type Severity Reaction Status Date / Time No Known Drug Allergies Allergy Verified 01/03/19 11:54 pork derived (porcine) AdvReac Severe Vomiting Verified 01/03/19 11:54 pseudoephedrine AdvReac Severe headache, Verified 01/03/19 11:54 dizziness tomato AdvReac Severe DIARRHEA Verified 01/03/19 11:54 tomatos AdvReac Severe diarrhea Uncoded 01/03/19 11:54 lobster AdvReac Vomiting Uncoded 01/03/19 11:54 Exam Limitations: No Limitations - Ebola screening Have you traveled outside of the country in the last 21 days: No Have you had contact with anyone from an Ebola affected area: No Have you been sick,other than usual withdrawal symptoms: No Do you have a fever: No - Review of Systems GI: reports: Diarrhea, Vomiting Patient History - Patient Medical History Hx Anemia: Yes (IN THE PAST) Hx Asthma: No Hx Chronic Obstructive Pulmonary Disease (COPD): Yes (on albuterol inhaler) Hx Cancer: No Hx Cardiac Disorders: Yes Hx Congestive Heart Failure: No Hx Hypertension: Yes (ON MEDS) Hx Hypercholesterolemia: Yes (LIPITOR) Hx Pacemaker: No HX Cerebrovascular Accident: No (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 reported history of acid reflux) Hx Liver Disease: No Hx Genitourinary Disorders: Yes (bph on flomax) Hx Sexually Transmitted Disorders: No Hx Renal Disease (ESRD): No Hx Thyroid Disease: No Hx Human Immunodeficiency Virus (HIV): No (NEGATIVE HX;LAST 2017) Hx Hepatitis C: No Hx Depression: Yes Hx Suicide Attempt: No Hx Bipolar Disorder: Yes (seroquel and trazodone by hx ) Hx Schizophrenia: No - Patient Surgical History Past Surgical History: Yes Hx Neurologic Surgery: No Hx Cataract Extraction: No Hx Cardiac Surgery: Yes (CARDIAC CATH 01/05/16-NEGATIVE) Hx Lung Surgery: No Hx Breast Surgery: No Hx Breast Biopsy: No Hx Abdominal Surgery: No Hx Appendectomy: No Hx Cholecystectomy: No Hx Genitourinary Surgery: No Hx Section: No Hx Orthopedic Surgery: Yes (prosthetic left hip,rt. hip pinning,rt. hand with plate & 8 screws) Other Surgical History: TONSILLECTOMY A CHILD/right hand x4; B/L inguinal hernia repair Anesthesia Reaction: No - PPD History Date: 01/31/18 Results: 0 mm. - Smoking Cessation Smoking history: Current every day smoker Have you smoked in the past 12 months: Yes Aproximately how many cigarettes per day: 5 If you are a former smoker, when did you quit?: 0 Cigars Per Day: 0 Hx Chewing Tobacco Use: No Initiated information on smoking cessation: Yes 'Breaking Loose' booklet given: 02/11/19 Family Disease History - Family Disease History Family Disease History: Diabetes: Grandparent (cva), Heart Disease: Grandparent , Father (cva), Mother (HYPERTENSION), Brother () Admission Physical Exam S - Vital Signs Vital Signs: Vital Signs - 24 hr 02/11/19 15:28 Temperature 97.5 F L Pulse Rate 95 H Respiratory 18 Rate Blood Pressure 120/74 - Physical General Appearance: Yes: Within Normal Limits HEENTM: Yes: Within Normal Limits Respiratory: Yes: Within Normal Limits Neck: Yes: Within Normal Limits Cardiology: Yes: Within Normal Limits, Regular Rhythm, Regular Rate Abdominal: Yes: Within Normal Limits, Protuberent Genitourinary: Yes: Within Normal Limits Back: Yes: Within Normal Limits Musculoskeletal: Yes: Within Normal Limits (s/p hip pain), Gait Steady Extremities: Yes: Within Normal Limits, Other (s/p hip replacement 11/04: R side , Left side earlier, 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) Neurological: Yes: supervisory clerk II-XII NML intact, Fully Oriented, Alert Integumentary: Yes: Within Normal Limits Lymphatic: Yes: Within Normal Limits - Diagnostic (1) Alcohol dependence with uncomplicated withdrawal Current Visit: No Status: Acute (2) History of total replacement of both hip joints Current Visit: No Status: Acute (3) Limping Current Visit: No Status: Acute (4) Nicotine dependence Current Visit: No Status: Acute Qualifiers: Nicotine product type: cigarettes Substance use status: in withdrawal Qualified Code(s): F17.213 - Nicotine dependence, cigarettes, with withdrawal (5) COPD (chronic obstructive pulmonary disease) Current Visit: No Status: Chronic Qualifiers: COPD type: chronic bronchitis Chronic bronchitis type: unspecified Qualified Code(s): J42 - Unspecified chronic bronchitis (6) Essential hypertension Current Visit: No Status: Chronic (7) Gastroesophageal reflux disease Current Visit: No Status: Chronic Qualifiers: Esophagitis presence: esophagitis presence not specified Qualified Code(s) : K21.9 - Gastro-esophageal reflux disease without esophagitis (8) History of bipolar disorder Current Visit: No Status: Chronic (9) Bipolar II disorder Current Visit: No Status: Suspected Comment: History. (10) STEMI (ST elevation myocardial infarction) Current Visit: No Status: Resolved Qualifiers: Involved coronary artery: unspecified coronary artery Qualified Code(s): I21.3 - ST elevation (STEMI) myocardial infarction of unspecified site BHS Breath Alcohol Content Breath Alcohol Content: 0.026 Urine Drug Screen - Results Drug Screen Negative: No Urine Drug Screen Results: CHIP-Cocaine, BZO-Benzodiazepines, BUP-Suboxone Inpatient Rehab Admission - Rehab Decision to Admit Inpatient rehab admission?: No
[2019-02-11] MEDS ORDERED: NICOTINE POLACRILEX 4 MG GUM BUC PRN (16:42)
[2019-02-11] MEDS ORDERED: MELATONIN 5 MG TABLETS PO PRN (16:42)
[2019-02-11] MEDS ORDERED: ONDANSETRON *ODT* 4 MG TABLET SL PRN (16:42)
[2019-02-11] MEDS ORDERED: MAGNESIUM CITRATE 300 ML BOTTLE PO PRN (16:42)
[2019-02-11] MEDS ORDERED: BISMUTH SUBSALICYLATE 524 MG/30 ML UD PO PRN (16:42)
[2019-02-11] MEDS ORDERED: hydrOXYzine PAMOATE 25 MG CAPSULE (FP) PO PRN (16:42)
[2019-02-11] MEDS ORDERED: ACETAMINOPHEN 325 MG TABLET (FP) PO PRN ×2 (16:42)
[2019-02-11] MEDS ORDERED: MAGNESIUM HYDROX 2400MG/30ML ORAL SUSPENSION 30 ML CUP PO PRN (16:42)
[2019-02-11] MEDS ORDERED: MENTHOL/PHENOL 1 EACH UD MM PRN (16:42)
[2019-02-11] MEDS ORDERED: METHOCARBAMOL 500 MG TABLET PO PRN (16:42)
[2019-02-11] MEDS ORDERED: MAG HYDROX/AL HYDROX/SIMETH 30 ML UNIT-DOSE CUP PO PRN (16:42)
[2019-02-11] MEDS ORDERED: DICYCLOMINE HCL 10 MG CAPSULE PO PRN (16:42)
[2019-02-11] MEDS ORDERED: ALBUTEROL SO4 8 GM HFA INHALER IH PRN (16:45)
[2019-02-11] MEDS ORDERED: chlordiazePOXIDE HCL 10 MG CAPSULE PO PRN (16:48)
[2019-02-11] MEDS ORDERED: chlordiazePOXIDE HCL 25 MG CAPSULE PO ONE (18:30)
[2019-02-11] MEDS: IBUPROFEN 400 MG TABLET (FP) PO PRN (21:29)
[2019-02-11] MEDS: QUEtiapine FUMARATE 200 MG TABLET PO SCH (22:45)
[2019-02-11] MEDS: traZODone HCL 50 MG TABLET (FP) PO SCH (22:45)
[2019-02-11] MEDS: chlordiazePOXIDE HCL 25 MG CAPSULE PO SCH (22:45)
[2019-02-11] MEDS: FLUOCINONIDE 0.05% TOP OINT (60 GM TUBE) TP SCH (22:45)
[2019-02-11] MEDS: THIAMINE HCL 100 MG TABLET (FP) PO SCH (22:45)
[2019-02-12] MEDS: chlordiazePOXIDE HCL 25 MG CAPSULE PO SCH ×2 (06:00→13:22)
[2019-02-12] MEDS: TAMSULOSIN HCL 0.4 MG CAP PO SCH (10:13)
[2019-02-12] MEDS: PANTOPRAZOLE 40 MG TABLET (FP) PO SCH (10:13)
[2019-02-12] MEDS: PRENATAL VITAMINS W/ FOLIC ACID TABLET (FP) PO SCH (10:13)
[2019-02-12] MEDS: ASPIRIN 81 MG CHEWABLE TABLETS PO SCH (10:13)
[2019-02-12] MEDS: FLUOCINONIDE 0.05% TOP OINT (60 GM TUBE) TP SCH ×2 (10:15→22:27)
[2019-02-12 10:33] LABS: ALBUMIN 3.4 g/dl (3.4-5.0); ALK PHOS 76 U/L (45-117); ANION GAP 6 MMOL/L (8-16); BILIRUBIN,TOTAL 0.8 mg/dL (0.2-1); BLOOD UREA NITROGEN 22 mg/dL (7-18); CALCIUM 9.5 mg/dL (8.5-10.1); CHLORIDE 106 mmol/L (98-107); CO2 28 mmol/L (21-32); CREATININE 0.7 mg/dL (0.55-1.3); GLUCOSE,RANDOM 103 mg/dL (74-106); POTASSIUM 3.9 mmol/L (3.5-5.1); SGOT/AST 23 U/L (15-37); SGPT/ALT 36 U/L (13-61); SODIUM 140 mmol/L (136-145); TOT PROT 6.1 g/dl (6.4-8.2)
[2019-02-12 10:35] LABS: HEMATOCRIT 40.2 % (35.4-49); MCH 26.9 pg (25.7-33.7); MCHC 32.4 g/dl (32.0-35.9); MEAN CELL VOLUME 82.9 fl (80-96); MEAN PLT VOLUME 9.7 fl (7.5-11.1); PLATELET COUNT 175 K/MM3 (134-434); RBC 4.85 M/mm3 (4.00-5.60); RDW 16.3 % (11.9-15.9); WHITE BLOOD COUNT 5.2 K/mm3 (4.0-10.0)
[2019-02-12] MEDS: LIDOCAINE 5% TOPICAL PATCH TP SCH (14:40)
--- NOTE | 2019-02-12 17:06 | PN ---
S CIWA - CIWA Score Nausea/Vomitin Muscle Tremors: 3 Anxiety: 0-No Anxiety, at Ease Agitation: 0-Normal Activity Paroxysmal Sweats: No Perspiration Orientation: 0-Oriented Tacttile Disturbances: 2-Mild Itch/Numbness/Burn Auditory Disturbances: 3-Moderate Harsh/Frighten Visual Disturbances: 2-Mild Sensitivity Headache: 0-None Present CIWA-Ar Total Score: 13 BHS Progress Note (SOAP) Subjective: Body Aches, Diarrhea, Tremors, Nausea. Objective: PATIENT A & O X 3. IN NO ACUTE DISTRESS. 02/12/19 17:05 Vital Signs Temperature 98.2 F 02/12/19 13:46 Pulse Rate 102 H 02/12/19 13:46 Respiratory Rate 18 02/12/19 13:46 Blood Pressure 119/68 02/12/19 13:46 O2 Sat by Pulse Oximetry (%) Laboratory Tests 02/12/19 02/12/19 02/12/19 07:00 07:00 07:00 WBC 5.2 RBC 4.85 Hgb 13.0 Hct 40.2 MCV 82.9 MCH 26.9 MCHC 32.4 RDW 16.3 H Plt Count 175 MPV 9.7 Sodium 140 Potassium 3.9 Chloride 106 Carbon Dioxide 28 Anion Gap 6 L BUN 22 H Creatinine 0.7 Creat Clearance w eGFR 116.66 Random Glucose 103 Calcium 9.5 Total Bilirubin 0.8 AST 23 ALT 36 Alkaline Phosphatase 76 Total Protein 6.1 L Albumin 3.4 RPR Titer Nonreactive LABS NOTED. Assessment: 02/12/19 17:05 WITHDRAWAL SYMPTOMS. Plan: CONTINUE DETOX. INCREASE DAILY PO FLUID INTAKE. PRN PEPTO-BISMOL PO FOR DIARRHEA.
[2019-02-12] MEDS: IBUPROFEN 400 MG TABLET (FP) PO PRN (18:03)
[2019-02-12] MEDS ORDERED: COLLOIDAL OATMEAL 1 BAR EACH TP PRN (19:18)
[2019-02-12] MEDS: ATORVASTATIN CA 80 MG TABLET (FP) PO SCH (22:25)
[2019-02-12] MEDS: traZODone HCL 50 MG TABLET (FP) PO SCH (22:25)
[2019-02-12] MEDS: QUEtiapine FUMARATE 200 MG TABLET PO SCH (22:25)
[2019-02-12] MEDS: chlordiazePOXIDE 5 MG CAPSULE PO SCH (22:26)
[2019-02-12] MEDS: THIAMINE HCL 100 MG TABLET (FP) PO SCH (22:27)
[2019-02-12] MEDS: LIDOCAINE PATCH REMOVAL MC SCH (22:27)
[2019-02-13] MEDS: chlordiazePOXIDE 5 MG CAPSULE PO SCH ×2 (05:51→14:52)
[2019-02-13] MEDS: PRENATAL VITAMINS W/ FOLIC ACID TABLET (FP) PO SCH (10:34)
[2019-02-13] MEDS: ASPIRIN 81 MG CHEWABLE TABLETS PO SCH (10:34)
[2019-02-13] MEDS: PANTOPRAZOLE 40 MG TABLET (FP) PO SCH (10:34)
[2019-02-13] MEDS: TAMSULOSIN HCL 0.4 MG CAP PO SCH (10:34)
[2019-02-13] MEDS: FLUOCINONIDE 0.05% TOP OINT (60 GM TUBE) TP SCH ×2 (10:35→22:45)
[2019-02-13] MEDS: LIDOCAINE 5% TOPICAL PATCH TP SCH (10:35)
--- NOTE | 2019-02-13 17:16 | PN ---
S CIWA - CIWA Score Nausea/Vomitin-Mild Nausea/No Vomiting Muscle Tremors: 3 Anxiety: 2 Agitation: 2 Paroxysmal Sweats: 3 Orientation: 0-Oriented Tacttile Disturbances: 0-None Auditory Disturbances: 0-None Visual Disturbances: 0-None Headache: 0-None Present CIWA-Ar Total Score: 11 S Progress Note (SOAP) Subjective: sweats Objective: 02/13/19 17:15 in bed, arousable to verbal stimuli no distress noted Vital Signs Temperature 96.8 F L 02/13/19 13:59 Pulse Rate 94 H 02/13/19 13:59 Respiratory Rate 18 02/13/19 13:59 Blood Pressure 118/79 02/13/19 13:59 O2 Sat by Pulse Oximetry (%) Assessment: 02/13/19 17:16 withdrawal sx Plan: continue detox
[2019-02-13] MEDS ORDERED: chlordiazePOXIDE HCL 10 MG CAPSULE PO PRN (21:00)
[2019-02-13] MEDS: chlordiazePOXIDE HCL 10 MG CAPSULE PO SCH (22:00)
[2019-02-13] MEDS: LIDOCAINE PATCH REMOVAL MC SCH (22:44)
[2019-02-13] MEDS: traZODone HCL 50 MG TABLET (FP) PO SCH (22:44)
[2019-02-13] MEDS: QUEtiapine FUMARATE 200 MG TABLET PO SCH (22:44)
[2019-02-13] MEDS: ATORVASTATIN CA 80 MG TABLET (FP) PO SCH (22:44)
[2019-02-13] MEDS: THIAMINE HCL 100 MG TABLET (FP) PO SCH (22:44)
[2019-02-14] MEDS: chlordiazePOXIDE HCL 10 MG CAPSULE PO SCH ×2 (06:16→12:17)
--- NOTE | 2019-02-14 09:11 | DS ---
[facility] Detox Discharge Summary Admission Date: 02/11/19 Discharge Date: 02/14/19 - History Present History: Alcohol Dependence Additional Comments: 58 years old male admitted on 02/11/19 for alcohol withdrawal stabilization completed detox regimen aftercare community self help group - Physical Exam Results Vital Signs: Vital Signs Temperature 97.9 F 02/14/19 06:28 Pulse Rate 69 02/14/19 06:28 Respiratory Rate 17 02/14/19 06:28 Blood Pressure 113/72 02/14/19 06:28 O2 Sat by Pulse Oximetry (%) Pertinent Admission Physical Exam Findings: alcohol withdrawal sx Laboratory Last Values WBC 5.2 K/mm3 (4.0-10.0) 02/12/19 07:00 RBC 4.85 M/mm3 (4.00-5.60) 02/12/19 07:00 Hgb 13.0 GM/dL (11.7-16.9) 02/12/19 07:00 Hct 40.2 % (35.4-49) 02/12/19 07:00 MCV 82.9 fl (80-96) 02/12/19 07:00 MCH 26.9 pg (25.7-33.7) 02/12/19 07:00 MCHC 32.4 g/dl (32.0-35.9) 02/12/19 07:00 RDW 16.3 % (11.9-15.9) H 02/12/19 07:00 Plt Count 175 K/MM3 (134-434) 02/12/19 07:00 MPV 9.7 fl (7.5-11.1) 02/12/19 07:00 Sodium 140 mmol/L (136-145) 02/12/19 07:00 Potassium 3.9 mmol/L (3.5-5.1) 02/12/19 07:00 Chloride 106 mmol/L (98-107) 02/12/19 07:00 Carbon Dioxide 28 mmol/L (21-32) 02/12/19 07:00 Anion Gap 6 MMOL/L (8-16) L 02/12/19 07:00 BUN 22 mg/dL (7-18) H 02/12/19 07:00 Creatinine 0.7 mg/dL (0.55-1.3) 02/12/19 07:00 Creat Clearance w eGFR 116.66 (>60) 02/12/19 07:00 Random Glucose 103 mg/dL (74-106) 02/12/19 07:00 Calcium 9.5 mg/dL (8.5-10.1) 02/12/19 07:00 Total Bilirubin 0.8 mg/dL (0.2-1) 02/12/19 07:00 AST 23 U/L (15-37) 02/12/19 07:00 ALT 36 U/L (13-61) 02/12/19 07:00 Alkaline Phosphatase 76 U/L (45-117) 02/12/19 07:00 Total Protein 6.1 g/dl (6.4-8.2) L 02/12/19 07:00 Albumin 3.4 g/dl (3.4-5.0) 02/12/19 07:00 RPR Titer Nonreactive (NONREACTIVE) 02/12/19 07:00 lab noted - Treatment Hospital Course: Detox Protocol Followed, Detoxed Safely, Responded well, Discharged Condition Good, Rehab Referral Accepted Patient has Accepted a Rehab Referral to: as per counselor arrangemetn - Medication Discharge Medications: Ambulatory Orders Pantoprazole Sodium [Protonix -] 40 mg PO DAILY #30 tablet.ec 06/16/18 Aspirin [ASA -] 81 mg PO DAILY 10/21/18 Bupropion HCl [Wellbutrin Xl -] 150 mg PO DAILY #30 tab.sr.24h 11/01/18 Quetiapine Fumarate [Seroquel -] 200 mg PO HS #30 tablet 11/01/18 Quetiapine Fumarate [Seroquel] 100 mg PO DAILY #30 tablet 11/01/18 Trazodone HCl 150 mg PO HS #30 tablet 11/01/18 Albuterol Sulfate Inhaler - [Ventolin HFA Inhaler -] 2 puff IH Q4H PRN #1 inhaler 02/14/19 Atorvastatin Ca [Lipitor] 80 mg PO DAILY #14 tablet 02/14/19 Tamsulosin HCl [Flomax -] 0.4 mg PO DAILY@0830 #14 cap.er.24h 02/14/19 - Diagnosis (1) Alcohol dependence with uncomplicated withdrawal Current Visit: Yes Status: Acute (2) Nicotine dependence Current Visit: Yes Status: Acute Qualifiers: Nicotine product type: cigarettes Substance use status: in withdrawal Qualified Code(s): F17.213 - Nicotine dependence, cigarettes, with withdrawal (3) Asthma Current Visit: Yes Status: Chronic Qualifiers: Asthma severity: mild Asthma persistence: intermittent Asthma complication type: uncomplicated Qualified Code(s): J45.20 - Mild intermittent asthma, uncomplicated (4) BPH (benign prostatic hyperplasia) Current Visit: Yes Status: Chronic Qualifiers: Lower urinary tract symptom presence: symptoms absent Qualified Code(s): N40.0 - Benign prostatic hyperplasia without lower urinary tract symptoms (5) COPD (chronic obstructive pulmonary disease) Current Visit: Yes Status: Chronic Qualifiers: COPD type: chronic bronchitis Chronic bronchitis type: unspecified Qualified Code(s): J42 - Unspecified chronic bronchitis (6) Eczema Current Visit: Yes Status: Chronic Qualifiers: Eczema type: unspecified Qualified Code(s): L30.9 - Dermatitis, unspecified (7) Essential hypertension Current Visit: Yes Status: Chronic (8) Use of cane as ambulatory aid Current Visit: Yes Status: Chronic (9) Walker as ambulation aid Current Visit: Yes Status: Chronic (10) Substance induced mood disorder Current Visit: Yes Status: Suspected - AMA Did Patient Leave Against Medical Advice: No
[2019-02-14 09:47] VITALS: BP 122/79; PULSE 88; TEMP 97.4
[2019-02-14] MEDS: PANTOPRAZOLE 40 MG TABLET (FP) PO SCH (10:50)
[2019-02-14] MEDS: FLUOCINONIDE 0.05% TOP OINT (60 GM TUBE) TP SCH (10:50)
[2019-02-14] MEDS: ASPIRIN 81 MG CHEWABLE TABLETS PO SCH (11:24)
[2019-02-14] MEDS: LIDOCAINE 5% TOPICAL PATCH TP SCH (11:24)
[2019-02-14] MEDS: PRENATAL VITAMINS W/ FOLIC ACID TABLET (FP) PO SCH (11:24)
[2019-02-14] MEDS: TAMSULOSIN HCL 0.4 MG CAP PO SCH (11:24)
== END 2019-02-14 11:44 | disposition home or self-care (01) | DRG 775 ==
LOC: YASAS 12:42 → Y3N 17:56
PROVIDERS: ADMIT Surgery; ATTEND Surgery
PROC: HZ2ZZZZ Detoxification Services for Substance Abuse Treatment (ICD-10-PCS; principal; 2019-02-11)
DX: F10.230 Alcohol dependence with withdrawal, uncomplicated (principal); F17.213 Nicotine dependence, cigarettes, with withdrawal; F31.9 Bipolar disorder, unspecified; F19.24 Other psychoactive substance dependence with psychoactive substance-induced mood disorder; G51.0 Bell's palsy; I10 Essential (primary) hypertension; J45.20 Mild intermittent asthma, uncomplicated; J42 Unspecified chronic bronchitis; L30.9 Dermatitis, unspecified; E78.00 Pure hypercholesterolemia, unspecified; N40.0 Benign prostatic hyperplasia without lower urinary tract symptoms; R26.89 Other abnormalities of gait and mobility; Z99.89 Dependence on other enabling machines and devices; Z96.643 Presence of artificial hip joint, bilateral; Z98.61 Coronary angioplasty status
CPT/HCPCS: 36415; 80053; 85027; 86593

== ENCOUNTER 2019-03-29 16:20 | Inpatient (IN) | payer OTHER ==
[2019-03-29 20:25] VITALS: BMI 28.6
--- NOTE | 2019-03-29 22:23 | HP ---
CIWA Score Nausea/Vomitin-No Nausea/No Vomiting Muscle Tremors: None Anxiety: 4-Mod. Anxious/Guarded Agitation: 4-Moderately Restless Paroxysmal Sweats: 3 Orientation: 0-Oriented Tacttile Disturbances: 0-None Auditory Disturbances: 0-None Visual Disturbances: 0-None Headache: 1-Very Mild CIWA-Ar Total Score: 12 - Admission Criteria OASAS Guidelines: Admission for Medically Managed Detox: Requires at least one of the followin. CIWA greater than 12 2. Seizures within the past 24 hours 3. Delirium tremens within the past 24 hours 4. Hallucinations within the past 24 hours 5. Acute intervention needed for co occurring medical disorder 6. Acute intervention needed for co occurring psychiatric disorder 7. Severe withdrawal that cannot be handled at a lower level of care (continued vomiting, continued diarrhea, abnormal vital signs) requiring intravenous medication and/or fluids 8. Patient presents the following: CIWA greater than 12, Acute intervention needed for co-occurring med or psych disorder Admission Criteria Met: Admission criteria met Admission ROS [facility] Chief Complaint: c/o worsening withdrawal sx's. seeking detox txment Allergies/Adverse Reactions: Allergies Allergy/AdvReac Type Severity Reaction Status Date / Time No Known Drug Allergies Allergy Verified 03/29/19 20:16 pork derived (porcine) AdvReac Severe Vomiting Verified 03/29/19 20:16 pseudoephedrine AdvReac Severe headache, Verified 03/29/19 20:16 dizziness tomato AdvReac Severe DIARRHEA Verified 03/29/19 20:16 lobster AdvReac Vomiting Uncoded 03/29/19 20:16 History of Present Illness: 58 Y.O. MALE WITH ALCOHOLISM AND COCAINE DEPENDENCE HERE FOR DETOX. CLIENT IS SELF REFERRED. HE IS KNOWN TO US WITH SEVERAL ADMISSION. PRESENTS TODAY WITH C/ O WITHDRAWAL SX'S. CIWA 12. REPORTS DRINKING DAILY FOR THE PAST 8 DAYS AFTER 4 WEEKS CLEAN. REPORTS RELAPSING DUE TO RECENT IN THE FAMILY. STATES LAST DRINK 2 DAYS AGO. LONGEST CLEAN TIME 3 YEARS. DENIES SZ D/O, + BLACK OUTS. DENIES SI/HI/AVH. DOMICILED, UNEMPLOYED- SSI/D, DENIES LEGALS Exam Limitations: No Limitations - Ebola screening Have you traveled outside of the country in the last 21 days: No (N) Have you had contact with anyone from an Ebola affected area: No Do you have a fever: No - Review of Systems Constitutional: Chills, Loss of Appetite, Night Sweats, Changes in sleep, Unintentional Wgt. Loss EENT: reports: Dental Problems (PARTIAL DENTURES BUT DOES NOT HAVE WITH HIM) Respiratory: reports: Shortness of Breath (CHRONIC-COPD) Cardiac: reports: No Symptoms Reported GI: reports: Diarrhea, Poor Fluid Intake : reports: No Symptoms Reported Musculoskeletal: reports: Back Pain (CHRONIC/SCOLIOSIS) Integumentary: reports: Rash (ECZEMA) Neuro: reports: No Symptoms reported Endocrine: reports: No Symptoms Reported Hematology: reports: No Symptoms Reported Psychiatric: reports: Orientated x3, Anxious Other Systems: Reviewed and Negative Patient History - Patient Medical History Hx Anemia: Yes (IN THE PAST) Hx Asthma: No Hx Chronic Obstructive Pulmonary Disease (COPD): Yes (on albuterol inhaler) Hx Cancer: No Hx Cardiac Disorders: Yes Hx Congestive Heart Failure: No Hx Hypertension: Yes (ON MEDS) Hx Hypercholesterolemia: Yes (LIPITOR) Hx Pacemaker: No HX Cerebrovascular Accident: No (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 reported history of acid reflux) Hx Liver Disease: No Hx Genitourinary Disorders: Yes (bph on flomax) Hx Sexually Transmitted Disorders: No Hx Renal Disease (ESRD): No Hx Thyroid Disease: No Hx Human Immunodeficiency Virus (HIV): No (NEGATIVE HX;LAST 2017) Hx Hepatitis C: No Hx Depression: Yes Hx Suicide Attempt: No Hx Bipolar Disorder: Yes (seroquel and trazodone by hx ) Hx Schizophrenia: No - Patient Surgical History Past Surgical History: Yes Hx Neurologic Surgery: No Hx Cataract Extraction: No Hx Cardiac Surgery: Yes (CARDIAC CATH 01/05/16-NEGATIVE) Hx Lung Surgery: No Hx Breast Surgery: No Hx Breast Biopsy: No Hx Abdominal Surgery: No Hx Appendectomy: No Hx Cholecystectomy: No Hx Genitourinary Surgery: No Hx Section: No Hx Orthopedic Surgery: Yes (prosthetic left hip,rt. hip pinning,rt. hand with plate & 8 screws) Other Surgical History: TONSILLECTOMY A CHILD/right hand x4; B/L inguinal hernia repair Anesthesia Reaction: No - PPD History Previous Implant?: Yes Documented Results: Negative w/proof Implanted On Prior R Admission?: Yes Date: 02/13/19 Results: 0 mm. PPD to be Administered?: No - Smoking Cessation Smoking history: Current every day smoker Have you smoked in the past 12 months: Yes Aproximately how many cigarettes per day: 5 If you are a former smoker, when did you quit?: 0 Cigars Per Day: 0 Hx Chewing Tobacco Use: No Initiated information on smoking cessation: Yes 'Breaking Loose' booklet given: 03/29/19 - Substance & Tx. History Hx Alcohol Use: Yes Hx Substance Use: Yes Substance Use Type: Alcohol, Cocaine Hx Substance Use Treatment: Yes ([facility]) - Substances abused Alcohol Substance route: Oral Frequency: Daily Amount used: 3 PINTS Age of first use: 12 Date of last use: 03/28/19 Cocaine Substance route: Smoking Frequency: 1-2 times per week Amount used: 3 GM Age of first use: 21 Date of last use: 03/28/19 Family Disease History - Family Disease History Family Disease History: Diabetes: Grandparent (cva), Heart Disease: Grandparent , Father (cva), Mother (HYPERTENSION), Brother () Admission Physical Exam [facility] - Vital Signs Vital Signs: Vital Signs - 24 hr 03/29/19 03/29/19 20:00 21:40 Temperature 97.1 F L 97.1 F L Pulse Rate 70 70 Respiratory 18 18 Rate Blood Pressure 126/84 126/84 - Physical General Appearance: Yes: Appropriately Dressed, Anxious HEENTM: Yes: EOMI, Normocephalic, Normal Voice, ZO, Pharynx Normal, Other ( missing teeth) Respiratory: Yes: Chest Non-Tender, Lungs Clear, Normal Breath Sounds, No Respiratory Distress, No Accessory Muscle Use Neck: Yes: No masses,lesions,Nodules, Supple, Trachea in good position Breast: Yes: Breast Exam Deferred Cardiology: Yes: Regular Rhythm, Regular Rate, S1, S2 Abdominal: Yes: Non Tender, Soft, Increased Bowel Sounds, Protuberent Genitourinary: Yes: Within Normal Limits Back: Yes: Normal Inspection (scoliosis not noted) Musculoskeletal: Yes: full range of Motion, Other (ambulates with limp) Extremities: Yes: Non-Tender, Other (deformities of fingers to both hands.) Neurological: Yes: Fully Oriented, Alert, Motor Strength 5/5, Normal Mood/Affect Integumentary: Yes: Dry, Warm Lymphatic: Yes: Within Normal Limits - Diagnostic (1) Alcohol dependence with uncomplicated withdrawal Current Visit: Yes Status: Acute (2) Nicotine dependence Current Visit: Yes Status: Chronic Qualifiers: Nicotine product type: cigarettes Substance use status: in withdrawal Qualified Code(s): F17.213 - Nicotine dependence, cigarettes, with withdrawal (3) Scoliosis Current Visit: Yes Status: Suspected (4) Substance or medication-induced sleep disorder, insomnia type Current Visit: Yes Status: Acute (5) BPH (benign prostatic hyperplasia) Current Visit: Yes Status: Chronic Qualifiers: Lower urinary tract symptom presence: symptoms absent Qualified Code(s): N40.0 - Benign prostatic hyperplasia without lower urinary tract symptoms (6) Bipolar disorder Current Visit: Yes Status: Chronic Comment: History. (7) COPD (chronic obstructive pulmonary disease) Current Visit: Yes Status: Chronic Qualifiers: COPD type: chronic bronchitis Chronic bronchitis type: unspecified Qualified Code(s): J42 - Unspecified chronic bronchitis (8) Cocaine dependence Current Visit: Yes Status: Chronic Qualifiers: Substance use status: uncomplicated Qualified Code(s): F14.20 - Cocaine dependence, uncomplicated (9) Eczema Current Visit: Yes Status: Chronic Qualifiers: Eczema type: unspecified Qualified Code(s): L30.9 - Dermatitis, unspecified (10) Essential hypertension Current Visit: Yes Status: Chronic (11) Gastroesophageal reflux disease Current Visit: Yes Status: Chronic Qualifiers: Esophagitis presence: esophagitis presence not specified Qualified Code(s) : K21.9 - Gastro-esophageal reflux disease without esophagitis (12) Hx of chronic arthritis Current Visit: Yes Status: Chronic (13) Substance induced mood disorder Current Visit: Yes Status: Suspected Cleared for Admission [facility] - Detox or Rehab S Level of Care: Medically Managed Detox Regimen/Protocol: Librium Claeared for Rehab Admission: No Breathalyzer - Breathalyzer Breathalyzer: 0 Urine Drug Screen - Test Device Lot number: [id number] Expiration date: 12/17/20 - Control Is test valid?: Yes - Results Drug screen NEGATIVE: No Urine drug screen results: CHIP-Cocaine Inpatient Rehab Admission - Rehab Decision to Admit Inpatient rehab admission?: No
[2019-03-29] MEDS ORDERED: ALBUTEROL SO4 8 GM HFA INHALER IH PRN (22:28)
[2019-03-29] MEDS ORDERED: MAGNESIUM CITRATE 300 ML BOTTLE PO PRN (22:29)
[2019-03-29] MEDS ORDERED: hydrOXYzine PAMOATE 25 MG CAPSULE (FP) PO PRN (22:29)
[2019-03-29] MEDS ORDERED: ONDANSETRON *ODT* 4 MG TABLET SL PRN (22:29)
[2019-03-29] MEDS ORDERED: MAG HYDROX/AL HYDROX/SIMETH 30 ML UNIT-DOSE CUP PO PRN (22:29)
[2019-03-29] MEDS ORDERED: ACETAMINOPHEN 325 MG TABLET (FP) PO PRN ×2 (22:29)
[2019-03-29] MEDS ORDERED: MENTHOL/PHENOL 1 EACH UD MM PRN (22:29)
[2019-03-29] MEDS ORDERED: MELATONIN 5 MG TABLETS PO PRN (22:29)
[2019-03-29] MEDS ORDERED: MAGNESIUM HYDROX 2400MG/30ML ORAL SUSPENSION 30 ML CUP PO PRN (22:29)
[2019-03-29] MEDS ORDERED: DICYCLOMINE HCL 10 MG CAPSULE PO PRN (22:29)
[2019-03-29] MEDS ORDERED: chlordiazePOXIDE HCL 10 MG CAPSULE PO PRN (22:29)
[2019-03-29] MEDS ORDERED: NICOTINE POLACRILEX 2 MG GUM BUC PRN (22:29)
[2019-03-29] MEDS ORDERED: BISMUTH SUBSALICYLATE 524 MG/30 ML UD PO PRN (22:29)
[2019-03-29] MEDS: chlordiazePOXIDE HCL 25 MG CAPSULE PO SCH (23:33)
[2019-03-29] MEDS: LIDOCAINE PATCH REMOVAL MC SCH (23:54)
[2019-03-30 01:15] LABS: PH,URINE 5.5 (5.0-8.0); URINE APPEARANCE CLEAR; URINE BILIRUBIN NEGATIVE (NEGATIVE); URINE COLOR YELLOW; URINE GLUCOSE (UA) NEGATIVE (NEGATIVE); URINE KETONE NEGATIVE (NEGATIVE); URINE LEUK ESTERASE NEGATIVE (NEGATIVE); URINE NITRITE NEGATIVE (NEGATIVE); URINE PROTEIN TRACE (NEGATIVE)
[2019-03-30] MEDS: chlordiazePOXIDE HCL 25 MG CAPSULE PO SCH ×2 (05:34→14:50)
[2019-03-30] MEDS: PANTOPRAZOLE 40 MG TABLET (FP) PO SCH (10:17)
[2019-03-30] MEDS: ASPIRIN 81 MG CHEWABLE TABLETS PO SCH (10:17)
[2019-03-30] MEDS: TAMSULOSIN HCL 0.4 MG CAP PO SCH (10:18)
[2019-03-30] MEDS: PRENATAL VITAMINS W/ FOLIC ACID TABLET (FP) PO SCH (10:18)
[2019-03-30] MEDS: metoPROLOL SUCCINATE 25 MG TAB.SR.24H (FP) PO SCH ×2 (10:19→22:41)
[2019-03-30] MEDS: NICOTINE 14 MG/24 HOURS TOPICAL PATCH TD SCH (10:23)
[2019-03-30] MEDS: LIDOCAINE 5% TOPICAL PATCH TP SCH (10:23)
--- NOTE | 2019-03-30 10:25 | CONSULT ---
[facility] Psychiatric Consult - Data Date of interview: 03/30/19 Admission source: [facility] Identifying data: Readmission to [facility] for this 58 y/o AA male who presented at [facility] with a withdrawal syndrome and consented for detoxification treatment (alcohol, cocaine). Examined on . Patient is single, a father of two, undomiciled, unemployed and supported on SSI benefits. Substance Abuse History: Confirmed by patient in this session : Smoking history : Current every day smoker. Have you smoked in the past 12 months: Yes. Aproximately how many cigarettes per day: 5. If you are a former smoker, when did you quit?: 0. Cigars Per Day: 0. Hx Chewing Tobacco Use: No. Initiated information on smoking cessation: Yes. 'Breaking Loose' booklet given: . - Substance & Tx. History. Hx Alcohol Use: Yes. Hx Substance Use: Yes. Substance Use Type: Alcohol, Cocaine. Hx Substance Use Treatment: Yes ([facility]). - Substances abused. Alcohol. Substance route: Oral. Frequency: Daily. Amount used: 3 PINTS. Age of first use: 12. Date of last use: 03/28/19. Cocaine. Substance route: Smoking. Frequency: 1-2 times per week. Amount used : 3 GM. Age of first use: 21. Date of last use: 03/28/19 Medical History: No change in medical profile since last encounter : anemia, scoliosis, hiatal hernia, lower back pain, bronchial asthma, eczema, GERD, hypertension, hypercholesterolemia, Valencia's palsy (2015), COPD and BPH (benign prostatic hyperplasia). History of orthopedic surgery : prosthetic left hip, right hip pinning and right hand (plate and screws in situ). Noted history of tonsillectomy (childhood) and bilateral inguinal heniorraphy. Patient ambulates with a cane. Psychiatric History: Patient denies history of psychiatric hospitalizations. Patient endorses the diagnosis of Bipolar Disorder. Mr Euceda has reportedly been lost to follow-up for months. No psychiatric OPD care. Patient is still prescribed seroquel 200 mg/hs + trazodone 150 mg/hs + wellbutrin XL 150 mg/day ( from prescribers at [facility]). Patient denies history of suicide attempts. Physical/Sexual Abuse/Trauma History: No history reported. Additional Comment: Urine drug screen results: CHIP-Cocaine. Noted. Mental Status Exam - Mental Status Exam Alert and Oriented to: Time, Place, Person Cognitive Function: Good Patient Appearance: Well Groomed Mood: Nervous, Withdrawn Affect: Mood Congruent Patient Behavior: Appropriate, Cooperative Speech Pattern: Clear, Appropriate Voice Loudness: Normal Thought Process: Goal Oriented Thought Disorder: Paranoid Ideation Hallucinations: Denies Suicidal Ideation: Denies Homicidal Ideation: Denies Insight/Judgement: Poor Sleep: Poorly, Difficulty falling asleep Appetite: Good Muscle strength/Tone: Normal Gait/Station: Normal Psychiatric Findings - Problem List ([place] 1, 2,3) (1) Alcohol dependence with uncomplicated withdrawal Current Visit: Yes Status: Acute (2) Cocaine dependence Current Visit: Yes Status: Chronic Qualifiers: Substance use status: uncomplicated Qualified Code(s): F14.20 - Cocaine dependence, uncomplicated (3) Nicotine dependence Current Visit: Yes Status: Chronic Qualifiers: Nicotine product type: cigarettes Substance use status: in withdrawal Qualified Code(s): F17.213 - Nicotine dependence, cigarettes, with withdrawal (4) Substance induced mood disorder Current Visit: Yes Status: Chronic (5) History of bipolar disorder Current Visit: Yes Status: Chronic (6) Insomnia Current Visit: Yes Status: Chronic Qualifiers: Insomnia type: unspecified Qualified Code(s): G47.00 - Insomnia, unspecified (7) Non-compliance Current Visit: Yes Status: Chronic - Initial Treatment Plan Initial Treatment Plan: Psycoeducation. Sleep hygiene. Detoxification. Resumed : seroquel 200 mg po hs + wellbutrin XL 150 mg po daily + trazodone 150 mg po hs. Side effects/benefits of these drugs are discussed with the patient. Mr Euceda is agreeable with this plan of care. Observation.
--- NOTE | 2019-03-30 10:54 | PN ---
S CIWA - CIWA Score Nausea/Vomitin-Mild Nausea/No Vomiting Muscle Tremors: 3 Anxiety: 2 Agitation: 2 Paroxysmal Sweats: 1-Minimal Palms Moist Orientation: 0-Oriented Tacttile Disturbances: 0-None Auditory Disturbances: 0-None Visual Disturbances: 0-None Headache: 1-Very Mild CIWA-Ar Total Score: 10 BHS Progress Note (SOAP) Subjective: doing well with librium protocol tremor tolerate food and fluid well Objective: 03/30/19 10:53 Vital Signs Temperature 97.9 F 03/30/19 09:23 Pulse Rate 92 H 03/30/19 09:23 Respiratory Rate 18 03/30/19 09:23 Blood Pressure 105/59 L 03/30/19 09:23 O2 Sat by Pulse Oximetry (%) Laboratory Last Values Urine Color Yellow 03/29/19 23:49 Urine Appearance Clear 03/29/19 23:49 Urine pH 5.5 (5.0-8.0) 03/29/19 23:49 Ur Specific [place] 1.036 (1.010-1.035) H 03/29/19 23:49 Urine Protein Trace (NEGATIVE) 03/29/19 23:49 Urine Glucose (UA) Negative (NEGATIVE) 03/29/19 23:49 Urine Ketones Negative (NEGATIVE) 03/29/19 23:49 Urine Blood Negative (NEGATIVE) 03/29/19 23:49 Urine Nitrite Negative (NEGATIVE) 03/29/19 23:49 Urine Bilirubin Negative (NEGATIVE) 03/29/19 23:49 Urine Urobilinogen 1.0 mg/dL (0.2-1.0) 03/29/19 23:49 Ur Leukocyte Esterase Negative (NEGATIVE) 03/29/19 23:49 03/30/19 10:53 lab pending Assessment: 03/30/19 10:54 alcohol withdrawal sx Plan: continue detox
[2019-03-30] MEDS: METHOCARBAMOL 500 MG TABLET PO SCH ×2 (11:28→22:41)
[2019-03-30 12:27] LABS: HEMATOCRIT 38.1 % (35.4-49); HEMOGLOBIN 12.9 GM/dL (11.7-16.9); MCH 27.8 pg (25.7-33.7); MCHC 33.8 g/dl (32.0-35.9); MEAN CELL VOLUME 82.4 fl (80-96); PLATELET COUNT 185 K/MM3 (134-434); RBC 4.63 M/mm3 (4.00-5.60); RDW 15.6 % (11.9-15.9); WHITE BLOOD COUNT 5.8 K/mm3 (4.0-10.0)
[2019-03-30 12:42] LABS: ALBUMIN 3.6 g/dl (3.4-5.0); BILIRUBIN,TOTAL 1.3 mg/dL (0.2-1); CALCIUM 9.8 mg/dL (8.5-10.1); CREATININE 0.9 mg/dL (0.55-1.3); POTASSIUM 3.6 mmol/L (3.5-5.1); TOT PROT 6.2 g/dl (6.4-8.2)
[2019-03-30] MEDS ORDERED: traZODone HCL 150 MG TABLET PO SCH (22:00)
[2019-03-30] MEDS: TRIAMCINOLONE ACET 0.5% OINT 15 GM TUBE TP SCH ×2 (22:39)
[2019-03-30] MEDS: chlordiazePOXIDE 5 MG CAPSULE PO SCH (22:40)
[2019-03-30] MEDS: LIDOCAINE PATCH REMOVAL MC SCH (22:40)
[2019-03-30] MEDS: THIAMINE HCL 100 MG TABLET (FP) PO SCH (22:40)
[2019-03-30] MEDS: traZODone HCL 100 MG TABLET (FP) PO SCH (22:40)
[2019-03-30] MEDS: QUEtiapine FUMARATE 200 MG TABLET PO SCH (22:40)
[2019-03-30] MEDS: ATORVASTATIN CA 40 MG TABLET (FP) PO SCH (22:41)
[2019-03-31] MEDS: chlordiazePOXIDE 5 MG CAPSULE PO SCH ×2 (05:33→14:18)
[2019-03-31] MEDS: PANTOPRAZOLE 40 MG TABLET (FP) PO SCH (10:15)
[2019-03-31] MEDS: TAMSULOSIN HCL 0.4 MG CAP PO SCH (10:15)
[2019-03-31] MEDS: ASPIRIN 81 MG CHEWABLE TABLETS PO SCH (10:15)
[2019-03-31] MEDS: NICOTINE 14 MG/24 HOURS TOPICAL PATCH TD SCH (10:15)
[2019-03-31] MEDS: PRENATAL VITAMINS W/ FOLIC ACID TABLET (FP) PO SCH (10:15)
[2019-03-31] MEDS: METHOCARBAMOL 500 MG TABLET PO SCH ×2 (10:15→22:05)
[2019-03-31] MEDS: LIDOCAINE 5% TOPICAL PATCH TP SCH (10:16)
[2019-03-31] MEDS: metoPROLOL SUCCINATE 25 MG TAB.SR.24H (FP) PO SCH ×2 (10:16→22:05)
[2019-03-31] MEDS: TRIAMCINOLONE ACET 0.5% OINT 15 GM TUBE TP SCH ×2 (10:16→22:04)
--- NOTE | 2019-03-31 14:15 | PN ---
S CIWA - CIWA Score Nausea/Vomitin-Mild Nausea/No Vomiting Muscle Tremors: 1-None Visible, but [place] Anxiety: 1-Mildly Anxious Agitation: 1-Slight > Activity Paroxysmal Sweats: No Perspiration Orientation: 0-Oriented Tacttile Disturbances: 0-None Auditory Disturbances: 0-None Visual Disturbances: 0-None Headache: 1-Very Mild CIWA-Ar Total Score: 5 S Progress Note (SOAP) Subjective: feeling better today social with peers in day room and hallway encourage maintain sobriety Objective: 03/31/19 14:15 Vital Signs Temperature 98.6 F 03/31/19 13:37 Pulse Rate 77 03/31/19 13:37 Respiratory Rate 18 03/31/19 13:37 Blood Pressure 100/67 03/31/19 13:37 O2 Sat by Pulse Oximetry (%) Laboratory Last Values WBC 5.8 K/mm3 (4.0-10.0) 03/30/19 07:30 RBC 4.63 M/mm3 (4.00-5.60) 03/30/19 07:30 Hgb 12.9 GM/dL (11.7-16.9) 03/30/19 07:30 Hct 38.1 % (35.4-49) 03/30/19 07:30 MCV 82.4 fl (80-96) 03/30/19 07:30 MCH 27.8 pg (25.7-33.7) 03/30/19 07:30 MCHC 33.8 g/dl (32.0-35.9) 03/30/19 07:30 RDW 15.6 % (11.9-15.9) 03/30/19 07:30 Plt Count 185 K/MM3 (134-434) 03/30/19 07:30 MPV 10.0 fl (7.5-11.1) 03/30/19 07:30 Sodium 140 mmol/L (136-145) 03/30/19 07:30 Potassium 3.6 mmol/L (3.5-5.1) 03/30/19 07:30 Chloride 106 mmol/L (98-107) 03/30/19 07:30 Carbon Dioxide 28 mmol/L (21-32) 03/30/19 07:30 Anion Gap 6 MMOL/L (8-16) L 03/30/19 07:30 BUN 21 mg/dL (7-18) H 03/30/19 07:30 Creatinine 0.9 mg/dL (0.55-1.3) 03/30/19 07:30 Est GFR (CKD-EPI)AfAm 110.27 03/30/19 07:30 Est GFR (CKD-EPI)NonAf 95.14 03/30/19 07:30 Random Glucose 103 mg/dL (74-106) 03/30/19 07:30 Calcium 9.8 mg/dL (8.5-10.1) 03/30/19 07:30 Total Bilirubin 1.3 mg/dL (0.2-1) H 03/30/19 07:30 AST 25 U/L (15-37) 03/30/19 07:30 ALT 33 U/L (13-61) 03/30/19 07:30 Alkaline Phosphatase 96 U/L (45-117) 03/30/19 07:30 Total Protein 6.2 g/dl (6.4-8.2) L 03/30/19 07:30 Albumin 3.6 g/dl (3.4-5.0) 03/30/19 07:30 Urine Color Yellow 03/29/19 23:49 Urine Appearance Clear 03/29/19 23:49 Urine pH 5.5 (5.0-8.0) 03/29/19 23:49 Ur Specific [place] 1.036 (1.010-1.035) H 03/29/19 23:49 Urine Protein Trace (NEGATIVE) 03/29/19 23:49 Urine Glucose (UA) Negative (NEGATIVE) 03/29/19 23:49 Urine Ketones Negative (NEGATIVE) 03/29/19 23:49 Urine Blood Negative (NEGATIVE) 03/29/19 23:49 Urine Nitrite Negative (NEGATIVE) 03/29/19 23:49 Urine Bilirubin Negative (NEGATIVE) 03/29/19 23:49 Urine Urobilinogen 1.0 mg/dL (0.2-1.0) 03/29/19 23:49 Ur Leukocyte Esterase Negative (NEGATIVE) 03/29/19 23:49 RPR Titer Nonreactive (NONREACTIVE) 03/30/19 07:30 lab noted Assessment: 03/31/19 14:15 withdrawal sx Plan: continue detox
[2019-03-31] MEDS ORDERED: chlordiazePOXIDE HCL 10 MG CAPSULE PO PRN (21:00)
[2019-03-31] MEDS: THIAMINE HCL 100 MG TABLET (FP) PO SCH (22:03)
[2019-03-31] MEDS: chlordiazePOXIDE HCL 10 MG CAPSULE PO SCH (22:03)
[2019-03-31] MEDS: QUEtiapine FUMARATE 200 MG TABLET PO SCH (22:03)
[2019-03-31] MEDS: ATORVASTATIN CA 40 MG TABLET (FP) PO SCH (22:04)
[2019-03-31] MEDS: LIDOCAINE PATCH REMOVAL MC SCH (22:04)
[2019-03-31] MEDS: traZODone HCL 100 MG TABLET (FP) PO SCH (22:04)
[2019-04-01] MEDS: chlordiazePOXIDE HCL 10 MG CAPSULE PO SCH ×2 (05:23→12:47)
[2019-04-01 09:41] VITALS: BP 116/73; PULSE 78; TEMP 97
[2019-04-01] MEDS: PANTOPRAZOLE 40 MG TABLET (FP) PO SCH (09:42)
[2019-04-01] MEDS: PRENATAL VITAMINS W/ FOLIC ACID TABLET (FP) PO SCH (09:42)
[2019-04-01] MEDS: TAMSULOSIN HCL 0.4 MG CAP PO SCH (09:42)
[2019-04-01] MEDS: ASPIRIN 81 MG CHEWABLE TABLETS PO SCH (09:42)
[2019-04-01] MEDS: METHOCARBAMOL 500 MG TABLET PO SCH (09:42)
[2019-04-01] MEDS: NICOTINE 14 MG/24 HOURS TOPICAL PATCH TD SCH (09:43)
[2019-04-01] MEDS: TRIAMCINOLONE ACET 0.5% OINT 15 GM TUBE TP SCH (09:44)
[2019-04-01] MEDS: metoPROLOL SUCCINATE 25 MG TAB.SR.24H (FP) PO SCH (09:44)
[2019-04-01] MEDS: LIDOCAINE 5% TOPICAL PATCH TP SCH (09:44)
--- NOTE | 2019-04-01 15:10 | DS ---
[facility] Detox Discharge Summary Admission Date: 03/29/19 Discharge Date: 04/01/19 - History Present History: Alcohol Dependence Additional Comments: 58 years old male admitted to 03/29/19 for alcohol withdrawal stabilization completed detox regimen aftercare community self help support Pertinent Past History: bring in medication list and lab report to follow up appointment - Physical Exam Results Vital Signs: Vital Signs Temperature 97.0 F L 04/01/19 09:41 Pulse Rate 78 04/01/19 09:41 Respiratory Rate 18 04/01/19 09:41 Blood Pressure 116/73 04/01/19 09:41 O2 Sat by Pulse Oximetry (%) Pertinent Admission Physical Exam Findings: alcohol withdrawal sx Laboratory Last Values WBC 5.8 K/mm3 (4.0-10.0) 03/30/19 07:30 RBC 4.63 M/mm3 (4.00-5.60) 03/30/19 07:30 Hgb 12.9 GM/dL (11.7-16.9) 03/30/19 07:30 Hct 38.1 % (35.4-49) 03/30/19 07:30 MCV 82.4 fl (80-96) 03/30/19 07:30 MCH 27.8 pg (25.7-33.7) 03/30/19 07:30 MCHC 33.8 g/dl (32.0-35.9) 03/30/19 07:30 RDW 15.6 % (11.9-15.9) 03/30/19 07:30 Plt Count 185 K/MM3 (134-434) 03/30/19 07:30 MPV 10.0 fl (7.5-11.1) 03/30/19 07:30 Sodium 140 mmol/L (136-145) 03/30/19 07:30 Potassium 3.6 mmol/L (3.5-5.1) 03/30/19 07:30 Chloride 106 mmol/L (98-107) 03/30/19 07:30 Carbon Dioxide 28 mmol/L (21-32) 03/30/19 07:30 Anion Gap 6 MMOL/L (8-16) L 03/30/19 07:30 BUN 21 mg/dL (7-18) H 03/30/19 07:30 Creatinine 0.9 mg/dL (0.55-1.3) 03/30/19 07:30 Est GFR (CKD-EPI)AfAm 110.27 03/30/19 07:30 Est GFR (CKD-EPI)NonAf 95.14 03/30/19 07:30 Random Glucose 103 mg/dL (74-106) 03/30/19 07:30 Calcium 9.8 mg/dL (8.5-10.1) 03/30/19 07:30 Total Bilirubin 1.3 mg/dL (0.2-1) H 03/30/19 07:30 AST 25 U/L (15-37) 03/30/19 07:30 ALT 33 U/L (13-61) 03/30/19 07:30 Alkaline Phosphatase 96 U/L (45-117) 03/30/19 07:30 Total Protein 6.2 g/dl (6.4-8.2) L 03/30/19 07:30 Albumin 3.6 g/dl (3.4-5.0) 03/30/19 07:30 Urine Color Yellow 03/29/19 23:49 Urine Appearance Clear 03/29/19 23:49 Urine pH 5.5 (5.0-8.0) 03/29/19 23:49 Ur Specific [place] 1.036 (1.010-1.035) H 03/29/19 23:49 Urine Protein Trace (NEGATIVE) 03/29/19 23:49 Urine Glucose (UA) Negative (NEGATIVE) 03/29/19 23:49 Urine Ketones Negative (NEGATIVE) 03/29/19 23:49 Urine Blood Negative (NEGATIVE) 03/29/19 23:49 Urine Nitrite Negative (NEGATIVE) 03/29/19 23:49 Urine Bilirubin Negative (NEGATIVE) 03/29/19 23:49 Urine Urobilinogen 1.0 mg/dL (0.2-1.0) 03/29/19 23:49 Ur Leukocyte Esterase Negative (NEGATIVE) 03/29/19 23:49 RPR Titer Nonreactive (NONREACTIVE) 03/30/19 07:30 lab noted - Treatment Hospital Course: Detox Protocol Followed, Detoxed Safely, Responded well, Discharged Condition Good, Rehab Referral Accepted Patient has Accepted a Rehab Referral to: community self help support - Medication Discharge Medications: Ambulatory Orders Pantoprazole Sodium [Protonix -] 40 mg PO DAILY #30 tablet.ec 06/16/18 Aspirin [ASA -] 81 mg PO DAILY 10/21/18 Bupropion HCl [Wellbutrin Xl -] 150 mg PO DAILY #30 tab.sr.24h 11/01/18 Quetiapine Fumarate [Seroquel -] 200 mg PO HS #30 tablet 11/01/18 Quetiapine Fumarate [Seroquel] 100 mg PO DAILY #30 tablet 11/01/18 Trazodone HCl 150 mg PO HS #30 tablet 11/01/18 Albuterol Sulfate Inhaler - [Ventolin HFA Inhaler -] 2 puff IH Q4H PRN #1 inhaler 02/14/19 Atorvastatin Ca [Lipitor] 80 mg PO DAILY #14 tablet 02/14/19 Tamsulosin HCl [Flomax -] 0.4 mg PO DAILY@0830 #14 cap.er.24h 02/14/19 Methocarbamol [Robaxin -] 500 mg PO BID 03/29/19 Metoprolol Succinate [Toprol Xl] 12.5 mg PO BID 03/29/19 Triamcinolone 0.5% Ointment [Aristocort 0.5% Ointment -] 1 applic TP BID - Diagnosis (1) Alcohol dependence with uncomplicated withdrawal Status: Acute (2) Asthma Status: Chronic Qualifiers: Asthma severity: mild Asthma persistence: intermittent Asthma complication type: uncomplicated Qualified Code(s): J45.20 - Mild intermittent asthma, uncomplicated (3) BPH (benign prostatic hyperplasia) Status: Chronic Qualifiers: Lower urinary tract symptom presence: symptoms absent Qualified Code(s): N40.0 - Benign prostatic hyperplasia without lower urinary tract symptoms (4) COPD (chronic obstructive pulmonary disease) Status: Chronic Qualifiers: COPD type: chronic bronchitis Chronic bronchitis type: unspecified Qualified Code(s): J42 - Unspecified chronic bronchitis (5) Eczema Status: Chronic Qualifiers: Eczema type: unspecified Qualified Code(s): L30.9 - Dermatitis, unspecified (6) Essential hypertension Status: Chronic (7) Gastroesophageal reflux disease Status: Chronic Qualifiers: Esophagitis presence: esophagitis presence not specified Qualified Code(s) : K21.9 - Gastro-esophageal reflux disease without esophagitis (8) Nicotine dependence Status: Acute Qualifiers: Nicotine product type: cigarettes Substance use status: in withdrawal Qualified Code(s): F17.213 - Nicotine dependence, cigarettes, with withdrawal (9) Substance induced mood disorder Status: Suspected (10) Use of cane as ambulatory aid Status: Chronic - AMA Did Patient Leave Against Medical Advice: No
== END 2019-04-01 13:00 | disposition other institution (70) | DRG 774 ==
LOC: YASAS 16:20 → Y3N 22:52
PROVIDERS: ADMIT Surgery; ATTEND Surgery
PROC: HZ2ZZZZ Detoxification Services for Substance Abuse Treatment (ICD-10-PCS; principal; 2019-03-29)
DX: F10.230 Alcohol dependence with withdrawal, uncomplicated (principal); F14.20 Cocaine dependence, uncomplicated; F17.213 Nicotine dependence, cigarettes, with withdrawal; F19.24 Other psychoactive substance dependence with psychoactive substance-induced mood disorder; I10 Essential (primary) hypertension; J45.20 Mild intermittent asthma, uncomplicated; N40.0 Benign prostatic hyperplasia without lower urinary tract symptoms; H42 Glaucoma in diseases classified elsewhere; L30.9 Dermatitis, unspecified; K21.9 Gastro-esophageal reflux disease without esophagitis; G47.00 Insomnia, unspecified; E78.00 Pure hypercholesterolemia, unspecified; R26.2 Difficulty in walking, not elsewhere classified; M41.9 Scoliosis, unspecified; Z99.89 Dependence on other enabling machines and devices; Z98.61 Coronary angioplasty status; Z91.19 Patient's noncompliance with other medical treatment and regimen; Z86.69 Personal history of other diseases of the nervous system and sense organs
CPT/HCPCS: 36415; 80053; 81003; 85027; 86593

== ENCOUNTER 2019-04-01 13:14 | Inpatient (IN) | payer OTHER | END 2019-04-15 09:10 | disposition home or self-care (01) | LOC: YASAS 13:14 → Y5N 13:15 ==

== ENCOUNTER 2019-09-02 10:36 | Inpatient (IN) | payer OTHER ==
[2019-09-02 11:42] VITALS: BMI 28.0
--- NOTE | 2019-09-02 12:42 | HP ---
CIWA Score Nausea/Vomitin Muscle Tremors: 1-None Visible, but [place] Anxiety: 2 Agitation: 1-Slight > Activity Paroxysmal Sweats: 2 Orientation: 0-Oriented Tacttile Disturbances: 1-Very Mild Itch/Numbness Auditory Disturbances: 0-None Visual Disturbances: 2-Mild Sensitivity Headache: 0-None Present CIWA-Ar Total Score: 12 - Admission Criteria OASAS Guidelines: Admission for Medically Managed Detox: Requires at least one of the followin. CIWA greater than 12 2. Seizures within the past 24 hours 3. Delirium tremens within the past 24 hours 4. Hallucinations within the past 24 hours 5. Acute intervention needed for co occurring medical disorder 6. Acute intervention needed for co occurring psychiatric disorder 7. Severe withdrawal that cannot be handled at a lower level of care (continued vomiting, continued diarrhea, abnormal vital signs) requiring intravenous medication and/or fluids 8. Patient presents the following: CIWA greater than 12 Admission Criteria Met: Admission criteria met Admitting History and Physical - Smoking History Smoking history: Current every day smoker Have you smoked in the past 12 months: Yes Aproximately how many cigarettes per day: 5 If you are a former smoker, when did you quit?: 0 - Alcohol/Substance Use Hx Alcohol Use: Yes Admission ROS [facility] - HPI Chief Complaint: Marcos Euceda is a 59 year old male presenting for alcohol abuse. Allergies/Adverse Reactions: Allergies Allergy/AdvReac Type Severity Reaction Status Date / Time No Known Drug Allergies Allergy Verified 09/02/19 11:27 pork derived (porcine) AdvReac Severe Vomiting Verified 09/02/19 11:27 pseudoephedrine AdvReac Severe headache, Verified 09/02/19 11:27 dizziness tomato AdvReac Severe DIARRHEA Verified 09/02/19 11:27 lobster AdvReac Intermediate Vomiting Uncoded 09/02/19 11:29 History of Present Illness: Marcos Euceda is a 59 year old male presenting for alcohol abuse. Alcohol: 1/3 handle bottle daily. Drinks daily. Last drink was last night. Has been drinking since age 12. Heavily drinking for the last several years. Denies history of seizures. Has had blackout, does not remember most recent. Has had falls. Longest period of sobriety: 3 years. Was sober due to "focus". Relapsed due to family problems. Withdrawal symptoms: nausea, vomiting, sweats, aches, pains, dizziness, visual changes Cocaine: several thousand in one week. Denies IVDU. Has been to detox and rehab in the past. Most recently in March. Plans after detox: wants to go to back to his sober house. Medical History: HLD, Mahoney's palsy, scoliosis, arthritis, HTN, coronary vessel stenosis, COPD, kidney stones, GERD, BPH, hx of [place], eczema Surgical History: L hand surgery (s/p fx), bilateral hip replacement, tonsillectomy, cardiac cath in Nov 2018 Psychiatric History: depression, bipolar Smokin-5 cigarettes per day Social: lives in a sober house. Gets SSD. Was seen at [facility] this AM due to chest pain and was seen and cleared by the physicians and presented to detox. Utox: CHIP RAGHU: 0.000 Will be admitted for alcohol detox with Librium protocol. Will obtain records fro [facility] for bloodwork, CXR, and instructions of care. Counseled on proper nutrition in setting of multiple medical comorbities. Exam Limitations: No Limitations - Ebola screening Have you traveled outside of the country in the last 21 days: No Have you had contact with anyone from an Ebola affected area: No Do you have a fever: No - Review of Systems Constitutional: Chills, Other (sweats) EENT: reports: Tearing, Nose Congestion, Other (rhinnorhea) Respiratory: reports: Cough Cardiac: reports: No Symptoms Reported GI: reports: Diarrhea, Nausea : reports: No Symptoms Reported Musculoskeletal: reports: Back Pain Integumentary: reports: Other (eczema type rash) Endocrine: reports: Other (sweats) Hematology: reports: No Symptoms Reported Psychiatric: reports: Agitated, Anxious Patient History - Patient Medical History Hx Anemia: Yes (IN THE PAST) Hx Asthma: No Hx Chronic Obstructive Pulmonary Disease (COPD): Yes Hx Cancer: No Hx Cardiac Disorders: Yes (CARDIAC CATH (01/05/16)) Hx Congestive Heart Failure: No Hx Hypertension: Yes Hx Hypercholesterolemia: Yes (LIPITOR) Hx Pacemaker: No HX Cerebrovascular Accident: No (MAHONEY 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/2015 ) Hx Seizures: No Hx Dementia: No Hx Diabetes: No Hx Gastrointestinal Disorders: Yes (GERD) Hx Liver Disease: No Hx Genitourinary Disorders: Yes (BPH) Hx Sexually Transmitted Disorders: No Hx Renal Disease (ESRD): No Hx Thyroid Disease: No Hx Human Immunodeficiency Virus (HIV): No (NEGATIVE HX;LAST 2017) Hx Hepatitis C: No Hx Depression: Yes Hx Suicide Attempt: No Hx Bipolar Disorder: Yes (seroquel and trazodone by hx ) Hx Schizophrenia: No - Patient Surgical History Past Surgical History: Yes Hx Neurologic Surgery: No Hx Cataract Extraction: No Hx Cardiac Surgery: Yes (CARDIAC CATH 01/05/16-NEGATIVE) Hx Lung Surgery: No Hx Breast Surgery: No Hx Breast Biopsy: No Hx Abdominal Surgery: No Hx Appendectomy: No Hx Cholecystectomy: No Hx Genitourinary Surgery: No Hx Section: No Hx Orthopedic Surgery: Yes (prosthetic left hip,rt. hip pinning,rt. hand with plate & 8 screws) Other Surgical History: TONSILLECTOMY A CHILD/right hand x4; B/L inguinal hernia repair Anesthesia Reaction: No - PPD History Previous Implant?: Yes Documented Results: Negative w/o proof Date: 02/13/19 Results: 0 mm. PPD to be Administered?: No - Smoking Cessation Smoking history: Current every day smoker Have you smoked in the past 12 months: Yes Aproximately how many cigarettes per day: 5 If you are a former smoker, when did you quit?: 0 Cigars Per Day: 0 Hx Chewing Tobacco Use: No Initiated information on smoking cessation: Yes 'Breaking Loose' booklet given: 09/02/19 - Substance & Tx. History Hx Alcohol Use: Yes Hx Substance Use: Yes Substance Use Type: Alcohol Hx Substance Use Treatment: Yes - Substances abused Alcohol Substance route: Oral Frequency: Daily Amount used: 1/2 pint of [place] Age of first use: 12 Date of last use: 09/01/19 Cocaine Substance route: Inhalation Frequency: 1-2 times per week Amount used: $3000 Age of first use: 21 Date of last use: 08/31/19 Admission Physical Exam BHS - Vital Signs Vital Signs: Vital Signs - 24 hr 09/02/19 11:27 Temperature 97 F L Pulse Rate 97 H Respiratory 18 Rate Blood Pressure 122/70 - Physical General Appearance: Yes: Disheveled, Mild Distress HEENTM: Yes: EOMI, Normocephalic, Normal Voice, ZO, Pharynx Normal Respiratory: Yes: Chest Non-Tender, Lungs Clear, No Respiratory Distress, No Accessory Muscle Use, Other (decreased at the bases) Neck: Yes: No masses,lesions,Nodules, Trachea in good position Breast: Yes: Breast Exam Deferred Cardiology: Yes: Regular Rhythm, Regular Rate, S1, S2 Abdominal: Yes: Normal Bowel Sounds, Non Tender, Flat, Soft Genitourinary: Yes: Within Normal Limits Back: Yes: Normal Inspection Musculoskeletal: Yes: full range of Motion, Back pain Extremities: Yes: Normal Capillary Refill, Non-Tender, Other (R hand with multiple nodules and palpable surgical plates. Noted disfigurement s/p fx and repair. 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 Bandages on L thumb.) Neurological: Yes: Fully Oriented, Alert, Motor Strength 5/5, Other (noted eye lid droop on L side of face. Mild smile asymmetry) Integumentary: Yes: Normal Color, Dry, Warm, Other (noted dryness of feet) - Diagnostic (1) Alcohol dependence with uncomplicated withdrawal Current Visit: No Status: Acute (2) Substance or medication-induced sleep disorder, insomnia type Current Visit: No Status: Acute (3) Alcohol dependence Current Visit: No Status: Chronic Qualifiers: Substance use status: uncomplicated Qualified Code(s): F10.20 - Alcohol dependence, uncomplicated (4) Asthma Current Visit: No Status: Chronic Qualifiers: Asthma severity: unspecified severity Asthma persistence: unspecified Asthma complication type: unspecified Qualified Code(s): J45.909 - Unspecified asthma, uncomplicated (5) BPH (benign prostatic hyperplasia) Current Visit: No Status: Chronic Qualifiers: Lower urinary tract symptom detail: unspecified (6) Mahoney's palsy Current Visit: No Status: Chronic (7) Bipolar disorder Current Visit: No Status: Chronic Comment: History. (8) COPD (chronic obstructive pulmonary disease) Current Visit: No Status: Chronic Qualifiers: Chronic bronchitis type: unspecified (9) Cocaine dependence Current Visit: No Status: Chronic Qualifiers: Substance use status: uncomplicated Qualified Code(s): F14.20 - Cocaine dependence, uncomplicated (10) Eczema Current Visit: No Status: Chronic Qualifiers: Eczema type: unspecified Qualified Code(s): L30.9 - Dermatitis, unspecified (11) Essential hypertension Current Visit: No Status: Chronic (12) Gastroesophageal reflux disease Current Visit: No Status: Chronic Qualifiers: Esophagitis presence: esophagitis presence not specified Qualified Code(s) : K21.9 - Gastro-esophageal reflux disease without esophagitis (13) History of scoliosis Current Visit: No Status: Chronic (14) History of total replacement of both hip joints Current Visit: No Status: Chronic (15) Hx of chronic arthritis Current Visit: No Status: Chronic (16) Nicotine dependence Current Visit: No Status: Chronic Qualifiers: Substance use status: uncomplicated (17) Substance induced mood disorder Current Visit: No Status: Suspected Cleared for Admission S - Detox or Rehab [facility] Level of Care: Medically Managed Detox Regimen/Protocol: Librium Breathalyzer - Breathalyzer Breathalyzer: 0 Urine Drug Screen - Test Device Lot number: [id number] Expiration date: 04/16/21 - Control Is test valid?: Yes - Results Drug screen NEGATIVE: No Urine drug screen results: CHIP-Cocaine Inpatient Rehab Admission - Rehab Decision to Admit Inpatient rehab admission?: No
[2019-09-02] MEDS ORDERED: MAGNESIUM HYDROX 2400MG/30ML ORAL SUSPENSION 30 ML CUP PO PRN (13:34)
[2019-09-02] MEDS ORDERED: MAG HYDROX/AL HYDROX/SIMETH 30 ML UNIT-DOSE CUP PO PRN (13:34)
[2019-09-02] MEDS ORDERED: MELATONIN 5 MG TABLETS PO PRN (13:34)
[2019-09-02] MEDS ORDERED: chlordiazePOXIDE HCL 10 MG CAPSULE PO PRN (13:34)
[2019-09-02] MEDS ORDERED: IBUPROFEN 400 MG TABLET (FP) PO PRN (13:34)
[2019-09-02] MEDS ORDERED: ACETAMINOPHEN 325 MG TABLET (FP) PO PRN ×2 (13:34)
[2019-09-02] MEDS ORDERED: BISMUTH SUBSALICYLATE 262 MG/15 ML BTL PO PRN (13:34)
[2019-09-02] MEDS ORDERED: hydrOXYzine PAMOATE 25 MG CAPSULE (FP) PO PRN (13:34)
[2019-09-02] MEDS ORDERED: MAGNESIUM CITRATE 300 ML BOTTLE PO PRN (13:34)
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
[2019-09-02] MEDS ORDERED: ALBUTEROL SO4 8 GM HFA INHALER IH PRN (15:00)
[2019-09-02] MEDS: chlordiazePOXIDE HCL 25 MG CAPSULE PO SCH ×2 (15:38→22:29)
[2019-09-02] MEDS: OXYBUTYNIN CHLORIDE 5 MG TABLET PO SCH ×2 (17:36→22:30)
[2019-09-02] MEDS ORDERED: LIDOCAINE PATCH REMOVAL MC SCH (22:00)
[2019-09-02] MEDS ORDERED: THIAMINE HCL 100 MG TABLET (FP) PO SCH (22:00)
[2019-09-02] MEDS ORDERED: ATORVASTATIN CA 80 MG TABLET (FP) PO SCH (22:00)
[2019-09-03] MEDS: chlordiazePOXIDE HCL 25 MG CAPSULE PO SCH (06:36)
[2019-09-03] MEDS: OXYBUTYNIN CHLORIDE 5 MG TABLET PO SCH (06:36)
[2019-09-03] MEDS: MENTHOL/PHENOL 1 EACH UD MM PRN ×2 (06:39→10:39)
[2019-09-03] MEDS ORDERED: TAMSULOSIN HCL 0.4 MG CAP PO SCH (08:30)
[2019-09-03 09:32] VITALS: BP 137/77; PULSE 97; TEMP 98.8
[2019-09-03] MEDS ORDERED: PRENATAL VITAMINS W/ FOLIC ACID TABLET (FP) PO SCH (10:00)
[2019-09-03] MEDS ORDERED: LIDOCAINE 5% TOPICAL PATCH TP SCH (10:00)
[2019-09-03] MEDS ORDERED: ASPIRIN 81 MG CHEWABLE TABLETS PO SCH (10:00)
[2019-09-03] MEDS ORDERED: PANTOPRAZOLE 40 MG TABLET (FP) PO SCH (10:00)
[2019-09-03] MEDS ORDERED: COLCHICINE 0.6 MG CAP PO SCH (10:00)
[2019-09-03] MEDS ORDERED: METOPROLOL TARTRATE 25 MG TABLET (FP) PO SCH (10:00)
--- NOTE | 2019-09-03 11:12 | PN ---
[facility] Progress Note Note: pt states he has arranged transportation to his own aftercare. Pt was asked why did he come to detox and walked aware. pt was approached and advised to stay and complete his detox and advised of risk of relapse, seizures, DT and or loss; pt chose to sign out AMA.
--- NOTE | 2019-09-03 11:12 | DS ---
[facility] Detox Discharge Summary Admission Date: 09/02/19 - History Present History: Alcohol Dependence, Cannabis Dependence, Cocaine Dependence - Physical Exam Results Vital Signs: Vital Signs Temperature 98.8 F 09/03/19 09:31 Pulse Rate 97 H 09/03/19 09:31 Respiratory Rate 20 09/03/19 09:31 Blood Pressure 137/77 09/03/19 09:31 O2 Sat by Pulse Oximetry (%) Pertinent Admission Physical Exam Findings: pt arrived yesterday in withdrawals Vital Signs Temperature 98.8 F 09/03/19 09:31 Pulse Rate 97 H 09/03/19 09:31 Respiratory Rate 20 09/03/19 09:31 Blood Pressure 137/77 09/03/19 09:31 O2 Sat by Pulse Oximetry (%) aaox3 ambulating no acute distress - Treatment Patient has Accepted a Rehab Referral to: pt declined - Medication Discharge Medications: Ambulatory Orders Pantoprazole Sodium [Protonix -] 40 mg PO DAILY #30 tablet.ec 06/16/18 Aspirin [ASA -] 81 mg PO DAILY 10/21/18 Tamsulosin HCl [Flomax -] 0.4 mg PO DAILY@0830 #14 cap.er.24h 02/14/19 Methocarbamol [Robaxin -] 500 mg PO PRN 03/29/19 Triamcinolone 0.5% Ointment [Aristocort 0.5% Ointment -] 1 applic TP BID Quetiapine Fumarate [Seroquel -] 200 mg PO HS #30 tablet 04/14/19 Trazodone HCl 150 mg PO HS #30 tablet 04/14/19 Albuterol Sulfate Inhaler - [Ventolin HFA Inhaler -] 2 puff IH PRN PRN 09/02/19 Atorvastatin Ca [Lipitor] 80 mg PO HS 09/02/19 Bupropion HCl [Wellbutrin Xl -] 300 mg PO DAILY 09/02/19 Colchicine [Colcrys] 0.6 mg PO DAILY 09/02/19 Metoprolol Tartrate 25 mg PO DAILY 09/02/19 Oxybutynin Chloride 5 mg PO TID 09/02/19 - Diagnosis (1) Alcohol dependence with uncomplicated withdrawal Current Visit: Yes Status: Chronic (2) Limping Current Visit: No Status: Chronic (3) Substance or medication-induced sleep disorder, insomnia type Current Visit: No Status: Acute (4) Tooth ache Current Visit: No Status: Acute (5) Asthma Current Visit: No Status: Chronic Qualifiers: Asthma severity: unspecified severity Asthma persistence: unspecified Asthma complication type: unspecified Qualified Code(s): J45.909 - Unspecified asthma, uncomplicated (6) BPH (benign prostatic hyperplasia) Current Visit: No Status: Chronic Qualifiers: Lower urinary tract symptom detail: unspecified (7) Valencia's palsy Current Visit: No Status: Chronic (8) Benign prostatic hypertrophy without outflow obstruction Current Visit: No Status: Chronic (9) Bipolar disorder Current Visit: No Status: Chronic (10) COPD (chronic obstructive pulmonary disease) Current Visit: No Status: Chronic Qualifiers: Chronic bronchitis type: unspecified (11) Cannabis dependence Current Visit: No Status: Chronic (12) Cocaine dependence Current Visit: No Status: Chronic Qualifiers: Substance use status: uncomplicated Qualified Code(s): F14.20 - Cocaine dependence, uncomplicated (13) Eczema Current Visit: No Status: Chronic Qualifiers: Eczema type: unspecified Qualified Code(s): L30.9 - Dermatitis, unspecified (14) Essential hypertension Current Visit: No Status: Chronic (15) Gastroesophageal reflux disease Current Visit: No Status: Chronic Qualifiers: Esophagitis presence: esophagitis presence not specified Qualified Code(s) : K21.9 - Gastro-esophageal reflux disease without esophagitis (16) History of bipolar disorder Current Visit: No Status: Chronic (17) History of scoliosis Current Visit: No Status: Chronic (18) History of total replacement of both hip joints Current Visit: No Status: Chronic (19) Hx of chronic arthritis Current Visit: No Status: Chronic (20) Insomnia Current Visit: No Status: Chronic Qualifiers: Insomnia type: unspecified Qualified Code(s): G47.00 - Insomnia, unspecified (21) Joint disorder, unspecified Current Visit: No Status: Chronic (22) Nicotine dependence Current Visit: No Status: Chronic Qualifiers: Substance use status: uncomplicated (23) Non-compliance Current Visit: No Status: Chronic (24) Use of cane as ambulatory aid Current Visit: No Status: Chronic (25) Walker as ambulation aid Current Visit: No Status: Chronic (26) Bipolar II disorder Current Visit: No Status: Suspected (27) Bipolar II disorder, mild, depressed, with anxious distress, in full remission Current Visit: No Status: Suspected (28) Scoliosis Current Visit: No Status: Suspected Qualifiers: Scoliosis type: unspecified scoliosis Spinal region: unspecified Qualified Code(s): M41.9 - Scoliosis, unspecified (29) Substance induced mood disorder Current Visit: No Status: Suspected (30) STEMI (ST elevation myocardial infarction) Current Visit: No Status: Resolved Qualifiers: Involved coronary artery: unspecified coronary artery Qualified Code(s): I21.3 - ST elevation (STEMI) myocardial infarction of unspecified site - AMA Did Patient Leave Against Medical Advice: Yes
[2019-09-04] MEDS ORDERED: chlordiazePOXIDE 5 MG CAPSULE PO SCH (05:00)
[2019-09-05] MEDS ORDERED: chlordiazePOXIDE HCL 10 MG CAPSULE PO PRN
[2019-09-05] MEDS ORDERED: chlordiazePOXIDE HCL 10 MG CAPSULE PO SCH (05:00)
[2019-09-06] MEDS ORDERED: chlordiazePOXIDE HCL 10 MG CAPSULE PO ONE (05:00)
== END 2019-09-03 10:50 | disposition left against medical advice (07) | DRG 770 ==
LOC: YASAS 10:36 → Y6N 13:46
PROVIDERS: ADMIT Allergy & Immunology; ATTEND Allergy & Immunology
PROC: HZ2ZZZZ Detoxification Services for Substance Abuse Treatment (ICD-10-PCS; principal; 2019-09-02)
DX: F10.230 Alcohol dependence with withdrawal, uncomplicated (principal); F14.20 Cocaine dependence, uncomplicated; F12.20 Cannabis dependence, uncomplicated; F17.210 Nicotine dependence, cigarettes, uncomplicated; F19.282 Other psychoactive substance dependence with psychoactive substance-induced sleep disorder; F19.24 Other psychoactive substance dependence with psychoactive substance-induced mood disorder; G47.00 Insomnia, unspecified; I25.10 Atherosclerotic heart disease of native coronary artery without angina pectoris; I10 Essential (primary) hypertension; Z95.5 Presence of coronary angioplasty implant and graft; I25.2 Old myocardial infarction; J44.9 Chronic obstructive pulmonary disease, unspecified; J45.998 Other asthma; G51.0 Bell's palsy; N40.1 Benign prostatic hyperplasia with lower urinary tract symptoms; N13.8 Other obstructive and reflux uropathy; K21.9 Gastro-esophageal reflux disease without esophagitis; K08.89 Other specified disorders of teeth and supporting structures; L30.9 Dermatitis, unspecified; M41.9 Scoliosis, unspecified; M10.9 Gout, unspecified; Z96.643 Presence of artificial hip joint, bilateral; Z87.39 Personal history of other diseases of the musculoskeletal system and connective tissue; Z91.018 Allergy to other foods; Z88.8 Allergy status to other drugs, medicaments and biological substances; Z91.19 Patient's noncompliance with other medical treatment and regimen

== ENCOUNTER 2021-04-02 10:08 | Inpatient (IN) | payer OTHER ==
[2021-04-02 11:12] VITALS: BMI 23.1
[2021-04-02] MEDS ORDERED: BISMUTH SUBSALICYLATE 524 MG/30 ML PO PRN (11:25)
[2021-04-02] MEDS ORDERED: ONDANSETRON *ODT* 4 MG TABLET SL PRN (11:25)
[2021-04-02] MEDS ORDERED: LORazepam 1 MG TABLET PO PRN (11:25)
[2021-04-02] MEDS ORDERED: MENTHOL/PHENOL 1 EACH UD MM PRN (11:25)
[2021-04-02] MEDS ORDERED: MAGNESIUM HYDROX 2400MG/30ML ORAL SUSPENSION 30 ML CUP PO PRN (11:25)
[2021-04-02] MEDS ORDERED: NICOTINE POLACRILEX 2 MG GUM BUC PRN (11:25)
[2021-04-02] MEDS ORDERED: IBUPROFEN 400 MG TABLET (FP) PO PRN (11:25)
[2021-04-02] MEDS ORDERED: MAGNESIUM CITRATE 300 ML BOTTLE PO PRN (11:25)
[2021-04-02] MEDS ORDERED: MAG HYDROX/AL HYDROX/SIMETH 30 ML UNIT-DOSE CUP PO PRN (11:25)
[2021-04-02] MEDS ORDERED: ACETAMINOPHEN 325 MG TABLET (FP) PO PRN ×2 (11:25)
[2021-04-02] MEDS ORDERED: NICOTINE 21 MG/24 HOURS TOPICAL PATCH TD SCH (11:30)
[2021-04-02] MEDS ORDERED: ALBUTEROL SO4 HFA INHALER IH PRN (13:11)
[2021-04-02] MEDS: ASPIRIN 81 MG CHEWABLE TABLETS PO SCH (13:53)
[2021-04-02] MEDS: METHOCARBAMOL 500 MG TABLET PO PRN (13:53)
[2021-04-02] MEDS: NICOTINE 21 MG/24 HOURS TOPICAL PATCH TD SCH (13:53)
[2021-04-02] MEDS: hydrOXYzine PAMOATE 25 MG CAPSULE (FP) PO SCH ×3 (14:01→22:11)
[2021-04-02 16:59] LABS: CALCIUM 10.8 mg/dL (8.5-10.1)
[2021-04-02 17:01] LABS: ALBUMIN 3.6 g/dl (3.4-5.0); BLOOD UREA NITROGEN 24.5 mg/dL (7-18); HEMATOCRIT 41.8 % (35.4-49); HEMOGLOBIN 14.2 GM/dL (11.7-16.9); MCH 29.7 pg (25.7-33.7); MCHC 33.9 g/dl (32.0-35.9); MEAN CELL VOLUME 87.8 fl (80-96); MEAN PLT VOLUME 11.5 fl (7.5-11.1); PLATELET COUNT 261 K/MM3 (134-434); RBC 4.76 M/mm3 (4.00-5.60); RDW 14.2 % (11.9-15.9); WHITE BLOOD COUNT 7.3 K/mm3 (4.0-10.0)
[2021-04-02 17:04] LABS: CREATININE 0.9 mg/dL (0.55-1.3); TOT PROT 6.5 g/dl (6.4-8.2)
[2021-04-02] MEDS: LORazepam 2 MG TABLET PO SCH ×2 (17:35→22:12)
[2021-04-02 17:59] LABS: HIV INTERPRETATION NEGATIVE (NEGATIVE)
[2021-04-02] MEDS: LIDOCAINE 5% TOPICAL PATCH TP SCH (20:22)
[2021-04-02] MEDS ORDERED: QUEtiapine FUMARATE 200 MG TABLET PO SCH (22:00)
[2021-04-02] MEDS: ATORVASTATIN CA 80 MG TABLET (FP) PO SCH (22:10)
[2021-04-02] MEDS: MELATONIN 5 MG TABLETS PO SCH (22:10)
[2021-04-02] MEDS: METOPROLOL TARTRATE 25 MG TABLET (FP) PO SCH (22:11)
[2021-04-02] MEDS: QUEtiapine FUMARATE 100 MG TABLET (FP) PO SCH (22:11)
[2021-04-02] MEDS: traZODone HCL 100 MG TABLET (FP) PO SCH (22:11)
[2021-04-02] MEDS: TRIAMCINOLONE ACET 0.5% OINT 15 GM TUBE TP SCH (22:11)
[2021-04-02] MEDS: THIAMINE HCL 100 MG TABLET (FP) PO SCH (22:11)
[2021-04-03] MEDS: hydrOXYzine PAMOATE 25 MG CAPSULE (FP) PO SCH (05:44)
[2021-04-03] MEDS: LORazepam 2 MG TABLET PO SCH ×4 (05:44→22:34)
[2021-04-03] MEDS: LIDOCAINE PATCH REMOVAL MC SCH (06:03)
[2021-04-03] MEDS ORDERED: hydrOXYzine PAMOATE 25 MG CAPSULE (FP) PO PRN (07:49)
[2021-04-03] MEDS: ASPIRIN 81 MG CHEWABLE TABLETS PO SCH (10:33)
[2021-04-03] MEDS: NICOTINE 21 MG/24 HOURS TOPICAL PATCH TD SCH (10:33)
[2021-04-03] MEDS: PANTOPRAZOLE 40 MG TABLET PO SCH (10:33)
[2021-04-03] MEDS: PRENATAL VITAMINS W/ FOLIC ACID TABLET (FP) PO SCH (10:33)
[2021-04-03] MEDS: TRIAMCINOLONE ACET 0.5% OINT 15 GM TUBE TP SCH ×2 (11:00→22:34)
[2021-04-03] MEDS: METOPROLOL TARTRATE 25 MG TABLET (FP) PO SCH ×2 (11:00→22:35)
[2021-04-03] MEDS: LIDOCAINE 5% TOPICAL PATCH TP SCH (19:35)
[2021-04-03] MEDS: traZODone HCL 100 MG TABLET (FP) PO SCH (22:34)
[2021-04-03] MEDS: QUEtiapine FUMARATE 100 MG TABLET (FP) PO SCH (22:34)
[2021-04-03] MEDS: ATORVASTATIN CA 80 MG TABLET (FP) PO SCH (22:34)
[2021-04-03] MEDS: THIAMINE HCL 100 MG TABLET (FP) PO SCH (22:37)
[2021-04-03] MEDS: MELATONIN 5 MG TABLETS PO SCH (22:37)
[2021-04-04] MEDS: LORazepam 1 MG TABLET PO SCH ×4 (06:12→22:25)
[2021-04-04] MEDS: LIDOCAINE PATCH REMOVAL MC SCH (06:14)
[2021-04-04] MEDS: METOPROLOL TARTRATE 25 MG TABLET (FP) PO SCH ×2 (10:12→22:54)
[2021-04-04] MEDS: NICOTINE 21 MG/24 HOURS TOPICAL PATCH TD SCH (10:12)
[2021-04-04] MEDS: ASPIRIN 81 MG CHEWABLE TABLETS PO SCH (10:12)
[2021-04-04] MEDS: PANTOPRAZOLE 40 MG TABLET PO SCH (10:12)
[2021-04-04] MEDS: TRIAMCINOLONE ACET 0.5% OINT 15 GM TUBE TP SCH ×2 (10:12→22:25)
[2021-04-04] MEDS: PRENATAL VITAMINS W/ FOLIC ACID TABLET (FP) PO SCH (10:12)
[2021-04-04] MEDS: LIDOCAINE 5% TOPICAL PATCH TP SCH (19:35)
[2021-04-04] MEDS: traZODone HCL 100 MG TABLET (FP) PO SCH (22:25)
[2021-04-04] MEDS: ATORVASTATIN CA 80 MG TABLET (FP) PO SCH (22:25)
[2021-04-04] MEDS: QUEtiapine FUMARATE 100 MG TABLET (FP) PO SCH (22:25)
[2021-04-04] MEDS: THIAMINE HCL 100 MG TABLET (FP) PO SCH (22:25)
[2021-04-04] MEDS: MELATONIN 5 MG TABLETS PO SCH (22:25)
[2021-04-05] MEDS ORDERED: LORazepam 0.5 MG TABLET PO PRN
[2021-04-05 06:07] LABS: SARS-CoV-2 NAA Not Detected (Not Detected)
[2021-04-05] MEDS: LORazepam 0.5 MG TABLET PO SCH ×4 (08:07→22:25)
[2021-04-05] MEDS: LIDOCAINE PATCH REMOVAL MC SCH (08:07)
[2021-04-05] MEDS: PRENATAL VITAMINS W/ FOLIC ACID TABLET (FP) PO SCH (10:50)
[2021-04-05] MEDS: ASPIRIN 81 MG CHEWABLE TABLETS PO SCH (10:50)
[2021-04-05] MEDS: PANTOPRAZOLE 40 MG TABLET PO SCH (10:50)
[2021-04-05] MEDS: METOPROLOL TARTRATE 25 MG TABLET (FP) PO SCH ×2 (10:52→22:27)
[2021-04-05] MEDS: TRIAMCINOLONE ACET 0.5% OINT 15 GM TUBE TP SCH ×2 (10:53→22:27)
[2021-04-05] MEDS: NICOTINE 21 MG/24 HOURS TOPICAL PATCH TD SCH (10:53)
[2021-04-05] MEDS: LIDOCAINE 5% TOPICAL PATCH TP SCH (19:02)
[2021-04-05] MEDS: traZODone HCL 100 MG TABLET (FP) PO SCH (22:25)
[2021-04-05] MEDS: MELATONIN 5 MG TABLETS PO SCH (22:25)
[2021-04-05] MEDS: THIAMINE HCL 100 MG TABLET (FP) PO SCH (22:25)
[2021-04-05] MEDS: ATORVASTATIN CA 80 MG TABLET (FP) PO SCH (22:25)
[2021-04-05] MEDS: QUEtiapine FUMARATE 100 MG TABLET (FP) PO SCH (22:25)
[2021-04-05] MEDS: METHOCARBAMOL 500 MG TABLET PO PRN (22:25)
[2021-04-06] MEDS ORDERED: LORazepam 0.5 MG TABLET PO ONE (05:00)
[2021-04-06] MEDS: LIDOCAINE PATCH REMOVAL MC SCH (06:07)
[2021-04-06 09:25] VITALS: BP 118/68; PULSE 80; TEMP 96.8
== END 2021-04-06 09:20 | disposition home or self-care (01) | DRG 774 ==
LOC: YASAS 10:08 → Y3N 12:43
PROVIDERS: ADMIT Allergy & Immunology; ATTEND Allergy & Immunology
PROC: HZ2ZZZZ Detoxification Services for Substance Abuse Treatment (ICD-10-PCS; principal; 2021-04-02)
DX: F10.230 Alcohol dependence with withdrawal, uncomplicated (principal); F14.20 Cocaine dependence, uncomplicated; F12.20 Cannabis dependence, uncomplicated; F17.210 Nicotine dependence, cigarettes, uncomplicated; F19.282 Other psychoactive substance dependence with psychoactive substance-induced sleep disorder; F19.24 Other psychoactive substance dependence with psychoactive substance-induced mood disorder; F31.81 Bipolar II disorder; I10 Essential (primary) hypertension; I25.2 Old myocardial infarction; K21.9 Gastro-esophageal reflux disease without esophagitis; J44.9 Chronic obstructive pulmonary disease, unspecified; M41.9 Scoliosis, unspecified; N40.0 Benign prostatic hyperplasia without lower urinary tract symptoms; Z96.643 Presence of artificial hip joint, bilateral; R26.89 Other abnormalities of gait and mobility; Z99.89 Dependence on other enabling machines and devices; Z91.19 Patient's noncompliance with other medical treatment and regimen
CPT/HCPCS: 36415; 80053; 85027; 86780; 87389; C9803; U0003; U0005

== ENCOUNTER 2023-02-25 13:59 | Inpatient (IN) | payer OTHER ==
[2023-02-25 15:10] VITALS: BMI 23.4
[2023-02-25] MEDS ORDERED: NICOTINE 7 MG/24 HOURS TOPICAL PATCH TD PRN (15:38)
[2023-02-25] MEDS ORDERED: NICOTINE POLACRILEX 2 MG GUM BUC PRN (15:38)
[2023-02-25] MEDS ORDERED: POLYETHYLENE GLYCOL (HEALTHYLAX) 3350 17 GM PACKET PO PRN (15:38)
[2023-02-25] MEDS ORDERED: diazePAM 5 MG TABLET PO PRN (15:38)
[2023-02-25] MEDS ORDERED: IBUPROFEN 600 MG TABLET (FP) PO PRN (15:38)
[2023-02-25] MEDS ORDERED: MAG HYDROX/AL HYDROX/SIMETH 30 ML UNIT-DOSE CUP PO PRN (15:38)
[2023-02-25] MEDS ORDERED: NICOTINE 10 MG CARTRIDGE (INHALER) IH PRN (15:38)
[2023-02-25] MEDS ORDERED: MAGNESIUM HYDROX 2400MG/30ML ORAL SUSPENSION 30 ML CUP PO PRN (15:38)
[2023-02-25] MEDS ORDERED: METHOCARBAMOL 500 MG TABLET PO PRN (15:38)
[2023-02-25] MEDS ORDERED: BISMUTH SUBSALICYLATE 524 MG/30 ML PO PRN (15:38)
[2023-02-25] MEDS ORDERED: ONDANSETRON *ODT* 4 MG TABLET SL PRN (15:38)
[2023-02-25] MEDS ORDERED: LOPERAMIDE HCL 2 MG CAPSULE PO PRN (15:38)
[2023-02-25] MEDS ORDERED: IBUPROFEN 400 MG TABLET (FP) PO PRN (15:38)
[2023-02-25] MEDS ORDERED: hydrOXYzine PAMOATE 25 MG CAPSULE (FP) PO PRN (15:38)
[2023-02-25] MEDS ORDERED: BENZOCAINE/MENTHOL (CHLORASEPTIC ) LOZENGE MM PRN (15:38)
[2023-02-25] MEDS ORDERED: ACETAMINOPHEN 325 MG TABLET (FP) PO PRN (15:38)
[2023-02-25] MEDS ORDERED: guaiFENesin 600 MG TABLET.ER (FP) PO PRN (15:38)
[2023-02-25] MEDS ORDERED: BENZONATATE 200 MG CAPSULE PO PRN (15:38)
[2023-02-25] MEDS ORDERED: ALBUTEROL SO4 HFA INHALER IH PRN (15:44)
[2023-02-25] MEDS ORDERED: diazePAM 5 MG TABLET ONE (17:06)
[2023-02-25] MEDS: diazePAM 5 MG TABLET PO SCH ×2 (17:09→22:12)
[2023-02-25] MEDS ORDERED: TRIAMCINOLONE ACET 0.5% OINT 15 GM TUBE TP SCH (22:00)
[2023-02-25] MEDS: GABAPENTIN 300 MG CAPSULE PO SCH (22:12)
[2023-02-25] MEDS: THIAMINE HCL 100 MG TABLET (FP) PO SCH (22:13)
[2023-02-25] MEDS: FAMOTIDINE 20 MG TABLET PO SCH (22:13)
[2023-02-25] MEDS: TRIAMCINOLONE ACET 0.5% OINT 15 GM TUBE TP SCH (22:13)
[2023-02-25] MEDS: MELATONIN 5 MG TABLETS PO SCH (22:13)
[2023-02-25] MEDS: METOPROLOL TARTRATE 25 MG TABLET (FP) PO SCH (22:13)
[2023-02-26] MEDS: diazePAM 5 MG TABLET PO SCH ×4 (05:17→22:20)
[2023-02-26] MEDS: GABAPENTIN 300 MG CAPSULE PO SCH ×3 (05:17→22:20)
[2023-02-26] MEDS: METOPROLOL TARTRATE 25 MG TABLET (FP) PO SCH ×2 (10:09→22:20)
[2023-02-26] MEDS: FAMOTIDINE 20 MG TABLET PO SCH ×2 (10:09→22:20)
[2023-02-26] MEDS: PRENATAL VITAMINS W/ FOLIC ACID TABLET (FP) PO SCH (10:09)
[2023-02-26] MEDS: TRIAMCINOLONE ACET 0.5% OINT 15 GM TUBE TP SCH ×2 (10:09→22:20)
[2023-02-26] MEDS: CLOPIDOGREL BISULFATE 75 MG TABLET (FP) PO SCH (10:11)
[2023-02-26] MEDS: ASPIRIN 81 MG CHEWABLE TABLETS PO SCH (10:11)
[2023-02-26] MEDS ORDERED: COLLOIDAL OATMEAL 1 BAR EACH TP PRN (10:55)
[2023-02-26 11:47] LABS: HEMATOCRIT 37.9 % (35.4-49); HEMOGLOBIN 13.4 GM/dL (11.7-16.9); MCH 29.7 pg (25.7-33.7); MCHC 35.3 g/dl (32.0-35.9); MEAN CELL VOLUME 83.9 fl (80-96); MEAN PLT VOLUME 11.2 fl (7.5-11.1); PLATELET COUNT 217 10^3/uL (134-434); RBC 4.51 M/mm3 (4.00-5.60); RDW 14.6 % (11.9-15.9)
[2023-02-26 12:04] LABS: BLOOD UREA NITROGEN 18.2 mg/dL (7-18)
[2023-02-26 12:05] LABS: CALCIUM 9.9 mg/dL (8.5-10.1)
[2023-02-26 12:06] LABS: ALBUMIN 2.9 g/dl (3.4-5.0); BILIRUBIN,TOTAL 0.7 mg/dL (0.2-1)
[2023-02-26 12:08] LABS: CREATININE 0.9 mg/dL (0.55-1.3); TOT PROT 5.7 g/dl (6.4-8.2)
[2023-02-26] MEDS: LIDOCAINE 5% TOPICAL PATCH TP SCH (13:16)
[2023-02-26] MEDS ORDERED: ATORVASTATIN CA 40 MG TABLET (FP) PO SCH (22:00)
[2023-02-26] MEDS ORDERED: ATORVASTATIN CA 10 MG TABLET (FP) PO SCH (22:00)
[2023-02-26] MEDS: MELATONIN 5 MG TABLETS PO SCH (22:20)
[2023-02-26] MEDS: ATORVASTATIN CA 80 MG TABLET (FP) PO SCH (22:20)
[2023-02-26] MEDS: traZODone HCL 50 MG TABLET (FP) PO SCH (22:20)
[2023-02-26] MEDS: THIAMINE HCL 100 MG TABLET (FP) PO SCH (22:20)
[2023-02-26] MEDS: LIDOCAINE PATCH REMOVAL MC SCH (22:23)
[2023-02-27] MEDS: GABAPENTIN 300 MG CAPSULE PO SCH ×3 (06:06→23:14)
[2023-02-27] MEDS: diazePAM 5 MG TABLET PO SCH ×3 (06:06→23:14)
[2023-02-27] MEDS ORDERED: PANTOPRAZOLE 40 MG TABLET PO SCH (10:00)
[2023-02-27] MEDS: PRENATAL VITAMINS W/ FOLIC ACID TABLET (FP) PO SCH (10:49)
[2023-02-27] MEDS: CLOPIDOGREL BISULFATE 75 MG TABLET (FP) PO SCH (10:50)
[2023-02-27] MEDS: ASPIRIN 81 MG CHEWABLE TABLETS PO SCH (10:50)
[2023-02-27] MEDS: FAMOTIDINE 20 MG TABLET PO SCH ×2 (10:50→23:14)
[2023-02-27] MEDS: METOPROLOL TARTRATE 25 MG TABLET (FP) PO SCH ×2 (10:50→23:13)
[2023-02-27] MEDS: TRIAMCINOLONE ACET 0.5% OINT 15 GM TUBE TP SCH ×2 (11:05→23:12)
[2023-02-27] MEDS: LIDOCAINE 5% TOPICAL PATCH TP SCH (11:05)
[2023-02-27 15:02] VITALS: BP 136/87; PULSE 72; RESP 18; TEMP 97.8
[2023-02-27] MEDS: LIDOCAINE PATCH REMOVAL MC SCH (23:13)
[2023-02-27] MEDS: traZODone HCL 50 MG TABLET (FP) PO SCH (23:13)
[2023-02-27] MEDS: MELATONIN 5 MG TABLETS PO SCH (23:13)
[2023-02-27] MEDS: ATORVASTATIN CA 80 MG TABLET (FP) PO SCH (23:13)
[2023-02-27] MEDS: THIAMINE HCL 100 MG TABLET (FP) PO SCH (23:14)
[2023-02-28] MEDS ORDERED: diazePAM 5 MG TABLET PO SCH (06:00)
[2023-03-01] MEDS ORDERED: diazePAM 5 MG TABLET PO ONE (06:00)
== END 2023-02-27 23:42 | disposition short-term general hospital (02) | DRG 774 ==
LOC: YASAS 13:59 → Y3N 17:14
PROVIDERS: ADMIT Allergy & Immunology; ATTEND Surgery
PROC: HZ2ZZZZ Detoxification Services for Substance Abuse Treatment (ICD-10-PCS; principal; 2023-02-25)
DX: F10.230 Alcohol dependence with withdrawal, uncomplicated (principal); F14.20 Cocaine dependence, uncomplicated; F17.210 Nicotine dependence, cigarettes, uncomplicated; F31.9 Bipolar disorder, unspecified; G45.9 Transient cerebral ischemic attack, unspecified; I10 Essential (primary) hypertension; I25.2 Old myocardial infarction; J45.20 Mild intermittent asthma, uncomplicated; J44.9 Chronic obstructive pulmonary disease, unspecified; K21.9 Gastro-esophageal reflux disease without esophagitis; L30.9 Dermatitis, unspecified; M41.9 Scoliosis, unspecified; R20.0 Anesthesia of skin; E78.5 Hyperlipidemia, unspecified; Z86.69 Personal history of other diseases of the nervous system and sense organs; Z96.643 Presence of artificial hip joint, bilateral; Z98.890 Other specified postprocedural states; Z88.8 Allergy status to other drugs, medicaments and biological substances
CPT/HCPCS: 36415; 80053; 80061; 83036; 85027; 86780; C9803-CS; U0003; U0005

== ENCOUNTER 2023-02-27 14:46 | Observation (INO) | payer OTHER ==
[2023-02-27 16:38] LABS: BASO % 0.6 % (0-2.0); HEMATOCRIT 36.7 % (35.4-49); HEMOGLOBIN 12.6 GM/dL (11.7-16.9); LYMPH % 29.3 % (8-40); MCH 28.8 pg (25.7-33.7); MCHC 34.4 g/dl (32.0-35.9); MEAN CELL VOLUME 83.8 fl (80-96); MEAN PLT VOLUME 9.4 fl (7.5-11.1); MONO % 11.9 % (3.8-10.2); NEUT % 58.2 % (42.8-82.8); PLATELET COUNT 212 10^3/uL (134-434); RBC 4.37 M/mm3 (4.00-5.60); RDW 14.6 % (11.9-15.9); WHITE BLOOD COUNT 6.1 K/mm3 (4.0-10.0)
[2023-02-27 16:55] LABS: CALCIUM 10.9 mg/dL (8.5-10.1); INR 0.85 (0.83-1.09); MAGNESIUM 2.4 mg/dL (1.8-2.4); PROTHROMBIN TIME (PATIENT) 9.9 SEC (9.7-13.0)
[2023-02-27 16:56] LABS: BLOOD UREA NITROGEN 19.4 mg/dL (7-18)
[2023-02-27 16:57] LABS: ACTIVATED PTT 28.7 SECONDS (25.2-36.5)
[2023-02-27 16:58] LABS: CREATININE 0.8 mg/dL (0.55-1.3)
[2023-02-27 17:00] LABS: PHOSPHOROUS 2.8 mg/dL (2.5-4.9); TOT PROT 5.9 g/dl (6.4-8.2)
[2023-02-27 17:02] LABS: BILIRUBIN,TOTAL 0.3 mg/dL (0.2-1)
[2023-02-27] MEDS ORDERED: ASPIRIN 81 MG CHEWABLE TABLETS ONE (21:19)
[2023-02-27] MEDS: ASPIRIN 81 MG CHEWABLE TABLETS PO SCH (21:24)
[2023-02-27] MEDS ORDERED: ROSUVASTATIN CA 20 MG TABLET PO SCH (22:00)
[2023-02-27] MEDS: ENOXAPARIN NA (PORCINE) 40 MG/0.4 ML DISP.SYRIN SQ SCH (22:45)
[2023-02-27] MEDS: METOPROLOL TARTRATE 25 MG TABLET (FP) PO SCH (22:45)
[2023-02-27] MEDS: EZETIMIBE 10 MG TABLET (FP) PO SCH (22:45)
[2023-02-27] MEDS ORDERED: chlordiazePOXIDE HCL 25 MG CAPSULE PO SCH (23:00)
[2023-02-27] MEDS ORDERED: traZODone HCL 50 MG TABLET (FP) PO SCH (23:32)
[2023-02-28 02:23] VITALS: RESP 20; BMI 24.9
[2023-02-28] MEDS ORDERED: chlordiazePOXIDE HCL 25 MG CAPSULE PO SCH (05:00)
[2023-02-28 07:38] LABS: HEMATOCRIT 38.3 % (35.4-49); HEMOGLOBIN 13.3 GM/dL (11.7-16.9); MCH 29.4 pg (25.7-33.7); MCHC 34.8 g/dl (32.0-35.9); MEAN CELL VOLUME 84.5 fl (80-96); PLATELET COUNT 216 10^3/uL (134-434); RBC 4.53 M/mm3 (4.00-5.60); RDW 14.6 % (11.9-15.9); WHITE BLOOD COUNT 6.3 K/mm3 (4.0-10.0)
[2023-02-28 08:01] LABS: ALBUMIN 3.1 g/dl (3.4-5.0); BLOOD UREA NITROGEN 17.6 mg/dL (7-18); CALCIUM 9.6 mg/dL (8.5-10.1); MAGNESIUM 2.2 mg/dL (1.8-2.4)
[2023-02-28 08:04] LABS: CREATININE 0.8 mg/dL (0.55-1.3); PHOSPHOROUS 3.1 mg/dL (2.5-4.9)
[2023-02-28 08:06] LABS: BILIRUBIN,TOTAL 0.5 mg/dL (0.2-1)
[2023-02-28] MEDS: EZETIMIBE 10 MG TABLET (FP) PO SCH (09:24)
[2023-02-28] MEDS: METOPROLOL TARTRATE 25 MG TABLET (FP) PO SCH (09:28)
[2023-02-28] MEDS: ASPIRIN 81 MG CHEWABLE TABLETS PO SCH (09:30)
[2023-02-28] MEDS: ENOXAPARIN NA (PORCINE) 40 MG/0.4 ML DISP.SYRIN SQ SCH (09:32)
[2023-02-28] MEDS ORDERED: diazePAM 5 MG TABLET PO SCH (10:00)
[2023-02-28 13:53] VITALS: BP 117/86; PULSE 85; TEMP 98.2
[2023-02-28] MEDS ORDERED: traZODone HCL 50 MG TABLET (FP) PO SCH (22:00)
[2023-03-01] MEDS ORDERED: chlordiazePOXIDE HCL 10 MG CAPSULE PO SCH (05:00)
[2023-03-01] MEDS ORDERED: chlordiazePOXIDE HCL 25 MG CAPSULE PO SCH (05:00)
[2023-03-01] MEDS ORDERED: diazePAM 5 MG TABLET PO ONE (07:56)
[2023-03-02] MEDS ORDERED: chlordiazePOXIDE HCL 10 MG CAPSULE PO SCH ×2 (05:00)
[2023-03-03] MEDS ORDERED: chlordiazePOXIDE HCL 10 MG CAPSULE PO SCH (05:00)
[2023-03-03] MEDS ORDERED: chlordiazePOXIDE HCL 10 MG CAPSULE PO ONE (05:00)
[2023-03-04] MEDS ORDERED: chlordiazePOXIDE HCL 10 MG CAPSULE PO ONE (05:00)
== END 2023-02-28 16:44 | disposition other institution (70) ==
LOC: JER 14:46 → UNDOADMOB 18:17 → JERBED 18:17 → OBSVTOIN 21:27 → INTOOBSV 21:27 → JERBED 22:03 → J4W 22:03 → JERBED 02-28 09:15
PROVIDERS: ADMIT Internal Medicine; ATTEND Internal Medicine
DX: R20.2 Paresthesia of skin (principal); F14.20 Cocaine dependence, uncomplicated; F19.10 Other psychoactive substance abuse, uncomplicated; E78.00 Pure hypercholesterolemia, unspecified; G51.0 Bell's palsy; I25.2 Old myocardial infarction; Z95.5 Presence of coronary angioplasty implant and graft; F10.20 Alcohol dependence, uncomplicated; M62.81 Muscle weakness (generalized); F17.210 Nicotine dependence, cigarettes, uncomplicated; Z96.642 Presence of left artificial hip joint; Z88.8 Allergy status to other drugs, medicaments and biological substances; Z91.018 Allergy to other foods; Z91.013 Allergy to seafood
CPT/HCPCS: 36415; 70450-TC; 70551-TC; 71045-TC-FY; 76705-TC; 80053; 80061; 82306; 82310; 82550; 82607; 82746; 82962; 83036; 83735; 83970; 84100; 84439; 84443; 84484; 85025; 85027; 85610; 85730; 86850; 86900; 86901; 93005; 93010; 93306-TC; 93880-TC; 97116-GP; 97161-GP; 99285-25; G0378

== ENCOUNTER 2023-03-03 12:15 | Inpatient (IN) | payer OTHER ==
[2023-03-03 13:28] VITALS: BMI 24.3
[2023-03-03] MEDS ORDERED: NICOTINE 10 MG CARTRIDGE (INHALER) IH PRN (17:54)
[2023-03-03] MEDS ORDERED: MAG HYDROX/AL HYDROX/SIMETH 30 ML UNIT-DOSE CUP PO PRN (17:54)
[2023-03-03] MEDS ORDERED: LOPERAMIDE HCL 2 MG CAPSULE PO PRN (17:54)
[2023-03-03] MEDS ORDERED: NALOXONE HCL (KLOXXADO) 8 MG SPRAY NS PRN (17:54)
[2023-03-03] MEDS ORDERED: hydrOXYzine PAMOATE 25 MG CAPSULE (FP) PO PRN (17:54)
[2023-03-03] MEDS ORDERED: IBUPROFEN 400 MG TABLET (FP) PO PRN (17:54)
[2023-03-03] MEDS ORDERED: guaiFENesin 600 MG TABLET.ER (FP) PO PRN (17:54)
[2023-03-03] MEDS ORDERED: ACETAMINOPHEN 325 MG TABLET (FP) PO PRN (17:54)
[2023-03-03] MEDS ORDERED: MAGNESIUM HYDROX 2400MG/30ML ORAL SUSPENSION 30 ML CUP PO PRN (17:54)
[2023-03-03] MEDS ORDERED: BENZOCAINE/MENTHOL (CHLORASEPTIC ) LOZENGE MM PRN (17:54)
[2023-03-03] MEDS ORDERED: NALOXONE HCL 0.4 MG/ML VIAL IM PRN (17:54)
[2023-03-03] MEDS ORDERED: POLYETHYLENE GLYCOL (HEALTHYLAX) 3350 17 GM PACKET PO PRN (17:54)
[2023-03-03] MEDS ORDERED: BENZONATATE 200 MG CAPSULE PO PRN (17:54)
[2023-03-03] MEDS ORDERED: IBUPROFEN 600 MG TABLET (FP) PO PRN (17:54)
[2023-03-03] MEDS ORDERED: ALBUTEROL SO4 HFA INHALER IH PRN (18:07)
[2023-03-03] MEDS: PRENATAL VITAMINS W/ FOLIC ACID TABLET (FP) PO SCH (19:11)
[2023-03-03] MEDS: THIAMINE HCL 100 MG TABLET (FP) PO SCH (21:24)
[2023-03-03] MEDS: LIDOCAINE PATCH REMOVAL MC SCH (21:24)
[2023-03-03] MEDS: METOPROLOL TARTRATE 25 MG TABLET (FP) PO SCH (21:25)
[2023-03-03] MEDS ORDERED: MELATONIN 5 MG TABLETS PO SCH (22:00)
[2023-03-04] MEDS: METOPROLOL TARTRATE 25 MG TABLET (FP) PO SCH ×2 (09:59→21:46)
[2023-03-04] MEDS: TRIAMCINOLONE ACET 0.5% OINT 15 GM TUBE TP SCH (09:59)
[2023-03-04] MEDS ORDERED: ROSUVASTATIN CA 40 MG TABLET PO SCH (10:00)
[2023-03-04] MEDS: LIDOCAINE 5% TOPICAL PATCH TP SCH (10:01)
[2023-03-04] MEDS: ROSUVASTATIN CA 20 MG TABLET PO SCH (10:01)
[2023-03-04] MEDS: PRENATAL VITAMINS W/ FOLIC ACID TABLET (FP) PO SCH (10:01)
[2023-03-04] MEDS: ASPIRIN 81 MG CHEWABLE TABLETS PO SCH (10:01)
[2023-03-04] MEDS: CLOPIDOGREL BISULFATE 75 MG TABLET (FP) PO SCH (10:01)
[2023-03-04] MEDS: COLLOIDAL OATMEAL 1 BAR EACH TP PRN (10:07)
[2023-03-04] MEDS: EZETIMIBE 10 MG TABLET (FP) PO SCH (10:50)
[2023-03-04 11:21] LABS: HEMATOCRIT 38.8 % (35.4-49); HEMOGLOBIN 13.6 GM/dL (11.7-16.9); MCH 29.2 pg (25.7-33.7); MCHC 35.1 g/dl (32.0-35.9); MEAN CELL VOLUME 83.1 fl (80-96); MEAN PLT VOLUME 10.5 fl (7.5-11.1); PLATELET COUNT 219 10^3/uL (134-434); RBC 4.67 M/mm3 (4.00-5.60); RDW 14.9 % (11.9-15.9); WHITE BLOOD COUNT 6.1 K/mm3 (4.0-10.0)
[2023-03-04 11:28] LABS: ALBUMIN 3.4 g/dl (3.4-5.0); BLOOD UREA NITROGEN 24.2 mg/dL (7-18); CALCIUM 10.2 mg/dL (8.5-10.1)
[2023-03-04 11:31] LABS: CREATININE 0.8 mg/dL (0.55-1.3)
[2023-03-04 11:33] LABS: BILIRUBIN,TOTAL 0.7 mg/dL (0.2-1); TOT PROT 6.3 g/dl (6.4-8.2)
[2023-03-04 11:53] LABS: SYPHILIS W/ RPR CONF NON-REACTIVE (NONREACTIVE)
[2023-03-04] MEDS: LIDOCAINE PATCH REMOVAL MC SCH (21:46)
[2023-03-04] MEDS: THIAMINE HCL 100 MG TABLET (FP) PO SCH (21:46)
[2023-03-04] MEDS: traZODone HCL 100 MG TABLET (FP) PO SCH (21:48)
[2023-03-05] MEDS: COLLOIDAL OATMEAL 1 BAR EACH TP PRN (06:15)
[2023-03-05] MEDS: TRIAMCINOLONE ACET 0.5% OINT 15 GM TUBE TP SCH (09:31)
[2023-03-05] MEDS: ASPIRIN 81 MG CHEWABLE TABLETS PO SCH (09:32)
[2023-03-05] MEDS: ROSUVASTATIN CA 20 MG TABLET PO SCH (09:32)
[2023-03-05] MEDS: LIDOCAINE 5% TOPICAL PATCH TP SCH (09:33)
[2023-03-05] MEDS: EZETIMIBE 10 MG TABLET (FP) PO SCH (09:34)
[2023-03-05] MEDS: METOPROLOL TARTRATE 25 MG TABLET (FP) PO SCH ×2 (09:34→21:51)
[2023-03-05] MEDS: PRENATAL VITAMINS W/ FOLIC ACID TABLET (FP) PO SCH (09:34)
[2023-03-05] MEDS: CLOPIDOGREL BISULFATE 75 MG TABLET (FP) PO SCH (09:34)
[2023-03-05] MEDS: GABAPENTIN 300 MG CAPSULE PO SCH ×2 (14:48→21:51)
[2023-03-05] MEDS: LIDOCAINE PATCH REMOVAL MC SCH (21:50)
[2023-03-05] MEDS: THIAMINE HCL 100 MG TABLET (FP) PO SCH (21:51)
[2023-03-05] MEDS: traZODone HCL 100 MG TABLET (FP) PO SCH (21:51)
[2023-03-06] MEDS: GABAPENTIN 300 MG CAPSULE PO SCH ×3 (07:11→21:11)
[2023-03-06] MEDS: ASPIRIN 81 MG CHEWABLE TABLETS PO SCH (09:05)
[2023-03-06] MEDS: TRIAMCINOLONE ACET 0.5% OINT 15 GM TUBE TP SCH (09:05)
[2023-03-06] MEDS: LIDOCAINE 5% TOPICAL PATCH TP SCH (09:06)
[2023-03-06] MEDS: PRENATAL VITAMINS W/ FOLIC ACID TABLET (FP) PO SCH (09:06)
[2023-03-06] MEDS: EZETIMIBE 10 MG TABLET (FP) PO SCH (09:06)
[2023-03-06] MEDS: METOPROLOL TARTRATE 25 MG TABLET (FP) PO SCH ×2 (09:06→21:11)
[2023-03-06] MEDS: CLOPIDOGREL BISULFATE 75 MG TABLET (FP) PO SCH (09:06)
[2023-03-06] MEDS: ROSUVASTATIN CA 20 MG TABLET PO SCH (09:06)
[2023-03-06] MEDS: THIAMINE HCL 100 MG TABLET (FP) PO SCH (21:11)
[2023-03-06] MEDS: traZODone HCL 100 MG TABLET (FP) PO SCH (21:11)
[2023-03-06] MEDS: LIDOCAINE PATCH REMOVAL MC SCH (21:12)
[2023-03-07] MEDS: GABAPENTIN 300 MG CAPSULE PO SCH ×3 (06:13→21:35)
[2023-03-07] MEDS: ROSUVASTATIN CA 20 MG TABLET PO SCH (09:53)
[2023-03-07] MEDS: PRENATAL VITAMINS W/ FOLIC ACID TABLET (FP) PO SCH (09:53)
[2023-03-07] MEDS: CLOPIDOGREL BISULFATE 75 MG TABLET (FP) PO SCH (09:53)
[2023-03-07] MEDS: EZETIMIBE 10 MG TABLET (FP) PO SCH (09:53)
[2023-03-07] MEDS: METOPROLOL TARTRATE 25 MG TABLET (FP) PO SCH ×2 (09:53→21:35)
[2023-03-07] MEDS: ASPIRIN 81 MG CHEWABLE TABLETS PO SCH (09:53)
[2023-03-07] MEDS: LIDOCAINE 5% TOPICAL PATCH TP SCH (09:54)
[2023-03-07] MEDS: TRIAMCINOLONE ACET 0.5% OINT 15 GM TUBE TP SCH (09:55)
[2023-03-07] MEDS: LIDOCAINE PATCH REMOVAL MC SCH (21:35)
[2023-03-07] MEDS: THIAMINE HCL 100 MG TABLET (FP) PO SCH (21:35)
[2023-03-07] MEDS: traZODone HCL 100 MG TABLET (FP) PO SCH (21:35)
[2023-03-08] MEDS: GABAPENTIN 300 MG CAPSULE PO SCH ×3 (06:29→21:54)
[2023-03-08] MEDS: ROSUVASTATIN CA 20 MG TABLET PO SCH (09:46)
[2023-03-08] MEDS: METOPROLOL TARTRATE 25 MG TABLET (FP) PO SCH ×2 (09:46→21:53)
[2023-03-08] MEDS: EZETIMIBE 10 MG TABLET (FP) PO SCH (09:47)
[2023-03-08] MEDS: LIDOCAINE 5% TOPICAL PATCH TP SCH (09:47)
[2023-03-08] MEDS: PRENATAL VITAMINS W/ FOLIC ACID TABLET (FP) PO SCH (09:47)
[2023-03-08] MEDS: CLOPIDOGREL BISULFATE 75 MG TABLET (FP) PO SCH (09:47)
[2023-03-08] MEDS: ASPIRIN 81 MG CHEWABLE TABLETS PO SCH (09:47)
[2023-03-08] MEDS: TRIAMCINOLONE ACET 0.5% OINT 15 GM TUBE TP SCH (09:48)
[2023-03-08] MEDS: traZODone HCL 100 MG TABLET (FP) PO SCH (21:53)
[2023-03-08] MEDS: THIAMINE HCL 100 MG TABLET (FP) PO SCH (21:53)
[2023-03-08] MEDS: LIDOCAINE PATCH REMOVAL MC SCH (21:54)
[2023-03-09] MEDS: GABAPENTIN 300 MG CAPSULE PO SCH ×3 (07:11→21:48)
[2023-03-09] MEDS: EZETIMIBE 10 MG TABLET (FP) PO SCH (09:19)
[2023-03-09] MEDS: ROSUVASTATIN CA 20 MG TABLET PO SCH (09:20)
[2023-03-09] MEDS: METOPROLOL TARTRATE 25 MG TABLET (FP) PO SCH ×2 (09:21→21:48)
[2023-03-09] MEDS: CLOPIDOGREL BISULFATE 75 MG TABLET (FP) PO SCH (09:21)
[2023-03-09] MEDS: ASPIRIN 81 MG CHEWABLE TABLETS PO SCH (09:21)
[2023-03-09] MEDS: TRIAMCINOLONE ACET 0.5% OINT 15 GM TUBE TP SCH (09:22)
[2023-03-09] MEDS: LIDOCAINE 5% TOPICAL PATCH TP SCH (09:22)
[2023-03-09] MEDS: PRENATAL VITAMINS W/ FOLIC ACID TABLET (FP) PO SCH (09:22)
[2023-03-09] MEDS: traZODone HCL 100 MG TABLET (FP) PO SCH (21:48)
[2023-03-09] MEDS: THIAMINE HCL 100 MG TABLET (FP) PO SCH (21:48)
[2023-03-09] MEDS: LIDOCAINE PATCH REMOVAL MC SCH (21:48)
[2023-03-10] MEDS: GABAPENTIN 300 MG CAPSULE PO SCH ×3 (06:10→21:27)
[2023-03-10] MEDS: PRENATAL VITAMINS W/ FOLIC ACID TABLET (FP) PO SCH (10:21)
[2023-03-10] MEDS: ROSUVASTATIN CA 20 MG TABLET PO SCH (10:22)
[2023-03-10] MEDS: METOPROLOL TARTRATE 25 MG TABLET (FP) PO SCH ×2 (10:22→21:27)
[2023-03-10] MEDS: LIDOCAINE 5% TOPICAL PATCH TP SCH (10:22)
[2023-03-10] MEDS: EZETIMIBE 10 MG TABLET (FP) PO SCH (10:22)
[2023-03-10] MEDS: CLOPIDOGREL BISULFATE 75 MG TABLET (FP) PO SCH (10:22)
[2023-03-10] MEDS: ASPIRIN 81 MG CHEWABLE TABLETS PO SCH (10:22)
[2023-03-10] MEDS: TRIAMCINOLONE ACET 0.5% OINT 15 GM TUBE TP SCH (10:23)
[2023-03-10] MEDS: THIAMINE HCL 100 MG TABLET (FP) PO SCH (21:27)
[2023-03-10] MEDS: traZODone HCL 100 MG TABLET (FP) PO SCH (21:27)
[2023-03-10] MEDS: LIDOCAINE PATCH REMOVAL MC SCH (21:27)
[2023-03-11] MEDS: GABAPENTIN 300 MG CAPSULE PO SCH ×3 (06:28→21:31)
[2023-03-11] MEDS: TRIAMCINOLONE ACET 0.5% OINT 15 GM TUBE TP SCH (09:39)
[2023-03-11] MEDS: ROSUVASTATIN CA 20 MG TABLET PO SCH (09:39)
[2023-03-11] MEDS: ASPIRIN 81 MG CHEWABLE TABLETS PO SCH (09:39)
[2023-03-11] MEDS: METOPROLOL TARTRATE 25 MG TABLET (FP) PO SCH ×2 (09:40→21:31)
[2023-03-11] MEDS: LIDOCAINE 5% TOPICAL PATCH TP SCH (09:40)
[2023-03-11] MEDS: CLOPIDOGREL BISULFATE 75 MG TABLET (FP) PO SCH (09:40)
[2023-03-11] MEDS: PRENATAL VITAMINS W/ FOLIC ACID TABLET (FP) PO SCH (09:41)
[2023-03-11] MEDS: EZETIMIBE 10 MG TABLET (FP) PO SCH (09:41)
[2023-03-11] MEDS: traZODone HCL 100 MG TABLET (FP) PO SCH (21:31)
[2023-03-11] MEDS: LIDOCAINE PATCH REMOVAL MC SCH (21:31)
[2023-03-11] MEDS: THIAMINE HCL 100 MG TABLET (FP) PO SCH (21:31)
[2023-03-11] MEDS: COLLOIDAL OATMEAL 1 BAR EACH TP PRN (21:32)
[2023-03-12] MEDS: GABAPENTIN 300 MG CAPSULE PO SCH ×3 (06:33→21:49)
[2023-03-12] MEDS: TRIAMCINOLONE ACET 0.5% OINT 15 GM TUBE TP SCH (09:33)
[2023-03-12] MEDS: EZETIMIBE 10 MG TABLET (FP) PO SCH (09:34)
[2023-03-12] MEDS: ASPIRIN 81 MG CHEWABLE TABLETS PO SCH (09:34)
[2023-03-12] MEDS: LIDOCAINE 5% TOPICAL PATCH TP SCH (09:34)
[2023-03-12] MEDS: METOPROLOL TARTRATE 25 MG TABLET (FP) PO SCH ×2 (09:35→21:49)
[2023-03-12] MEDS: PRENATAL VITAMINS W/ FOLIC ACID TABLET (FP) PO SCH (09:35)
[2023-03-12] MEDS: ROSUVASTATIN CA 20 MG TABLET PO SCH (09:35)
[2023-03-12] MEDS: CLOPIDOGREL BISULFATE 75 MG TABLET (FP) PO SCH (09:35)
[2023-03-12] MEDS: traZODone HCL 100 MG TABLET (FP) PO SCH (21:49)
[2023-03-12] MEDS: THIAMINE HCL 100 MG TABLET (FP) PO SCH (21:49)
[2023-03-12] MEDS: LIDOCAINE PATCH REMOVAL MC SCH (21:49)
[2023-03-13] MEDS: GABAPENTIN 300 MG CAPSULE PO SCH ×3 (06:14→21:33)
[2023-03-13] MEDS: ASPIRIN 81 MG CHEWABLE TABLETS PO SCH (09:47)
[2023-03-13] MEDS: ROSUVASTATIN CA 20 MG TABLET PO SCH (09:47)
[2023-03-13] MEDS: METOPROLOL TARTRATE 25 MG TABLET (FP) PO SCH ×2 (09:47→21:33)
[2023-03-13] MEDS: TRIAMCINOLONE ACET 0.5% OINT 15 GM TUBE TP SCH (09:47)
[2023-03-13] MEDS: PRENATAL VITAMINS W/ FOLIC ACID TABLET (FP) PO SCH (09:48)
[2023-03-13] MEDS: EZETIMIBE 10 MG TABLET (FP) PO SCH (09:48)
[2023-03-13] MEDS: CLOPIDOGREL BISULFATE 75 MG TABLET (FP) PO SCH (09:48)
[2023-03-13] MEDS: LIDOCAINE 5% TOPICAL PATCH TP SCH (09:49)
[2023-03-13] MEDS: traZODone HCL 50 MG TABLET (FP) PO SCH (21:33)
[2023-03-13] MEDS: THIAMINE HCL 100 MG TABLET (FP) PO SCH (21:34)
[2023-03-13] MEDS: LIDOCAINE PATCH REMOVAL MC SCH (21:34)
[2023-03-14] MEDS: GABAPENTIN 300 MG CAPSULE PO SCH ×3 (06:24→21:36)
[2023-03-14] MEDS: ASPIRIN 81 MG CHEWABLE TABLETS PO SCH (09:50)
[2023-03-14] MEDS: LIDOCAINE 5% TOPICAL PATCH TP SCH (09:50)
[2023-03-14] MEDS: EZETIMIBE 10 MG TABLET (FP) PO SCH (09:51)
[2023-03-14] MEDS: ROSUVASTATIN CA 20 MG TABLET PO SCH (09:51)
[2023-03-14] MEDS: CLOPIDOGREL BISULFATE 75 MG TABLET (FP) PO SCH (09:51)
[2023-03-14] MEDS: METOPROLOL TARTRATE 25 MG TABLET (FP) PO SCH ×2 (09:51→21:36)
[2023-03-14] MEDS: PRENATAL VITAMINS W/ FOLIC ACID TABLET (FP) PO SCH (09:52)
[2023-03-14] MEDS: LIDOCAINE PATCH REMOVAL MC SCH (21:36)
[2023-03-14] MEDS: THIAMINE HCL 100 MG TABLET (FP) PO SCH (21:36)
[2023-03-14] MEDS: traZODone HCL 50 MG TABLET (FP) PO SCH (21:36)
[2023-03-15] MEDS: GABAPENTIN 300 MG CAPSULE PO SCH ×3 (06:26→21:24)
[2023-03-15] MEDS: ASPIRIN 81 MG CHEWABLE TABLETS PO SCH (09:44)
[2023-03-15] MEDS: ROSUVASTATIN CA 20 MG TABLET PO SCH (09:45)
[2023-03-15] MEDS: LIDOCAINE 5% TOPICAL PATCH TP SCH (09:45)
[2023-03-15] MEDS: PRENATAL VITAMINS W/ FOLIC ACID TABLET (FP) PO SCH (09:45)
[2023-03-15] MEDS: METOPROLOL TARTRATE 25 MG TABLET (FP) PO SCH ×2 (09:45→21:24)
[2023-03-15] MEDS: CLOPIDOGREL BISULFATE 75 MG TABLET (FP) PO SCH (09:45)
[2023-03-15] MEDS: EZETIMIBE 10 MG TABLET (FP) PO SCH (09:46)
[2023-03-15] MEDS: THIAMINE HCL 100 MG TABLET (FP) PO SCH (21:23)
[2023-03-15] MEDS: traZODone HCL 50 MG TABLET (FP) PO SCH (21:24)
[2023-03-15] MEDS: LIDOCAINE PATCH REMOVAL MC SCH (21:25)
[2023-03-16] MEDS: GABAPENTIN 300 MG CAPSULE PO SCH ×3 (06:13→21:26)
[2023-03-16] MEDS: ASPIRIN 81 MG CHEWABLE TABLETS PO SCH (09:31)
[2023-03-16] MEDS: PRENATAL VITAMINS W/ FOLIC ACID TABLET (FP) PO SCH (09:32)
[2023-03-16] MEDS: ROSUVASTATIN CA 20 MG TABLET PO SCH (09:32)
[2023-03-16] MEDS: CLOPIDOGREL BISULFATE 75 MG TABLET (FP) PO SCH (09:32)
[2023-03-16] MEDS: LIDOCAINE 5% TOPICAL PATCH TP SCH (09:32)
[2023-03-16] MEDS: METOPROLOL TARTRATE 25 MG TABLET (FP) PO SCH ×2 (09:32→21:26)
[2023-03-16] MEDS: EZETIMIBE 10 MG TABLET (FP) PO SCH (09:33)
[2023-03-16] MEDS: traZODone HCL 50 MG TABLET (FP) PO SCH (21:26)
[2023-03-16] MEDS: THIAMINE HCL 100 MG TABLET (FP) PO SCH (21:27)
[2023-03-16] MEDS: LIDOCAINE PATCH REMOVAL MC SCH (21:27)
[2023-03-17] MEDS: GABAPENTIN 300 MG CAPSULE PO SCH (06:51)
[2023-03-17 06:52] VITALS: RESP 16; TEMP 98.3
[2023-03-17] MEDS: LIDOCAINE 5% TOPICAL PATCH TP SCH (09:05)
[2023-03-17] MEDS: ROSUVASTATIN CA 20 MG TABLET PO SCH (09:05)
[2023-03-17] MEDS: EZETIMIBE 10 MG TABLET (FP) PO SCH (09:05)
[2023-03-17] MEDS: ASPIRIN 81 MG CHEWABLE TABLETS PO SCH (09:06)
[2023-03-17] MEDS: CLOPIDOGREL BISULFATE 75 MG TABLET (FP) PO SCH (09:06)
[2023-03-17] MEDS: PRENATAL VITAMINS W/ FOLIC ACID TABLET (FP) PO SCH (09:06)
[2023-03-17 09:58] VITALS: BP 119/71; PULSE 102
== END 2023-03-17 09:13 | disposition home or self-care (01) | DRG 772 ==
LOC: YASAS 12:15 → Y3E 18:06
PROVIDERS: ADMIT Allergy & Immunology; ATTEND Psychiatry & Neurology Pain Medicine
PROC: HZ42ZZZ Group Counseling for Substance Abuse Treatment, Cognitive-Behavioral (ICD-10-PCS; principal; 2023-03-03)
DX: F10.20 Alcohol dependence, uncomplicated (principal); F14.20 Cocaine dependence, uncomplicated; F17.210 Nicotine dependence, cigarettes, uncomplicated; F19.282 Other psychoactive substance dependence with psychoactive substance-induced sleep disorder; F19.24 Other psychoactive substance dependence with psychoactive substance-induced mood disorder; F31.9 Bipolar disorder, unspecified; I25.10 Atherosclerotic heart disease of native coronary artery without angina pectoris; I10 Essential (primary) hypertension; I25.2 Old myocardial infarction; Z95.5 Presence of coronary angioplasty implant and graft; J44.9 Chronic obstructive pulmonary disease, unspecified; M06.9 Rheumatoid arthritis, unspecified; M41.9 Scoliosis, unspecified; L30.9 Dermatitis, unspecified; K21.9 Gastro-esophageal reflux disease without esophagitis; R20.2 Paresthesia of skin; Z86.69 Personal history of other diseases of the nervous system and sense organs; Z88.8 Allergy status to other drugs, medicaments and biological substances
CPT/HCPCS: 36415; 80053; 85027; 86780; 86803; C9803-CS; U0003; U0005

== ENCOUNTER 2024-03-20 19:36 | Inpatient (IN) | payer OTHER ==
[2024-03-20] MEDS: SODIUM CHLORIDE 1,769 ML IV ONE (20:55)
[2024-03-20] MEDS ORDERED: PIPERACILLIN/TAZOB 4.5 GM 4.5 GM/100 ML BAG IVPB ONE (21:00)
[2024-03-20] MEDS ORDERED: ACETAMINOPHEN INJECTION 100 ML IVPB ONE (21:00)
[2024-03-20 21:08] LABS: HEMATOCRIT 24.4 % (35.4-49); HEMOGLOBIN 8.3 GM/dL (11.7-16.9); MCHC 33.8 g/dl (32.0-35.9); MEAN PLT VOLUME 8.2 fl (7.5-11.1); PLATELET COUNT 490 10^3/uL (134-434); RBC 3.17 M/mm3 (4.00-5.60); RDW 16.8 % (11.9-15.9); WHITE BLOOD COUNT 25.4 K/mm3 (4.0-10.0)
[2024-03-20 21:11] LABS: EPI CELLS 11 /uL (0-25.1); HYALINE CASTS 0 /uL (0-3.1); URINE APPEARANCE CLEAR; URINE BACTERIA 27 /uL (0-1359); URINE BILIRUBIN NEGATIVE (NEGATIVE); URINE COLOR YELLOW; URINE GLUCOSE (UA) NEGATIVE (NEGATIVE); URINE KETONE NEGATIVE (NEGATIVE); URINE LEUK ESTERASE NEGATIVE (NEGATIVE); URINE NITRITE NEGATIVE (NEGATIVE); URINE PROTEIN 1+ (NEGATIVE); URINE RBC 17 /uL (0-23.9); URINE UROBILINOGEN 4.0 E.U/dl mg/dL (0.2-1.0); URINE WBC 32 /uL (0-25.8); VENOUS BASE EXCESS 4.3 mmol/L (-2-2); VENOUS O2 SATURATION 75.7 % (70-80); VENOUS PCO2 37.1 mmHg (38-52); VENOUS PH 7.493 (7.310-7.410)
[2024-03-20 21:14] LABS: INR 1.27 (0.83-1.09); PROTHROMBIN TIME (PATIENT) 14.3 SEC (9.7-13.0)
[2024-03-20 21:17] LABS: ACTIVATED PTT 31.2 SECONDS (25.2-36.5)
[2024-03-20] MEDS: ACETAMINOPHEN 1000 MG/100 ML BAG IVPB ONE (21:22)
[2024-03-20] MEDS: PIPERACILLIN/TAZOB 4.5 GM 4.5 GM in DEXTROSE 5%-WATER 100 ML IVPB ONE (21:22)
[2024-03-20 21:34] LABS: POTASSIUM 3.3 mmol/L (3.5-5.1)
[2024-03-20] MEDS ORDERED: VANCOMYCIN 1 GRAM (PRE-DOCKED) 1,000 MG/250 ML BAG IVPB ONE (21:36)
[2024-03-20 21:37] LABS: ALBUMIN 2.1 g/dl (3.4-5.0); BLOOD UREA NITROGEN 18.1 mg/dL (7-18)
[2024-03-20 21:38] LABS: URINE BENZODIAZEPINES NEGATIVE (NEGATIVE)
[2024-03-20 21:39] LABS: METHADONE, UR NEGATIVE (NEGATIVE); OPIATES, URI NEGATIVE (NEGATIVE); PHENCYCLIDINE,URINE NEGATIVE (NEGATIVE); URINE BARBITURATES NEGATIVE (NEGATIVE)
[2024-03-20 21:40] LABS: CREATININE 0.8 mg/dL (0.55-1.3); URINE AMPHETAMINES NEGATIVE (NEGATIVE)
[2024-03-20 21:41] LABS: BILIRUBIN,TOTAL 0.9 mg/dL (0.2-1)
[2024-03-20 21:42] LABS: TOT PROT 6.2 g/dl (6.4-8.2)
[2024-03-20] MEDS: VANCOMYCIN 1,000 MG in DEXTROSE 5%-WATER - 250 ML IVPB ONE (21:45)
[2024-03-20 21:53] LABS: COCAINE, UR POSITIVE (NEGATIVE)
[2024-03-20 21:55] LABS: ANISOCYTOSIS 1+; MACROCYTOSIS 0; PLATELET ESTIMATE NORMAL; TARGET CELLS 1+
[2024-03-20] MEDS ORDERED: LIDOCAINE 4% PATCH TP ONE (22:30)
[2024-03-20] MEDS: LIDOCAINE 5% TOPICAL PATCH TP ONE (22:34)
[2024-03-21] MEDS: LACTATED RINGERS SOLUTION 1000 ML INFUS.BAG IV ONE (00:51)
[2024-03-21 00:52] LABS: POTASSIUM 3.3 mmol/L (3.5-5.1)
[2024-03-21 00:54] LABS: CALCIUM 8.8 mg/dL (8.5-10.1)
[2024-03-21 00:55] LABS: BLOOD UREA NITROGEN 18.4 mg/dL (7-18)
[2024-03-21 00:59] LABS: BILIRUBIN,TOTAL 0.7 mg/dL (0.2-1)
[2024-03-21 01:03] LABS: ALBUMIN 1.6 g/dl (3.4-5.0)
[2024-03-21] MEDS ORDERED: ACETAMINOPHEN INJECTION 100 ML IVPB ONE (05:25)
[2024-03-21] MEDS: ACETAMINOPHEN 1000 MG/100 ML BAG IVPB ONE (05:30)
[2024-03-21] MEDS ORDERED: LIDOCAINE 4% PATCH TP ONE (08:28)
[2024-03-21] MEDS: LIDOCAINE 5% TOPICAL PATCH TP ONE (08:37)
[2024-03-21] MEDS ORDERED: CLOPIDOGREL BISULFATE 75 MG TABLET (FP) PO SCH (10:00)
[2024-03-21] MEDS ORDERED: SODIUM CHLORIDE 0.9%/KCL 20 MEQ/1,000 ML INFUS.BAG IV SCH (10:30)
[2024-03-21] MEDS ORDERED: PIPERACILLIN/TAZOB 4.5 GM 4.5 GM/100 ML BAG IVPB ONE (10:45)
[2024-03-21] MEDS ORDERED: METOPROLOL TARTRATE 25 MG TABLET (FP) ONE (10:45)
[2024-03-21] MEDS ORDERED: ASPIRIN 81 MG CHEWABLE TABLETS ONE (10:45)
[2024-03-21] MEDS ORDERED: POTASSIUM CHLORIDE TABS 20 MEQ TABLET.ER (FP) PO ONE (10:45)
[2024-03-21] MEDS ORDERED: ROSUVASTATIN CA 20 MG TABLET ONE (10:45)
[2024-03-21] MEDS: METOPROLOL TARTRATE 25 MG TABLET (FP) PO SCH (10:57)
[2024-03-21] MEDS: POTASSIUM CHLORIDE TABS 20 MEQ TABLET.ER (FP) PO ONE (10:57)
[2024-03-21] MEDS: ROSUVASTATIN CA 20 MG TABLET PO SCH (10:57)
[2024-03-21] MEDS: PIPERACILLIN/TAZOB 4.5 GM 4.5 GM in DEXTROSE 5%-WATER 100 ML IVPB SCH ×2 (10:57→17:49)
[2024-03-21] MEDS: ASPIRIN 81 MG CHEWABLE TABLETS PO SCH (10:57)
[2024-03-21] MEDS: LIDOCAINE PATCH REMOVAL MC SCH (10:58)
[2024-03-21] MEDS: SODIUM CHLORIDE 0.9%/KCL 20 MEQ/1,000 ML INFUS.BAG IV SCH (11:05)
[2024-03-21] MEDS: CHLORHEXIDINE GLUCONATE 0.12% 15ML CUP MM SCH (11:26)
[2024-03-21] MEDS: EZETIMIBE 10 MG TABLET (FP) PO SCH (11:26)
[2024-03-21] MEDS: GABAPENTIN 300 MG CAPSULE PO SCH (14:57)
[2024-03-21] MEDS: VANCOMYCIN/WATER FOR INJ (PEG) 1,000 MG/200 ML BAG IVPB SCH (14:57)
[2024-03-21] MEDS ORDERED: LIDOCAINE PATCH REMOVAL MC SCH (22:00)
[2024-03-21] MEDS ORDERED: traZODone HCL 150 MG TABLET PO SCH (22:00)
[2024-03-21] MEDS: traZODone HCL 50 MG TABLET (FP) PO SCH (22:40)
[2024-03-22] MEDS: ACETAMINOPHEN 1000 MG/100 ML BAG IVPB PRN (01:10)
[2024-03-22] MEDS ORDERED: PIPERACILLIN/TAZOBACTAM 4.5 GM VIAL IVPB ONE (09:04)
[2024-03-22] MEDS: SODIUM CHLORIDE 1,000 ML IV STA (09:18)
[2024-03-22] MEDS: POLYETHYLENE GLYCOL (HEALTHYLAX) 3350 17 GM PACKET PO SCH (09:56)
[2024-03-22] MEDS: LIDOCAINE 4% PATCH TP SCH (09:56)
[2024-03-22 12:10] LABS: HEMATOCRIT 21.7 % (35.4-49); HEMOGLOBIN 7.1 GM/dL (11.7-16.9); MCHC 32.7 g/dl (32.0-35.9); MEAN CELL VOLUME 79.6 fl (80-96); MEAN PLT VOLUME 8.4 fl (7.5-11.1); PLATELET COUNT 464 10^3/uL (134-434); RBC 2.73 M/mm3 (4.00-5.60); RDW 16.8 % (11.9-15.9); WHITE BLOOD COUNT 28.7 K/mm3 (4.0-10.0)
[2024-03-22 12:29] LABS: POTASSIUM 3.6 mmol/L (3.5-5.1)
[2024-03-22 12:33] LABS: ALBUMIN 1.5 g/dl (3.4-5.0); BLOOD UREA NITROGEN 16.1 mg/dL (7-18)
[2024-03-22 12:36] LABS: CREATININE 0.9 mg/dL (0.55-1.3)
[2024-03-22 12:38] LABS: BILIRUBIN,TOTAL 0.3 mg/dL (0.2-1); TOT PROT 5.1 g/dl (6.4-8.2)
[2024-03-22 12:49] LABS: ANISOCYTOSIS 0; MACROCYTOSIS 0; TARGET CELLS 1+
[2024-03-22] MEDS: LACTATED RINGERS SOLUTION 1,000 ML/1,000 ML INFUS.BAG IV SCH (16:15)
[2024-03-22] MEDS: HEPARIN NA (PORCINE) 5,000 UNITS/ML 1ML VIAL SQ SCH (21:08)
[2024-03-22] MEDS: ROSUVASTATIN CA 20 MG TABLET PO SCH (21:08)
[2024-03-22] MEDS: LIDOCAINE PATCH REMOVAL MC SCH (22:08)
[2024-03-23 08:42] LABS: HEMATOCRIT 23.2 % (35.4-49); HEMOGLOBIN 7.6 GM/dL (11.7-16.9); MCH 25.8 pg (25.7-33.7); MEAN CELL VOLUME 78.4 fl (80-96); MEAN PLT VOLUME 7.8 fl (7.5-11.1); PLATELET COUNT 513 10^3/uL (134-434); RBC 2.96 M/mm3 (4.00-5.60); RDW 16.7 % (11.9-15.9); RETICULOCYTES 0.98 % (0.5-1.5); WHITE BLOOD COUNT 23.1 K/mm3 (4.0-10.0)
[2024-03-23 08:54] LABS: POTASSIUM 3.7 mmol/L (3.5-5.1)
[2024-03-23 08:59] LABS: CALCIUM 9.8 mg/dL (8.5-10.1)
[2024-03-23 09:00] LABS: ALBUMIN 1.5 g/dl (3.4-5.0); BLOOD UREA NITROGEN 11.8 mg/dL (7-18)
[2024-03-23 09:03] LABS: CREATININE 0.8 mg/dL (0.55-1.3)
[2024-03-23 09:04] LABS: BILIRUBIN,TOTAL 0.6 mg/dL (0.2-1); TOT PROT 5.7 g/dl (6.4-8.2)
[2024-03-23] MEDS: THIAMINE 100 MG TABLET PO SCH (09:14)
[2024-03-23] MEDS: ASPIRIN COATED 81 MG TABLET.EC PO SCH (09:14)
[2024-03-23] MEDS: FOLIC ACID 1 MG TABLET (FP) PO SCH (09:14)
[2024-03-23 09:33] LABS: ANISOCYTOSIS 0; MACROCYTOSIS 0
[2024-03-23 09:34] LABS: TARGET CELLS 1+
[2024-03-23] MEDS: DOCUSATE SODIUM 100 MG CAPSULE (FP) PO ONE (09:56)
[2024-03-23] MEDS: SODIUM CHLORIDE 500 ML IV STA (13:00)
[2024-03-24 08:43] LABS: HEMATOCRIT 24.2 % (35.4-49); HEMOGLOBIN 8.2 GM/dL (11.7-16.9); MCH 26.3 pg (25.7-33.7); MCHC 33.7 g/dl (32.0-35.9); MEAN CELL VOLUME 78.1 fl (80-96); MEAN PLT VOLUME 8.2 fl (7.5-11.1); PLATELET COUNT 541 10^3/uL (134-434); WHITE BLOOD COUNT 20.7 K/mm3 (4.0-10.0)
[2024-03-24 08:55] LABS: POTASSIUM 3.9 mmol/L (3.5-5.1)
[2024-03-24 09:16] LABS: ALBUMIN 1.6 g/dl (3.4-5.0); CALCIUM 10.6 mg/dL (8.5-10.1)
[2024-03-24 09:17] LABS: BLOOD UREA NITROGEN 11.1 mg/dL (7-18); MAGNESIUM 1.8 mg/dL (1.8-2.4)
[2024-03-24 09:19] LABS: CREATININE 0.9 mg/dL (0.55-1.3)
[2024-03-24 09:20] LABS: TOT PROT 5.8 g/dl (6.4-8.2)
[2024-03-24 09:21] LABS: BILIRUBIN,TOTAL 0.3 mg/dL (0.2-1)
[2024-03-24] MEDS: BISACODYL 5 MG TABLET.DR (FP) PO PRN (09:24)
[2024-03-24] MEDS: POLYETHYLENE GLYCOL (HEALTHYLAX) 3350 17 GM PACKET PO SCH (09:24)
[2024-03-24] MEDS: DOCUSATE SODIUM 100 MG CAPSULE (FP) PO SCH (09:25)
[2024-03-24] MEDS: NAPH,MB-DB/K PH,MBDB POWDER PACKET PO ONE (09:41)
[2024-03-25 07:45] LABS: HEMATOCRIT 23.3 % (35.4-49); HEMOGLOBIN 7.7 GM/dL (11.7-16.9); MCH 25.8 pg (25.7-33.7); MCHC 33.2 g/dl (32.0-35.9); MEAN CELL VOLUME 77.8 fl (80-96); MEAN PLT VOLUME 8.3 fl (7.5-11.1); PLATELET COUNT 580 10^3/uL (134-434); RBC 2.99 M/mm3 (4.00-5.60); WHITE BLOOD COUNT 18.4 K/mm3 (4.0-10.0)
[2024-03-25 08:13] LABS: POTASSIUM 4.4 mmol/L (3.5-5.1)
[2024-03-25 08:19] LABS: BLOOD UREA NITROGEN 15.3 mg/dL (7-18); CALCIUM 10.2 mg/dL (8.5-10.1)
[2024-03-25 08:20] LABS: ALBUMIN 1.6 g/dl (3.4-5.0)
[2024-03-25 08:23] LABS: CREATININE 0.9 mg/dL (0.55-1.3); PHOSPHOROUS 2.8 mg/dL (2.5-4.9)
[2024-03-25 08:25] LABS: BILIRUBIN,TOTAL 0.3 mg/dL (0.2-1)
[2024-03-25] MEDS ORDERED: MAGNESIUM HYDROX 2400MG/30ML ORAL SUSPENSION 30 ML CUP PO PRN (16:07)
[2024-03-25] MEDS: MAGNESIUM CITRATE 300 ML BOTTLE PO PRN (17:30)
[2024-03-25] MEDS: IBUPROFEN 400 MG TABLET (FP) PO PRN (17:41)
[2024-03-25] MEDS: SENNOSIDES 8.8 MG/5 ML SYRUP PO SCH (21:18)
[2024-03-26 07:51] LABS: HEMATOCRIT 24.5 % (35.4-49); MCH 25.7 pg (25.7-33.7); MCHC 32.5 g/dl (32.0-35.9); PLATELET COUNT 622 10^3/uL (134-434); RDW 16.7 % (11.9-15.9); WHITE BLOOD COUNT 17.3 K/mm3 (4.0-10.0)
[2024-03-26 08:21] LABS: POTASSIUM 4.9 mmol/L (3.5-5.1)
[2024-03-26 08:25] LABS: ALBUMIN 1.6 g/dl (3.4-5.0); BLOOD UREA NITROGEN 18.4 mg/dL (7-18); CALCIUM 10.7 mg/dL (8.5-10.1)
[2024-03-26 08:26] LABS: CREATININE 0.8 mg/dL (0.55-1.3)
[2024-03-26 08:27] LABS: BILIRUBIN,TOTAL 0.2 mg/dL (0.2-1); TOT PROT 6.4 g/dl (6.4-8.2)
[2024-03-26 15:45] VITALS: RESP 18
[2024-03-26] MEDS: BISACODYL 10 MG SUPP.RECT PR PRN (17:59)
[2024-03-26 22:58] LABS: EPI CELLS 9 /uL (0-25.1); HYALINE CASTS 0 /uL (0-3.1); URINE APPEARANCE CLEAR; URINE BACTERIA 0 /uL (0-1359); URINE BILIRUBIN NEGATIVE (NEGATIVE); URINE COLOR YELLOW; URINE GLUCOSE (UA) NEGATIVE (NEGATIVE); URINE KETONE NEGATIVE (NEGATIVE); URINE LEUK ESTERASE NEGATIVE (NEGATIVE); URINE NITRITE NEGATIVE (NEGATIVE); URINE PROTEIN 1+ (NEGATIVE); URINE RBC 11 /uL (0-23.9); URINE UROBILINOGEN 0.2 mg/dL (0.2-1.0); URINE WBC 7 /uL (0-25.8)
[2024-03-27 08:17] LABS: HEMATOCRIT 21.7 % (35.4-49); HEMOGLOBIN 7.3 GM/dL (11.7-16.9); MCH 26.4 pg (25.7-33.7); MCHC 33.6 g/dl (32.0-35.9); MEAN CELL VOLUME 78.5 fl (80-96); MEAN PLT VOLUME 8.1 fl (7.5-11.1); PLATELET COUNT 594 10^3/uL (134-434); RBC 2.76 M/mm3 (4.00-5.60); RDW 17.1 % (11.9-15.9); WHITE BLOOD COUNT 14.4 K/mm3 (4.0-10.0)
[2024-03-27 08:35] LABS: POTASSIUM 4.6 mmol/L (3.5-5.1)
[2024-03-27 08:36] LABS: BLOOD UREA NITROGEN 23.3 mg/dL (7-18); CALCIUM 10.1 mg/dL (8.5-10.1)
[2024-03-27 08:38] LABS: ALBUMIN 1.6 g/dl (3.4-5.0)
[2024-03-27 08:41] LABS: CREATININE 0.9 mg/dL (0.55-1.3)
[2024-03-27 08:42] LABS: BILIRUBIN,TOTAL 0.2 mg/dL (0.2-1)
[2024-03-27 11:55] VITALS: BP 110/62; PULSE 96; TEMP 98.7
[2024-03-27 23:35] VITALS: BMI 20.9
== END 2024-03-27 13:37 | disposition home or self-care (01) | DRG 720 ==
LOC: JER 19:36 → JERBED 03-21 05:08 → J6S 03-21 12:11
PROVIDERS: ADMIT Internal Medicine; ATTEND Internal Medicine
DX: A41.89 Other specified sepsis (principal); K04.7 Periapical abscess without sinus; I25.10 Atherosclerotic heart disease of native coronary artery without angina pectoris; F32.A Depression, unspecified; J44.9 Chronic obstructive pulmonary disease, unspecified; K21.9 Gastro-esophageal reflux disease without esophagitis; F14.20 Cocaine dependence, uncomplicated; D75.839 Thrombocytosis, unspecified; E78.5 Hyperlipidemia, unspecified; F10.239 Alcohol dependence with withdrawal, unspecified; E43 Unspecified severe protein-calorie malnutrition; Z68.21 Body mass index [BMI] 21.0-21.9, adult; M27.69 Other endosseous dental implant failure; M41.80 Other forms of scoliosis, site unspecified; F19.982 Other psychoactive substance use, unspecified with psychoactive substance-induced sleep disorder; F19.94 Other psychoactive substance use, unspecified with psychoactive substance-induced mood disorder; B35.1 Tinea unguium; D64.9 Anemia, unspecified; K59.00 Constipation, unspecified; Z96.643 Presence of artificial hip joint, bilateral; R00.0 Tachycardia, unspecified; Z95.5 Presence of coronary angioplasty implant and graft
CPT/HCPCS: 0241U-QW; 36415; 70450-TC; 70487-TC; 71045-TC-FY; 72125-TC; 73502-TC-LT-FY; 74176-TC; 80048; 80053; 80307; 81003; 82272; 82550; 82728; 82803; 82962; 83540; 83550; 83605; 83735; 84100; 84484; 85025; 85027; 85045; 85610; 85730; 86850; 86900; 86901; 87040; 87086; 87186; 93005; 93010; 93306-TC; 97116-GP; 97162-GP; 99285-25; J0131; J1644; Q9967